=== PATIENT | male | born 1940 | race Asian ===

== ENCOUNTER 2018-05-07 10:18 | Inpatient (IN) | payer OTHER ==
[2018-05-07 13:36] VITALS: BMI 20.2
[2018-05-07] MEDS ORDERED: DIPHENHYDRAMINE 25 MG TAB/CAP PO PRN (14:00)
[2018-05-07] MEDS ORDERED: POLYETHYL GLY 3350 17 GM/DOSE PO PRN (14:00)
[2018-05-07] MEDS ORDERED: ONDANSETRON 4 MG/2 ML VIAL IV PRN (14:00)
[2018-05-07] MEDS ORDERED: LOPERAMIDE HCL 2 MG CAPSULE PO PRN (14:00)
[2018-05-07] MEDS ORDERED: ACETAMINOPHEN 325 MG TABLET PO PRN (14:00)
[2018-05-07] MEDS ORDERED: ONDANSETRON 4 MG (ODT) TAB PO PRN (14:00)
--- NOTE | 2018-05-07 14:24 | RAD REPORT ---
EXAM DESCRIPTION: RAD - Chest Pa And Lat (2 Views) - 05/07/2018 2:18 pm CLINICAL HISTORY: ARF Chest pain. COMPARISON: No comparisons FINDINGS: The lungs are clear. The heart is normal in size. No displaced fractures. IMPRESSION: No acute or concerning finding suspected.
[2018-05-07 15:02] LABS: Absolute Lymphocytes (CBC) 0.9 K/uL (0.7-4.9); Absolute Monocytes 0.3 K/uL (0.1-1.3); Absolute Neutrophil 2.2 K/uL (1.8-8.0); Basophils % 1.5 % (0-1.3); Eosinophils % 2.1 % (0-4.4); Hematocrit 26.4 % (39.6-49.0); Lymphocytes % 25.5 % (15.3-44.8); MCH 34.7 pg (27.0-35.0); MCV 102.9 fL (80-100); MPV 8.4 fL (7.6-11.3); Monocytes % 8.4 % (3.3-12.3); RBC Red Blood Cell Count 2.57 M/uL (4.33-5.43)
[2018-05-07 15:12] LABS: Protime INR 0.91
--- NOTE | 2018-05-07 15:20 | RAD REPORT ---
EXAM DESCRIPTION: US - Abdomen Pelvis Scan US - 05/07/2018 2:57 pm CLINICAL HISTORY: ARF COMPARISON: No comparisons FINDINGS: The left kidney measures 9.6 x 5.2 x 4.0 cm. The kidney is echogenic. Mild left-sided hydr onephrosis is seen. A stone is present in the midpole left renal calyx. Several left renal cortical c ysts are noted. The right kidney measures 9.1 x 4.7 x 4.0 cm. The kidney is echogenic. Multiple cysts are present. Urinary bladder appears quite distended. The prostate gland is enlarged. Aortic velocity: 84 cm/second Right proximal renal artery: 44 cm/second Right mid renal artery: 53 cm/second Right distal renal artery: 34 cm/second Right renal arcuate artery resistive index: 1.0 Right renal artery / aorta ratio: 0.6 Left proximal renal artery: 80 cm/second Left mid renal artery: 91 cm/second Left distal renal artery: 42 cm/second Left renal arcuate artery resistive index: 0.6 Left renal artery/aorta ratio: 1.1 Normal waveforms demonstrated within the bilateral renal arteries. IMPRESSION: No evidence of hemodynamically significant stenosis within the bilateral renal arteries. Echogenic kidneys bilaterally. Left-sided mild hydronephrosis with left nephrolithiasis seen. Multiple renal cysts are present bilaterally. Distended urinary bladder with prostatomegaly.
[2018-05-07 15:55] LABS: Albumin 3.4 g/dL (3.4-5.0); Bilirubin Direct 0.1 mg/dL (0-0.2); Bilirubin Total 0.5 mg/dL (0.2-1.0); Magnesium 2.9 mg/dL (1.8-2.4); Potassium 4.9 mmol/L (3.5-5.1); Protein, Total 6.9 g/dL (6.4-8.2); Thyroid Stimulating Hormone 0.58 uIU/mL (0.36-3.74)
[2018-05-07] MEDS: NA CHLORIDE 0.9% 1,000 ML IV SCH (16:58)
[2018-05-08] MEDS: NA CHLORIDE 0.9% 1,000 ML IV SCH ×3 (00:23→20:44)
--- NOTE | 2018-05-08 01:56 | CON ---
Date of Consultation: 05/07/2018 NEPHROLOGY CONSULTATION Reason For Consultation: Elevated BUN and creatinine, fluid management. History Of Present Illness: This is a pleasant 77-year-old gentleman with significant past medical h istory of only hypertension, no diabetes, no osteoarthritis, no coronary artery disease. The patient was in his regular state of health visit with his primary care, Dr. Stone. The primary workup showe d elevation in BUN and creatinine, creatinine above 4. For that reason, the patient was referred to Dr. Doyle. Dr. Doyle saw the patient yesterday in the office and directed him for inpatient evaluation because of acute kidney injury, GFR around 13. The patient denied taking nonsteroidal, no IV contra st, no recent change in his medication. According to him, he visited with his primary and done the l abs, and for that reason he was referred. The patient denied any exposure to any antibiotics, no rec ent hospitalization. The patient has polyuria without any significant nocturia, no foamy urine. Past Medical History: Include hypertension. Allergies: TO CEPHALOSPORIN. Family History: Positive for hypertension. Medications: Home medication includes amlodipine. Current medications include loperamide, amlodipine, Tylenol, and Zofran. Review of Systems: Head and Neck: No red eye. No ear pain. GI: No nausea, no vomiting. : No polyuria. No dysuria. No hematuria. No nocturia. 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 Respiratory: No shortness of breath. Cardiovascular: No chest pain. Endocrine: No polydipsia. Skin: No rash. Neuro: No weakness. No tremor. Musculoskeletal: No joint pain. Physical Examination: General: When I saw the patient, the patient is sitting in chair. Vital Signs: Blood pressure 141/61, pulse of 63, afebrile. Chest: Clear to auscultation. Heart: S1, S2. Regular. Abdomen: Soft, nontender. Extremities: No edema. Neurologic: Alert. Oriented x3. Nonfocal. Vascular: Could not appreciate any carotid bruit, could not appreciate any renal bruit even though t hat the patient not severely obese. Laboratory Data: Sodium 137, potassium 4.9, bicarb 21, BUN 64, creatinine 3.5, GFR of 17, calcium 11 .5, phosphorus 4, magnesium 2.9. PSA 7. B12 of 616. Vitamin D still pending. TSH 0.5. Urinalysis is still pending. INR within normal limit at 0.9. WBC 3.5, H and H 8.9/26.4, platelets 177. Abdominal Ultrasound: A 9.6 left mild hydronephrosis. Stone present in the midpole of the renal az culi, right kidney, 9.1. Assessment And Plan: Acute kidney injury, possible secondary to obstructive uropathy, superimposed w ith prerenal secondary to calcium diuresis. 1.I am going to start the patient on aggressive hydration and after the aggressive hydration, we pravin l diurese the patient. 2.We will send for full workup given the presence of hypercalcemia and the anemia, malignancy need t o be ruled out. I am going to send for uric acid and LDH. We will scan the abdomen and the chest, a nd we will follow up. Given the presence of the elevation in the PSA, prostate cancer is one of the possibility, we will see with the CT. 3.Kidney stone with obstructive uropathy and acute kidney injury. We will send for CT with a stone protocol to rule out further complication. The patient will need Urology eval. 4.Hypercalcemia, possible secondary to paraneoplastic. We will send for PTH. I agree with the obed min D eval. We will start hydration. We will consider Lasix after the hydration. 5.Anemia with acute kidney injury, possible secondary to chronic kidney disease/light chain disease need to be ruled out, we will send for full workup. 6.Hypertension. I agree with current medication. We will increase Norvasc. We will hold on adding any MICHAEL inhibitor or ARB. 7.Acidosis, non-anion gap. Stable. I do not see any need for bicarb supplement. Thank you Dr. Stone for allowing us to participate in the care of your patient. BEE/ANDREINA Voice ID: [id number] Report ID: [id number]
[2018-05-08 04:48] LABS: Absolute Lymphocytes (CBC) 0.9 K/uL (0.7-4.9); Absolute Monocytes 0.6 K/uL (0.1-1.3); Absolute Neutrophil 5.3 K/uL (1.8-8.0); Eosinophils % 1.9 % (0-4.4); Hematocrit 25.1 % (39.6-49.0); Lymphocytes % 13.1 % (15.3-44.8); MCH 35.3 pg (27.0-35.0); MCV 101.6 fL (80-100); MPV 8.4 fL (7.6-11.3); Monocytes % 7.9 % (3.3-12.3); RBC Red Blood Cell Count 2.47 M/uL (4.33-5.43)
[2018-05-08 05:42] LABS: Albumin 3.1 g/dL (3.4-5.0); Ferritin 86.3 ng/mL (26-388); Folic Acid, (Folate) 19.8 ng/mL (3.1-17.5); Magnesium 2.4 mg/dL (1.8-2.4); Phosphorus 3.4 mg/dL (2.5-4.9); Potassium 5.3 mmol/L (3.5-5.1)
[2018-05-08 07:27] LABS: Urine Appearance CLEAR; Urine Bilirubin NEGATIVE (NEG); Urine Blood 3+ (NEG); Urine Color YELLOW; Urine Glucose NEGATIVE (NEG); Urine Protein TRACE (NEG); Urine Urobilinogen 0.2 mg/dL (0.2-1.0)
[2018-05-08 07:31] LABS: Urine Microscopic Reflex ORDER UMIC
[2018-05-08 07:48] LABS: Rheumatoid Factor NEG (NEG)
[2018-05-08 07:55] LABS: Urine Bacteria 20-50 /HPF (NONE SEEN); Urine RBC LOADED /HPF (NONE SEEN)
[2018-05-08 07:56] LABS: Urine Culture Reflex Order REFLEXED
[2018-05-08] MEDS ORDERED: AMLODIPINE 5 MG TAB PO SCH (09:00)
--- NOTE | 2018-05-08 10:02 | RAD REPORT ---
EXAM DESCRIPTION: CT - Abdomen Pelvis Wo Contrast - 05/08/2018 9:44 am CLINICAL HISTORY: Obstructive nephropathy<Reason For Exam>Obstructive nephropathy COMPARISON: Abdomen Pelvis Scan US dated 05/07/2018<Comparisons> TECHNIQUE: Axial [address] imaging of the abdomen and pelvis was performed without IV contrast. No IV contrast was given because of allergy, abnormal renal function, patient refusal or physician re quest. Oral contrast was given. All CT scans are performed using dose optimization technique as appropriate and may include automated exposure control or mA/KV adjustment according to patient size. FINDINGS: No suspicious findings in the lung bases. Superior right lobe liver shows a few small rounded low-density areas largest at 19 mm. A few granulo ma calcifications are present in the liver. Liver lesions are not fully characterized on noncontrast imaging. Incidental cyst most likely etiology. No spleen or pancreatic parenchymal abnormality. Gallb ladder and biliary tree are also without suspicious finding. Gallstones can be occult on CT imaging. No hydronephrosis of either kidney. Very slight fullness of the left renal pelvis is not outside of n ormal range and is not continue as ureter dilatation. Numerous bilateral caliceal calculi are present up to 5 mm in size. In the anterior upper pole right kidney there is a 2.1 centimeter round low-dens ity mass. In the lateral mid right kidney there is a 2.5 centimeter round low-density mass. Lower alayna e left kidney shows 3.1 centimeter round low-density mass. Posterior mid left kidney shows a 2.5 cent imeter low-density mass. These are most likely cysts but are not fully characterized in the absence o f contrast. No significant adrenal finding. Isodense renal masses and pyelonephritis cannot be exclu ded in the absence of IV contrast. Prostate gland is quite large projecting into the bladder base. The bladder is contracted around a Fo yuval catheter. No bladder calculus seen. There are prostate calcifications present. León the bladder cannot be accurately assessed in the contracted state. No dilatation of the stomach. A focal mass is not seen. Gastric wall thickness is difficult to assess as there is no gastric content present. Small bowel loops are not dilated. Oral contrast is distribu antwon throughout the distal small bowel and colon. No colon dilatation. A focal mass is not seen. There are numerous areas of prominent mucosal thickening or nodularity in the colon most likely due to inc omplete distension. CT assessment is limited. No free air, free fluid or pneumatosis. There is a mild congested or edematous appearance to the per itoneal and subcutaneous fat. No hernia or bulky lymphadenopathy. In the subcutaneous fatty tissues left-side gluteal crease there is a 3.5 centimeter soft tissue mass . This is not further characterized. Attenuation is greater than typically seen with abscess. Correla tion is needed with physical exam finding. Disc and bony degenerative changes are present. No pathologic bone process seen. IMPRESSION: No hydronephrosis or obstructing calculus. Slight fullness of the left renal pelvis is n ot outside of normal range. Bilateral 5 mm or less caliceal calcifications are present. Bilateral low-density masses of the kidneys not fully characterized. Benign cysts would be the most l ikely etiology. Prominent enlargement of the prostate gland projecting into the bladder base. Bladder is contracted a round a Bahena catheter and is limited in assessment. Approximately 3.5 cm soft tissue mass in the subcutaneous tissues left-side of the gluteal crease. Et iology is uncertain. No inflammatory stranding in the adjacent fat. Additional nonacute findings detailed in the body of the report. Assessment is limited in the absence of IV contrast. Full assessment is limited is the absence of IV contrast.
--- NOTE | 2018-05-08 16:20 | EKG ---
Test Date: 2018-05-07 Test Time: 15:11:25 Tmr Teacher: MIGUELINA MEASUREMENT RESULTS: Intervals: Rate: 73 NE: 288 QRSD: 144 QT: 412 QTc: 453 [place]den: P: 61 NE: 288 QRS: 59 T: 61 INTERPRETIVE STATEMENTS: Sinus rhythm with 1st degree AV block Right bundle branch block Anteroseptal infarct, age undetermined Abnormal ECG No previous ECG available for comparison Electronically Signed On 05-08-18 16:14:56 CDT by Kamran Díaz
--- NOTE | 2018-05-08 18:04 | P.PN ---
Subjective Date of Service: 05/08/18 Chief Complaint: CRUZ, SINCE LAST NIGHT. RENAL FAILURE. Subjective: Improving (HE HAD LARGE AMT OF RETAINED URINE. I HAD THEM PLACE CRUZ AND HE IS ALREADY BETTER.) Review of Systems 10-point ROS is otherwise unremarkable Physical Examination - Vital Signs Temperature: 98.2 F Blood Pressure: 114/56 Pulse: 61 Respirations: 18 Pulse Ox (%): 100 - Physical Exam General: Alert, Cachectic, Mild distress HEENT: Atraumatic, PERRLA, EOMI Neck: Supple, JVD not distended Respiratory: Clear to auscultation bilaterally, Normal air movement Cardiovascular: Regular rate/rhythm, Normal S1 S2 Gastrointestinal: Normal bowel sounds, No tenderness Musculoskeletal: No tenderness Integumentary: No rashes Neurological: Normal speech, Normal tone, Normal affect Lymphatics: No axilla or inguinal lymphadenopathy - Studies Laboratory Data (last 24 hrs) 05/08/18 04:26: Sodium 141, Potassium 5.3 H, BUN 56 H, Creatinine 3.30 H, Glucose 85, Phosphorus 3.4, Magnesium 2.4 D 05/08/18 04:26: WBC 7.0 D, Hgb 8.7 L, Hct 25.1 L, Plt Count 201 Microbiology Data (last 24 hrs): 05/07/18 14:06 Blood - Blood Anaerobic Blood Culture - Final Medications List Reviewed: Yes Assessment And Plan - Current Problems (Diagnosis) (1) Obstructed, uropathy Current Visit: Yes Status: Chronic Plan: BPH MOST LIKELY DR HOOVER CONSULTED SHOULD HAVE CREAT IMPROVED WITH OBST RELIEVED. (2) Anemia Current Visit: Yes Status: Chronic Qualifiers: Anemia type: due to chronic kidney disease (3) Acute renal failure Current Visit: Yes Status: Acute Plan: ABOVE.
[2018-05-08] MEDS: TAMSULOSIN 0.4 MG SR CAP PO SCH (20:43)
[2018-05-08] MEDS ORDERED: CALCITROL 0.25 MCG CAP PO SCH (22:00)
--- NOTE | 2018-05-08 23:46 | CON ---
History Of Present Illness: A 77-year-old gentleman with a past medical history only of hypertension , no diabetes, no osteoarthritis, no coronary artery disease, who was in regular state of health, ashley t to his primary care and was found to have elevated BUN and creatinine, that was almost stage IV yani al failure. He was sent to be admitted with a GFR around 13. Denies any medications such as nonster oidal or IV contrast recently. He does mention that he has been having some difficulty with lower ur inary tract symptomatologies such as frequency, 2 hours; nocturia, 2 hours; decrease in force of stre am; some bubbles in the urine; and some hesitancy. Denies any hematuria. He had kidney stones 25 ye ars ago. Ultrasound was done, that showed questionable hydro but CT scan did not show any hydronephr osis. He said when they put a Bahena catheter in, about 200 to 300 came out but he is not sure. He h as made lots of urine overnight, part of it may be due to hydration but he was negative 1 L, but ment ioned that he has made 2 L over 12 hours. It is possible that the he may have obstructive uropathy a nd need to be on tamsulosin. His PSA was also elevated at 7.1. Calcium and PTH are elevated also. His CT scan did show tiny calyceal stones on the left; 2 cysts on the left, one in the middle of left kidney of 2.5, left lower kidney 3.1; there is a 2.1 cm right upper pole, 2.5 cm right mid pole; leroy t will need further evaluation with contrast but now is not a good time due to his renal failure. He needs to be worked up for obstructive uropathy, most likely at the level of the prostate right now. His prostate was very enlarged on examination, possibly 40 to 50 g, which is very enlarged for a man his size. Past Medical History: Hypertension. Allergies: TO CEPHALOSPORINS. Family History: Positive for hypertension. Medications: Home medication plus amlodipine. Current medications include loperamide, amlodipine, T ylenol, and Zofran. Review of Systems: A 10-point review of systems essentially negative. HEENT: Negative. GI: No nausea, no vomiting. : As mentioned above. Respiratory: No shortness of breath. Cardiovascular: No chest pain. Endocrine: No polydipsia. Skin: No rash. Neuro: Negative. Musculoskeletal: No joint pain. Physical Examination: General: Gentleman lying in bed in no acute distress. Slightly underweight. Vital Signs: 98.2 temperature, 61 pulse, 18 respiratory rate, BP 114/56, sats 100%. HEENT: Atraumatic, normocephalic. Chest: Clear. Heart: S1, S2. Abdomen: Soft, nontender. : Slightly dried blood on the penis from the traumatic Bahena catheter insertion. Testicles normal . Rectal: Enlarged 40 to 50 g prostate, benign feeling, no nodules, no signs of any induration. Extremities: Normal range of motion. Laboratory Data: Show creatinine 3.5, down to 3.3 today. His sodium now is 141, potassium 5.3, chlo ride 111, carbon dioxide 21, BUN 56. GFR 18, same as yesterday which is 17. Glucose 85, calcium 10. 8, phosphorus 3.4, magnesium 2.4. Vitamin B12 is 646. PSA, as I mentioned, was 7.1 on 05/07/2018. Assessment And Plan: Possible obstructive uropathy, suspicious at the level of the bladder. He has some kidney cysts, needs further workup with contrast study at a later date when he is well and kidne y function is back to normal. Elevated potassium, calcium, and PTH along with PSA. Recommend for th e patient tamsulosin, Bahena catheter drainage, recheck PSA at a later date with possible 4K PSA. May need cystoscopy and uroflow to further evaluate his lower tract and also his upper tract will need to be e valuated further with imaging. RENA/ANDREINA Voice ID: [id number] Report ID: [id number]
--- NOTE | 2018-05-09 02:35 | PN ---
Date of Progress Note: 05/08/2018 Subjective: The patient was admitted with acute kidney injury. Workup showed obstructive uropathy. Kidney function is slightly improved. The patient feeling better. Physical Examination: Vital Signs: When I saw the patient, blood pressure 114/56, pulse of 61, afebrile. The patient had good urine output of 2800. Chest: Clear to auscultation. Heart: S1, S2. Regular. Abdomen: Soft, nontender. Extremities: No edema. Laboratory Data: WBC 7, H and H 8.7/25.1, platelets of 201. Sodium 141, potassium 5.3, bicarb 21, c hloride 111, BUN 56, creatinine down to 3.3, GFR of 18. TSAT of 38. SPEP is still pending. Folate 19, PTH of 337. TSH 0.5. B12 646. Vitamin D still pending. Rbc's loaded on the UA, wbc's of 10. Serology is still pending. UPEP is still pending. CT abdomen and pelvis showing no hydronephrosis o r obstructing calculi, slightly fullness of the left renal pelvis, bilateral low-density masses of le ft kidney not fully characterize benign cyst. Prominent enlargement of prostate. Medications: Current medications the patient on its include: 1.Tylenol. 2.Loperamide. 3.Zofran. 4.IV fluid. Assessment And Plan: 1.Acute kidney injury, possible obstructive uropathy. We will follow up. We will consult Urology t o evaluate, obstructive kidney stone has been ruled out by the CT. We will follow up with Urology. We will consider Flomax as per their recommendation. 2.Hypertension, controlled, optimal keep holding any MICHAEL inhibitor. 3.Chronic kidney disease. We will request the record from Dr. Stone. 4.Anemia in the presence of the proteinuria and hematuria with the presence of the anemia and acute kidney injury. Light chain disease needs to be ruled out, so we will follow up SPEP. 5.Secondary hyperparathyroidism. I am going to start the patient on calcitriol. 6.Obstructive uropathy as above. We will follow up with Urology. 7.Hematuria, possibly secondary to traumatic. We will request the record from the office to see bef ore Bahena insertion if there is any hematuria. We will follow up with the serology to rule out any n ephritis. BEE/ANDREINA Voice ID: [id number] Report ID: [id number]
[2018-05-09 05:15] LABS: Absolute Lymphocytes (CBC) 0.9 K/uL (0.7-4.9); Absolute Monocytes 0.5 K/uL (0.1-1.3); Absolute Neutrophil 3.3 K/uL (1.8-8.0); Eosinophils % 2.3 % (0-4.4); Hematocrit 23.8 % (39.6-49.0); Lymphocytes % 18.4 % (15.3-44.8); MCH 35.7 pg (27.0-35.0); MCV 101.1 fL (80-100); MPV 8.2 fL (7.6-11.3); Monocytes % 9.7 % (3.3-12.3); RBC Red Blood Cell Count 2.35 M/uL (4.33-5.43)
[2018-05-09 05:42] LABS: Albumin 2.7 g/dL (3.4-5.0); Magnesium 2.2 mg/dL (1.8-2.4); Potassium 5.3 mmol/L (3.5-5.1)
[2018-05-09 06:10] LABS: Urine Appearance CLEAR; Urine Bilirubin NEGATIVE (NEG); Urine Blood 3+ (NEG); Urine Color YELLOW; Urine Glucose NEGATIVE (NEG); Urine Protein NEGATIVE (NEG); Urine Urobilinogen 0.2 mg/dL (0.2-1.0)
[2018-05-09 06:11] LABS: Urine Microscopic Reflex ORDER UMIC
[2018-05-09 06:13] LABS: Urine Total Volume 24 Hours 2275 ml
[2018-05-09] MEDS: NA CHLORIDE 0.9% 1,000 ML IV SCH ×3 (06:15→23:47)
[2018-05-09 06:16] LABS: Urine Protein/Creatinine Ratio 0.54 ratio (<0.15)
[2018-05-09 06:21] LABS: UR PROTEIN 30 mg/dL (<11.9)
[2018-05-09 06:49] LABS: Urine Bacteria <20 /HPF (NONE SEEN); Urine Culture Reflex Order NOT NEEDED; Urine RBC 20-50 /HPF (NONE SEEN)
[2018-05-09] MEDS: AMLODIPINE 5 MG TABLET PO SCH (08:47)
--- NOTE | 2018-05-09 19:09 | PN ---
Subjective: The patient is feeling well today. Objective: Vital Signs: 98.0, 69, 18, 138/54, 98% saturations. Laboratory Data: White count stable at 4.8, H and H is 8.4 and 24, platelet count 173. Coags normal . Chemistry, creatinine down from 3.3 to 3.1. GFR 18-20 slowly increasing, a small change. Bahena c atheter continues to drain, took in 1416, put out 1200 cc in a shift. Assessment And Plan: Obstructive uropathy, renal failure. Continue Bahena catheter. History of elev ated prostate-specific antigen. We will make prostate-specific antigen repeated. Also need some ant ibiotic to go home when he is discharged tomorrow. Follow up with me in a week or 2 to repeat PSA, p ossibly we will do 4K blood tests, cystoscopy, uroflow, possible TURP candidate. RENA/ANDREINA Voice ID: [id number] Report ID: [id number]
[2018-05-09 19:54] LABS: Vitamin D 1,25-Dihydroxy Total 21 pg/mL (18-72); Vitamin D,1,25-OH2, D2 <8 pg/mL
[2018-05-09] MEDS: TAMSULOSIN 0.4 MG SR CAP PO SCH (21:35)
--- NOTE | 2018-05-09 22:04 | P.PN ---
Subjective Date of Service: 05/09/18 Chief Complaint: CRUZ, SINCE LAST NIGHT. RENAL FAILURE. Subjective: Improving (STRONGER) Review of Systems 10-point ROS is otherwise unremarkable General: Weakness, Malaise Physical Examination - Vital Signs Temperature: 98.5 F Blood Pressure: 152/67 Pulse: 79 Respirations: 18 Pulse Ox (%): 100 - Physical Exam General: Mild distress HEENT: Atraumatic, PERRLA, EOMI Neck: Supple, JVD not distended Respiratory: Clear to auscultation bilaterally, Normal air movement Cardiovascular: Regular rate/rhythm, Normal S1 S2 Gastrointestinal: Normal bowel sounds, No tenderness Musculoskeletal: No tenderness Integumentary: No rashes Neurological: Normal speech, Normal tone, Normal affect Lymphatics: No axilla or inguinal lymphadenopathy - Studies Laboratory Data (last 24 hrs) 05/09/18 04:20: Sodium 143, Potassium 5.3 H, BUN 49 H, Creatinine 3.10 H, Glucose 91, Phosphorus 3.0, Magnesium 2.2 05/09/18 04:20: WBC 4.8 D, Hgb 8.4 L, Hct 23.8 L, Plt Count 173 Medications List Reviewed: Yes Assessment And Plan - Current Problems (Diagnosis) (1) Obstructed, uropathy Onset Date: 05/08/18 Current Visit: Yes Status: Chronic Plan: BPH MOST LIKELY DR HOOVER CONSULTED SHOULD HAVE CREAT IMPROVED WITH OBST RELIEVED. CREAT IS IMPROVING JUST WITH CRUZ CATHETER. (2) Anemia Onset Date: 05/08/18 Current Visit: Yes Status: Chronic Qualifiers: Anemia type: due to chronic kidney disease (3) Acute renal failure Onset Date: 05/08/18 Current Visit: Yes Status: Acute Plan: ABOVE. STABLE AT 8.6 GM ANEMIA OF CHRONIC DISEASE.
--- NOTE | 2018-05-10 02:30 | PN ---
Date of Progress Note: 05/09/2018 Chief Complaint: Acute kidney injury, severe nonoliguric associated with obstructive uropathy. The patient was found to have hydronephrosis. Bahena catheter was obtained. CT scan was done to rule out obstructive stone, and Urology recommended Bahena catheter. The patient was to start Flomax. Hypertension, controlled. The patient is off MICHAEL inhibitor due to acute kidney injury. The patient was started on IV fluids for hydration. Renal function slightly improved. The patient was found to have nonoliguric acute kidney injury secondary to prerenal azotemia and obstructive uropathy associated with hyperkalemia. Potassium level has been stable over the last 48 hours. Review of Systems: The patient denies fever or chills. Physical Examination: Eyes: Anicteric sclerae. Lungs: Clear to auscultation bilaterally. Heart: S1, S2. Abdomen: Soft, benign. Extremities: No edema. Laboratory Data: Sodium 143, potassium 5.3, chloride 114, CO2 23, BUN 49, creatinine 3.1, calcium 10.5. Impression And Plan: 1. Rhrcj-yq-szeihcj kidney injury. Renal function slightly improved since yesterday. The patient will continue IV fluids for hydration. Continue Bahena catheter. The patient may need TURP procedure, which will be done by a Urology when kidney function stabilizes. CT scan was done to rule out kidney stones. 2. Hypertension, controlled. Continue to hold MICHAEL inhibitor. 3. Chronic kidney disease. Recommend to avoid nonsteroidal anti-inflammatory medication. 4. Hypercalcemia, pending work-up for hyperparathyroidism and hypercalcemia. 5. Hematuria. Urology consultation was obtained. The patient had a Bahena catheter. He will have cystoscopy . Monitor urine output. Continue IV fluids. I spent total 36 min including 26 min to coordinate care plan. REVA/ANDREINA Voice ID: [id number] Report ID: [id number] TAMMY
[2018-05-10 03:02] VITALS: O2SAT 98
[2018-05-10 05:41] LABS: Albumin 2.5 g/dL (3.4-5.0); Magnesium 1.9 mg/dL (1.8-2.4); Phosphorus 3.2 mg/dL (2.5-4.9); Potassium 4.7 mmol/L (3.5-5.1)
[2018-05-10 05:53] LABS: Absolute Lymphocytes (CBC) 0.8 K/uL (0.7-4.9); Absolute Monocytes 0.5 K/uL (0.1-1.3); Basophils % 0.9 % (0-1.3); Eosinophils % 2.3 % (0-4.4); Hematocrit 23.7 % (39.6-49.0); Lymphocytes % 15.3 % (15.3-44.8); MCH 35.7 pg (27.0-35.0); MCV 100.7 fL (80-100); MPV 8.4 fL (7.6-11.3); Monocytes % 8.6 % (3.3-12.3); RBC Red Blood Cell Count 2.36 M/uL (4.33-5.43)
[2018-05-10] MEDS: AMLODIPINE 5 MG TABLET PO SCH (08:42)
[2018-05-10] MEDS ORDERED: FLUDROCORTISONE 0.1 MG TAB PO SCH (09:00)
[2018-05-10 11:53] LABS: HIV 1/2 Antibody Diff Not indicated.; HIV AG/AB 4TH GEN Non-reactive (Non-reactive)
[2018-05-10] MEDS: NA CHLORIDE 0.9% 1,000 ML IV SCH (12:00)
[2018-05-10 12:55] VITALS: BP 145/65; TEMP 97.4
[2018-05-10 14:48] LABS: Hepatitis C Virus RNA (PCR)log <1.18 log IU/mL
--- NOTE | 2018-05-10 16:18 | PN ---
Subjective: The patient is feeling well, ready to go home, being discharged today. Objective: Vital Signs: 97.9, pulse 61, respirations 18, BP 126/60, 97% on room air. Is and Os, too k in 1400, put out of 1800, negative for 400. Laboratory Data: His GFR has not changed much, still 20%. Creatinine is only down to 3.0, still hig h. We will continue Bahena catheter drainage. Send him on Macrodantin and Flomax. Follow up with me in 2 weeks. Follow up with Nephrology in a week. He will need a PSA evaluated, cysto, uroflow and poss ible preop TURP. PB/MODL Voice ID: [id number] Report ID: [id number]
--- NOTE | 2018-05-10 16:47 | P.DS ---
Admission Date: 05/09/18 Discharge Date: 05/10/18 Disposition: ROUTINE DISCHARGE Reason for Admission: CRUZ, SINCE LAST NIGHT. RENAL FAILURE. - Problems (1) Obstructed, uropathy Onset Date: 05/08/18 Status: Chronic (2) Anemia Onset Date: 05/08/18 Status: Chronic Qualifiers: Anemia type: due to chronic kidney disease (3) Acute renal failure Onset Date: 05/08/18 Status: Acute Hospital Course: MR ALCOCER HAS IMPROVED WITH CRUZ CATHETER. HE HAS POST OBSTRUCTIVE UROPATHY. HIS CREATINE CAME DOWN FROM 4.5 TO 3.0. HE CAN CONTINUE OUTPATIENT WORK WITH DR. GORDON AND DR LANE. HE WILL NEED TURP WHENHE IS STABLE. HE IS CACHECTIC GM WHO HAS NOT FOLLOWED RECOMMENDATIONS WELL UNTIL RECENTLY. HE WILL CONTINUE FLOMAX AND ABX FOR NOW. DR GORDON DCED HIM THIS AM. Vital Signs/Physical Exam: Temp Pulse Resp BP Pulse Ox 97.4 F 66 16 145/65 H 99 05/10/18 12:00 05/10/18 12:00 05/10/18 12:00 05/10/18 12:00 05/10/18 12:00 Laboratory Data at Discharge: WBC 5.5 K/uL (4.3-10.9) D 05/10/18 04:42 Hgb 8.4 g/dL (13.6-17.9) L 05/10/18 04:42 Hct 23.7 % (39.6-49.0) L 05/10/18 04:42 Plt Count 183 K/uL (152-406) 05/10/18 04:42 PT 10.7 SECONDS (9.5-12.5) 05/07/18 14:06 INR 0.91 05/07/18 14:06 APTT 36.7 SECONDS (24.3-36.9) 05/07/18 14:06 Sodium 141 mmol/L (136-145) 05/10/18 04:42 Potassium 4.7 mmol/L (3.5-5.1) 05/10/18 04:42 BUN 45 mg/dL (7-18) H 05/10/18 04:42 Creatinine 3.00 mg/dL (0.55-1.3) H 05/10/18 04:42 Glucose 96 mg/dL (74-106) 05/10/18 04:42 Phosphorus 3.2 mg/dL (2.5-4.9) 05/10/18 04:42 Magnesium 1.9 mg/dL (1.8-2.4) 05/10/18 04:42 Total Bilirubin 0.5 mg/dL (0.2-1.0) 05/07/18 14:06 AST 12 U/L (15-37) L 05/07/18 14:06 ALT 21 U/L (12-78) 05/07/18 14:06 Alkaline Phosphatase 57 U/L (45-117) 05/07/18 14:06 Home Medications: Amlodipine Besylate 5 mg PO DAILY 05/07/18 Ciprofloxacin HCl [Cipro 250 MG Tablet*] 250 mg PO BID #42 tab 05/10/18 Tamsulosin HCl [Flomax] 0.4 mg PO DAILY #30 cap.er.24h 05/10/18 New Medications: Ciprofloxacin HCl [Cipro 250 MG Tablet*] 250 mg PO BID #42 tab Tamsulosin HCl [Flomax] 0.4 mg PO DAILY #30 cap.er.24h Followup: Nathan Gordon MD [ACTIVE - CAN ADMIT] - 1 Week Angelia Ko MD [COURTESY - CAN ADMIT] - 1 Week
[2018-05-10 18:56] LABS: HBsAG Nonreactive (Nonreactive)
[2018-05-11 04:48] LABS: Anti-Cardiolipin IgA Antibody <11 APL (<=11)
[2018-05-11 12:13] LABS: Urine Bence (Immunoelectr)24hr REPORT
[2018-05-11 15:13] LABS: Albumin, (SPE) 3.6 g/dL (3.8-4.8); Alpha-1-Globulins 0.2 g/dL (0.2-0.3); Alpha-2-Globulins 0.5 g/dL (0.5-0.9); Gamma Globulins 0.8 g/dL (0.8-1.7); INTERPRETATION REPORT
[2018-05-13 09:57] LABS: Beta Globulin 24 HR Urine 0 %; Creatinine 24 Hour Urine 1.01 g/24 h (0.63-2.50); Gamma Globulin, 24hr Urine 0 %; Interpretation: REPORT; Urine Alpha-2-Globulins, 24 Hr 0 %; Urine PEP Abn Protein Band1 REPORT; Urine Protein/Creat Ratio 24Hr 677 mg/g creat (<=84); Urine Total Volume 24 Hours 2275 mL
[2018-05-14 14:16] LABS: P-ANCA Anti-Myeloperoxidase Ab <1.0 AI (<1.0)
[2018-05-15 05:20] LABS: Scleroderma Antibody (Scl-70) <1.0 AI (<1.0)
== END 2018-05-10 12:45 | disposition home or self-care (01) | DRG 683 ==
LOC: 2ND 11:02 → OBSVTOIN 05-09 10:12
PROVIDERS: ADMIT Internal Medicine; ATTEND Internal Medicine
DX: N17.9 Acute kidney failure, unspecified (principal); E87.2 Acidosis; D63.1 Anemia in chronic kidney disease; I12.9 Hypertensive chronic kidney disease with stage 1 through stage 4 chronic kidney disease, or unspecified chronic kidney disease; N25.81 Secondary hyperparathyroidism of renal origin; R31.0 Gross hematuria; N18.3 Chronic kidney disease, stage 3 (moderate); R97.20 Elevated prostate specific antigen [PSA]; N40.1 Benign prostatic hyperplasia with lower urinary tract symptoms; R35.0 Frequency of micturition; R39.11 Hesitancy of micturition; R35.1 Nocturia; R39.12 Poor urinary stream; Z88.1 Allergy status to other antibiotic agents; E83.52 Hypercalcemia; N13.2 Hydronephrosis with renal and ureteral calculous obstruction
CPT/HCPCS: 36415; 71046; 74176; 80048; 80069; 80076; 81003; 81015; 82553; 82570; 82607; 82652; 82728; 82746; 82962; 83520; 83540; 83735; 83970; 84100; 84156; 84165; 84166; 84443; 84466; 85025; 85044; 85610; 85730; 86021; 86038; 86147; 86160; 86225; 86235; 86317; 86335; 86430; 86704; 86706; 87040; 87086; 87088; 87340; 87389; 87522; 93005; 93975; G0103; G0378; J7030

== ENCOUNTER 2018-05-20 15:37 | Inpatient (IN) | payer OTHER ==
[2018-05-20 16:14] VITALS: BMI 19.2
[2018-05-20] MEDS: CINACALCET HCL 30 MG TAB PO SCH ×2 (17:00→18:12)
[2018-05-20] MEDS: AMLODIPINE 5 MG TAB PO SCH (17:00)
[2018-05-20] MEDS ORDERED: CIPROFLOXACIN HCL 500 MG TAB PO SCH (17:00)
[2018-05-20] MEDS: TAMSULOSIN 0.4 MG SR CAP PO SCH (17:00)
[2018-05-20] MEDS ORDERED: PNEUMOCOCCAL VACCINE 0.5 ML IMVAC ONE (17:00)
[2018-05-20] MEDS: NA CHLORIDE 0.9% 1,000 ML IV SCH (17:32)
[2018-05-20] MEDS: VITAMIN D 1000 UNIT TAB PO SCH (17:34)
[2018-05-20 17:37] LABS: Urine Appearance CLEAR; Urine Bilirubin NEGATIVE (NEG); Urine Blood TRACE (NEG); Urine Color YELLOW; Urine Glucose NEGATIVE (NEG); Urine Protein TRACE (NEG); Urine Urobilinogen 0.2 mg/dL (0.2-1.0); Urine pH 5.5 (5.0-7.0)
[2018-05-20 17:44] LABS: Urine Microscopic Reflex ORDER UMIC
[2018-05-20 17:55] LABS: Urine Bacteria <20 /HPF (NONE SEEN); Urine Culture Reflex Order NOT NEEDED; Urine RBC <5 /HPF (NONE SEEN)
[2018-05-20 18:02] LABS: Absolute Monocytes 0.4 K/uL (0.1-1.3); Absolute Neutrophil 2.8 K/uL (1.8-8.0); Basophils % 1.5 % (0-1.3); Eosinophils % 1.4 % (0-4.4); Hematocrit 26.5 % (39.6-49.0); Lymphocytes % 23.5 % (15.3-44.8); MPV 8.2 fL (7.6-11.3); Monocytes % 8.6 % (3.3-12.3); RBC Red Blood Cell Count 2.65 M/uL (4.33-5.43)
[2018-05-20 18:19] LABS: Albumin 3.5 g/dL (3.4-5.0); Bilirubin Total 0.4 mg/dL (0.2-1.0); Potassium 4.6 mmol/L (3.5-5.1); Protein, Total 7.2 g/dL (6.4-8.2)
--- NOTE | 2018-05-20 20:39 | RAD REPORT ---
EXAM DESCRIPTION: US - Thyroid Para Parotid Gland - 05/20/2018 8:29 pm CLINICAL HISTORY: YARON, CKD Abnormal thyroid hormone levels. COMPARISON: No comparisons FINDINGS: The isthmus of the thyroid measures 4 mm. The right lobe of the thyroid measures 5.1 x 2.3 x 2.0 cm. The left lobe of the thyroid measures 5.8 x 2.5 x 2.1 cm. 2.3 x 1.5 x 1.0 cm oblong mildly hypoechoic circumscribed nodule noted posterior mid left thyroid. No suspicious lesion is identified. IMPRESSION: Circumscribed hypoechoic left thyroid nodule as detailed.
[2018-05-21] MEDS: NA CHLORIDE 0.9% 1,000 ML IV SCH ×3 (04:37→20:42)
--- NOTE | 2018-05-21 04:54 | PN ---
Date of Progress Note: 05/20/2018 History Of Present Illness: Acute on chronic kidney injury. History Of Present Illness: The patient has history of acute kidney injury. Recently, he was discharged from the hospital and received IV fluids for hydration and creatinine level improved from 4.5 to 3.0. An outpatient lab work showed severe hypercalcemia, calcium was 11.6, and creatinine level was up to 3.6. The patient was admitted to the hospital for acute on chronic kidney injury. The patient has underlying obstructive uropathy, BPH, and was found to have hydronephrosis. The patient is admitted to the hospital for management of severe hypercalcemia. He was found to have hyperparathyroidism and hypercalcemia. Previously, he was started on vitamin D replacement for vitamin deficiency. Review of Systems: Neuro: The patient denies syncope. Eyes: Denies vision changes. Ears, Nose, Mouth and Throat: Denies sore throat, earache. Respiratory: Denies PND, orthopnea. Cardiovascular: Denies chest pain, palpitation. GI: Denies nausea, vomiting. : Denies dysuria, hematuria. Denies renal colic. All other systems reviewed and all are negative. Past Medical History: Hypertension, BPH, hypercalcemia, urinary tract infection. Social History: Denies tobacco, alcohol, or illicit drugs. Family History: No kidney disease in the family. Physical Examination: General: The patient is awake, alert, not in acute distress. Eyes: Anicteric sclerae. EOMI. Ears, Nose, Mouth, and Throat: Oral mucosa moist. No pallor. Neck: Supple. No JVD. No bruits. Lungs: Clear to auscultation bilaterally. Heart: S1, S2. Abdomen: Soft, benign. Nontender. Extremities: No edema. Laboratory Data: Blood pressure is 123/60, heart rate 64, respiratory rate 16, temperature 98.2, SpO2 100% on room air. Sodium 138, potassium 4.6, chloride 107, CO2 22, BUN 68, creatinine 3.8, glucose is 94, calcium 11.6. AST 13, ALT 20, 25-hydroxy vitamin D level is 64.4. Impression And Plan: 1. Acute on chronic kidney injury secondary to hypovolemia insetting of hypercalcemia complicated by nonoliguric acute tubular necrosis. Urinalysis did not show active urinary sediment. There is a trace of protein present, rbc' s less than 5, and wbc's less than 5. The patient has hypovolemic acute kidney injury with acute tubular necrosis. Continue IV fluids to prevent renal hypoperfusion. 2. Hypercalcemia. The patient will start Sensipar for hypercalcemia and hyperparathyroidism. Plan is to order nuclear medicine scan to evaluate parathyroid status. 3. Hypertension. Avoid MICHAEL inhibitor. Continue blood pressure medication. Blood pressure at this point is controlled. 4. History of urinary tract infection. The patient previously was started on Cipro. Continue Cipro. 5. Benign prostatic hyperplasia. History of elevated PSA. The patient will follow up with Dr. Gordon of Urology outpatient. He is scheduled for possible TURP. REVA/ANDREINA Voice ID: [id number] Report ID: [id number] MTDD
[2018-05-21 08:51] LABS: Potassium 4.5 mmol/L (3.5-5.1)
[2018-05-21] MEDS: VITAMIN D 1000 UNIT TAB PO SCH (09:00)
--- NOTE | 2018-05-21 10:17 | RAD REPORT ---
EXAM DESCRIPTION: NM - Parathyroid Imaging - 05/21/2018 9:52 am CLINICAL HISTORY: hyperparthyroidism COMPARISON: Thyroid Para Parotid Gland dated 05/20/2018 FINDINGS: 20.9 millicuries technetium sestamibi was administered to the patient. Immediate and 3 hour delayed scintigraphs of the neck were performed. There is a persistent focal 2 cm area of uptake in the superior aspect of the left thyroid bed which is suspicious for parathyroid adenoma. IMPRESSION: 2 cm parathyroid adenoma suspected superior left aspect of the thyroid bed.
[2018-05-21] MEDS: TAMSULOSIN 0.4 MG SR CAP PO SCH (10:29)
[2018-05-21] MEDS: AMLODIPINE 5 MG TAB PO SCH (10:29)
[2018-05-21] MEDS ORDERED: FUROSEMIDE 40 MG/4 ML VIAL IV ONE (10:58)
[2018-05-21] MEDS ORDERED: NA CHLORIDE 0.9% 500 ML IV SCH (11:00)
[2018-05-21] MEDS ORDERED: NA CHLORIDE 0.9% 500 ML IV ONE (11:11)
[2018-05-21] MEDS: CINACALCET HCL 30 MG TAB PO SCH (11:35)
--- NOTE | 2018-05-21 16:56 | P.HP ---
Certification for Inpatient Patient admitted to: Inpatient With expected LOS: >2 Midnights Practitioner: I am a practitioner with admitting privileges, knowledge of patient current condition, hospital course, and medical plan of care. Services: Services provided to patient in accordance with Admission requirements found in Title 42 Section 412.3 of the Code of Federal Regulations Patient History Date of Service: 05/21/18 Reason for admission: DEHYDRATION,HIGH CALCIUM History of Present Illness: DR. LOVELL CALLED ME TO GET HIM ADMITTED FOR HYDRATION , WORSENED RENAL FUNCTION AND HIGH CALCIUM. HE HAS NO NEW COMPLAINTS. HE IS FEELING OKAY. HE IS NOT HAPPY ABOUT PLUGGED CRUZ HE CARRIES. Allergies Cephalosporins Adverse Reaction (Verified 05/07/18 20:59) Itching/Hives/Rash Home Medications: Amlodipine Besylate 5 mg PO DAILY 05/07/18 Ciprofloxacin HCl [Cipro 250 MG Tablet*] 250 mg PO BID #42 tab 05/10/18 Tamsulosin HCl [Flomax] 0.4 mg PO DAILY #30 cap.er.24h 05/10/18 Sodium Bicarbonate 650 mg PO BID 05/20/18 - Past Medical/Surgical History Has patient received pneumonia vaccine in the past: No Diabetic: No -: HTN -: kidney stones -: Tonsilectomy - Social History Smoking Status: Never smoker Alcohol use: No CD- Drugs: No Caffeine use: No Place of Residence: Home Review of Systems 10-point ROS is otherwise unremarkable Physical Examination - Vital Signs Temperature: 97.4 F Blood Pressure: 141/65 Pulse: 75 Respirations: 17 Pulse Ox (%): 98 - Physical Exam General: Alert, Cachectic HEENT: Atraumatic, PERRLA, Mucous membr. moist/pink, EOMI, Sclerae nonicteric Neck: Supple, 2+ carotid pulse no bruit, No LAD, Without JVD or thyroid abnormality Respiratory: Clear to auscultation bilaterally, Normal air movement Cardiovascular: Regular rate/rhythm, Normal S1 S2 Gastrointestinal: Normal bowel sounds, No tenderness Musculoskeletal: No tenderness Integumentary: No rashes Neurological: Normal gait, Normal speech, Normal strength at 5/5 x4 extr, Normal tone, Normal affect Lymphatics: No axilla or inguinal lymphadenopathy - Studies Laboratory Data (last 24 hrs) 05/21/18 08:18: Sodium 139, Potassium 4.5, BUN 65 H, Creatinine 3.70 H, Glucose 102 05/20/18 17:40: Sodium 138, Potassium 4.6, BUN 68 H D, Creatinine 3.80 H, Glucose 94, Total Bilirubin 0.4, AST 13 L, ALT 20, Alkaline Phosphatase 59 05/20/18 17:40: WBC 4.3 D, Hgb 9.3 L, Hct 26.5 L, Plt Count 254 D Assessment and Plan - Problems (Diagnosis) (1) Chronic renal failure Current Visit: Yes Status: Chronic Plan: NOT READY FOR HD YET. IV FLUIDS Qualifiers: Chronic kidney disease stage: stage 4 (severe) Qualified Code(s): N18.4 - Chronic kidney disease, stage 4 (severe) (2) Hypercalcemia Current Visit: Yes Status: Chronic Plan: REMOVING PTH ADENOMA WILL HELP CONSULT DR. SHEIKH. (3) Parathyroid adenoma Current Visit: Yes Status: Chronic Plan: JUST FOUND TODAY BY TEST ORDERED BY DR LOVELL. HE HAS COMBINATION OF PRIMARY AND SECONDARY HYPERPARATHYRODISM. SAME FOR TWO REAOSONS FOR CRF. BPH AND HIGH PTH SPEP HAS BEEN DONE. - Advance Directives Does patient have a Living Will: No Does patient have a Durable POA for Healthcare: No
--- NOTE | 2018-05-22 01:17 | PN ---
Date of Progress Note: 05/21/2018 Subjective: The patient was admitted with acute kidney injury secondary to calcium diuresis and hype rcalcemia. Physical Examination: Vital Signs: Blood pressure 119/58, pulse of 66. The patient had good urine output of 2300. Chest: Clear to auscultation. Heart: S1, S2. Regular. Abdomen: Soft, nontender. Extremities: No edema. Laboratory Data: H and H 9.3/26.5, sodium 139, potassium 4.5, bicarb 23, BUN 65, creatinine 3.7, GFR of 16, calcium 10.8. PTH is still pending. Current Medications: Vitamin D3, Norvasc, Flomax, Sensipar. Assessment And Plan: 1.Acute kidney injury on advanced chronic kidney disease secondary to calcium diuresis. I am going to discontinue any vitamin D supplement, and we will give the patient bolus of normal saline, then we will diurese. We will monitor. Continue IV hydration. 2.Hypertension, controlled, optimal. Continue current medication. 3.Anemia of chronic kidney disease, stable. We will follow up with the primary. 4.Hypercalcemia, as above. Waiting for vitamin D and PTH level. BEE/ANDREINA Voice ID: [id number] Report ID: [id number]
[2018-05-22 05:22] LABS: Absolute Monocytes 0.4 K/uL (0.1-1.3); Absolute Neutrophil 3.5 K/uL (1.8-8.0); Basophils % 0.8 % (0-1.3); Eosinophils % 1.7 % (0-4.4); Hematocrit 23.8 % (39.6-49.0); MCH 35.6 pg (27.0-35.0); MCV 99.8 fL (80-100); MPV 8.2 fL (7.6-11.3); Monocytes % 8.7 % (3.3-12.3); RBC Red Blood Cell Count 2.39 M/uL (4.33-5.43)
[2018-05-22 05:35] LABS: Potassium 4.2 mmol/L (3.5-5.1)
[2018-05-22] MEDS: NA CHLORIDE 0.9% 1,000 ML IV SCH ×2 (09:34→13:22)
[2018-05-22] MEDS: AMLODIPINE 5 MG TAB PO SCH (09:34)
[2018-05-22] MEDS: TAMSULOSIN 0.4 MG SR CAP PO SCH (09:34)
[2018-05-22] MEDS: CINACALCET HCL 30 MG TAB PO SCH (09:35)
--- NOTE | 2018-05-22 11:56 | CON ---
Date of Consultation: 05/22/2018 Reason For Consultation: Hypercalcemia, hyperparathyroidism. History Of Present Illness: Mr. Kamara is a 77-year-old male who states that he had a routine blood tests some time ago demonstrating an elevated creatinine level and was instructed to follow up with his primary care physician. He did see Dr. Stone who referred him to a circular head saw operator. He was treated potentially with IV hydration for possible dehydration and had initial improvement in his creatinine level from above 4 to less than 3. On subsequent evaluations, his creatinine was again elevated into the 3 range, and he was noted to have an elevated calcium level as well. There is a history of hypertension, but no known diabetes and no other specific renal cause identified at this time. The patient was also noted to have potential postrenal causes for kidney failure including prostate hypertrophy and CT findings concerning for urolithiasis. There were also some abnormalities of the kidneys on imaging, but these are not specifically discussed with the patient during his admission approximately 2 weeks ago. The thought process with regard to renal failure was a postobstructive uropathy with plans for prostate surgery when stable and following with medications. In reviewing the medical record, the patient's outpatient calcium level was 11.6 with a creatinine of 3.6, and he was readmitted this week for [id number] kidney imaging with concerns for hyperparathyroidism. During this hospitalization, he underwent a neck ultrasound and sestamibi scan, which showed congruent finding suggestive of a left inferior parathyroid adenoma and his parathyroid hormone level is greater than 300. Past Medical History: Hypertension, benign prostatic hypertrophy, history of urinary tract infection. Social History: Negative for tobacco, alcohol, or drugs. Family History: Negative for kidney disease. Physical Examination: The patient is awake and alert. He remains afebrile. His blood pressure this morning is 121/64, oxygen saturations 98% to 99% on room air, heart rate of 56. Current Medications: Norvasc, Sensipar, Flomax. Data: Urine culture performed on 05/07 was negative for infection. He has stable anemia with a hemoglobin between 8.4 and 9.3, Coags studies are normal. Over the last 3 weeks available lab results in the hospital system show a calcium from 11.6 with a current calcium this morning of 9.8 likely due to aggressive hydration. His creatinine this morning is 3.6. PTH yesterday was 245. The parathyroid scan performed yesterday, the radiology report and images are personally reviewed by me and are consistent with increased uptake in the left neck on delayed imaging. The ultrasound, images, and radiology report are reviewed. Overall, he has a homogeneous appearing thyroid gland with a small 2 to 3 mm hypoechoic versus cystic lesion. On the left side, there is a significant size hypoechoic lesion on the left posterior lateral aspect of the thyroid adjacent to the carotid artery. In this clinical scenario, this is very suspicious for an adenoma given its size. Imaging report of the CT of the abdomen is reviewed. Immunology evaluation was ordered with his prior hospitalization. Hepatitis and HIV panels are all negative. PRASHANT, rheumatoid factor, myeloperoxidase antibody, C-ANCA are all negative. Assessment: Hypercalcemia, hyperparathyroidism, imaging suspicious for parathyroid adenoma in the setting of his [id number] renal failure. It is somewhat difficult to differentiate from a primary versus secondary versus tertiary hyperparathyroidism. I discussed with the patient's various causes of kidney issues including renal, prerenal, and postrenal concepts. I discussed that the damage and poor function of the kidneys could be related to one or likely multiple causes. I discussed the risks and benefits of parathyroidectomy with the patient brings after surgery for stabilization of his calcium levels. We discussed that surgery and parathyroid may or may not result in improvement in his kidney function, but our goal would be to eliminate this as a cause of further damage. The patient appeared to understand the risks, benefits of surgery, and desires to proceed. I will tentatively plan for left parathyroidectomy on Sunday, May 24, pending discussion with Drs. Doyle and Chase. MARCIN/ANDREINA Voice ID: [id number] Report ID: [id number] TAMMY
--- NOTE | 2018-05-22 12:09 | EKG ---
Test Date: 2018-05-22 Test Time: 07:20:18 Scientific Photographer: PATRIZIA MEASUREMENT RESULTS: Intervals: Rate: 67 CO: 256 QRSD: 142 QT: 408 QTc: 431 [place]: P: 96 CO: 256 QRS: 39 T: 28 INTERPRETIVE STATEMENTS: Sinus rhythm with 1st degree AV block Right bundle branch block Inferior infarct, age undetermined Anteroseptal infarct, age undetermined Abnormal ECG Compared to ECG 05/07/2018 15:11:25 No significant changes Electronically Signed On 05-22-18 12:08:26 CDT by Kamran Díaz
--- NOTE | 2018-05-22 12:23 | ECHO ---
HEIGHT: 5 ft 9 in WEIGHT: 130 lb 0 oz DATE OF STUDY: REFER DR: Alphonso Stone MD 2-DIMENSIONAL: YES M.MODE: YES DOPPLER: YES COLOR FLOW: YES TDS: NO PORTABLE: NO DEFINITY: NO BUBBLE STUDY: NO DIAGNOSIS: PARATHYROID ADENOMA CARDIAC HISTORY: CATHERIZATION: NO SURGERY: NO PROSTHETIC VALVE: NO PACEMAKER: NO MEASUREMENTS (cm) DIASTOLIC (NORMALS) SYSTOLIC (NORMALS) IVSd 1.1 (0.6-1.2) LA Diam 3.0 (1.9-4.0) LVEF 62% LVIDd 4.2 (3.5-5.7) LVIDs 2.9 (2.0-3.5) %FS 33% LVPWd 1.1 (0.6-1.2) Ao Diam 3.1 (2.0-3.7) 2 DIMENSIONAL ASSESSMENT: RIGHT ATRIUM: NORMAL LEFT ATRIUM: NORMAL RIGHT VENTRICLE: NORMAL LEFT VENTRICLE: NORMAL TRICUSPID VALVE: NORMAL MITRAL VALVE: NORMAL PULMONIC VALVE: NORMAL AORTIC VALVE: SCLEROSIS PERICARDIAL EFFUSION: NONE AORTIC ROOT: NORMAL LEFT VENTRICULAR WALL MOTION: NORMAL. DOPPLER/COLOR FLOW: NORMAL. COMMENTS: NORMAL LEFT VENTRICULAR SIZE AND FUNCTION. MILD AORTIC SCLEROSIS. NO WALL MOTION ABNORMALITY. NO EFFUSION. TECHNOLOGIST: HIRAL GAO
--- NOTE | 2018-05-22 15:57 | CON ---
Date of Consultation: 05/21/2018 Consulting Physician: Dr. Stone. Reason For Consultation: Elevated BUN and creatinine, fluid management, electrolyte imbalance, hypercalcemia. History Of Present Illness: This is a pleasant 77-year-old gentleman, well known to me from previous admission with significant past medical history of advanced chronic kidney disease secondary to obstructive uropathy, hypertension , hyperlipidemia. The patient was found to have obstructive uropathy last visit , supposed to be followed with Dr. Gordon. The patient apparently went home. The patient found to have elevation in his calcium. For that reason, patient was directed back, admitted to the hospital. Over the night, the patient was started on IV hydration. I bolused him with another 500 yesterday with Lasix. His calcium trended down to 9.8. The patient admitted that he has been taking calcium supplement as out patient workup show PTH of 245. Nuclear medicine show a large 2 cm adenoma on the left of the thyroid, superior. The patient today is asymptomatic. Past Medical History: As above. 1. Chronic kidney disease, obstructive uropathy stage 4. 2. Hypertension. 3. Secondary hyperparathyroidism. Allergies: ALLERGY TO CEPHALOSPORIN. Family History: Positive for hypertension. Social History: Denies smoking, denies drinking, denies drug abuse. Review of Systems: Head and Neck: No red eye. No ear pain. GI: No nausea, no vomiting. : No polyuria. No dysuria. No hematuria. FOXING PAINTER: Not applicable. Respiratory: No shortness of breath. Cardiovascular: No chest pain. Endocrine: No polydipsia. Skin: No rash. Medications: Home medication included Flomax, sodium bicarb, Cipro, amlodipine. Current medications include amlodipine Sensipar, and Flomax. Physical Examination: Vital Signs: When I saw the patient, blood pressure 110/57, pulse of 62, afebrile. Chest: Clear to auscultation. Heart: S1, S2. Regular. Abdomen: Soft. Nontender. Extremity: No edema. Laboratory Data: Sodium 142, potassium 4.2, bicarb 22, BUN 63, creatinine 3.6, calcium down to 9.2, H and H 8.5/23.8. Serology was negative before except C3 was low down to 69. Hepatitis panel was negative. Assessment And Plan: 1. Acute kidney injury on advanced chronic kidney disease secondary to calcium diuresis, recovered, back close to baseline. I am going to decrease IV hydration to 50 mL per hour. 2. Hypertension, controlled, optimal. Continue current medication. 3. Secondary hyperparathyroidism. Agree with Sensipar. Currently stable. We will discuss the case with Dr. Doyle. We will follow up. 4. Obstructive uropathy. Follow up with Urology. Subjective: The patient was admitted with acute kidney injury secondary to calcium diuresis and hypercalcemia. Physical Examination: Vital Signs: Blood pressure 119/58, pulse of 66. The patient had good urine output of 2300. Chest: Clear to auscultation. Heart: S1, S2. Regular. Abdomen: Soft, nontender. Extremities: No edema. Laboratory Data: H and H 9.3/26.5, sodium 139, potassium 4.5, bicarb 23, BUN 65 , creatinine 3.7, GFR of 16, calcium 10.8. PTH is still pending. Current Medications: Vitamin D3, Norvasc, Flomax, Sensipar. Assessment And Plan: 1. Acute kidney injury on advanced chronic kidney disease secondary to calcium diuresis. I am going to discontinue any vitamin D supplement, and we will give the patient bolus of normal saline, then we will diurese. We will monitor. Continue IV hydration. 2. Hypertension, controlled, optimal. Continue current medication. 3. Anemia of chronic kidney disease, stable. We will follow up with the primary. 4. Hypercalcemia, as above. Waiting for vitamin D and PTH level. LEONILA Voice ID: [id number] Report ID: [id number] TAMMY
--- NOTE | 2018-05-22 17:56 | P.PN ---
Subjective Date of Service: 05/22/18 Chief Complaint: DEHYDRATION,HIGH CALCIUM Subjective: Improving (STABLE. HE IS NOT IN PAIN.) Review of Systems 10-point ROS is otherwise unremarkable Physical Examination - Vital Signs Temperature: 98.1 F Blood Pressure: 151/61 Pulse: 69 Respirations: 18 Pulse Ox (%): 100 - Physical Exam General: Alert, Cachectic, Mild distress HEENT: Atraumatic, PERRLA, EOMI Neck: Supple, JVD not distended Respiratory: Clear to auscultation bilaterally, Normal air movement Cardiovascular: Regular rate/rhythm, Normal S1 S2 Gastrointestinal: Normal bowel sounds, No tenderness Musculoskeletal: No tenderness Integumentary: No rashes Neurological: Normal speech, Normal tone, Normal affect Lymphatics: No axilla or inguinal lymphadenopathy Urinary: Cruz catheter - Studies Laboratory Data (last 24 hrs) 05/22/18 04:34: WBC 5.1 D, Hgb 8.5 L, Hct 23.8 L, Plt Count 245 05/22/18 04:34: Sodium 142, Potassium 4.2, BUN 63 H, Creatinine 3.60 H, Glucose 94 Medications List Reviewed: Yes Assessment And Plan - Current Problems (Diagnosis) (1) Chronic renal failure Onset Date: 05/21/18 Current Visit: Yes Status: Chronic Plan: NOT READY FOR HD YET. IV FLUIDS CR IS IMPROVING BUT HE GETS WORSE WHEN IV IS REMOVED. MULTIFACTORIAL POST OBSTURCTIVE WITH PRERENAL FACTOR AND ALSO HYPERPARATHYROIDISM INDUCED. DR LOVELL ON THE CASE. Qualifiers: Chronic kidney disease stage: stage 4 (severe) Qualified Code(s): N18.4 - Chronic kidney disease, stage 4 (severe) (2) Hypercalcemia Onset Date: 05/21/18 Current Visit: Yes Status: Chronic Plan: REMOVING PTH ADENOMA WILL HELP CONSULT DR. SHEIKH. (3) Parathyroid adenoma Onset Date: 05/21/18 Current Visit: Yes Status: Chronic Plan: JUST FOUND TODAY BY TEST ORDERED BY DR LOVELL. HE HAS COMBINATION OF PRIMARY AND SECONDARY HYPERPARATHYRODISM. SAME FOR TWO REAOSONS FOR CRF. BPH AND HIGH PTH SPEP HAS BEEN DONE. MEDICALLY CLEARED WITH MILD RISK FOR SURGERY. CARDIOLOGY CONSULTED. (4) BPH (benign prostatic hyperplasia) Current Visit: Yes Status: Chronic Plan: DR. HOOVER WILL TRY TO REMOVE CRUZ OVERNIGHT IF CAN. I CALLED HIM HE IS NOT READY FOR PROSTATECTOMY HE IS NOT SURE IF HE HAS PROSTATE CANCER.
--- NOTE | 2018-05-23 02:24 | CON ---
Date of Consultation: 05/22/[address] Stone's service on 05/20/2018. I saw the patient on 05/22/2018. Reason For Consultation: Cardiac clearance. History Of Present Illness: Mr. Kamara is a 77-year-old man. He has no previous cardiac histo ry. He has a history of hypertension and renal failure that may be secondary to obstructive uropathy and hyperparathyroidism. He was found to have elevated PTH, elevated calcium at 11.6, and parathyro id abnormal. Dr. Lacey plans to do a surgery of the parathyroid gland on Sunday. He has no cardia c symptoms. His EKG is unremarkable except for right bundle-branch block. Echocardiogram that was d one was normal without any wall motion abnormalities or aortic stenosis. The patient denied chest pa in, shortness of breath, PND, orthopnea, pedal edema, palpitations, or syncope. Past Medical History: As stated above. Allergies: HE IS ALLERGIC TO CEPHALOSPORINS. Medications At Home: Include Norvasc and Flomax. Review of Systems: Negative. Social History: Negative. Family History: Negative. Physical Examination: Vital Signs: Stable. He was afebrile. HEENT: Negative. Neck: Supple without any bruit, lymphadenopathy, JVD, or thyromegaly. Chest: Clear to auscultation and percussion. Cardiac: Normal rhythm and rate without murmurs, gallops, or rubs. Abdomen: Benign. Extremities: Revealed no clubbing, cyanosis, or edema. Diagnostic Data: His creatinine was 3.8, hemoglobin 9.3. Calcium 11.6, PTH 245. Chest x-ray is neg ative. Elevated PSA. EKG shows right bundle-branch block with sinus rhythm. Echocardiogram was nor mal. Impression And Plan: 1.The patient with history of hypertension, right bundle-branch block. No cardiac symptoms. Normal echo. He is at acceptable risk for perioperative mortality from the surgery. 2.Hypertension, well controlled. 3.Anemia. 4.Hypercalcemia. 5.Elevated PTH secondary to hyperparathyroidism and parathyroid gland adenoma. Surgery saw him. I will follow the patient along if the need be. LISE/ANDREINA Voice ID: [id number] Report ID: [id number]
[2018-05-23 05:31] LABS: Absolute Lymphocytes (CBC) 1.2 K/uL (0.7-4.9); Absolute Monocytes 0.3 K/uL (0.1-1.3); Basophils % 1.4 % (0-1.3); Eosinophils % 2.4 % (0-4.4); Hematocrit 25.8 % (39.6-49.0); Lymphocytes % 25.5 % (15.3-44.8); MCH 35.5 pg (27.0-35.0); MCV 100.1 fL (80-100); MPV 7.8 fL (7.6-11.3); Monocytes % 6.4 % (3.3-12.3); RBC Red Blood Cell Count 2.57 M/uL (4.33-5.43)
[2018-05-23] MEDS: NA CHLORIDE 0.9% 1,000 ML IV SCH (06:30)
[2018-05-23] MEDS: CINACALCET HCL 30 MG TAB PO SCH (10:16)
[2018-05-23] MEDS: AMLODIPINE 5 MG TAB PO SCH (10:16)
[2018-05-23] MEDS: TAMSULOSIN 0.4 MG SR CAP PO SCH (10:17)
[2018-05-23 10:43] LABS: Albumin 2.8 g/dL (3.4-5.0); Phosphorus 3.2 mg/dL (2.5-4.9); Potassium 3.8 mmol/L (3.5-5.1)
[2018-05-23 11:39] VITALS: O2SAT 99
[2018-05-23 18:26] VITALS: BP 124/66; TEMP 98.7
--- NOTE | 2018-05-23 22:12 | CON ---
This is a patient of Dr. Stone. History Of Present Illness: A 77-year-old gentleman, known to me from previous admission for obstructive uropathy and advanced kidney disease, was found to have elevated calcium as an outpatient and was brought in for treatments. He has a Bahena catheter. He also had an elevated PSA at the last admission, and he is due for cystoscopy and uroflow. He needs his PSA repeated which was done today, also he had his catheter removed at midnight, and his first postvoid residual was 200 cc and then during the day was 100 cc. He has continued to take his Flomax and will go home. He is due to see me next Sunday for cysto- uroflow and evaluate his PSA. The patient's calcium now is down to 9.8 with hydration. He had an elevated PTH of 245, and nuclear medicine showed a 2-cm adenoma on the left of the thyroid superior. The patient is doing well, getting ready for discharge. Past Medical History: Chronic kidney disease, stage 4; urinary retention status post Bahena removal, now with low postvoid residuals; history of hypertension; secondary hyperthyroidism. Allergies: TO CEPHALOSPORIN. Family History: Positive for hypertension. Social History: Denies smoking or drug use. Review of Systems: Ten-point review of systems otherwise negative. Medications At Home: Flomax, sodium bicarb, Cipro, amlodipine, Sensipar. Physical Examination: General: The patient was stable, in no acute distress. Vital Signs: Revealed 97.9, 76, 18, 120/56, sats 99%. No pain. HEENT: Atraumatic, normocephalic. Lungs: Clear. Abdomen: Soft, nontender. : Phallus, no lesions. Testicles descended. AZUCENA as per previous exam. Extremities: Normal range of motion. Laboratory Data: His PSA on repeat today was 9.8, which seems still high. He will need a 4K done. Laboratories reveal sodium 145, potassium 3.8, chloride 113, carbon dioxide 22, BUN 56, creatinine 3.3, GFR 18, glucose 131, calcium down from 11.6 to 10.3. Also, earlier on previous admission 05/07, it was 11.5. Assessment: Obstructive uropathy. The patient now voiding without Bahena catheter. Continue Flomax. Elevated PSA. Will need a 4K PSA workup to rule out prostate cancer. He may need possibly the prostate biopsy if the 4K is abnormal. We will continue therapy, and we will see the patient in the office. RENA/ANDREINA Voice ID: [id number] Report ID: [id number] MTDD
--- NOTE | 2018-05-24 00:59 | DS ---
Date of Discharge: 05/23/2018 Acute renal failure; secondary hyperparathyroidism, primary hyperparathyroidism, possible combination ; parathyroid adenoma; acute on chronic renal failure; chronic postobstructive uropathy with pain, co mponent from chronicity; high blood pressure. Hospital Course: The patient is a 77-year-old gentleman, who has a renal failure, postobstructive, b ut creatinine will not improve less than 3.0 at this point even with Bahena catheter. He comes to the hospital as Dr. Doyle wants to hydrate him for hypercalcemia, which is from hyperparathyroidism. His parathyroidism is improving with Sensipar. PTH number improved down to 245. His PSA is high at 9.5 . He will be seen by Dr. Gordon for prostate evaluation, biopsy, and possible surgery. His renal inés lure is going to continue, currently is stage IV, not needing any dialysis. He was supposed to go fo r surgery tomorrow, but Dr. Davila changed the plan of care at this point, wanting to see how the S ensipar works in reducing parathyroid hormone, so we can ovoid parathyroid surgery. He does need a s urgery for prostatectomy, which will be dictated and covered by Dr. Gordon. He is comfortable and dis charged in stable condition. Follow up with Dr. Gordon, Dr. Davila, Dr. Doyle, Dr. Lacey, myself i n about 10-15 days. RVD/MODL Voice ID: [id number] Report ID: [id number]
--- NOTE | 2018-05-24 04:30 | PN ---
Date of Progress Note: 05/23/2018 Subjective: The patient doing better. No nausea, no vomiting. The patient off any supplement. Physical Examination: Vital Signs: Blood pressure of 124/66, pulse of 78. Chest: Clear to auscultation. Heart: S1, S2. Regular. Abdomen: Soft, nontender. Extremities: No edema. Laboratory Data: WBC 4.7, H and H 9.1/25.8, platelets 256. Sodium 145, potassium 3.6, bicarb 22, BUN 56, creatinine 3.8, calcium 9.8, albumin 2.8. PSA 9.8. PTH 245. Medications: Sensipar, amlodipine, Flomax. Assessment And Plan: 1. Chronic kidney disease stage 4. Continue to monitor. No need to initiate renal replacement therapy. 2. Hypertension, controlled, optimal. Continue Norvasc. 3. Secondary hyperparathyroidism. The patient was started on Sensipar. I had long discussion with the patient and primary license registration examiner, Dr. Preston regarding the option of treatment. We will continue the patient on Sensipar. We will follow up the patient as outpatient for the next couple of week. If calcium continues to be controlled, the patient will not need any surgery , but if calcium came elevated again, at that time the patient will need parathyroidectomy. 4. Obstructive uropathy. We will follow up with Urology. LEONILA Voice ID: [id number] Report ID: [id number] MTDD
== END 2018-05-23 17:59 | disposition home or self-care (01) | DRG 640 ==
LOC: 2ND 15:59
PROVIDERS: ADMIT Internal Medicine; ATTEND Internal Medicine
DX: E83.52 Hypercalcemia (principal); N17.0 Acute kidney failure with tubular necrosis; N25.81 Secondary hyperparathyroidism of renal origin; N18.4 Chronic kidney disease, stage 4 (severe); Z88.1 Allergy status to other antibiotic agents; D35.1 Benign neoplasm of parathyroid gland; N40.0 Benign prostatic hyperplasia without lower urinary tract symptoms; D63.1 Anemia in chronic kidney disease; I12.9 Hypertensive chronic kidney disease with stage 1 through stage 4 chronic kidney disease, or unspecified chronic kidney disease; N13.9 Obstructive and reflux uropathy, unspecified; I45.10 Unspecified right bundle-branch block
CPT/HCPCS: 36415; 76536; 78070; 80048; 80053; 80069; 81003; 81015; 82306; 83970; 84153; 85025; 90670; 93005; 93306; A9500; G0009; J7030

== ENCOUNTER 2018-07-08 12:33 | Inpatient (IN) | payer OTHER ==
[2018-07-08 13:44] VITALS: BMI 18.6
[2018-07-08] MEDS ORDERED: ACETAMINOPHEN 325 MG TABLET PO PRN (13:54)
[2018-07-08] MEDS ORDERED: ONDANSETRON 4 MG/2 ML VIAL IV PRN (13:54)
[2018-07-08] MEDS ORDERED: SODIUM CHL 0.9% 1000 ML BAG IV SCH (14:00)
[2018-07-08] MEDS: NA CHLORIDE 0.9% 1,000 ML IV SCH ×2 (14:10→23:24)
[2018-07-08 16:12] LABS: Absolute Lymphocytes (CBC) 0.8 K/uL (0.7-4.9); Absolute Monocytes 0.3 K/uL (0.1-1.3); Absolute Neutrophil 2.5 K/uL (1.8-8.0); Basophils % 1.6 % (0-1.3); Eosinophils % 3.4 % (0-4.4); Hematocrit 28.3 % (39.6-49.0); Lymphocytes % 20.2 % (15.3-44.8); MCH 33.5 pg (27.0-35.0); MCV 99.1 fL (80-100); MPV 7.6 fL (7.6-11.3); Monocytes % 9.2 % (3.3-12.3); RBC Red Blood Cell Count 2.85 M/uL (4.33-5.43)
[2018-07-08 16:25] LABS: Albumin 3.4 g/dL (3.4-5.0); Bilirubin Total 0.4 mg/dL (0.2-1.0); Potassium 4.8 mmol/L (3.5-5.1); Protein, Total 6.7 g/dL (6.4-8.2)
[2018-07-08 16:56] LABS: Urine Appearance CLEAR; Urine Bilirubin NEGATIVE (NEG); Urine Blood 3+ (NEG); Urine Color YELLOW; Urine Glucose NEGATIVE (NEG); Urine Protein 1+ (NEG); Urine Urobilinogen 0.2 mg/dL (0.2-1.0)
[2018-07-08 16:57] LABS: Urine Microscopic Reflex ORDER UMIC
[2018-07-08 17:13] LABS: Urine Bacteria <20 /HPF (NONE SEEN); Urine Culture Reflex Order REFLEXED
--- NOTE | 2018-07-08 20:56 | P.HP ---
Certification for Inpatient Patient admitted to: Observation With expected LOS: <2 Midnights Practitioner: I am a practitioner with admitting privileges, knowledge of patient current condition, hospital course, and medical plan of care. Services: Services provided to patient in accordance with Admission requirements found in Title 42 Section 412.3 of the Code of Federal Regulations Patient History Date of Service: 07/08/18 Reason for admission: ADMITTED FOR IV FLUIDS BY DR LOVELL History of Present Illness: THIS PATIENT MR. ALCOCER HAS HAD COMPLICATED LAST FEW MONTHS WITH BPH INDUCED OBST UROPATHY WITH DUAL ACUTE AND CHRONIC FAILURE. HE HAD POSTATECTOMY , HE ALSO HAS PARATHYROID ADENOMA THAT NEEDS TO BE REMOVED. HIS CALCIUM HAS IMPROVED WITH SENSIPAR BUT I SUSPECT HIS HYPERPARATHYROID STATUS IS ALSO ADDING TO PRRENAL PORTION OF ACUTE ON CHRONIC FAILURE. DR LOVELL DID NOT CALL BE BUT SOMEHOW MY PATIENT GOT ROUTED TO HOSPITAL DOCTORS. Allergies Cephalosporins Adverse Reaction (Verified 06/03/18 11:46) Itching/Hives/Rash Home Medications: Amlodipine Besylate 5 mg PO DAILY 05/07/18 Sodium Bicarbonate 10 gr PO BID 05/20/18 Cinacalcet HCl [Sensipar*] 60 mg PO DAILY 07/08/18 - Past Medical/Surgical History Has patient received pneumonia vaccine in the past: Yes Diabetic: No -: HTN -: kidney stones -: kidney insufficiency -: parathyroid enlargement -: Tonsilectomy -: TURP - Family History Mother Notes: Rheumatoid Arthritis Father -: Heart disease - Social History Smoking Status: Never smoker Alcohol use: Yes CD- Drugs: No Caffeine use: Yes Place of Residence: Home Review of Systems 10-point ROS is otherwise unremarkable General: Weakness, Malaise Physical Examination - Vital Signs Temperature: 98.0 F Blood Pressure: 106/56 Pulse: 57 Respirations: 18 Pulse Ox (%): 97 - Physical Exam General: Alert, In no apparent distress, Cachectic HEENT: Atraumatic, PERRLA, Mucous membr. moist/pink, EOMI, Sclerae nonicteric Neck: Supple, 2+ carotid pulse no bruit, No LAD, Without JVD or thyroid abnormality Respiratory: Clear to auscultation bilaterally, Normal air movement Cardiovascular: Regular rate/rhythm, Normal S1 S2 Gastrointestinal: Normal bowel sounds, No tenderness Musculoskeletal: No tenderness Integumentary: No rashes Neurological: Normal gait, Normal speech, Normal strength at 5/5 x4 extr, Normal tone, Normal affect Lymphatics: No axilla or inguinal lymphadenopathy - Studies Laboratory Data (last 24 hrs) 07/08/18 : WBC Cancelled, Hgb Cancelled, Hct Cancelled, Plt Count Cancelled 07/08/18 : Sodium Cancelled, Potassium Cancelled, BUN Cancelled, Creatinine Cancelled, Glucose Cancelled, Total Bilirubin Cancelled, AST Cancelled, ALT Cancelled, Alkaline Phosphatase Cancelled 07/08/18 15:51: Sodium 139, Potassium 4.8, BUN 82 H, Creatinine 4.00 H, Glucose 115 H, Total Bilirubin 0.4, AST 17, ALT 24, Alkaline Phosphatase 67 07/08/18 15:51: WBC 3.8 L, Hgb 9.6 L, Hct 28.3 L, Plt Count 192 Assessment and Plan - Problems (Diagnosis) (1) Dehydration Current Visit: Yes Status: Acute Plan: IV FLUIDS LAB C7 DAILY. DR LOVELL ON CASE. IT IS NOT CLEAR WHY HE GETS PRERENAL EVEN THOUGH HE DRINKS ENOUGH WATER. THIS MAY BE FROM COMBINATION OF PRIMARY AND SECONDARY HYPERPARATHYROIDISM. (2) Parathyroid adenoma Onset Date: 05/21/18 Current Visit: No Status: Chronic Plan: DR SHEIKH IS WORKING ON PREOP STATUS . HE HAD TO GO FOR BPH SURGERY FIRST. I SUSPECT AFTER PARATHYORIDECTOMY HIS BUN AND CREAT WILL BE STABLE. - Advance Directives Does patient have a Living Will: No Does patient have a Durable POA for Healthcare: No
[2018-07-09] MEDS ORDERED: AMLODIPINE 5 MG TAB PO SCH (09:00)
[2018-07-09] MEDS ORDERED: CINACALCET HCL 30 MG TAB PO SCH (09:00)
[2018-07-09] MEDS: SODIUM BICARB 325 MG TAB PO SCH ×2 (09:01→20:50)
[2018-07-09] MEDS: NA CHLORIDE 0.9% 1,000 ML IV SCH ×2 (09:02→19:10)
[2018-07-09] MEDS ORDERED: NA CHLORIDE 0.9% 500 ML IV ONE (10:48)
--- NOTE | 2018-07-09 13:02 | P.PN ---
Subjective Date of Service: 07/09/18 Chief Complaint: ADMITTED FOR IV FLUIDS BY DR LOVELL Subjective: Improving IS STABLE. HE HAS NO CHEST PAIN. I ASKED HIM THIS AM IF I CAN HAVE DR SHEIKH HAVE SURGERY DONE HIS PARATHRYOID IS STILL GIVING HIM HIGH CALCIUM AND DEHYDRATION. DR LOVELL AND DR. SHEIKH AGREE. HE ALSO AGREES. DR. SHEIKH WILL TAKE CARE OF HIS PARATHYROIDECTOMY WHILE HERE. IF SENT HOME HE WILL GET DECONDITIONED AGAIN. Review of Systems 10-point ROS is otherwise unremarkable General: Weakness, Malaise Physical Examination - Vital Signs Temperature: 97.9 F Blood Pressure: 138/63 Pulse: 53 Respirations: 18 Pulse Ox (%): 98 - Physical Exam General: Cachectic, Mild distress HEENT: Atraumatic, PERRLA, EOMI Neck: Supple, JVD not distended Respiratory: Clear to auscultation bilaterally, Normal air movement Cardiovascular: Regular rate/rhythm, Normal S1 S2 Gastrointestinal: Normal bowel sounds, No tenderness Musculoskeletal: No tenderness Integumentary: No rashes Neurological: Normal speech, Normal tone, Normal affect Lymphatics: No axilla or inguinal lymphadenopathy - Studies Laboratory Data (last 24 hrs) 07/08/18 : WBC Cancelled, Hgb Cancelled, Hct Cancelled, Plt Count Cancelled 07/08/18 : Sodium Cancelled, Potassium Cancelled, BUN Cancelled, Creatinine Cancelled, Glucose Cancelled, Total Bilirubin Cancelled, AST Cancelled, ALT Cancelled, Alkaline Phosphatase Cancelled 07/08/18 15:51: Sodium 139, Potassium 4.8, BUN 82 H, Creatinine 4.00 H, Glucose 115 H, Total Bilirubin 0.4, AST 17, ALT 24, Alkaline Phosphatase 67 07/08/18 15:51: WBC 3.8 L, Hgb 9.6 L, Hct 28.3 L, Plt Count 192 Medications List Reviewed: Yes Assessment And Plan - Current Problems (Diagnosis) (1) Dehydration Onset Date: 07/09/18 Current Visit: Yes Status: Acute Plan: IV FLUIDS LAB C7 DAILY. DR LOVELL ON CASE. IT IS NOT CLEAR WHY HE GETS PRERENAL EVEN THOUGH HE DRINKS ENOUGH WATER. THIS MAY BE FROM COMBINATION OF PRIMARY AND SECONDARY HYPERPARATHYROIDISM. (2) Parathyroid adenoma Onset Date: 05/21/18 Current Visit: No Status: Chronic Plan: DR SHEIKH IS WORKING ON PREOP STATUS . HE HAD TO GO FOR BPH SURGERY FIRST. I SUSPECT AFTER PARATHYORIDECTOMY HIS BUN AND CREAT WILL BE STABLE. PREOP- MILD RISK FROM AGE AND DEBILITATION. HE JUST HAD BPH SURGERY WITHOUT ANY CARDIAC OR PULMONARY ISSUES.
[2018-07-09 14:16] LABS: Albumin 3.1 g/dL (3.4-5.0); Phosphorus 2.9 mg/dL (2.5-4.9); Potassium 4.8 mmol/L (3.5-5.1)
--- NOTE | 2018-07-09 17:00 | CON ---
Date of Consultation: 07/09/2018 NEPHROLOGY CONSULTATION Additional Consulting Physician: Alphonso Stone M.D. Reason For Consultation: Elevated BUN and creatinine, hypercalcemia, fluid management. History Of Present Illness: This is a pleasant 78-year-old gentleman with significant past medical h istory of chronic kidney disease stage 4, secondary to chronic obstructive uropathy with recurrent ad mission, with acute kidney injury, secondary to prerenal, secondary to calcium diuresis, secondary to hyperparathyroidism, hypertension, hyperlipidemia, the patient recently had a prior TURP by Dr. Cristobal hernández. The patient went yesterday to Dr. Doyle's office, his hogshead inspector, and found to have elevated az cium 11.7, and his GFR was down to 12, for that reason directed for direct admission. The patient re peated lab in the hospital, GFR was 15, and calcium was down to 10.2. The patient denied any nausea, any vomiting. The patient was started on IV fluid, feeling slightly better. Reviewing the record f or the patient, apparently his PTH before he started on Sensipar was 245. According to him, his PTH is still above 200. The patient denied any nausea, any vomiting. No diarrhea. No shortness of lisa th. Past Medical History: Include 1.Chronic kidney disease secondary to obstructive uropathy, status post TURP. 2.Hypertension. 3.Secondary hyperparathyroidism/primary hyperparathyroidism, poor response to Sensipar. Allergies: ALLERGIC TO CEPHALOSPORIN. Family History: Positive for hypertension. Social History: Denies smoking. Denies drinking. Denies drug abuse. Review of Systems: Head and Neck: No red eye. No ear pain. GI: No nausea. No vomiting. : No polyuria. No dysuria. No hematuria. COMMUNITY REINVESTMENT ACT OFFICER: Not applicable. Respiratory: No shortness of breath. Cardiovascular: No leg swelling. No chest pain. Endocrine: No polydipsia. Skin: No rash. Neuro: No weakness. Musculoskeletal: No joint pain. Medications: Home medications include: 1.Sensipar has been increased recently to 60 mg. 2.Amlodipine. 3.Sodium bicarb. Current medications in the hospital include: 1.Sensipar 60. 2.Zofran IV fluid. 3.Oral sodium bicarb. Physical Examination: General: When I saw the patient, the patient lying in bed comfortable. Vital Signs: Blood pressure 138/63, pulse of 53, afebrile. Chest: Clear to auscultation. Heart: S1, S2. Regular. Abdomen: Soft, nontender. Extremity: No edema. Neurological: Alert and oriented x3. No focal. No tremor. Laboratory Data: Labs yesterday; sodium 139, potassium 4.8, bicarb 24, BUN 82, creatinine of 0.4, GF R of 15, calcium 10.2. WBC 3.8, H and H are 9.6/28.3, platelets of 192. Assessment And Plan: 1.Chronic kidney disease advanced with acute kidney injury secondary to calcium diuresis, recovering back close to his baseline. I am going to continue to bolus the patient with another litre. Contin ue IV hydration. We will follow up the lab today. 2.Primary hyperparathyroidism/secondary hyperparathyroidism, poorly response to Sensipar. Sensipar has been increased currently. We will consult ENT, Dr. Lacey to evaluate for parathyroidectomy. a.I bolused the patient, increased Sensipar to 60. 3.Hypertension, controlled optimal. Continue current medication. 4.Acidosis secondary to renal failure. Continue current oral bicarb. 5.Anemia secondary to chronic kidney disease. We will monitor the patient. Thank you Dr. Stone for allowing us to participate in the care of your patient. LEONILA Voice ID: [id number] Report ID: [id number]
[2018-07-10] MEDS: NA CHLORIDE 0.9% 1,000 ML IV SCH (04:37)
[2018-07-10 05:58] VITALS: O2SAT 99
[2018-07-10 09:34] VITALS: BP 125/61; TEMP 97.2
--- NOTE | 2018-07-10 21:34 | P.DS ---
Admission Date: 07/08/18 Discharge Date: 07/10/18 Disposition: ROUTINE DISCHARGE Reason for Admission: ADMITTED FOR IV FLUIDS BY DR LOVELL - Problems (1) Dehydration Onset Date: 07/09/18 Status: Acute (2) Parathyroid adenoma Onset Date: 05/21/18 Status: Chronic Brief History of Present Illness: THIS PATIENT MR. ALCOCER HAS HAD COMPLICATED LAST FEW MONTHS WITH BPH INDUCED OBST UROPATHY WITH DUAL ACUTE AND CHRONIC FAILURE. HE HAD POSTATECTOMY , HE ALSO HAS PARATHYROID ADENOMA THAT NEEDS TO BE REMOVED. HIS CALCIUM HAS IMPROVED WITH SENSIPAR BUT I SUSPECT HIS HYPERPARATHYROID STATUS IS ALSO ADDING TO PRRENAL PORTION OF ACUTE ON CHRONIC FAILURE. DR LOVELL DID NOT CALL BE BUT SOMEHOW MY PATIENT GOT ROUTED TO HOSPITAL DOCTORS. MR ALCOCER HAS IMPROVED FROM HIS DEHYDRATION BACK TO HIS BASELINE. I WAS TRYING TO GET THE SURGERY FOR HYERPARATHYROIDISM DONE BUT HE AND FAMILY HAS DECIDED TO HAVE IT DONE IN [place]. I HAD TO TALK TO HIS BROTHER IN LAW DOCTOR THAT OUT OF THREE PROBLEMS , TWO WE HAVE WORKED ON AND LAST ONE IS PARATHYROIDECTOMY. Vital Signs/Physical Exam: Temp Pulse Resp BP Pulse Ox 97.2 F 59 18 125/61 100 07/10/18 08:00 07/10/18 08:00 07/10/18 08:00 07/10/18 08:00 07/10/18 08:00 Laboratory Data at Discharge: WBC Cancelled 07/08/18 Unknown Hgb Cancelled 07/08/18 Unknown Hct Cancelled 07/08/18 Unknown Plt Count Cancelled 07/08/18 Unknown Sodium 143 mmol/L (136-145) 07/09/18 13:19 Potassium 4.8 mmol/L (3.5-5.1) 07/09/18 13:19 BUN 67 mg/dL (7-18) H 07/09/18 13:19 Creatinine 3.40 mg/dL (0.55-1.3) H 07/09/18 13:19 Glucose 79 mg/dL (74-106) 07/09/18 13:19 Phosphorus 2.9 mg/dL (2.5-4.9) 07/09/18 13:19 Total Bilirubin Cancelled 07/08/18 Unknown AST Cancelled 07/08/18 Unknown ALT Cancelled 07/08/18 Unknown Alkaline Phosphatase Cancelled 07/08/18 Unknown Home Medications: Amlodipine Besylate 5 mg PO DAILY 05/07/18 Sodium Bicarbonate 10 gr PO BID 05/20/18 Cinacalcet HCl [Sensipar*] 60 mg PO DAILY 07/08/18 Followup: Angelia Ko MD [COURTESY - CAN ADMIT] - 1-2 Weeks Alphonso Stone MD [Primary Care Provider] - 1-2 Days (Follow up with Dr Stone for referral to Head and Neck Surgeon in [place].)
== END 2018-07-10 09:15 | disposition home or self-care (01) | DRG 641 ==
LOC: 2ND 12:46
PROVIDERS: ADMIT Family Medicine; ATTEND Internal Medicine
DX: E86.0 Dehydration (principal); N13.8 Other obstructive and reflux uropathy; N18.4 Chronic kidney disease, stage 4 (severe); N17.8 Other acute kidney failure; N25.81 Secondary hyperparathyroidism of renal origin; D35.1 Benign neoplasm of parathyroid gland; N40.1 Benign prostatic hyperplasia with lower urinary tract symptoms; I12.9 Hypertensive chronic kidney disease with stage 1 through stage 4 chronic kidney disease, or unspecified chronic kidney disease; E78.5 Hyperlipidemia, unspecified; E21.0 Primary hyperparathyroidism; N25.89 Other disorders resulting from impaired renal tubular function; D63.1 Anemia in chronic kidney disease
CPT/HCPCS: 36415; 80053; 80069; 81003; 81015; 85025; 87086; 87088; J7030

== ENCOUNTER 2019-06-30 14:15 | Observation (INO) | payer OTHER ==
[2019-06-30 15:51] LABS: Absolute Lymphocytes (CBC) 0.7 K/uL (0.7-4.9); Basophils % 2.1 % (0-1.3); Hematocrit 24.3 % (39.6-49.0); Lymphocytes % 16.2 % (15.3-44.8); MPV 8.5 fL (7.6-11.3)
[2019-06-30] MEDS: NA CHLORIDE 0.9% 1,000 ML IV SCH (15:58)
[2019-06-30 16:11] VITALS: BMI 20.5
[2019-06-30 16:12] LABS: Albumin 3.5 g/dL (3.4-5.0); Bilirubin Total 0.5 mg/dL (0.2-1.0); Phosphorus 3.6 mg/dL (2.5-4.9); Protein, Total 6.9 g/dL (6.4-8.2)
[2019-06-30 17:45] LABS: Urine Appearance CLEAR; Urine Bilirubin NEGATIVE (NEG); Urine Blood TRACE (NEG); Urine Color YELLOW; Urine Glucose NEGATIVE (NEG); Urine Protein NEGATIVE (NEG); Urine Specific Gravity <=1.005 (1.005-1.030); Urine Urobilinogen 0.2 mg/dL (0.2-1.0); Urine pH 5.5 (5.0-7.0)
--- NOTE | 2019-06-30 18:11 | P.HP ---
Certification for Inpatient Patient admitted to: Observation With expected LOS: <2 Midnights Practitioner: I am a practitioner with admitting privileges, knowledge of patient current condition, hospital course, and medical plan of care. Services: Services provided to patient in accordance with Admission requirements found in Title 42 Section 412.3 of the Code of Federal Regulations Patient History Date of Service: 06/30/19 Reason for admission: DR. LOVELL CALLED ASKING FOR ADMISSION FOR DEHYDRATION. History of Present Illness: IS A RENAL PATIENT WHO DEVELOPED CHRONIC RENAL FAILURE FROM POST OBSTRUCTIVE NEPHROPATHY AND RECOVERED SOMEWHAT AFTER REMOVAL OF PROSTATE. HIS GFR WAS 13 LAST YEAR DURING THAT PERIOD AND IMPROVED TO 20 AFTER OBST WAS RELIVED. DR. LOVELL SAW IT GOING DOWN TO 12 SO SHE ADMITTED HIM. LAB IN HOSPITAL SHOWS IT IS 16 AND NOT 12. HE IS TOTALLY ASYMPTOMATIC. Allergies Cephalosporins Adverse Reaction (Verified 06/30/19 16:12) Itching/Hives/Rash Home Medications: Amlodipine Besylate 10 mg PO DAILY 05/07/18 Sodium Bicarbonate 650 mg PO BID 05/20/18 Calcitrol [Rocaltrol*] 1 tab PO DAILY 06/30/19 Cholecalciferol (Vitamin D3) [Vitamin D3] 5,000 unit PO DAILY 06/30/19 Cyanocobalamin (Vitamin B-12) [Vitamin B-12] 500 mcg PO DAILY 06/30/19 Ferrous Sulfate [Feosol] 325 mg PO DAILY 06/30/19 - Past Medical/Surgical History Has patient received pneumonia vaccine in the past: Yes Diabetic: No -: HTN -: kidney stones -: CKD- Stage 4 -: parathyroid enlargement -: Tonsilectomy -: TURP - Family History Mother Notes: Rheumatoid Arthritis Father -: Heart disease - Social History Smoking Status: Never smoker Alcohol use: Yes CD- Drugs: No Caffeine use: Yes Place of Residence: Home Review of Systems 10-point ROS is otherwise unremarkable Physical Examination - Vital Signs Temperature: 98.2 F Blood Pressure: 142/68 Pulse: 63 Respirations: 16 Pulse Ox (%): 100 - Physical Exam General: Alert, In no apparent distress HEENT: Atraumatic, PERRLA, Mucous membr. moist/pink, EOMI, Sclerae nonicteric Neck: Supple, 2+ carotid pulse no bruit, No LAD, Without JVD or thyroid abnormality Respiratory: Clear to auscultation bilaterally, Normal air movement Cardiovascular: Regular rate/rhythm, Normal S1 S2 Gastrointestinal: Normal bowel sounds, No tenderness Musculoskeletal: No tenderness Integumentary: No rashes Neurological: Normal gait, Normal speech, Normal strength at 5/5 x4 extr, Normal tone, Normal affect Lymphatics: No axilla or inguinal lymphadenopathy - Studies Laboratory Data (last 24 hrs) 06/30/19 13:41: Sodium 137, Potassium 4.0, BUN 60 H, Creatinine 3.73 H, Glucose 98, Phosphorus 3.6, Total Bilirubin 0.5, AST 11 L, ALT 15, Alkaline Phosphatase 42 L 06/30/19 13:41: WBC 4.2 L, Hgb 8.6 L, Hct 24.3 L, Plt Count 233 Assessment and Plan - Problems (Diagnosis) (1) Acute on chronic renal failure Current Visit: Yes Status: Acute Plan: DR. LOVELL DECIDED TO ADMIT AND GIVE HIM FLUIDS Qualifiers: Acute renal failure type: unspecified Chronic kidney disease stage: stage 4 (severe) Qualified Code(s): N17.9 - Acute kidney failure, unspecified; N18.4 - Chronic kidney disease, stage 4 (severe) (2) Chronic renal failure Onset Date: 05/21/18 Current Visit: No Status: Chronic Qualifiers: (3) Parathyroid adenoma Onset Date: 05/21/18 Current Visit: No Status: Chronic Plan: REDO PARATHYROID SONOGRAM FOR FU. - Advance Directives Does patient have a Living Will: No Does patient have a Durable POA for Healthcare: No
[2019-06-30 18:20] LABS: Urine Microscopic Reflex ORDER UMIC
[2019-06-30 18:21] LABS: Urine Amorphous Sediment 1+ /HPF (NONE SEEN); Urine Bacteria NONE SEEN /HPF (NONE SEEN); Urine Culture Reflex Order NOT NEEDED; Urine RBC <5 /HPF (NONE SEEN)
[2019-06-30 18:28] LABS: MPV 7.7 fL (7.6-11.3)
[2019-06-30 18:29] LABS: Platelet Estimate ADEQ
[2019-06-30] MEDS ORDERED: ACETAMINOPHEN 500 MG TAB PO PRN (21:20)
[2019-06-30 21:51] VITALS: O2SAT 100
[2019-07-01] MEDS: NA CHLORIDE 0.9% 1,000 ML IV SCH (04:45)
--- NOTE | 2019-07-01 06:57 | RAD REPORT ---
EXAM DESCRIPTION: US - Renal Ultrasound-Complete - 06/30/2019 9:05 pm CLINICAL HISTORY: Acute kidney injury COMPARISON: CT study April 2018 FINDINGS: The right kidney measures grossly 8.4 x 4.5 x 4.0 cm. The left kidney measures grossly 8. 8 x 5.2 x 3.4 cm. Renal assessment is somewhat limited by body habitus affects. Cortical thickness is normal for both kidneys. Both kidneys demonstrate increased cortical echogenicity consistent with un derlying medical renal disease. No hydronephrosis or suspicious renal mass. Bilateral renal cysts are present. Largest is 2.3 cm on the right in the largest 2.6 cm on the left. Renal cyst pattern not substantially different from the comparison CT. Bladder is evaluated on separate report. IMPRESSION: No hydronephrosis or suspicious renal mass. Underlying medical renal disease is evident in each kidney.
--- NOTE | 2019-07-01 06:59 | RAD REPORT ---
EXAM DESCRIPTION: US - Urinary Bladder - 06/30/2019 9:06 pm CLINICAL HISTORY: Acute kidney injury COMPARISON: None. FINDINGS: No urinary bladder wall thickening or mass. No stone or intraluminal filling defect confir med. Prevoid volume was 152 milliliters. Postvoid volume was 64 milliliters. IMPRESSION: No focal bladder abnormality. Prevoid volume 152 mL. Postvoid volume 64 mL.
[2019-07-01 07:01] LABS: Absolute Lymphocytes (CBC) 0.7 K/uL (0.7-4.9); Basophils % 2.2 % (0-1.3); Hematocrit 25.5 % (39.6-49.0); Lymphocytes % 18.5 % (15.3-44.8); MPV 7.9 fL (7.6-11.3)
[2019-07-01 07:18] LABS: Potassium 4.8 mmol/L (3.5-5.1)
--- NOTE | 2019-07-01 08:23 | RAD REPORT ---
EXAM DESCRIPTION: US - Thyroid Para Parotid Gland - 06/30/2019 9:06 pm CLINICAL HISTORY: Thyroid nodule COMPARISON: Thyroid ultrasound May 2018 FINDINGS: A 6 millimeter heterogeneous nodule is seen in the inferior right lobe. A few very small l ess than 5 mm cysts are present. A 4 mm solid nodule is present in the lateral mid right lobe. A 6 mi llimeter mostly cystic nodule is seen in the lateral mid left lobe. The May 2018 study showed hypoechoic 2.3 centimeter circumscribed nodule deep mid left lobe. Th at nodule is not clearly reproducible on the initial evaluation. No adjacent mass or lymphadenopathy. Gland is normal in size. IMPRESSION: The 2.3 centimeter circumscribed nodule deep posterior left lobe seen on 2018 imaging is not clearly identifiable. The patient will be reimaged specifically to address this finding. An adde ndum will be issued to this report. Elsewhere in each lobe benign-appearing anechoic and hypoechoic nodules are seen.
[2019-07-01] MEDS: AMLODIPINE 5 MG TAB PO SCH ×2 (08:34→08:36)
[2019-07-01] MEDS ORDERED: CALCITROL 0.25 MCG CAP PO SCH (09:00)
[2019-07-01] MEDS ORDERED: SODIUM BICARB 325 MG TAB PO SCH (09:00)
[2019-07-01] MEDS ORDERED: ENOXAPARIN 30 MG/0.3 ML SQ SCH (09:00)
[2019-07-01 12:44] VITALS: BP 136/60; TEMP 97.5
--- NOTE | 2019-07-01 19:00 | P.DS ---
Admission Date: 06/30/19 Discharge Date: 07/01/19 Disposition: ROUTINE DISCHARGE Discharge Condition: FAIR Reason for Admission: DR. LOVELL CALLED ASKING FOR ADMISSION FOR DEHYDRATION. 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 HIS GFR WAS 13 LAST YEAR DURING THAT PERIOD AND IMPROVED TO 20 AFTER OBST WAS RELIVED. DR. LOVELL SAW IT GOING DOWN TO 12 SO SHE ADMITTED HIM. LAB IN HOSPITAL SHOWS IT IS 16 AND NOT 12. HE IS TOTALLY ASYMPTOMATIC. Hospital Course: MR. ALCOCER HAD ACUTE ON CHRONIC RENAL FAILURE. HIS GFR IS UP TO 18 NOW FROM 12. HE IS CLINICALLY VERY STABLE. HE HAS NO COMPLAINTS AND IS SENT HOME WITH FU WITH DR. LOVELL. I REPEATED HIS SONOGRAM OF NECK AND RENAL. STABLE FOR NOW. Vital Signs/Physical Exam: Temp Pulse Resp BP Pulse Ox 97.5 F 58 16 136/60 100 07/01/19 12:00 07/01/19 12:00 07/01/19 12:00 07/01/19 12:00 07/01/19 12:00 Laboratory Data at Discharge: WBC 3.9 K/uL (4.3-10.9) L 07/01/19 06:52 Hgb 8.7 g/dL (13.6-17.9) L 07/01/19 06:52 Hct 25.5 % (39.6-49.0) L 07/01/19 06:52 Plt Count 221 K/uL (152-406) 07/01/19 06:52 Sodium 144 mmol/L (136-145) 07/01/19 06:52 Potassium 4.8 mmol/L (3.5-5.1) 07/01/19 06:52 BUN 57 mg/dL (7-18) H 07/01/19 06:52 Creatinine 3.28 mg/dL (0.55-1.3) H 07/01/19 06:52 Glucose 98 mg/dL (74-106) 07/01/19 06:52 Phosphorus 3.6 mg/dL (2.5-4.9) 06/30/19 13:41 Total Bilirubin 0.5 mg/dL (0.2-1.0) 06/30/19 13:41 AST 11 U/L (15-37) L 06/30/19 13:41 ALT 15 U/L (12-78) 06/30/19 13:41 Alkaline Phosphatase 42 U/L (45-117) L 06/30/19 13:41 Home Medications: Amlodipine Besylate 10 mg PO DAILY 05/07/18 Sodium Bicarbonate 650 mg PO BID 05/20/18 Calcitrol [Rocaltrol*] 1 tab PO DAILY 06/30/19 Cholecalciferol (Vitamin D3) [Vitamin D3] 5,000 unit PO DAILY 06/30/19 Cyanocobalamin (Vitamin B-12) [Vitamin B-12] 500 mcg PO DAILY 06/30/19 Ferrous Sulfate [Feosol] 325 mg PO DAILY 06/30/19 Patient Discharge Instructions: NO CHANGES IN MEDICATIONS. Diet: Renal Followup: Alphonso Stone MD [Primary Care Provider] - 1-2 Weeks
== END 2019-07-01 15:50 | disposition home or self-care (01) ==
LOC: 4TH 14:15 → INTOOBSV 14:15
PROVIDERS: ADMIT Internal Medicine; ATTEND Internal Medicine
DX: N17.9 Acute kidney failure, unspecified (principal); I12.9 Hypertensive chronic kidney disease with stage 1 through stage 4 chronic kidney disease, or unspecified chronic kidney disease; N18.4 Chronic kidney disease, stage 4 (severe); D35.1 Benign neoplasm of parathyroid gland; E86.0 Dehydration
CPT/HCPCS: 85025 ×2; 80048; 36415 ×2; 84100; 85049; 82553; 80053; 76536; 76857; 76770; G0379; J1650; J7030 ×2; G0378 ×3; 81003; 81015

== ENCOUNTER 2023-03-27 17:34 | Emergency (ER) | payer OTHER ==
--- OUTSIDE RECORDS SUMMARY | 2023-03-27 17:37 | XMS REPORT | Continuity of Care Document ---
:1940 Author Organization [facility] t Address [address] [facility] [address] [place] [address] Care Team Providers Name Role Phone MILTON AGUILAR Attending Clinician Unavailable Lab, Adc Fam Pob I Attending Clinician Unavailable Milton Infante Attending Clinician Payers Payer Name Policy Type Policy Number Effective Date Expiration Date S david [employer] MEDICARE ADV [id number] 2019 00:00:00 Problems This patient has no known problems. Allergies, Adverse Reactions, Alerts Allergy Allergy Status Severity Reaction(s) Onset Inactive Treating Comm ents Source Name Type Date Date Clinician NO KNOWN Drug Active Univers ALLERGIE Class [facility] Social History Social Habit Start Date Stop Date Quantity Comments Source [facility] to SARS-[facility]-2 Not sure [facility] i[facility]Former[facility] ([facility] Smoking Status Start Date Stop Date Source Never smoker [facility] Medications This patient has no known medications. Procedures This patient has no known procedures. Encounters Start End Encounter Admission Attending Care Care Encounter Source Date/Time Date/Time Type Type Clinicians Facility Department ID 2020-03-31 2020-03-31 Outpatient R [facility] [id number] Univers 14:00:00 14:00:00 [id number] [facility] 2020-03-31 2020-03-31 Outpatient R LAUREN [facility] [id number] Univers 14:00:00 14:00:00 MILTON [facility] 2020-03-31 2020-03-31 Laboratory Lab, Adc Fam Pob I [place] 1.2. [id number] [facility] 13:25:46 13:45:46 Only Milton Aguilar [facility] [id number] itpriscila guaman [place] [id number] Zeb as Professio [phone] Mn dical [address] 2020-03-31 2020-03-31 Laboratory Lab, [facility] [id number] 13:25:46 13:45:46 Only Fam Pob I Health [id number] [place] [id number] Professio [phone] [place] [address] [address] 2020-03-31 2020-03-31 Outpatient R LAUREN [facility] [id number] Univers 13:00:00 13:00:00 MILTON lucas [facility] Results This patient has no known results.
[2023-03-27 18:24] LABS: Absolute Lymphocytes (CBC) 0.2 K/uL (0.7-4.9); Hematocrit 24.9 % (39.6-49.0); Lymphocytes % 2.4 % (15.3-44.8); MCV 101.1 fL (80-100); RBC Red Blood Cell Count 2.46 M/uL (4.33-5.43)
[2023-03-27 18:32] LABS: Protime INR 1.11
--- NOTE | 2023-03-27 18:54 | RAD REPORT ---
EXAM DESCRIPTION: CT - CTHCSPWOC - 03/27/2023 6:21 pm CLINICAL HISTORY: Trauma, head and neck injury. fall COMPARISON: No comparisons TECHNIQUE: Axial 5 mm thick images of the head were obtained. Axial 2 mm thick images of the cervical spine were obtained with sagittal and coronal reconstruction images generated and reviewed. All CT scans are performed using dose optimization technique as appropriate and may include automated exposure control or mA/KV adjustment according to patient size. FINDINGS: CT HEAD WITHOUT CONTRAST: No acute hemorrhage, hydrocephalus or extra-axial collection is identified.Moderate generalized brain atrophy.No areas of brain edema or midline shift. The paranasal sinuses and mastoids are clear.The calvarium is intact. CT CERVICAL SPINE WITHOUT CONTRAST: No fracture or subluxation.Moderate lower cervical degenerative changes.No prevertebral soft tissues swelling is identified. IMPRESSION: No acute intracranial or cervical spine findings. Moderate lower cervical degenerative changes.
[2023-03-27 19:20] LABS: Specific Gravity 1.011 (1.005-1.030); Urine Bacteria None Seen /HPF (<20); Urine Bilirubin NEGATIVE (Negative); Urine Blood 3+ (OVER) (Negative); Urine Color Light-Yellow (Yellow); Urine Glucose NEGATIVE (Negative); Urine Mucus Slight /HPF (None Seen); Urine Protein 1+ (Negative); Urine RBC <5 /HPF (None Seen); Urine Urobilinogen Normal (Normal); Urine pH 5.5 (5.0-7.0)
[2023-03-27 19:21] LABS: Urine Clarity Clear (Clear)
--- NOTE | 2023-03-27 19:35 | RAD REPORT ---
EXAM DESCRIPTION: RAD - Chest Single View - 03/27/2023 7:06 pm CLINICAL HISTORY: fall Chest pain. COMPARISON: <Comparisons> FINDINGS: Portable technique limits examination quality. The lungs are emphysematous but grossly clear. The heart is normal in size. No displaced fractures. IMPRESSION: Mild COPD.
--- NOTE | 2023-03-27 19:36 | RAD REPORT ---
EXAM DESCRIPTION: RAD - Pelvis - 03/27/2023 7:06 pm CLINICAL HISTORY: fall COMPARISON: Chest Single View dated 03/27/2023 FINDINGS: No evidence of acute fracture or dislocation. Mild arthritic changes are present. No evide nce of avascular necrosis. If pain progresses or persists, MRI followup would be recommended.
--- NOTE | 2023-03-27 20:17 | ER ---
Nurse's Notes [facility] Name: Nathanael Kamara Age: 82 yrs Sex: Male : 1940 Arrival Date: 03/27/2023 Time: 17:34 Bed 17 Private MD: Diagnosis: Fall on same level, unspecified;Unspecified injury of head, initial encounter;Dehydration;Chronic kidney disease, unspecified Presentation: 03/27 17:46 Chief complaint: EMS states: FALL IN GARAGE. Coronavirus screen: At this time, the bp client does not indicate any symptoms associated with coronavirus-19. Ebola Screen: No symptoms or risks identified at this time. Initial Sepsis Screen: Does the patient meet any 2 criteria? HR > 90 bpm. No. Patient's initial sepsis screen is negative. Does the patient have a suspected source of infection? No. Patient's initial sepsis screen is negative. Risk Assessment: Do you want to hurt yourself or someone else? Patient reports no desire to harm self or others. Onset of symptoms was March 27, 2023 at 16:30. Care prior to arrival: Medication(s) given: Normal saline infusion, 350 CC IV initiated. 20 GA, in the left antecubital area. 17:46 Method Of Arrival: EMS: [facility] bp 17:46 Acuity: MAMTA 3 bp Triage Assessment: 17:47 General: Appears in no apparent distress. Behavior is calm, cooperative. Pain: Denies bp pain. EENT: No deficits noted. Neuro: Level of Consciousness is awake, alert, obeys commands. Cardiovascular: No deficits noted. Respiratory: No deficits noted. GI: No signs and/or symptoms were reported involving the gastrointestinal system. : No signs and/or symptoms were reported regarding the genitourinary system. Derm: No deficits noted. Musculoskeletal: No deficits noted. Historical: - Allergies: 17:47 No Known Allergies; bp - Home Meds: 17:47 Sodium Bicarbonate Oral [Active]; amlodipine oral [Active]; bp - PMHx: 17:47 Hypertensive disorder; Kidney disease; bp - Immunization history:: Adult Immunizations up to date. - Social history:: Smoking status: Patient denies any tobacco usage or history of. - Family history:: not pertinent. - Hospitalizations: : No recent hospitalization is reported. Screenin:50 [facility] ED Fall Risk Assessment (Adult) History of falling in the last 3 months, bp including since admission No falls in past 3 months (0 pts). Abuse screen: Denies threats or abuse. Denies injuries from another. Nutritional screening: No deficits noted. Tuberculosis screening: No symptoms or risk factors identified. Assessment: 17:50 General: SEE TRIAGE NOTE. bp 18:58 Reassessment: Patient appears in no apparent distress at this time. Patient is alert, bp oriented x 3, equal unlabored respirations, skin warm/dry/pink. 19:07 Reassessment: ASSUMED CARE OF PT. PT SLIDING DOWN IN BED. PT READJUSTED IN BED FOR jj7 COMFORT. VS STABLE. AT BEDSIDE. PT STATES HE IS HAVING CRAMPS IN HIS LEGS. WARM BLANKET PROVIDED. CALL NGUYỄN IN REACH. 20:02 Reassessment: TECH HAS PT UP AND AMBULATING HIM AROUND UNIT. PT TOLERATING WELL. NO jj7 DIZZINESS AND GAIT STEADY. MD BERTRAND INFORMED. Vital Signs: 17:46 BP 93 / 53; Pulse 115; Resp 18; Temp 98; Pulse Ox 99% ; bp 18:58 BP 124 / 69; Pulse 72; Resp 16; Pulse Ox 100% ; bp 20:05 BP 120 / 66; Pulse 76; Resp 18; Temp 98.4(O); Pulse Ox 100% ; jl10 ED Course: 17:46 Patient arrived in ED. bp 17:46 Yosef Bertrand MD is Attending Physician. rn 17:47 Triage completed. bp 17:49 Arm band placed on. bp 17:50 Patient has correct armband on for positive identification. Bed in low position. Call bp light in reach. Side rails up X2. Adult w/ patient. 17:50 Maintain EMS IV. Dressing intact. Good blood return noted. Site clean \T\ dry. Gauge \T\ bp site: 20 GA LEFT AC. 17:51 Sean Gutierres, RN is Primary Nurse. bp 18:22 CT Head C Spine In Process Unspecified. EDMS 19:08 XRAY Chest (1 view) In Process Unspecified. EDMS 19:08 XRAY Pelvis In Process Unspecified. EDMS 20:26 Provided Education on: FALL PROVENTION. jj7 20:26 No provider procedures requiring assistance completed. IV discontinued, intact, jj7 bleeding controlled, No redness/swelling at site. Pressure dressing applied. Administered Medications: 18:03 Drug: NS 0.9% IV 1000 ml Route: IV; Rate: 1000 ml; Site: left antecubital; bp 19:10 Follow up: IV Status: Completed infusion jj7 Medication: 20:26 VIS not applicable for this client. jj7 Outcome: 20:17 Discharge ordered by . rn 20:26 Discharged to home via wheelchair, with significant other. jj7 20:26 Condition: improved 20:26 Discharge instructions given to patient, significant other, Instructed on discharge instructions, safety practices, Demonstrated understanding of instructions. 20:46 Patient left the ED. as6 Signatures: Dispatcher [employer] EDMS Yosef Bertrand MD MD rn Peltier, Brian RN RN Venkata Blue RN RN as6 Linda Benton RN RN jjPhill Murphy jl10
--- NOTE | 2023-03-27 20:17 | EDPHYS ---
Physician Documentation [facility] Name: Nathanael Kamara Age: 82 yrs Sex: Male : 1940 Arrival Date: 03/27/2023 Time: 17:34 Bed 17 Private MD: ED Physician Yosef Bertrand HPI: 03/27 18:00 This 82 yrs old Male presents to ER via EMS with complaints of Fall Injury. rn 18:00 Details of fall: The patient fell from an upright position. Onset: The symptoms/episode rn began/occurred today. Associated injuries: The patient sustained injury to the head. Severity of symptoms: At their worst the symptoms were mild, in the emergency department the symptoms are unchanged. The patient has experienced similar episodes in the past. The patient has not recently seen a physician. Pt reports fall in garage, was working outside in heat, slipped on an object, hit head, no LOC, remembers all events. states falls often. Denies recent infection/fever/chest pain/sob/abd pain/vomiting/diarrhea. EMS reported BP in 90s, improved with fluids. Patient states believes was mechanical fall and may have gotten overheated.. Historical: - Allergies: 17:47 No Known Allergies; bp - Home Meds: 17:47 Sodium Bicarbonate Oral [Active]; amlodipine oral [Active]; bp - PMHx: 17:47 Hypertensive disorder; Kidney disease; bp - Immunization history:: Adult Immunizations up to date. - Social history:: Smoking status: Patient denies any tobacco usage or history of. - Family history:: not pertinent. - Hospitalizations: : No recent hospitalization is reported. ROS: 18:00 Constitutional: Negative for fever, chills, and weight loss, Eyes: Negative for injury, rn pain, redness, and discharge, Neck: Negative for injury, pain, and swelling, Cardiovascular: Negative for chest pain, palpitations, and edema, Respiratory: Negative for shortness of breath, cough, wheezing, and pleuritic chest pain, Abdomen/GI: Negative for abdominal pain, nausea, vomiting, diarrhea, and constipation, Back: Negative for injury and pain, MS/Extremity: Negative for injury and deformity, Skin: Negative for injury, rash, and discoloration, Neuro: Negative for headache, numbness, tingling, and seizure. Exam: 18:00 Constitutional: This is a well developed, well nourished patient who is awake, alert, rn and in no acute distress. Head/Face: Normocephalic, abrasion to nasal bridge Cardiovascular: Tachycardic, regular. No pulse deficits. Respiratory: No increased work of breathing, no retractions or nasal flaring. Abdomen/GI: Soft, non-tender Back: No spinal tenderness. No costovertebral tenderness. Full range of motion. Skin: Warm, dry, several skin tears right arm and feet. MS/ Extremity: Pulses equal, no cyanosis. Neurovascular intact. Full, normal range of motion. Equal circumference. Neuro: Awake and alert, GCS 15, equal strength in all 4 extremities. Vital Signs: 17:46 BP 93 / 53; Pulse 115; Resp 18; Temp 98; Pulse Ox 99% ; bp 18:58 BP 124 / 69; Pulse 72; Resp 16; Pulse Ox 100% ; bp 20:05 BP 120 / 66; Pulse 76; Resp 18; Temp 98.4(O); Pulse Ox 100% ; jl10 MDM: 17:46 Patient medically screened. rn 20:15 Differential diagnosis: closed head injury, contusion, fracture. Data reviewed: vital rn signs, nurses notes, lab test result(s), radiologic studies, CT scan, plain films, and as a result, I will discharge patient. Counseling: I had a detailed discussion with the patient and/or guardian regarding: the historical points, exam findings, and any diagnostic results supporting the discharge/admit diagnosis, lab results, radiology results, the need for outpatient follow up, to return to the emergency department if symptoms worsen or persist or if there are any questions or concerns that arise at home. Response to treatment: the patient's symptoms have markedly improved after treatment, the patient's condition has returned to base line, the patient is now symptom free, and as a result, I will discharge patient. Special discussion: I discussed with the patient/guardian in detail that at this point there is no indication for admission to the hospital. It is understood, however, that if the symptoms persist or worsen the patient needs to return immediately for re-evaluation. Based on the history and exam findings, there is no indication for further emergent testing or inpatient evaluation. I discussed with the patient/guardian the need to see the primary care provider for further evaluation of the symptoms. ED course: Labs remarkable only for dehydration and chronic kidney disease with anemia of chronic disease, denies any acting bleeding. Imaging neg for acute traumatic findings. Ambulatory here and normotensive. Will dc home with return precautions. . 20:33 ED course: Patient reports has been told of anemia in past. . rn 03/27 17:56 Order name: CBC with Diff; Complete Time: 19:02 rn 03/27 17:56 Order name: Basic Metabolic Panel; Complete Time: 19:02 rn 03/27 17:56 Order name: Urinalysis w/ reflexes; Complete Time: 19:39 rn 03/27 17:56 Order name: Protime (+inr); Complete Time: 19:02 rn 03/27 17:56 Order name: Ptt, Activated; Complete Time: 19:02 rn 03/27 19:24 Order name: Urine Culture EDUT 03/27 17:56 Order name: CT Head C Spine; Complete Time: 19:02 rn 03/27 17:56 Order name: XRAY Chest (1 view); Complete Time: 19:39 rn 03/27 17:56 Order name: XRAY Pelvis; Complete Time: 19:39 rn 03/27 17:57 Order name: EKG; Complete Time: 17:57 rn 03/27 17:56 Order name: IV Start; Complete Time: 18:03 rn 03/27 17:57 Order name: EKG - Nurse/Tech; Complete Time: 18:52 rn Administered Medications: 18:03 Drug: NS 0.9% IV 1000 ml Route: IV; Rate: 1000 ml; Site: left antecubital; bp 19:10 Follow up: IV Status: Completed infusion jj7 Disposition Summary: 03/27/23 20:17 Discharge Ordered Location: Home rn Problem: new rn Symptoms: have improved rn Condition: Stable rn Diagnosis - Fall on same level, unspecified rn - Unspecified injury of head, initial encounter rn - Dehydration rn - Chronic kidney disease, unspecified rn Followup: rn - With: Private Physician - When: As needed - Reason: Recheck today's complaints, Re-evaluation by your physician Discharge Instructions: - Discharge Summary Sheet rn - Dehydration, Adult rn - Head Injury, Adult rn - Fall Prevention in the Home, Adult rn Forms: - Medication Reconciliation Form rn - Thank You Letter rn - Antibiotic sports attorney - Prescription Opioid Use rn - Patient Portal Instructions rn Signatures: Dispatcher [employer] Yosef Head MD MD rn Peltier, Brian, RN RN bp Johnson, Juwairiyah RN jj7
[2023-03-27 21:34] VITALS: O2SAT 100
[2023-03-27 21:35] VITALS: BP 120/66; TEMP 98.4
--- NOTE | 2023-03-28 13:16 | EKG ---
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
== END 2023-03-27 20:46 | disposition home or self-care (01) ==
LOC: ER 17:34
DX: S09.90XA Unspecified injury of head, initial encounter (principal); E86.0 Dehydration; I12.9 Hypertensive chronic kidney disease with stage 1 through stage 4 chronic kidney disease, or unspecified chronic kidney disease; N18.9 Chronic kidney disease, unspecified; W18.30XA Fall on same level, unspecified, initial encounter
CPT/HCPCS: 36415; 70450; 71045; 72125; 72170; 80048; 81001; 85025; 85610; 85730; 87086; 87088; 93005; 96360; 99284

== ENCOUNTER 2023-04-16 11:38 | Observation (INO) | payer OTHER ==
[2023-04-16 12:12] LABS: Absolute Lymphocytes (CBC) 0.3 K/uL (0.7-4.9); Hematocrit 25.3 % (39.6-49.0); Lymphocytes % 5.2 % (15.3-44.8); MCV 102.3 fL (80-100); MPV 7.4 fL (7.6-11.3); Platelets 186 thou/uL (152-406); RBC Red Blood Cell Count 2.48 M/uL (4.33-5.43)
--- OUTSIDE RECORDS SUMMARY | 2023-04-16 12:15 | XMS REPORT | Continuity of Care Document ---
:1940 Author Organization [facility] t Address [address] [facility] [address] [place] [address] Care Team Providers Name Role Phone MILTON AGUILAR Attending Clinician Unavailable Lab, Adc Fam Pob I Attending Clinician Unavailable Milton Infante Attending Clinician Payers Payer Name Policy Type Policy Number Effective Date Expiration Date S ouranurag AETNA MEDICARE ADV [id number] 2019 00:00:00 Problems This patient has no known problems. Allergies, Adverse Reactions, Alerts Allergy Allergy Status Severity Reaction(s) Onset Inactive Treating Comm ents Source Name Type Date Date Clinician NO KNOWN Drug [facility] Social History Social Habit Start Date Stop Date Quantity Comments Source [facility] to SARS-CoV[facility]2 Not sure [facility] Smoking Status Start Date Stop Date Source Never smoker [facility] Medications This patient has no known medications. Procedures This patient has no known procedures. Encounters Start End Encounter Admission Attending Care Care Encounter Source Date/Time Date/Time Type Type Clinicians Facility Department ID 2020-03-31 2020-03-31 Outpatient R [facility] [id number] Univers 14:00:00 14:00:[id number] [facility] 2020-03-31 2020-03-31 Outpatient R LAUREN [facility] [id number] Univers 14:00:00 14:00:[address] [facility] 2020-03-31 2020-03-31 Laboratory Lab, Adc Fam Pob I [facility] 1.2. [id number] Univers 13:25:46 13:45:46 Only Milton Aguilar [facility] [id number] [place] [id number] Zeb as Professio [phone] [place] [address] [address] 2020-03-31 2020-03-31 Laboratory Lab, [facility] [id number] 13:25:46 13:45:46 Only Fam Pob I Health [id number] [place] [id number] Professio [phone] [place] [address] [address] 2020-03-31 2020-03-31 Outpatient R LAUREN [facility] [id number] [facility] 13:00:00 13:00:00 MILTON lucas of [facility] Results This patient has no known results.
--- NOTE | 2023-04-16 12:42 | RAD REPORT ---
EXAM DESCRIPTION: CT - CTHCSPWOC - 04/16/2023 12:26 pm CLINICAL HISTORY: TRAUMA COMPARISON: Head C Spine Mpr Wo Con dated 03/27/2023; Chest Single View dated 03/27/2023 TECHNIQUE: Axial thin cut noncontrast CT images of the head were obtained. Axial thin cut noncontrast CT images of the cervical spine were obtained. Multiplanar reformatted images were generated and reviewed. All CT scans are performed using dose optimization technique as appropriate and may include automated exposure control or mA/KV adjustment according to patient size. FINDINGS: CT HEAD WITHOUT CONTRAST: No acute hemorrhage, hydrocephalus or extra-axial collection is identified. Mild diffuse parenchymal volume loss. No areas of brain edema or midline shift. The paranasal sinuses and mastoids are clear.The calvarium is intact. CT CERVICAL SPINE WITHOUT CONTRAST: No fracture or subluxation.Gentle reversal of the normal cervical lordosis, could be positional or se condary to muscle spasm. This is stable. Multilevel disc height loss and variable degrees of facet an d uncovertebral joint arthropathy, contributing to at least moderate neural foraminal narrowing on th e right at C3-4.No prevertebral soft tissues swelling is identified. IMPRESSION: No acute traumatic intracranial or cervical spine findings. Chronic findings as above.
--- NOTE | 2023-04-16 12:45 | RAD REPORT ---
EXAM DESCRIPTION: Kaylee Single View04/16/2023 12:36 pm CLINICAL HISTORY: Chest pain COMPARISON: March 2023 FINDINGS: The lungs are mildly hyperaerated. The lungs appear clear of acute infiltrate. The heart is normal size IMPRESSION: No acute abnormalities displayed
[2023-04-16 12:54] LABS: Albumin 3.3 g/dL (3.4-5.0); Bilirubin Total 0.3 mg/dL (0.2-1.0); Potassium 4.6 mEq/L (3.5-5.1); Protein, Total 6.2 g/dL (6.4-8.2)
--- NOTE | 2023-04-16 14:19 | ER ---
Nurse's Notes [facility] Name: Nathanael Kamara Age: 82 yrs Sex: Male : 1940 Arrival Date: 04/16/2023 Time: 11:38 Bed 7 Private MD: Diagnosis: Unspecified kidney failure;Fall on same level, unspecified;Heat exhaustion, unspecified Presentation: 04/16 11:40 Chief complaint: EMS states: pt was found on ground behind [employer], he states he lost his iw balance and fell, did not hit his head, denies injury , his temp was 103.1, down to 102.4, tylenol given, ice packs in place. Coronavirus screen: At this time, the client does not indicate any symptoms associated with coronavirus-19. Ebola Screen: Patient negative for fever greater than or equal to 101.5 degrees Fahrenheit, and additional compatible Ebola Virus Disease symptoms Patient denies exposure to infectious person. Patient denies travel to an Ebola-affected area in the 21 days before illness onset. No symptoms or risks identified at this time. 11:40 Method Of Arrival: EMS: [facility] iw 11:40 Acuity: MAMTA 3 iw 11:52 Risk Assessment: Do you want to hurt yourself or someone else? Patient reports no iw desire to harm self or others. Onset of symptoms was April 16, 2023. Care prior to arrival: Medication(s) given: Normal saline infusion, 1000 mL, Tylenol, 950 mg IV initiated. 18 GA, in the left antecubital area, Glucose check: 275. Historical: - Allergies: 11:43 No Known Allergies; iw - PMHx: 11:42 Hypertensive disorder; kidney disease; ss Screenin:50 [facility] ED Fall Risk Assessment (Adult) History of falling in the last 3 months, iw including since admission Yes- single mechanical fall (1 pt). Abuse screen: Denies threats or abuse. Denies injuries from another. Nutritional screening: No deficits noted. Tuberculosis screening: No symptoms or risk factors identified. Assessment: 11:41 Reassessment: Point of Contact: iSri () [phone]. ss 13:05 Reassessment: Patient appears in no apparent distress at this time. Patient and/or iw family updated on plan of care and expected duration. Pain level reassessed. Patient is alert, oriented x 3, equal unlabored respirations, skin warm/dry/pink. pt sitting up eating a sandwich and drinking water. 17:53 Reassessment: Patient appears in no apparent distress at this time. Patient and/or iw family updated on plan of care and expected duration. Pain level reassessed. at bedside. 18:05 Reassessment: attempt to call report. iw 18:12 Reassessment: report given to Luz. iw Vital Signs: 11:43 BP 98 / 61; Pulse 118; Resp 19 S; Temp 99.8(O); Pulse Ox 98% on R/A; Weight 47.63 kg; iw Height 5 ft. 8 in. ; 13:14 BP 113 / 73; Pulse 98; Resp 19; Temp 97.9; Pulse Ox 100% on R/A; iw 17:53 BP 106 / 76; Pulse 89; Resp 16; Pulse Ox 100% on R/A; iw 11:43 Body Mass Index 15.97 (47.63 kg, 172.72 cm) iw ED Course: 11:39 Patient arrived in ED. rn 11:39 Trisha Montiel, YANDEL is Primary Nurse. iw 11:40 Alhaji Daniels DO is Attending Physician. ms3 11:42 Triage completed. iw 11:44 Arm band placed on Patient placed. iw 11:50 Maintain EMS IV. Dressing intact. Good blood return noted. Site clean \T\ dry. Gauge \T\ iw site: 18 LAC. 12:27 CT Head C Spine In Process Unspecified. EDMS 12:37 Chest Single View XRAY In Process Unspecified. EDMS 14:18 Josep Negron MD is Hospitalizing Provider. ms3 Administered Medications: No medications were administered Medication: 11:50 VIS not applicable for this client. iw Outcome: 14:18 Decision to Hospitalize by Provider. ms3 18:34 Patient left the ED. ss Signatures: Dispatcher [employer] EDTrisha Esparza, YANDEL HUMPHRIES Yosef Bertrand MD MD rn Blanchard, Shelby, RN RN Alhaji Daniels DO DO ms3 Corrections: (The following items were deleted from the chart) 11:50 11:43 BP 98 / 61; Pulse 118bpm; Resp 19bpm; Spontaneous; Pulse Ox 98% RA; iw iw
--- NOTE | 2023-04-16 14:19 | EDPHYS ---
Physician Documentation [facility] Name: Nathanael Kamara Age: 82 yrs Sex: Male : 1940 Arrival Date: 04/16/2023 Time: 11:38 Bed 7 Private MD: ED Physician Alhaji Daniels HPI: 04/16 11:56 This 82 yrs old Male presents to ER via EMS with complaints of Fall Injury, Heat ms3 Exposure. 11:56 82-year-old male with past medical history of hypertension, chronic kidney disease ms3 presents via [facility] status post trip and fall in the [employer] parking lot. Patient states he fell onto the asphalt and bystanders called 911 as a saw him laying on the asphalt. Patient denies pain at this time. Patient denies alleviating or inciting factors. Patient states he sees Dr. Doyle for his kidney issues.. Historical: - Allergies: 11:43 No Known Allergies; iw - PMHx: 11:42 Hypertensive disorder; kidney disease; ss ROS: 11:56 Constitutional: Negative for fever, and chills. ENT: Negative for injury, pain, and ms3 discharge, Neck: Negative for injury, pain, and swelling, Cardiovascular: Negative for chest pain, and palpitations. Respiratory: Negative for shortness of breath, cough, wheezing, and pleuritic chest pain, Abdomen/GI: Negative for abdominal pain, nausea, vomiting, diarrhea, and constipation, MS/Extremity: Negative for injury and deformity, Skin: Negative for injury, rash, and discoloration. 11:56 All other systems are negative. Exam: 11:56 Constitutional: This is a well developed, well nourished patient who is awake, alert, ms3 and in no acute distress. Head/Face: Normocephalic, atraumatic. Neck: Trachea midline, no cervical lymphadenopathy. Supple, full range of motion without nuchal rigidity, or vertebral point tenderness. No Meningismus. Chest/axilla: Normal chest wall appearance and motion. Nontender with no deformity. Cardiovascular: Regular rate and rhythm with a normal S1 and S2. No gallops, murmurs, or rubs. Normal PMI, no JVD. No pulse deficits. Respiratory: Lungs have equal breath sounds bilaterally, clear to auscultation and percussion. No rales, rhonchi or wheezes noted. No increased work of breathing, no retractions or nasal flaring. Abdomen/GI: Soft, non-tender, with normal bowel sounds. No distension or tympany. No guarding or rebound. No evidence of tenderness throughout. Skin: Warm, dry with normal turgor. Normal color with no rashes, no lesions, and no evidence of cellulitis. MS/ Extremity: Pulses equal, no cyanosis. Neurovascular intact. Full, normal range of motion. Neuro: Awake and alert, GCS 15, oriented to person, place, time, and situation. Cranial nerves II-XII grossly intact. Motor strength 5/5 in all extremities. Sensory grossly intact. Cerebellar exam normal. Normal gait. 12:31 ECG was reviewed by the Attending Physician. ms3 Vital Signs: 11:43 BP 98 / 61; Pulse 118; Resp 19 S; Temp 99.8(O); Pulse Ox 98% on R/A; Weight 47.63 kg; iw Height 5 ft. 8 in. ; 13:14 BP 113 / 73; Pulse 98; Resp 19; Temp 97.9; Pulse Ox 100% on R/A; iw 17:53 BP 106 / 76; Pulse 89; Resp 16; Pulse Ox 100% on R/A; iw 11:43 Body Mass Index 15.97 (47.63 kg, 172.72 cm) iw MDM: 11:56 Patient medically screened. ms3 11:56 Differential diagnosis: closed head injury, contusion, fracture, sprain, strain. ms3 14:19 Data reviewed: vital signs, nurses notes, lab test result(s), EKG, radiologic studies, ms3 and as a result, I will admit patient. Consideration of Admission/Observation Patient was admitted/placed on observation. Management of patient was discussed with the following: Hospitalist: Dr Stone. Gift Shop Clerk: Dr Doyle- Nephrology. Independent interpretation of the following test(s) in the Emergency Department EKG: See my EKG interpretation above X-Ray: My interpretation is CXR image reviewed negative acute. Historians other than the Patient: EMS: [facility]. Counseling: I had a detailed discussion with the patient and/or guardian regarding: the historical points, exam findings, and any diagnostic results supporting the discharge/admit diagnosis, lab results, radiology results, the need for further work-up and treatment in the hospital. ED course: Dr Doyle would like patient to be admitted for IVF. 04/16 11:55 Order name: CBC with Diff; Complete Time: 12:51 ms3 04/16 11:55 Order name: CMP; Complete Time: 14:08 ms3 04/16 11:55 Order name: Urinalysis w/ reflexes; Complete Time: 14:48 ms3 04/16 11:55 Order name: CK; Complete Time: 14:08 ms3 04/16 14:33 Order name: Urine Culture EDMS 04/16 15:06 Order name: Basic Metabolic Panel EDMS 04/16 15:06 Order name: Basic Metabolic Panel EDMS 04/16 15:06 Order name: CBC with Automated Diff EDMS 04/16 15:06 Order name: CBC with Automated Diff EDMS 04/16 11:55 Order name: Chest Single View XRAY; Complete Time: 12:51 ms3 04/16 11:56 Order name: CT Head C Spine; Complete Time: 12:51 ms3 04/16 11:55 Order name: EKG; Complete Time: 11:56 ms3 04/16 15:05 Order name: CONS Physician Consult EDMT 04/16 15:06 Order name: Heart Healthy EDMT 04/16 11:55 Order name: Accucheck; Complete Time: 12:10 ms3 04/16 11:55 Order name: Cardiac monitoring; Complete Time: 12:10 ms3 04/16 11:55 Order name: EKG - Nurse/Tech; Complete Time: 12:23 ms3 04/16 11:55 Order name: IV Saline Lock - Large Bore; Complete Time: 12:10 ms3 04/16 11:55 Order name: Labs collected and sent; Complete Time: 12:10 ms3 04/16 11:55 Order name: O2 Per Protocol; Complete Time: 12:10 ms3 04/16 11:55 Order name: O2 Sat Monitoring; Complete Time: 12:10 ms3 04/16 11:55 Order name: Vital Signs; Complete Time: 12:10 ms3 EC:31 Rate is 106 beats/min. Rhythm is regular. QRS [place] is Normal. [place] interval is normal. ms3 QRS interval is prolonged. QT interval is normal. Clinical impression: RBBB. Interpreted by me. Reviewed by me. Administered Medications: No medications were administered Disposition Summary: 04/16/23 14:18 Hospitalization Ordered Hospitalization Status: Observation ms3 Location: Telemetry/MedSurg (observation) ms3 Condition: Stable ms3 Problem: new ms3 Symptoms: are unchanged ms3 Bed/Room Type: Standard ms3 Provider: Alphonso Sotne(04/16/23 14:52) ms3 Room Assignment: [id number](04/16/23 17:57) bd Diagnosis - Unspecified kidney failure ms3 - Fall on same level, unspecified ms3 - Heat exhaustion, unspecified ms3 Forms: - Medication Reconciliation Form ms3 - SBAR form ms3 Signatures: Dispatcher [employer] EDJanett Kearney Irene RN RN iw Shahla Thornton RN RN ss Alhaji Daniels DO DO ms3 Corrections: (The following items were deleted from the chart) 14:52 14:19 Management of patient was discussed with the following: Hospitalist: Dr Kellogg. ms3 Gift Shop Clerk: Dr Doyle- Nephrology. ms3 14:52 14:18 Josep Negron ms3 ms3 17:57 14:18 ms3 bd
[2023-04-16 14:29] LABS: Specific Gravity 1.014 (1.005-1.030); Urine Bacteria <20 /HPF (<20); Urine Bilirubin NEGATIVE (Negative); Urine Blood 2+ (Negative); Urine Clarity Extremely Turbid (Clear); Urine Color Light-Yellow (Yellow); Urine Glucose TRACE (Negative); Urine Mucus Slight /HPF (None Seen); Urine Protein 2+ (Negative); Urine Urobilinogen Normal (Normal); Urine pH 5.5 (5.0-7.0)
[2023-04-16] MEDS ORDERED: ACETAMINOPHEN 500 MG TAB PO PRN (15:03)
--- NOTE | 2023-04-16 18:02 | P.SSS ---
Patient History Date of Service: 04/16/23 Reason for admission: [place],FELL IN [place] History of Present Illness: FAWN IS A STAGE 5 CKD PATIENT ON HD. HIS IS AWAY TAKING CARE OF SON WHO FELL AND BROKE CLAVICLE. FAWN FELL OUTSIDE [facility] WAS CALLED IN. HE IS IF HERE OVERNIGHT FOR IV. Allergies Cephalosporins Adverse Reaction (Verified 06/30/19 16:12) Itching/Hives/Rash Home medications list reviewed: Yes Home Medications: Amlodipine Besylate 10 mg PO DAILY 05/07/18 Sodium Bicarbonate 650 mg PO BID 05/20/18 Calcitrol [Rocaltrol*] 1 tab PO DAILY 06/30/19 Cholecalciferol (Vitamin D3) [Vitamin D3] 5,000 unit PO DAILY 06/30/19 Cyanocobalamin (Vitamin B-12) [Vitamin B-12] 500 mcg PO DAILY 06/30/19 Ferrous Sulfate [Feosol] 325 mg PO DAILY 06/30/19 - Past Medical/Surgical History Diabetic: No -: HTN -: kidney stones -: CKD- Stage 4 -: parathyroid enlargement -: Tonsilectomy -: TURP - Family History Mother Notes: Rheumatoid Arthritis Father -: Heart disease - Social History Alcohol use: Yes CD- Drugs: No Caffeine use: Yes Review of Systems 10-point ROS is otherwise unremarkable General: Weakness Physical Examination - Physical Exam General: Alert, In no apparent distress, Cachectic (AT HIS BASELINE) HEENT: Atraumatic, PERRLA, Mucous membr. moist/pink, EOMI, Sclerae nonicteric Neck: Supple, 2+ carotid pulse no bruit, No LAD, Without JVD or thyroid abnormality Respiratory: Clear to auscultation bilaterally, Normal air movement Cardiovascular: Regular rate/rhythm, Normal S1 S2 Gastrointestinal: Normal bowel sounds, No tenderness Musculoskeletal: No tenderness Integumentary: No rashes Neurological: Normal gait, Normal speech, Normal strength at 5/5 x4 extr, Normal tone, Normal affect Lymphatics: No axilla or inguinal lymphadenopathy - Studies Laboratory Data (last 24 hrs) 04/16/23 04/16/23 12:04 12:04 WBC 5.20 Hgb 8.3 L Hct 25.3 L Plt Count 186 Sodium 140 Potassium 4.6 BUN 59 H Creatinine 4.15 H Glucose 144 H Total Bilirubin 0.3 AST 23 ALT 39 Alkaline Phosphatase 48 - Diagnosis (Problem(s)) (1) Dehydration Onset Date: 07/09/18 Current Visit: No Status: Acute Plan: GENTLE HYDRATION. HE IS NOT FAR FROM HIS BASELINE. IV OVERNIGHT HE SHOULD NOT BE OUTSIDE IN THE CURRENT HEAT HE IS STUBBORN PER AND DOES WHAT HE WANTS TO DO. (2) Anemia Onset Date: 05/08/18 Current Visit: No Status: Chronic Plan: ANE CHR DISEASE EPOGEN BY RENAL MD. Qualifiers: Anemia type: due to chronic kidney disease - Disposition Disposition: ROUTINE DISCHARGE
[2023-04-16] MEDS: NA CHLORIDE 0.9% 1,000 ML IV SCH (18:51)
[2023-04-16] MEDS ORDERED: TIZANIDINE 4 MG TABLET PO PRN (19:39)
[2023-04-16 20:31] VITALS: BMI 16.0
[2023-04-16] MEDS ORDERED: EPOETIN ALFA 10,000 UNIT/ML VIAL SQ SCH (21:00)
[2023-04-16 21:51] LABS: Ferritin 127.7 ng/mL (26-388)
[2023-04-16] MEDS ORDERED: EPOETIN ALFA-EPBX 10,000 UNIT/ML VIAL ONE (22:00)
--- NOTE | 2023-04-17 02:51 | CON ---
Date of Consultation: 04/16/2023 Chief Complaint: Chronic kidney disease stage 4, prerenal azotemia, acute on chronic kidney injury, metabolic acidosis, status post fall. History Of Present Illness: The patient has history of chronic kidney disease stage 4 and baseline G FR ranging from 15 to 17. The patient has history of hyperkalemia and metabolic acidosis. He was ta megan sodium bicarbonate and Lokelma. Previous history of obstructive uropathy, bladder outlet obstru ction, underwent , history of hyperparathyroidism and underwent surgery, parathyroidectomy. The patient was found to have elevated PTH and was started on calcitriol. PTH has been improving. The patient is admitted to the hospital after he sustained fall at home. His is away, taking ca re of his son, who fell and broke clavicle. Review of Systems: General: The patient denies fever or chills. Eyes: Denies vision changes. Ears, Nose, Mouth, and Throat: Denies sore throat or earache. Respiratory: Denies shortness of breath or wheezing. Cardiovascular: Denies chest pain or palpitation. GI: Denies nausea or vomiting. : Denies dysuria or hematuria. All other systems reviewed and all are negative. Past Medical History: Hypertension. He denies diabetes. He has history of kidney stone, chronic ki dney disease stage 4, hyperparathyroidism, parathyroid enlargement, tonsillectomy, and TURP. Family History: Mother, rheumatoid arthritis. Father, heart disease. Social History: Denies tobacco or alcohol. He uses caffeine, drinks coffee. Physical Examination: General: The patient is awake, alert, follows commands. He appears cachectic and this is his baseli ne. HEENT: Atraumatic. EOMI. Oral mucosa pink and sclerae are nonicteric. Neck: Supple. No JVD. No bruits. Lungs: Clear to auscultation bilaterally. No wheezing. No rhonchi. Cardiovascular: S1, S2. Regular rate and rhythm. Abdomen: Soft, benign, nontender. Extremities: No edema. No clubbing. No cyanosis. Neurological: Moving extremities. Cranial nerves intact. Laboratory Data: Sodium 140, potassium 4.6, BUN 59, creatinine 4.15, glucose 144. AST 23, ALT 39. CK level is pending. WBC 5.2, hemoglobin 8.3, platelet count 186,000. Impression And Plan: 1.Volume depletion. Plan is to continue IV fluids. The patient developed prerenal azotemia. GFR d ropped to below 15 and previously, the patient had GFR up to 17. The patient is advancing to stage 5 , although recent decline of the renal function is due to volume depletion and plan is to start IV fl uids. 2.Metabolic acidosis. Continue sodium bicarbonate tablets. 3.History of hyperkalemia. Monitor potassium level closely. 4.Acute kidney injury. Avoid MICHAEL inhibitor. 5.Hypertension. Monitor blood pressure. The patient is on a calcium channel ramon. 6.Anemia due to chronic kidney disease. Hemoglobin 8.3. The patient may benefit from Epo. Monitor iron level. EB/MODL Voice ID: [id number] Report ID: [id number]
[2023-04-17 03:40] LABS: Absolute Lymphocytes (CBC) 0.6 K/uL (0.7-4.9); Hematocrit 24.7 % (39.6-49.0); Lymphocytes % 13.2 % (15.3-44.8); MCV 101.6 fL (80-100); Platelets 179 thou/uL (152-406); RBC Red Blood Cell Count 2.43 M/uL (4.33-5.43)
[2023-04-17 03:52] LABS: Potassium 4.9 mEq/L (3.5-5.1)
[2023-04-17] MEDS: NA CHLORIDE 0.9% 1,000 ML IV SCH (07:07)
--- NOTE | 2023-04-17 07:50 | RAD REPORT ---
EXAM DESCRIPTION: CT - Stone Protocol - 04/16/2023 11:10 pm CLINICAL HISTORY: Flank pain. hematuria COMPARISON: Abdomen Pelvis Wo Contrast dated 05/08/2018 TECHNIQUE: Axial images were obtained without oral or IV contrast. Lack of contrast limits solid org an and vascular assessment. The [id number] spans the entirety of the system partially obscuring uppermost abdomen and lung bases. Coronal reformatted images were obtained and reviewed. All CT scans are performed using dose optimization technique as appropriate and may include automated exposure control or mA/KV adjustment according to patient size. FINDINGS: Trace bilateral pleural effusion. There is marked distention of the stomach with food stuf f. Imaged portions of the liver and spleen show no suspicious findings on non-contrast imaging.13 mm cys t is present superior liver. The pancreas and adrenal glands are normal. No pathologic lymphadenopath y in the abdomen or pelvis. Bilateral nephrolithiasis is seen. Benign cyst is present inferior left kidney. No hydronephrosis. No bowel obstruction, free air, free fluid or abscess. There is a large amount of stool seen througho ut the colon. Normal appendix. Aortoiliac atherosclerosis.Prostate gland is enlarged. Trace pelvic fr ee fluid. Advanced multilevel lumbar degenerative changes. Cystic subcutaneous lesion medial left buttock measu ring 4.4 cm may be a dermatologic cyst or similar lesion. IMPRESSION: Bilateral nephrolithiasis is noted without hydronephrosis. There is significant foodstuff is seen filling the stomach which appears distended. Significant prostate enlargement.
[2023-04-17] MEDS ORDERED: PNEUMOCOCCAL VACCINE 0.5 ML IMVAC ONE (08:00)
--- NOTE | 2023-04-17 08:08 | RAD REPORT ---
EXAM DESCRIPTION: US - Renal Ultrasound-Complete - 04/16/2023 11:56 pm CLINICAL HISTORY: leticia on ckd 4 COMPARISON: Renal Ultrasound-Complete dated 06/30/2019; Stone Protocol dated 04/16/2023 FINDINGS: Both kidneys are significantly echogenic. The right kidney measures 8.0 x 4.0 cm. Small calculi are present with small benign cyst. No hydronep hrosis. The left kidney measures 9.9 x 4.7 cm. Small calculi are present with small benign cysts. No hydronep hrosis. The urinary bladder is incompletely distended without gross abnormality seen. Prostate gland is enlar ged. IMPRESSION: Echogenic kidneys bilaterally without hydronephrosis, suggests underlying medical renal disease. Small nonobstructing calculi bilaterally. Significant prostate enlargement.
[2023-04-17 08:55] VITALS: O2SAT 100
[2023-04-17 09:08] VITALS: BP 118/59; TEMP 97.4
[2023-04-17] MEDS ORDERED: EPOETIN ALFA-EPBX 10,000 UNIT/ML VIAL SQ SCH (12:00)
--- NOTE | 2023-04-17 12:09 | PN ---
Date of Progress Note: 04/17/2023 Subjective: The patient was admitted with acute kidney injury on chronic kidney disease, advanced, s tage IV. The patient's after hydration kidney function back to baseline. The patient feeling well. Physical Examination: Vital Signs: Blood pressure 118/59, pulse of 59, afebrile. The patient urinating very well. Chest: Clear to auscultation. Heart: S1, S2. Regular. Abdomen: Soft, nontender. Extremity: No edema. Neurologic: Alert. No focality. Laboratory Data: Hemoglobin 8.3. Sodium 139, potassium 4.9, bicarb 24, BUN 61, creatinine 3.7, GFR of 15, calcium 8. Iron saturation 35. Hemoglobin 8.3. Current Medications: The patient on include Tylenol, IV fluid, calcitriol, amlodipine, sodium bicarb . Assessment And Plan: 1.Acute kidney injury on advanced chronic kidney disease, back to baseline. No need for renal repla cement therapy. We will continue to monitor. 2.Hypertension, controlled, optimal. Continue current treatment. 3.Secondary hyperparathyroidism. Resume calcitriol as outpatient. 4.Acidosis, non-anion gap metabolic acidosis secondary to renal failure. Continue sodium bicarb b.i .d. 5.Anemia of chronic kidney disease. We will dose the patient with single dose of Retacrit and we will follow up the patient. The patient cleared from the Renal standp oint for discharge planning. LEONILA Voice ID: [id number] Report ID: [id number]
[2023-04-17] MEDS ORDERED: ENSURE ENLIVE 237 ML CAN PO SCH (21:00)
--- NOTE | 2023-04-17 21:38 | P.CNS ---
Date of Consult: 04/17/23 Reason for Consult: microscopic hematuria Requesting Physician: Angelia Ko Chief Complaint: WEAKNES,FELL IN [place] History of Present Illness: 82-year-old gentleman with hypertension, CKD stage IV-V, and a history of kidney stones as well as TURP is referred, following admission for a fall outside of [facility] where the ambulance was called, for microscopic hematuria. Patient was discharged prior to my rendering of the consultation today. 04/16/2023 WBC 5.2, hemoglobin 8.3, platelets 186, creatinine 4.15, UA micro 11-20 RBCs per hpf, 10-20 WBCs per hpf, culture pending 04/17/2023 creatinine 3.78 04/16/2023 CT abdomen and pelvis stone protocol: Radiologist's findings: Bilateral nephrolithiasis. Simple left renal cyst. No hydronephrosis. My review of CT abdomen and pelvis without contrast: 5 mm right nephrolithiasis. 3.5 mm left nephrolithiasis/papillary calcification. Calcified right renal vein. Significant prostatomegaly with TUR defect. Bladder herniating toward right femoral canal and somewhat distended. Assessment and recommendation (entered based on review of the chart and the data entered above): 82-year-old gentleman with hypertension, CKD stage IV-V, and a history of kidney stones as well as TURP admitted following fall with microscopic hematuria in the setting of bilateral small volume nephrolithiasis, absence of hydronephrosis, and prostatomegaly with TUR defect but distended bladder herniating toward right femoral canal in the setting of pyuria. -Await results of culture, and if infection seen, this should be treated before further evaluation of the microscopic hematuria can proceed. -If infection indeed found, this is consistent with his distended bladder and prostatomegaly, and it is a complication of his BPH potentially requiring subsequent treatment. -Follow-up as an outpatient for urologic evaluation and consideration of cystoscopy if either microscopic hematuria confirmed or infection found in his urine. Allergies Cephalosporins Adverse Reaction (Verified 06/30/19 16:12) Itching/Hives/Rash Home medications list reviewed: Yes Home Medications: Sodium Bicarbonate 650 mg PO BID 05/20/18 Calcitrol [Rocaltrol*] 1 tab PO DAILY 06/30/19 Ferrous Sulfate [Ferrous Sulfate*] 325 mg PO DAILY 06/30/19 Sodium Zirconium Cyclosilicate [Lokelma] 5 gm PO DAILY 04/16/23 - Past Medical/Surgical History Diabetic: No -: HTN -: kidney stones -: CKD- Stage 4 -: parathyroid enlargement -: Tonsilectomy -: TURP - Family History Mother Notes: Rheumatoid Arthritis Father Medical History: Heart disease - Social History Alcohol use: No CD- Drugs: No Caffeine use: Yes Place of Residence: Home Physical Examination Temp Pulse Resp BP Pulse Ox 97.4 F 59 17 118/59 L 99 04/17/23 08:00 04/17/23 08:00 04/17/23 08:00 04/17/23 08:00 04/17/23 08:00 - Problems (1) Microhematuria Status: Acute (2) Pyuria Status: Acute (3) BPH loc w urin obs/LUTS Status: Acute (4) Bilateral nephrolithiasis Status: Acute (5) Simple renal cyst Status: Acute (6) Acute on chronic renal failure Status: Acute Qualifiers: Acute renal failure type: unspecified Chronic kidney disease stage: stage 4 (severe) Qualified Code(s): N17.9 - Acute kidney failure, unspecified; N18.4 - Chronic kidney disease, stage 4 (severe) Conclusions/Impression: see HPI Critical Care: No
--- NOTE | 2023-04-18 18:16 | EKG ---
Test Date: 2023-04-16 Test Time: 12:17:48 Sat Act Instructor: OSVALDO MEASUREMENT RESULTS: Intervals: Rate: 106 IA: 228 QRSD: 128 QT: 360 QTc: 478 [place]: P: 78 IA: 228 QRS: 56 T: 62 INTERPRETIVE STATEMENTS: Sinus tachycardia with 1st degree AV block Right bundle branch block Possible Inferior infarct, age undetermined Possible Anteroseptal infarct, age undetermined Abnormal ECG Compared to ECG 03/27/2023 18:44:31 Sinus rhythm no longer present Myocardial infarct finding still present Electronically Signed On 04-18-23 18:12:30 CDT by Lester Delgado
== END 2023-04-17 14:45 | disposition home or self-care (01) ==
LOC: ER 11:38 → ERHOLD 15:06 → 2ND 18:13
PROVIDERS: ADMIT Internal Medicine; ATTEND Internal Medicine
DX: N17.9 Acute kidney failure, unspecified (principal); E86.0 Dehydration; E86.9 Volume depletion, unspecified; D63.1 Anemia in chronic kidney disease; N18.5 Chronic kidney disease, stage 5; Z99.2 Dependence on renal dialysis; E87.20 Acidosis, unspecified; I10 Essential (primary) hypertension; R31.29 Other microscopic hematuria; R82.81 Pyuria; N40.1 Benign prostatic hyperplasia with lower urinary tract symptoms; N13.8 Other obstructive and reflux uropathy; N20.0 Calculus of kidney; N28.1 Cyst of kidney, acquired; E21.3 Hyperparathyroidism, unspecified; Z88.8 Allergy status to other drugs, medicaments and biological substances; X30.XXXA Exposure to excessive natural heat, initial encounter; Y93.9 Activity, unspecified; Y92.9 Unspecified place or not applicable; W18.39XA Other fall on same level, initial encounter; Y93.89 Activity, other specified; Y92.481 Parking lot as the place of occurrence of the external cause
CPT/HCPCS: 93005; 87088; 85025 ×2; 81001; 87086; 80048; 36415 ×2; 82550; 82728; 83540; 84153; 80053; 84154; 84466; 70450; 72125; 76377; 74176; 71045; 76770; 99283; G0103; Q5106 ×2; J7030 ×2

== ENCOUNTER 2023-07-02 12:49 | Inpatient (IN) | payer OTHER ==
--- OUTSIDE RECORDS SUMMARY | 2023-07-02 12:51 | XMS REPORT | Continuity of Care Document ---
:1940 Author Organization [facility] t Address [address] [facility] [address] [place] [address] Care Team Providers Name Role Phone Alphonso Stone Attending Clinician Unavailable MILTON AGUILAR Attending Clinician Unavailable Lab, Adc Fam Pob I Attending Clinician Unavailable Milton Infante Attending Clinician Payers Payer Name Policy Type Policy Number Effective Date Expiration Date S ource [employer] MEDICARE ADV [id number] 00:00:00 Problems This patient has no known problems. Allergies, Adverse Reactions, Alerts Allergy Allergy Status Severity Reaction(s) Onset Inactive Treating Comm ents Source Name Type Date Date Clinician NO KNOWN Drug Active [facility] Social History Social Habit Start Date Stop Date Quantity Comments Source [facility] Exposure to SARS-CoV-2 Not sure [facility] [place] [facility] Smoking Status Start Date Stop Date Source Never smoker [facility] Medications This patient has no known medications. Procedures This patient has no known procedures. Encounters Start End Encounter Admission Attending Care Care Encounter Source Date/Time Date/Time Type Type Clinicians Facility Department ID 2023-06-21 Outpatient ROOSEVELT Stone [facility] [id number] Common 12:52:00 Alphonso 19772 [facility] 2020-03-31 2020-03-31 Outpatient R [facility] [id number] Univers 14:00:00 14:00:[id number] [facility] 2020-03-31 2020-03-31 Outpatient R LAUREN [facility] [id number] Univers 14:00:00 14:00:00 MILTON lucas [facility] 2020-03-31 2020-03-31 Laboratory Lab, [facility] Fam Pob I [facility] [id number] Univers 13:25:46 13:45:46 Only Milton [facility] [id number] [facility] [place] [id number] Zeb as Professio [phone] In dical [address] Office Building [facility] 2020-03-31 2020-03-31 Laboratory Lab, [facility] [id number] 13:25:46 13:45:46 Only Fam Pob I Health [id number] [place] [id number] Professio [phone] [place] [address] Office [address] [facility] 2020-03-31 2020-03-31 Outpatient R LAUREN [facility] [id number] Univers 13:00:00 13:00:00 MILTON lucas [facility] Results This patient has no known results.
[2023-07-02 14:27] LABS: Absolute Lymphocytes (CBC) 0.4 K/uL (0.7-4.9); Hematocrit 25.2 % (39.6-49.0); Lymphocytes % 7.5 % (15.3-44.8); MPV 7.9 fL (7.6-11.3); Platelets 184 thou/uL (152-406); RBC Red Blood Cell Count 2.47 M/uL (4.33-5.43)
[2023-07-02 14:37] LABS: Protime INR 0.93
[2023-07-02 14:40] LABS: Magnesium 2.3 mg/dL (1.6-2.4); Potassium 5.4 mEq/L (3.5-5.1)
[2023-07-02] MEDS ORDERED: SODIUM ZIRCONIUM CYCLOSILICATE 10 GM/PKT PO ONE (16:00)
[2023-07-02] MEDS: SODIUM BICARB 325 MG TAB PO SCH ×2 (16:57→20:54)
--- NOTE | 2023-07-02 17:16 | RAD REPORT ---
EXAM DESCRIPTION: US - Renal Ultrasound-Complete - 07/02/2023 4:53 pm CLINICAL HISTORY: Abdominal pain. COMPARISON: April 2023 FINDINGS: The right kidney measures 8 centimeters with an increased echotexture The left kidney measures 9 centimeters with an increased echotexture Bilateral renal cysts. Largest left kidney 3.2 centimeters Hydronephrosis is not seen. Marked prostatic enlargement. No gross abnormality of bladder IMPRESSION: Increased renal echotexture consistent with parenchymal disease. No hydronephrosis
[2023-07-02] MEDS ORDERED: CYCLOBENZAPRINE 10 MG TAB PO ONE (18:29)
--- NOTE | 2023-07-02 21:00 | CON ---
Date of Consultation: 07/02/2023 Reason For Consultation: Preop cardiac risk assessment for a tunneled dialysis catheter. History Of Present Illness: This is an 83-year-old male, history of hypertension, chronic kidney dis ease. No history of cardiac disease. He is in the hospital in need for tunneled dialysis catheter p lacement. I was asked to evaluate the patient cardiac risk prior to the surgery. Patient is very ac tive and does not have any chest pain or shortness of breath. He can do more than 4 METS without sym ptoms and he apparently never had any history of cardiac disease and no active symptoms. Past Medical History: As outlined above in the HPI. Medication: Refer reconciliation sheet for detailed list. Allergies: CEPHALOSPORIN. Family History: No premature coronary artery disease or cancer. Social History: Does not smoke or drink. Does not use any drugs. Review of Systems: All systems reviewed and they were negative except as mentioned in the HPI. Physical Examination: Vital Signs: Reviewed. Head and Neck: Pupils are equal, reactive to light. Intact eye movements. No JVD. No cervical lym phadenopathy. Neck is supple. Thyroid is not enlarged. Lungs: Clear to auscultation bilaterally. No rhonchi, wheezing, or crackles. No accessory muscle u se. Heart: Regular rate and rhythm. No extra sounds. Abdomen: Soft, nontender. Bowel sounds positive. No organomegaly. No masses or hernia. No rigidi ty or rebound. Extremities: No edema, clubbing, or cyanosis. Intact pulses. Skin: No rash or nodule. Neuro: Alert, awake, oriented x3. No acute focal deficits appreciated. Investigations: Labs were reviewed. Assessment And Recommendations: 1.Cardiac preoperative risk assessment for a dialysis tunneled catheter placement. No active cardia c disease. Can do more than 4 METS without symptoms. He is at low cardiac risk for this low cardiac risk procedure to proceed without further cardiac workup. 2.Hypertension. Blood pressure is controlled. 3.End-stage renal disease, in need of hemodialysis. SR/MODL Voice ID: [id number] Report ID: [id number]
--- NOTE | 2023-07-02 21:12 | P.HP ---
Certification for Inpatient Patient admitted to: Inpatient With expected LOS: >2 Midnights Practitioner: I am a practitioner with admitting privileges, knowledge of patient current condition, hospital course, and medical plan of care. Services: Services provided to patient in accordance with Admission requirements found in Title 42 Section 412.3 of the Code of Federal Regulations Patient History Date of Service: 07/02/23 Reason for admission: HIGH K DESPITE MEDS History of Present Illness: FAWN IS PATIENT WITH CKD WITH GFR OF 15 WHOSE K IS NOT COMING DOWN DESPITE ORAL MEDS BY DR LOVELL. SHE CALLED ME TO ADMIT HIM FOR STARTING HD. Allergies Cephalosporins Adverse Reaction (Verified 06/30/19 16:12) Itching/Hives/Rash Home medications list reviewed: Yes Home Medications: Sodium Bicarbonate 650 mg PO BID 05/20/18 Calcitrol [Rocaltrol*] 1 tab PO DAILY 06/30/19 Ferrous Sulfate [Ferrous Sulfate*] 325 mg PO DAILY 06/30/19 Sodium Zirconium Cyclosilicate [Lokelma] 5 gm PO DAILY 04/16/23 Amlodipine Besylate [Norvasc] 10 mg PO DAILY 07/02/23 - Past Medical/Surgical History Has patient received pneumonia vaccine in the past: Yes Diabetic: No -: HTN -: kidney stones -: CKD- Stage 4 -: parathyroid enlargement -: Tonsilectomy -: TURP - Family History Mother Notes: Rheumatoid Arthritis Father -: Heart disease - Social History Smoking Status: Never smoker Alcohol use: No CD- Drugs: No Caffeine use: Yes Place of Residence: Home Review of Systems 10-point ROS is otherwise unremarkable General: Weakness Physical Examination - Vital Signs Temperature: 97.6 F Blood Pressure: 102/67 Pulse: 121 Respirations: 13 Pulse Ox (%): 97 - Physical Exam General: Cachectic, Acute distress, Mild distress HEENT: Atraumatic, PERRLA, Mucous membr. moist/pink, EOMI, Sclerae nonicteric Neck: Supple, 2+ carotid pulse no bruit, No LAD, Without JVD or thyroid abnormality Respiratory: Clear to auscultation bilaterally, Normal air movement Cardiovascular: Regular rate/rhythm, Normal S1 S2 Gastrointestinal: Normal bowel sounds, No tenderness Musculoskeletal: No tenderness Integumentary: No rashes Neurological: Normal gait, Normal speech, Normal strength at 5/5 x4 extr, Normal tone, Normal affect Lymphatics: No axilla or inguinal lymphadenopathy - Studies Laboratory Data (last 24 hrs) 07/02/23 07/02/23 07/02/23 14:00 14:00 14:00 WBC 4.70 Hgb 8.6 L Hct 25.2 L Plt Count 184 PT 10.2 INR 0.93 Sodium 136 Potassium 5.4 H BUN 95 H Creatinine 3.84 H Glucose 119 H Magnesium 2.3 Assessment and Plan - Problems (Diagnosis) (1) CKD stage 5 secondary to hypertension Current Visit: Yes Status: Chronic Plan: HD QOD STABLE TACHYCARDIA BP IS LOW NORMAL STOP AMLODPINE START METOPROLOL. (2) Hyperkalemia Current Visit: Yes Status: Chronic Plan: HE WILL BE ON HD NOW ON HIS K IS NOT COMING DOWN DESPITE LOKELMA. - Advance Directives Does patient have a Living Will: No Does patient have a Durable POA for Healthcare: No
--- NOTE | 2023-07-03 03:34 | CON ---
Date of Consultation: 07/02/2023 Chief Complaint: New onset of ESRD, severe hyperkalemia, hyperazotemia. History Of Present Illness: The patient was referred from the outpatient nephrology clinic by me for treatment of hyperkalemia, outpatient labs show elevated potassium. The patient has history of metabolic acidosis and he was taking sodium bicarbonate tablets. Lab work revealed today bicarbonate was borderline diminished of 20, sodium of 136, potassium 5.4, and chloride 109, glucose 119, magnesium 2.3, calcium 8.9. The patient has history of obstructive uropathy. He underwent procedure previously for prostate enlargement. The patient had procedure done for hyperparathyroid. He is currently on calcitriol for hyperparathyroidism control. The patient is referred from the clinic to the hospital for GFR of 14. Potassium is slightly coming down during this admission and the patient was treated with Lokelma. Review of Systems: Constitutional: Denies fever, denies chills. Eyes: Denies vision changes. Ears, Nose, Mouth, and Throat: Denies sore throat, earache. Respiratory: Denies cough, hemoptysis. Cardiovascular: Denies chest pain, palpitation, syncope. GI: Denies nausea, vomiting. : Denies dysuria, hematuria. Past Medical History: Hypertension, kidney stone, chronic kidney disease stage 5, parathyroid enlargement, tonsillectomy, and TURP. Family History: The patient stated his mother had rheumatoid arthritis. Past Surgical History: Parathyroidectomy, tonsillectomy, TURP. Family History: Father, heart disease. Social History: Denies tobacco, alcohol, illicit drugs. Physical Examination: Vital Signs: Blood pressure 102/67, heart rate is 120, temperature 97.6, SpO2 97%. General: The patient is not in acute distress. Eyes: Anicteric sclerae. EOMI. Neck: Supple. No JVD. No bruits. Respiratory: Clear to auscultation bilaterally. Heart: S1, S2. No pericardial friction rub. Abdomen: Soft. Benign. Nontender. Extremities: No edema. Lab Work: WBC 4.7, hemoglobin 8.6, INR 0.93, PT 10.2. Sodium 136, potassium 5.4, BUN 95, creatinine 3.84, magnesium 2.3, glucose 113. Impression And Plan: End-stage renal disease. Patient has history of hyperkalemia. He was treated with Lokelma, currently patient neds to start dialysis for ESRD. The patient will continue low-potassium diet and plan is to start dialysis for metabolic clearance. The patient will have daily treatments for hyperazotemia control. On arrival to the hospital, BUN was 95. The patient has multiple medical problems. He has history of advanced chronic kidney disease. He presented to the hospital after he was referred for hyperkalemia treatment and to start dialysis to control severe hyperazotemia and hyperkalemia. BUN remains high and is illustrating the advancement of chronic kidney disease. The patient has elevated creatinine but it may overestimate renal function in this particular case because his low muscle mass. His creatinine level may not be accurate to establish renal function. Patient appears to be lethargic. He has history of metabolic acidosis treated with Sodium bicarbonate tablets, and history of hyperkalemia treated with Lokelma. Potassium level is uncontrolled with medication and diet. The patient has hyperazotemia. He has chronic kidney disease stage 5 and he needs to start dialysis. Patient understands recommendation. During his stay in ICU, I received a call from the nurse that patient had bloody urine. Bladder scan did not show increased post void urinary retention, patient will be consulted by urologist. Previously, he was referred to urologist outpatient. Anemia in chronic kidney disease. Monitor hemoglobin level. Renal osteodystrophy. Continue to monitor phosphorus level. Tachycardia. Patient will be seen by metal hardener for followup. The patient was taken off amlodipine because of tachycardia and to prevent hypotensive episodes. The patient is currently on metoprolol and cardiology workup is pending. Hyperkalemia. Potassium level has improved somewhat. Patient will continue low-potassium diet. Plan is to start dialysis tomorrow. The patient understands risk of postponing dialysis, which may include and is not limited to uremia, hyperkalemia which may be causing irregular heartbeat and heart arrest, GI bleeding, nausea and vomiting, symptoms of chronic gastritis. EB/MODL Voice ID: [id number] Report ID: [id number] TAMMY
[2023-07-03] MEDS: METOPROLOL XL 50 MG TAB PO SCH (04:38)
[2023-07-03 06:58] LABS: Absolute Lymphocytes (CBC) 0.3 K/uL (0.7-4.9); Hematocrit 29.1 % (39.6-49.0); Lymphocytes % 6.6 % (15.3-44.8); MCV 101.7 fL (80-100); MPV 7.5 fL (7.6-11.3); Platelets 223 thou/uL (152-406); RBC Red Blood Cell Count 2.86 M/uL (4.33-5.43)
[2023-07-03 07:16] LABS: Magnesium 2.3 mg/dL (1.6-2.4)
[2023-07-03] MEDS: SODIUM BICARB 325 MG TAB PO SCH ×2 (07:42→20:29)
[2023-07-03] MEDS: CALCITROL 0.25 MCG CAP PO SCH (07:42)
[2023-07-03] MEDS: FERROUS SULFATE 325 MG TAB PO SCH (07:42)
[2023-07-03] MEDS ORDERED: HOME MED 1 EA UNK (Sodium Zirconium Cyclosilicate [Lokelma] 5 GM Powd.Pack) PO SCH (09:00)
[2023-07-03] MEDS ORDERED: NA CHLORIDE 0.9% 50 ML ONE (09:42)
[2023-07-03] MEDS ORDERED: HEPARIN 5000 UNIT/ML 1 ML VIAL ONE (09:42)
[2023-07-03] MEDS ORDERED: BUPIVACAINE 0.25% PF 30 ML VIAL ONE (09:42)
[2023-07-03] MEDS ORDERED: LIDOCAINE 1% 20 ML MDV ONE (09:48)
[2023-07-03] MEDS ORDERED: NA CHLORIDE 0.9% 500 ML ONE (10:40)
[2023-07-03] MEDS ORDERED: LIDOCAINE 2% MPF 5 ML VIAL ONE (11:14)
[2023-07-03] MEDS ORDERED: FENTANYL CITR 100 MCG/2 ML ONE (11:14)
[2023-07-03] MEDS ORDERED: propofoL 200 MG/20 ML VIAL IV ONE ×2 (11:14→12:00)
[2023-07-03] MEDS ORDERED: ONDANSETRON 4 MG/2 ML VIAL ONE (11:14)
[2023-07-03] MEDS ORDERED: MANNITOL 25% 12.5 GM/50 ML VIAL IV PRN (11:45)
[2023-07-03] MEDS ORDERED: LIDOCAINE HCL/EPINEPHRINE 20 ML MDV ONE (12:07)
[2023-07-03] MEDS ORDERED: NS 0.9% VIAL 10 ML ONE (12:08)
[2023-07-03] MEDS ORDERED: CEFAZOLIN SODIUM 1 GM/VIAL ONE (12:08)
--- NOTE | 2023-07-03 12:23 | P.OP ---
Preoperative diagnosis: End Stage Renal Disease Postoperative diagnosis: End Stage Renal Disease Primary procedure: Placement of RIGHT Internal Jugular Tunneled Hemodialysis Catheter Secondary procedure: Ultrasound and Flouroscopy utilized, micro-introducer set utilized Anesthesia: MAC + Local Estimated blood loss: <10cc Specimen: none Findings: dark, non-pulsatile blood returned Complications: None Implants: 19cm Tunneled HD catheter Transferred to: Recovery Room Condition: Good
--- NOTE | 2023-07-03 12:58 | P.PN ---
Subjective Date of Service: 07/03/23 Chief Complaint: HIGH K DESPITE MEDS Subjective: Improving DOING CATH FOR HD TODAY MAY GO HOME IN AM. Review of Systems 10-point ROS is otherwise unremarkable General: Weakness Physical Examination - Vital Signs Temperature: 98.5 F Blood Pressure: 102/49 Pulse: 69 Respirations: 16 Pulse Ox (%): 100 - Physical Exam General: Alert, In no apparent distress HEENT: Atraumatic, PERRLA, EOMI Neck: Supple, JVD not distended Respiratory: Clear to auscultation bilaterally, Normal air movement Cardiovascular: Regular rate/rhythm, Normal S1 S2 Gastrointestinal: Normal bowel sounds, No tenderness Musculoskeletal: No tenderness Integumentary: No rashes Neurological: Normal speech, Normal tone, Normal affect Lymphatics: No axilla or inguinal lymphadenopathy - Studies Laboratory Data (last 24 hrs) 07/03/23 07/03/23 07/02/23 06:17 06:17 14:00 WBC 5.30 Hgb 9.9 L D Hct 29.1 L Plt Count 223 PT 10.2 INR 0.93 Sodium 138 Potassium 5.0 BUN 98 H Creatinine 3.69 H Glucose 111 H Magnesium 2.3 07/02/23 07/02/23 14:00 14:00 WBC 4.70 Hgb 8.6 L Hct 25.2 L Plt Count 184 PT INR Sodium 136 Potassium 5.4 H BUN 95 H Creatinine 3.84 H Glucose 119 H Magnesium 2.3 Medications List Reviewed: Yes Assessment And Plan - Current Problems (Diagnosis) (1) CKD stage 5 secondary to hypertension Current Visit: Yes Status: Chronic Plan: HD QOD STABLE TACHYCARDIA BP IS LOW NORMAL STOP AMLODPINE START METOPROLOL. (2) Hyperkalemia Current Visit: Yes Status: Chronic Plan: HE WILL BE ON HD NOW ON HIS K IS NOT COMING DOWN DESPITE LOKELMA. HD TO START TOAY
--- NOTE | 2023-07-03 13:02 | RAD REPORT ---
EXAM DESCRIPTION: JASEChest Single View07/03/2023 12:56 pm CLINICAL HISTORY: Device placement/central venous catheter placement IMPRESSION: Central venous catheter with its tip in the superior vena cava No pneumothorax
--- NOTE | 2023-07-03 14:28 | PN ---
Date of Progress Note: 07/03/2023 Subjective: Patient was admitted to the hospital from the office with hyperkalemia, elevated BUN and creatinine. Physical Examination: Vital Signs: When I saw the patient, blood pressure 119/69, pulse of 68, afebrile. Chest: Clear to auscultation. Heart: S1, S2. Regular. Abdomen: Soft, nontender. Extremities: Trace edema. Neurologic: Alert. No focality. No tremor. Laboratory Data: Hemoglobin 9.9. Sodium 138, potassium 5, bicarb 21, BUN 98, creatinine 3.6, GFR of 15, calcium 8.6. Magnesium 2.3. Current Medications: The patient on include ferrous sulfate, heparin, sodium bicarbonate, Lokelma. Assessment And Plan: 1.Chronic kidney disease, progression to end-stage renal disease. Waiting for PermCath placement an d patient is going to be initiated on dialysis today. We will do another session tomorrow, and we wi ll follow up. Patient is waiting for placement as outpatient setup. Discussed with the patient othe r form of modality. We will follow up. 2.Hypertension, controlled, optimal. Continue current treatment. 3.Hyperkalemia will be corrected with dialysis. 4.Marginal uremic symptoms will be corrected with dialysis. 5.Acidosis secondary to renal failure, going to be corrected with dialysis. 6.Anemia of chronic kidney disease. I am going to go ahead and send for anemia workup and we will f ollow up. LEONILA Voice ID: [id number] Report ID: [id number]
--- NOTE | 2023-07-03 18:19 | RAD REPORT ---
EXAM DESCRIPTION: RAD - Fluoroscopy <1 Hour - 07/03/2023 2:23 pm CLINICAL HISTORY: INSERT HEMODIALYSIS CATHETER COMPARISON: None available. FINDINGS: Thirteen Images were sent to PACS, documenting hardware positions during hemodialysis cath eter insertion procedure. No radiologist was available for the procedure, nor will any image interpre tation he provided. Please refer to the procedural report for additional details. Fluoroscopy time: 0.2 minutes. IMPRESSION: Documentation of fluoroscopy utilization as above.
[2023-07-03 18:30] LABS: Hepatitis B Core IgM Nonreactive (Nonreactive); Hepatitis B surface AG Interp. Nonreactive (Nonreactive)
[2023-07-03 18:37] LABS: Hepatitis B Surface Ab - Quant < 3.10 mIU/mL (<8.0)
[2023-07-03] MEDS: NEPRO SHAKE 237 ML CAN PO SCH (20:29)
--- NOTE | 2023-07-03 23:12 | OP ---
Date of Procedure: 07/03/2023 Surgeon: Kendell Finley MD, Preoperative Diagnosis: End-stage renal disease. Postoperative Diagnosis: End-stage renal disease. Procedure Performed: Placement of right internal jugular tunnel hemodialysis catheter using ultrasou nd fluoroscopic guidance with interpretation, microintroducer set also utilized. Anesthesia: MAC plus local with 1% lidocaine with epinephrine. Estimated Blood Loss: Less than 10 cc. Specimen: None. Findings: Dark nonpulsatile blood returned. Complications: None. Implants: 19 cm tunneled hemodialysis catheter. Patient was transferred to recovery room in good co ndition. Procedure In Detail: After informed consent was obtained, patient was brought to the operating room, prepped and draped in usual sterile fashion. After adequate anesthesia was achieved, patient was pl aced in steep Trendelenburg position. Using ultrasound guidance, I cannulated the right internal jug ular vein under direct visualization without evidence of complication using a microintroducer needle. At this point, micro wire was advanced, fluoroscopic guidance confirmed the position and the conflu ence of the superior vena cava. At this point, a small lupillo incision was made overlying the insertio n site. I placed a microintroducer sheath, pulled the micro wire out and advanced a 19 cm standard w nikhil. At this point, and once again, fluoroscopic guidance confirmed the position of the confluence o f the SVC and all the way down the right ventricle. At this point, I made a separate incision on the chest wall after appropriately anesthetizing the skin of the entire tract. I passed the tunneling d evice with the 90 cm catheter into the insertion site at this point and performed sequential dilatati on using Seldinger technique. Introducer sheath was placed at this point. The wire was out at this point and called for the second time. At this point, the catheter was placed through the introducer sheath and the sheath removed. At this point, patient remained steep Trendelenburg position. Fluoro scopic guidance confirmed the position of the catheter at the confluence of the SVC. At this point, I flushed both ports and pulled back dark red non-pulsatile blood quite easily. I then irrigated bot h of these until completely clear with sterile injectable saline. At this point, I packed with hepar in super flush 2 cc per port and sterile dressing placed over top. After securing it to the skin wit h a 2-0 nylon suture. At this point, the patient was placed in neutral position. I then irrigated t he skin incision at the neck and closed using interrupted 2-0 nylon suture and sterile dressing was p laced over top. Patient tolerated the procedure well without evidence of complication, transferred t o PACU in good condition. All counts were correct at the end of the case. AUGUST/ANDREINA Voice ID: [id number] Report ID: [id number]
[2023-07-04] MEDS: METOPROLOL XL 50 MG TAB PO SCH (05:13)
[2023-07-04 06:42] LABS: RBC Red Blood Cell Count 2.58 M/uL (4.33-5.43)
[2023-07-04 07:01] LABS: Albumin 2.7 g/dL (3.4-5.0); Ferritin 133.2 ng/mL (26-388); Phosphorus 3.8 mg/dL (2.5-4.9); Potassium 4.8 mEq/L (3.5-5.1)
[2023-07-04] MEDS: FERROUS SULFATE 325 MG TAB PO SCH (07:47)
[2023-07-04] MEDS: CALCITROL 0.25 MCG CAP PO SCH (07:47)
[2023-07-04] MEDS: SODIUM BICARB 325 MG TAB PO SCH (07:47)
[2023-07-04] MEDS: NEPRO SHAKE 237 ML CAN PO SCH ×2 (07:47→21:00)
--- NOTE | 2023-07-04 15:15 | PN ---
Date of Progress Note: 07/04/2023 Subjective: Patient was admitted with hyperkalemia, acidosis, initiated on dialysis, received dialys is yesterday after PermCath placement, tolerated very well, feeling well. Still feeling weak, but be tter than yesterday. Physical Examination: Vital Signs: Blood pressure 119/64, pulse of 55, afebrile. Chest: Clear to auscultation. Heart: S1, S2. Regular. Abdomen: Soft, nontender. Extremities: No edema. Neurologic: Alert. No tremor. Laboratory Data: Hemoglobin 9.9. Sodium 138, potassium 4.8, bicarb 27, BUN 58, creatinine 2.8, calc ium 8. Phosphorus 3.8. Iron saturation 17, ferritin 133. Albumin 2.7. Corrected calcium is 8.8. Current Medications: The patient on include heparin, ferrous sulfate, oral sodium bicarbonate, Nepro , calcitriol. Assessment And Plan: 1.End-stage renal disease. I am going to continue the patient on dialysis. We will do dialysis tod ay then I am going to switch the patient to 3 times a week and we will follow up. 2.Hypertension, controlled, optimal. 3.Hyperkalemia, status post dialysis, resolved. 4.Acidosis, status post dialysis, resolved. Discontinue bicarb drip. 5.Iron deficiency anemia. Continue iron supplement. 6.Secondary hyperparathyroidism. Calcium and phosphorus on the goal. Continue calcitriol. LEONILA Voice ID: [id number] Report ID: [id number]
--- NOTE | 2023-07-04 21:09 | P.PN ---
Subjective Date of Service: 07/04/23 Chief Complaint: HIGH K DESPITE MEDS Subjective: Improving DOING CATH FOR HD TODAY MAY GO HOME IN AM. HE IS STABLE WE ARE WAITING FOR APPROVAL FOR BED FOR HD HE CAN GO HOME IN AM. Physical Examination - Vital Signs Temperature: 98.9 F Blood Pressure: 113/61 Pulse: 69 Respirations: 15 Pulse Ox (%): 98 - Studies Laboratory Data (last 24 hrs) 07/04/23 06:03 Sodium 138 Potassium 4.8 BUN 58 H Creatinine 2.89 H Glucose 103 Phosphorus 3.8 Medications List Reviewed: Yes Assessment And Plan - Current Problems (Diagnosis) (1) CKD stage 5 secondary to hypertension Current Visit: Yes Status: Chronic Plan: HD QOD STABLE TACHYCARDIA BP IS LOW NORMAL STOP AMLODPINE START METOPROLOL. (2) Hyperkalemia Current Visit: Yes Status: Chronic Plan: HE WILL BE ON HD NOW ON HIS K IS NOT COMING DOWN DESPITE LOKELMA. HD TO START TOAY
[2023-07-05] MEDS: METOPROLOL XL 50 MG TAB PO SCH (06:21)
[2023-07-05 07:10] LABS: Phosphorus 3.6 mg/dL (2.5-4.9); Potassium 4.6 mEq/L (3.5-5.1)
[2023-07-05] MEDS: CALCITROL 0.25 MCG CAP PO SCH (08:17)
[2023-07-05] MEDS: FERROUS SULFATE 325 MG TAB PO SCH (08:17)
[2023-07-05 08:46] LABS: SARS-CoV-2 Antigen Rapid Res Negative (Negative)
[2023-07-05] MEDS: NEPRO SHAKE 237 ML CAN PO SCH ×2 (09:00→19:27)
--- NOTE | 2023-07-05 12:55 | P.DS ---
Admission Date: 07/02/23 Discharge Date: 07/05/23 Disposition: ROUTINE DISCHARGE Discharge Condition: FAIR Reason for Admission: HIGH K DESPITE MEDS - Problems (1) CKD stage 5 secondary to hypertension Current Visit: Yes Status: Chronic (2) Hyperkalemia Current Visit: Yes Status: Chronic Brief History of Present Illness: FAWN IS PATIENT WITH CKD WITH GFR OF 15 WHOSE K IS NOT COMING DOWN DESPITE ORAL MEDS BY DR LOVELL. SHE CALLED ME TO ADMIT HIM FOR STARTING HD. Hospital Course: FAWN HAS HAD HIGH K AND NEEDED HD. HE HAS CATHETER AND HAD HD DONE ONCE. HE IS READY AND STABLE FOR DC TODAY. Vital Signs/Physical Exam: Temp Pulse Resp BP Pulse Ox 97.2 F 58 16 142/70 H 97 07/05/23 08:00 07/05/23 08:00 07/05/23 08:00 07/05/23 08:00 07/05/23 08:00 Laboratory Data at Discharge: WBC 5.30 thou/uL (4.3-10.9) 07/03/23 06:17 Hgb 9.9 g/dL (13.6-17.9) L D 07/03/23 06:17 Hct 29.1 % (39.6-49.0) L 07/03/23 06:17 Plt Count 223 thou/uL (152-406) 07/03/23 06:17 PT 10.2 SECONDS (9.5-12.5) 07/02/23 14:00 INR 0.93 07/02/23 14:00 Sodium 137 mEq/L (136-145) 07/05/23 06:08 Potassium 4.6 mEq/L (3.5-5.1) 07/05/23 06:08 BUN 47 mg/dL (7-18) H 07/05/23 06:08 Creatinine 2.77 mg/dL (0.70-1.30) H 07/05/23 06:08 Glucose 113 mg/dL (74-106) H 07/05/23 06:08 Phosphorus 3.6 mg/dL (2.5-4.9) 07/05/23 06:08 Magnesium 2.3 mg/dL (1.6-2.4) 07/03/23 06:17 Home Medications: Sodium Bicarbonate 650 mg PO BID 09/10/18 Calcitrol [Rocaltrol*] 1 tab PO DAILY 06/30/19 Ferrous Sulfate [Ferrous Sulfate*] 325 mg PO DAILY 06/30/19 Sodium Zirconium Cyclosilicate [Lokelma] 5 gm PO DAILY 04/16/23 Amlodipine Besylate [Norvasc] 10 mg PO DAILY 07/02/23
[2023-07-05 14:05] VITALS: BMI 17.1
--- NOTE | 2023-07-06 00:13 | PN ---
Date of Progress Note: 07/05/2023 Chief Complaint: Hyperkalemia, metabolic acidosis, end-stage renal disease. Subjective: The patient is admitted to the hospital because of hyperkalemia. He was started on hemo dialysis for end-stage renal disease. During this admission, dialysis catheter was placed and the alisson cristobal was started on dialysis for end-stage renal disease. On admission, BUN was severely elevated. The patient is feeling better. Appetite is improving. Review of Systems: Denies chest pain, palpitation. Physical Examination: Lungs: Clear to auscultation bilaterally. Heart: S1 and S2. Abdomen: Soft. Extremities: No tremor. Neurologic: The patient is alert, oriented. Impression And Plan: 1.End-stage renal disease. Continue dialysis. The patient had dialysis today. He tolerated dialys is and catheter is functioning well. 2.Hypertension, controlled. Continue calcium channel ramon. 3.Hyperkalemia, controlled with dialysis. Continue low-potassium diet. 4.Metabolic acidosis, improved. The patient was taken off sodium bicarbonate tablet. 5.Secondary hyperparathyroidism. The patient will continue calcitriol and vitamin D analog with dialysis. Monitor phosphorus level. EB/MODL Voice ID: [id number] Report ID: [id number]
[2023-07-06] MEDS: METOPROLOL XL 50 MG TAB PO SCH (05:21)
[2023-07-06 07:25] LABS: Albumin 2.9 g/dL (3.4-5.0); Phosphorus 3.6 mg/dL (2.5-4.9)
[2023-07-06] MEDS: CALCITROL 0.25 MCG CAP PO SCH (07:46)
[2023-07-06] MEDS: FERROUS SULFATE 325 MG TAB PO SCH (07:46)
[2023-07-06] MEDS: NEPRO SHAKE 237 ML CAN PO SCH (07:49)
[2023-07-06 09:51] VITALS: BP 119/64; TEMP 97.1; O2SAT 99
--- NOTE | 2023-07-06 22:39 | P.DS ---
Admission Date: 07/02/23 Discharge Date: 07/06/23 Disposition: ROUTINE DISCHARGE Discharge Condition: FAIR Reason for Admission: HIGH K DESPITE MEDS - Problems (1) CKD stage 5 secondary to hypertension Status: Chronic (2) Hyperkalemia Status: Chronic Brief History of Present Illness: FAWN IS PATIENT WITH CKD WITH GFR OF 15 WHOSE K IS NOT COMING DOWN DESPITE ORAL MEDS BY DR LOVELL. SHE CALLED ME TO ADMIT HIM FOR STARTING HD. Hospital Course: FAWN HAS HAD HIGH K AND NEEDED HD. HE HAS CATHETER AND HAD HD DONE ONCE. HE IS READY AND STABLE FOR DC TODAY. PATIENT SI STABLE CONFUSED AT NIGHT AND THAT IS NOT NEW. THE DISCHARGE WAS DELAYED BY A DAY IT WAS TOO LATE AND PATIENT WAS SLEEPING ALREADY. I STOPPED NORVASC BP IS LOW ALREADY WITH HD. Vital Signs/Physical Exam: Temp Pulse Resp BP Pulse Ox 97.1 F 60 16 119/64 99 07/06/23 08:00 07/06/23 08:00 07/06/23 08:00 07/06/23 08:00 07/06/23 08:00 Laboratory Data at Discharge: WBC 5.30 thou/uL (4.3-10.9) 07/03/23 06:17 Hgb 9.9 g/dL (13.6-17.9) L D 07/03/23 06:17 Hct 29.1 % (39.6-49.0) L 07/03/23 06:17 Plt Count 223 thou/uL (152-406) 07/03/23 06:17 PT 10.2 SECONDS (9.5-12.5) 07/02/23 14:00 INR 0.93 07/02/23 14:00 Sodium 136 mEq/L (136-145) 07/06/23 06:33 Potassium 4.0 mEq/L (3.5-5.1) D 07/06/23 06:33 BUN 48 mg/dL (7-18) H 07/06/23 06:33 Creatinine 2.64 mg/dL (0.70-1.30) H 07/06/23 06:33 Glucose 103 mg/dL (74-106) 07/06/23 06:33 Phosphorus 3.6 mg/dL (2.5-4.9) 07/06/23 06:33 Magnesium 2.3 mg/dL (1.6-2.4) 07/03/23 06:17 Home Medications: Sodium Bicarbonate 650 mg PO BID 05/20/18 Calcitrol [Rocaltrol*] 1 tab PO DAILY 06/30/19 Ferrous Sulfate [Ferrous Sulfate*] 325 mg PO DAILY 06/30/19 Physician Discharge Instructions: PROBLEM: ESRD GOAL: Clear understanding of disease process INSTRUCTIONS: Follow up with PCP in 1-2 weeks, call to schedule an appointment. Follow up with Kidney Doctor, Denny Martinez, in 1-2 weeks, call to sxhedule an appointment. Call 911 or go to the nearest ED for any worsening symptoms. Call 4th floor at [phone] for questions regarding hospital stay Prescriptions were called to [facility] in [facility]. Diet: Renal Activity: As tolerated [facility] [employer] Services Needed: Dialysis Name of Company: [email or web address] Dialysis Date or Referral: 07/05/23 IMMUNIZATION Influenza Vaccine Indicated: No Influenza Vaccine Given: Date Given: Pneumonia Vaccine Indicated: No Pneumonia Vaccine Given: Date Given: Followup: Angelia Ko MD [Family Provider] - 1-2 Weeks (call to schedule in 1-2 weeks)
== END 2023-07-06 10:14 | disposition home or self-care (01) | DRG 640 ==
LOC: 3RD-ICU 12:49 → 4TH 21:20
PROVIDERS: ADMIT Internal Medicine; ATTEND Internal Medicine Nephrology
PROC: 5A1D70Z Performance of Urinary Filtration, Intermittent, Less than 6 Hours Per Day (ICD-10-PCS; principal; 2023-07-02)
PROC: 0JH63XZ Insertion of Tunneled Vascular Access Device into Chest Subcutaneous Tissue and Fascia, Percutaneous Approach (ICD-10-PCS; 2023-07-03)
PROC: 02HV33Z Insertion of Infusion Device into Superior Vena Cava, Percutaneous Approach (ICD-10-PCS; 2023-07-03)
DX: E87.5 Hyperkalemia (principal); N18.6 End stage renal disease; R64 Cachexia; Z68.1 Body mass index [BMI] 19.9 or less, adult; I12.0 Hypertensive chronic kidney disease with stage 5 chronic kidney disease or end stage renal disease; N25.81 Secondary hyperparathyroidism of renal origin; D63.1 Anemia in chronic kidney disease; D50.9 Iron deficiency anemia, unspecified; E87.20 Acidosis, unspecified; E21.3 Hyperparathyroidism, unspecified; N25.0 Renal osteodystrophy; R00.0 Tachycardia, unspecified; Z88.1 Allergy status to other antibiotic agents; Z79.899 Other long term (current) drug therapy; Z20.822 Contact with and (suspected) exposure to COVID-19
CPT/HCPCS: 36415; 71045; 76000; 76770; 80048; 80069; 82728; 83540; 83735; 84466; 85025; 85044; 85610; 86704; 86705; 86706; 87340; 87811; 90935; A4216; C1752; J0690; J1644; J2001; J2150; J2405; J2704; J3010; J7040

== ENCOUNTER 2023-08-02 06:29 | Observation (INO) | payer OTHER ==
--- OUTSIDE RECORDS SUMMARY | 2023-08-02 06:32 | XMS REPORT | Continuity of Care Document ---
:1940 Author Organization [facility] t Address [address] [place] [address] Care Team Providers Name Role Phone Alphonso Stone Attending Clinician Unavailable MILTON AGUILAR Attending Clinician Unavailable Lab, Adc Fam Pob I Attending Clinician Unavailable Milton Infante Attending Clinician Payers Payer Name Policy Type Policy Number Effective Date Expiration Date S ource [employer] MEDICARE ADV [id number] 2019 00:00:00 Problems This patient has no known problems. Allergies, Adverse Reactions, Alerts Allergy Allergy Status Severity Reaction(s) Onset Inactive Treating Comm ents Source Name Type Date Date Clinician NO KNOWN Drug Active Univers ALLERGIE Class [facility] Social History Social Habit Start Date Stop Date Quantity Comments Source [facility] Exposure to SARS-CoV-2 Not sure [facility] [place] [facility] Smoking Status Start Date Stop Date Source Never smoker [facility] Medications This patient has no known medications. Procedures This patient has no known procedures. Encounters Start End Encounter Admission Attending Care Care Encounter Source Date/Time Date/Time Type Type Clinicians Facility Department ID 2023-06-21 Outpatient ROOSEVELT Stone [facility] [id number] Common 12:52:00 Alphonso [id number] [facility] 2020-03-31 2020-03-31 Outpatient R [facility] [id number] Univers 14:00:00 14:00:00 [id number] [facility] 2020-03-31 2020-03-31 Outpatient R LAUREN [facility] [id number] Univers 14:00:00 14:00:00 MILTON lucas [facility] 2020-03-31 2020-03-31 Laboratory Lab, [facility] Fam Pob I [facility] [id number] Univers 13:25:46 13:45:46 Only Milton Aguilar [facility] [id number] [facility] [place] [id number] Zeb as Professio [phone] Ok dical [address] Office Building [facility] 2020-03-31 2020-03-31 Laboratory Lab, [facility] [id number] 13:25:46 13:45:46 Only Fam Pob I Health [id number] [place] [id number] Professio [phone] [place] [address] [address] [facility] 2020-03-31 2020-03-31 Outpatient R LAUREN [facility] [id number] Univers 13:00:00 13:00:00 MILTON lucas [facility] Results This patient has no known results.
[2023-08-02 07:36] LABS: Absolute Lymphocytes (CBC) 0.4 K/uL (0.7-4.9); Hematocrit 29.6 % (39.6-49.0); Lymphocytes % 12.3 % (15.3-44.8); MPV 7.5 fL (7.6-11.3); Platelets 184 thou/uL (152-406); RBC Red Blood Cell Count 2.85 M/uL (4.33-5.43)
--- NOTE | 2023-08-02 07:45 | RAD REPORT ---
EXAM DESCRIPTION: Kaylee Single View08/02/2023 7:33 am CLINICAL HISTORY: Tachycardia COMPARISON: July 02, 2023 FINDINGS: The lungs appear clear of acute infiltrate. The heart is mildly enlarged Pulmonary vascular congestion probably present Central venous line in place
[2023-08-02 07:57] LABS: Albumin 3.3 g/dL (3.4-5.0); Bilirubin Direct 0.1 mg/dL (0-0.2); Bilirubin Indirect, Calculated 0.2 mg/dL (0.2-0.8); Bilirubin Total 0.3 mg/dL (0.2-1.0); Magnesium 2.1 mg/dL (1.6-2.4); Potassium 3.5 mEq/L (3.5-5.1); Protein, Total 6.6 g/dL (6.4-8.2)
[2023-08-02 08:14] LABS: Troponin High Sensitivity 210.4 pg/mL (<58.9)
--- NOTE | 2023-08-02 08:55 | EDPHYS ---
Physician Documentation [facility] Name: Nathanael Kamara Age: 83 yrs Sex: Male : 1940 Arrival Date: 08/02/2023 Time: 06:29 Bed 13 Private MD: Alphonso Stone V ED Physician Alhaji Daniels HPI: 08/02 07:27 This 83 yrs old Male presents to ER via Ambulatory with complaints of Afib. ms3 07:52 83-year-old male with past medical history of hypertension, end-stage renal disease ms3 with dialysis on Sunday presents to the emergency department for elevated heart rate and shortness of breath that occurred yesterday while on dialysis. At dialysis nursing told patient his heart rate was elevated and he could have atrial fibrillation and needed to follow-up with cardiology. After dialysis Dr. Doyle called the patient and told patient to come to the emergency department to be checked out. Patient is currently without symptoms at this time. Patient denies any alleviating or inciting factors. Historical: - PMHx: 06:48 Hypertensive disorder; kidney disease; rv - Immunization history:: Adult Immunizations up to date. - Social history:: Smoking status: Patient denies any tobacco usage or history of. ROS: 07:52 Constitutional: Negative for fever, and chills. Neck: Negative for injury, pain, and ms3 swelling, Cardiovascular: Negative for chest pain, and palpitations. Respiratory: Negative for shortness of breath, cough, wheezing, and pleuritic chest pain, Abdomen/GI: Negative for abdominal pain, nausea, vomiting, diarrhea, and constipation, MS/Extremity: Negative for injury and deformity, Skin: Negative for injury, rash, and discoloration, 07:52 All other systems are negative, Exam: 07:52 Constitutional: This is a well developed, well nourished patient who is awake, alert, ms3 and in no acute distress. Head/Face: Normocephalic, atraumatic. Neck: Trachea midline, no cervical lymphadenopathy. Supple, full range of motion without nuchal rigidity, or vertebral point tenderness. No Meningismus. Chest/axilla: Normal chest wall appearance and motion. Nontender with no deformity. Cardiovascular: Regular rate and rhythm with a normal S1 and S2. No gallops, murmurs, or rubs. Normal PMI, no JVD. No pulse deficits. Respiratory: Lungs have equal breath sounds bilaterally, clear to auscultation and percussion. No rales, rhonchi or wheezes noted. No increased work of breathing, no retractions or nasal flaring. Abdomen/GI: Soft, non-tender, with normal bowel sounds. No distension or tympany. No guarding or rebound. No evidence of tenderness throughout. Skin: Warm, dry with normal turgor. Normal color with no rashes, no lesions, and no evidence of cellulitis. MS/ Extremity: Pulses equal, no cyanosis. Neurovascular intact. Full, normal range of motion. 10:37 ECG was reviewed by the Attending Physician. ms3 Vital Signs: 06:46 BP 136 / 77; Pulse 76; Resp 16; Temp 98; Pulse Ox 99% ; rv 07:15 BP 138 / 79; Pulse 73; Resp 16; Pulse Ox 99% on R/A; db 08:00 BP 149 / 80; Pulse 74; Resp 18; Pulse Ox 100% on R/A; db 09:00 BP 153 / 79; Pulse 77; Resp 16; Pulse Ox 100% on R/A; db 10:00 BP 170 / 89; Pulse 80; Resp 16; Pulse Ox 100% on R/A; db 11:00 BP 160 / 81; Pulse 80; Resp 18; Pulse Ox 100% on R/A; db 12:00 BP 149 / 84; Pulse 90; Resp 18; Pulse Ox 99% on R/A; db 13:00 BP 132 / 66; Pulse 84; Resp 18; Pulse Ox 100% on R/A; db 14:00 BP 131 / 88; Pulse 75; Resp 14; Pulse Ox 99% on R/A; db 15:00 BP 121 / 64; Pulse 72; Resp 16; Pulse Ox 100% on R/A; db MDM: 07:14 Patient medically screened. ms3 07:52 Differential Diagnosis Atrial Fibrillation vs ID vs Electrolyte abnormality. ms3 08:54 Data reviewed: vital signs, nurses notes, lab test result(s), EKG, radiologic studies, ms3 and as a result, I will admit patient. Consideration of Admission/Observation Patient was admitted/placed on observation. Management of patient was discussed with the following: Hospitalist: Dr Mitchell. Pigment Making Supervisor: Dr Delgado. Independent interpretation of the following test(s) in the Emergency Department EKG: See my EKG interpretation above X-Ray: My interpretation is CXR without pulmonary edema. Historians other than the Patient: Spouse/Significant Other: . Care significantly affected by the following chronic conditions: Chronic Kidney Disease. Counseling: I had a detailed discussion with the patient and/or guardian regarding the historical points, exam findings, and any diagnostic results supporting the discharge/admit diagnosis, lab results, radiology results, the need for further work-up and treatment in the hospital. ED course: Discussed case with Dr. Delgado and he recommends 24-hour telemetry observation. Discussed case with hospitalist group patient is excepted by Dr. Mitchell. Discussed necessity for admission with patient and his and they understand/ agree with plan.. 08/02 07:14 Order name: Basic Metabolic Panel; Complete Time: 08:30 ms3 08/02 07:14 Order name: CBC with Diff; Complete Time: 08:01 ms3 08/02 07:14 Order name: LFT's; Complete Time: 08:30 ms3 08/02 07:14 Order name: Magnesium; Complete Time: 08:30 ms3 08/02 07:14 Order name: Troponin HS; Complete Time: 08:30 ms3 08/02 10:13 Order name: Magnesium EDCT 08/02 10:14 Order name: Phosphorus; Complete Time: 15:05 EDMS 08/02 10:14 Order name: T4 Free; Complete Time: 15:05 EDMS 08/02 10:14 Order name: Thyroid Stimulating Hormone; Complete Time: 15:05 EDMS 08/02 10:14 Order name: Urinalysis w/ reflexes EDCT 08/02 10:14 Order name: Basic Metabolic Panel EDCT 08/02 10:14 Order name: Basic Metabolic Panel EDCT 08/02 10:14 Order name: CBC with Automated Diff EDCT 08/02 10:14 Order name: CBC with Automated Diff EDCT 08/02 10:14 Order name: Lipid Profile EDCT 08/02 10:14 Order name: Lipid Profile EDCT 08/02 10:14 Order name: Hemoglobin A1c EDCT 08/02 10:14 Order name: Troponin High Sensitivity EDCT 08/02 10:14 Order name: Troponin High Sensitivity EDCT 08/02 10:14 Order name: Troponin High Sensitivity; Complete Time: 15:05 EDMS 08/02 15:35 Order name: Urinalysis w/ reflexes EDMS 08/02 07:14 Order name: XRAY Chest (1 view); Complete Time: 08:01 ms3 08/02 10:15 Order name: Echo with Doppler EDMS 08/02 07:14 Order name: EKG; Complete Time: 07:15 ms3 08/02 10:01 Order name: CONS Physician Consult EDMS 08/02 07:14 Order name: Cardiac monitoring; Complete Time: 07:30 ms3 08/02 07:14 Order name: EKG - Nurse/Tech; Complete Time: 07:30 ms3 08/02 07:14 Order name: IV Saline Lock; Complete Time: 07:30 ms3 08/02 07:14 Order name: Labs collected and sent; Complete Time: 07:30 ms3 08/02 07:14 Order name: O2 Per Protocol; Complete Time: 07:30 ms3 08/02 07:14 Order name: O2 Sat Monitoring; Complete Time: 07:30 ms3 Administered Medications: No medications were administered Disposition Summary: 08/02/23 08:54 Hospitalization Ordered Notes: Hospitalization Status: Observation ms3 Provider: John Mitchell ms3 Condition: Stable ms3 Problem: new ms3 Symptoms: are unchanged ms3 Bed/Room Type: Standard ms3 Location: Telemetry/MedSurg (observation)(08/02/23 16:18) ap3 Room Assignment: [facility](08/02/23 16:40) ap3 Diagnosis - Elevated Troponin ms3 - Elevated heart rate ms3 - End stage renal disease ms3 Forms: - Medication Reconciliation Form ms3 - SBAR form ms3 - Leadership Thank You Letter ms3 Signatures: Dispatcher [employer] EDGenia Peguero RN RN ap3 Maxim Laguerre RN RN rv Sims, Marcus, DO DO ms3 Corrections: (The following items were deleted from the chart) 14:54 08:54 Telemetry/MedSurg (observation) ms3 ap3 14:54 08:54 ms3 ap3 16:18 14:54 [facility] ER HOLD ap3 ap3 16:18 14:54 ERHOLD- ap3 ap3 16:40 16:18 408 ap3 ap3
--- NOTE | 2023-08-02 08:55 | ER ---
Nurse's Notes [facility] Name: Nathanael Kamara Age: 83 yrs Sex: Male : 1940 Arrival Date: 08/02/2023 Time: 06:29 Bed 13 Private MD: Alphonso Stone V Diagnosis: Elevated Troponin;Elevated heart rate;End stage renal disease Presentation: 08/02 06:46 Chief complaint: Patient states: HAD AN EPISODE OF ATRIAL FIBRILLATION DURING DIALYSIS rv THE OTHER DAY. TODAY USED THE APPLICATION ON THE PHONE AND IT SAYS THAT THE HEART RATE IS SO HIGH. RELAYED TO THE PCP AND WAS ADVISED TO BE SEEN IN THE ER. DENIES SYMPTOMS AT THE MOMENT. Coronavirus screen: At this time, the client does not indicate any symptoms associated with coronavirus-19. Ebola Screen: No symptoms or risks identified at this time. Initial Sepsis Screen: Does the patient meet any 2 criteria? No. Patient's initial sepsis screen is negative. Does the patient have a suspected source of infection? No. Patient's initial sepsis screen is negative. Risk Assessment: Do you want to hurt yourself or someone else? Patient reports no desire to harm self or others. Onset of symptoms was August 02, 2023. 06:46 Method Of Arrival: Ambulatory rv 06:46 Acuity: MAMTA 4 rv Triage Assessment: 06:49 General: Appears comfortable, Behavior is calm, cooperative. Pain: Denies pain. EENT: rv No signs and/or symptoms were reported regarding the EENT system. Neuro: Level of Consciousness is awake, alert, obeys commands, Oriented to person, place, time, situation. Cardiovascular: Capillary refill < 3 seconds Patient's skin is warm and dry. Respiratory: Airway is patent Respiratory effort is even, unlabored. GI: No signs and/or symptoms were reported involving the gastrointestinal system. : No signs and/or symptoms were reported regarding the genitourinary system. Derm: Skin is intact. Historical: - PMHx: 06:48 Hypertensive disorder; kidney disease; rv - Immunization history:: Adult Immunizations up to date. - Social history:: Smoking status: Patient denies any tobacco usage or history of. Screenin:32 [facility] ED Fall Risk Assessment (Adult) History of falling in the last 3 months, db including since admission No falls in past 3 months (0 pts) Confusion or Disorientation No (0 pts) Intoxicated or Sedated No (0 pts) Impaired Gait No (0 pts) Mobility Assist Device Used No (0 pt) Altered Elimination No (0 pt) Score/Fall Risk Level 0 - 2 = Low Risk Oriented to surroundings, Maintained a safe environment. Abuse screen: Denies threats or abuse. Denies injuries from another. Nutritional screening: No deficits noted. Tuberculosis screening: No symptoms or risk factors identified. Assessment: 07:25 Reassessment: Patient appears in no apparent distress at this time. Patient and/or db family updated on plan of care and expected duration. Pain level reassessed. Patient is alert, oriented x 3, equal unlabored respirations, skin warm/dry/pink. General: Appears in no apparent distress. comfortable, Behavior is calm, cooperative. Pain: Denies pain. Neuro: Level of Consciousness is awake, alert, obeys commands, Oriented to person, place, time, situation. Cardiovascular: Dialysis shunt: in the chest. Respiratory: Airway is patent Respiratory effort is even, unlabored, Respiratory pattern is regular, symmetrical. 08:30 Reassessment: Patient appears in no apparent distress at this time. Patient and/or db family updated on plan of care and expected duration. Pain level reassessed. Patient is alert, oriented x 3, equal unlabored respirations, skin warm/dry/pink. 09:31 Reassessment: Patient appears in no apparent distress at this time. Patient and/or db family updated on plan of care and expected duration. Pain level reassessed. Patient is alert, oriented x 3, equal unlabored respirations, skin warm/dry/pink. HOSPITALIST COMPLIANCE AND CONTROL ANALYST SPEAKING WITH PT AT BEDSIDE. 10:35 Reassessment: Patient appears in no apparent distress at this time. Patient and/or db family updated on plan of care and expected duration. Pain level reassessed. Patient is alert, oriented x 3, equal unlabored respirations, skin warm/dry/pink. 13:30 Reassessment: Patient appears in no apparent distress at this time. Patient and/or db family updated on plan of care and expected duration. Pain level reassessed. Patient is alert, oriented x 3, equal unlabored respirations, skin warm/dry/pink. SEE [facility] CHARTING FOR CONTINUED CHARTING AND CARE. 16:29 Reassessment:. db Vital Signs: 06:46 BP 136 / 77; Pulse 76; Resp 16; Temp 98; Pulse Ox 99% ; rv 07:15 BP 138 / 79; Pulse 73; Resp 16; Pulse Ox 99% on R/A; db 08:00 BP 149 / 80; Pulse 74; Resp 18; Pulse Ox 100% on R/A; db 09:00 BP 153 / 79; Pulse 77; Resp 16; Pulse Ox 100% on R/A; db 10:00 BP 170 / 89; Pulse 80; Resp 16; Pulse Ox 100% on R/A; db 11:00 BP 160 / 81; Pulse 80; Resp 18; Pulse Ox 100% on R/A; db 12:00 BP 149 / 84; Pulse 90; Resp 18; Pulse Ox 99% on R/A; db 13:00 BP 132 / 66; Pulse 84; Resp 18; Pulse Ox 100% on R/A; db 14:00 BP 131 / 88; Pulse 75; Resp 14; Pulse Ox 99% on R/A; db 15:00 BP 121 / 64; Pulse 72; Resp 16; Pulse Ox 100% on R/A; db ED Course: 06:32 Patient arrived in ED. mr 06:32 Alphonso Stone MD is Private Physician. mr 06:47 Triage completed. rv 06:50 Arm band placed on right wrist. rv 06:59 Alhaji Daniels DO is Attending Physician. ms3 07:30 Naty Valdes, YANDEL is Primary Nurse. db 07:33 Inserted saline lock: 22 gauge in right antecubital area, using aseptic technique. db Blood collected. 07:35 XRAY Chest (1 view) In Process Unspecified. EDMS 07:35 Patient has correct armband on for positive identification. Bed in low position. Call db light in reach. Side rails up X 1. Client placed on continuous cardiac and pulse oximetry monitoring. NIBP monitoring applied. Warm blanket given. Pillow given. 08:54 John Mitchell MD is Hospitalizing Provider. ms3 15:49 Provided Education on: ADMISSION . db 15:49 No provider procedures requiring assistance completed. Patient admitted, IV remains in db place. Administered Medications: No medications were administered Medication: 09:31 VIS not applicable for this client. db Outcome: 08:54 Decision to Hospitalize by Provider. ms3 15:49 Admitted to ER Hold. Please see [facility] for further documentation. db 15:49 Condition: stable 15:49 Instructed on the need for admit, 16:43 Admitted to Med/surg accompanied by tech, via wheelchair, with chart, Report called to kervin SCHOFIELD 16:43 Patient left the ED. db Signatures: Dispatcher [employer] EDMS Page Mon, Reg Reg mr ShadeMaxim, RN RN rv Alhaji Daniels DO DO ms3 Naty Valdes RN RN db Corrections: (The following items were deleted from the chart) 06:50 06:46 Acuity: MAMTA 3 rv rv
[2023-08-02] MEDS ORDERED: ACETAMINOPHEN 325 MG TABLET PO PRN (09:58)
[2023-08-02] MEDS ORDERED: HYDROCODONE/APAP 5/325 MG TAB PO PRN (09:58)
[2023-08-02] MEDS ORDERED: HYDRALAZINE HCL 20 MG/ML VIAL IV PRN (10:03)
[2023-08-02] MEDS ORDERED: ONDANSETRON 4 MG/2 ML VIAL IV PRN (10:03)
--- NOTE | 2023-08-02 10:13 | P.HP ---
Certification for Inpatient Patient admitted to: Observation With expected LOS: <2 Midnights Patient will require the following post-hospital care: None Practitioner: I am a practitioner with admitting privileges, knowledge of patient current condition, hospital course, and medical plan of care. Services: Services provided to patient in accordance with Admission requirements found in Title 42 Section 412.3 of the Code of Federal Regulations Patient History Date of Service: 08/02/23 Reason for admission: Elevated heart rate. History of Present Illness: Patient is an 83-year-old male with a past medical history significant for ESRD, hypertension, hearing impairment, OFE who presents with complaint of elevated heart rate which occurred yesterday when patient was having dialysis. Patient reported that his dialysis schedule is normally Sunday, and Sunday but he had to have dialysis yesterday due to the idays. Patient cannot recall how elevated his heart rate was. Patient denies any associated signs and symptoms. Symptoms are aggravated or relieved by nothing. Patient was notified after his dialysis by his network controller to come to the ER for further evaluation. Patient decided to present to the hospital as directed. Allergies Cephalosporins Adverse Reaction (Verified 06/30/19 16:12) Itching/Hives/Rash Home Medications: Sodium Bicarbonate 650 mg PO BID 05/20/18 Calcitrol [Rocaltrol*] 1 tab PO DAILY 06/30/19 Ferrous Sulfate [Ferrous Sulfate*] 325 mg PO DAILY 06/30/19 - Past Medical/Surgical History Diabetic: No -: HTN -: kidney stones -: CKD- Stage 4 -: parathyroid enlargement -: Tonsilectomy -: TURP - Family History Mother Notes: Rheumatoid Arthritis Father -: Heart disease - Social History Smoking Status: Never smoker Alcohol use: No CD- Drugs: No Caffeine use: Yes Place of Residence: Home Review of Systems General: Unremarkable Eyes: Unremarkable ENT: Unremarkable Respiratory: Unremarkable Cardiovascular: Unremarkable Gastrointestinal: Unremarkable Genitourinary: Unremarkable Musculoskeletal: Unremarkable Integumentary: Unremarkable Neurological: Unremarkable Lymphatics: Unremarkable Physical Examination - Physical Exam General: Alert, In no apparent distress, Oriented x3, Cooperative HEENT: Atraumatic, PERRLA, Mucous membr. moist/pink, Other ([place]), EOMI, Sclerae nonicteric Neck: Supple, 2+ carotid pulse no bruit, No LAD, Without JVD or thyroid abnormality Respiratory: Clear to auscultation bilaterally, Normal air movement Cardiovascular: No edema, Normal S1 S2, Irregular heart rate/rhythm Capillary refill: <2 Seconds Gastrointestinal: Normal bowel sounds, Soft and benign, No tenderness Musculoskeletal: No clubbing, No swelling, No tenderness Integumentary: No rashes Neurological: Normal gait, Normal speech, Normal strength at 5/5 x4 extr, Normal tone, Normal affect Lymphatics: No axilla or inguinal lymphadenopathy - Studies Laboratory Data (last 24 hrs) 08/02/23 08/02/23 07:27 07:27 WBC 3.60 L Hgb 10.0 L Hct 29.6 L Plt Count 184 Sodium 141 Potassium 3.5 BUN 27 H Creatinine 2.33 H Glucose 109 H Magnesium 2.1 Total Bilirubin 0.3 AST 9 L ALT 18 Alkaline Phosphatase 70 Assessment and Plan - Plan --Elevated troponin. Serial troponins elevated. Glove Presser consulted. Echocardiogram pending to assess cardiac structures and function. Telemetry to monitor for any significant arrhythmia. We will await further recommendation from cement finisher. --Hypertension. Stable. We will manage BP with hydralazine as needed. --ESRD. Nephrology consulted. We will await further recommendations. --Hearing impairment. Continue supportive care. --OFE. Continue ferrous sulfate. --Hypophosphatemia. Further management per network controller. --DVT prophylaxis with heparin subQ Discharge Plan: Home Plan to discharge in: 48 Hours - Advance Directives Does patient have a Living Will: No Does patient have a Durable POA for Healthcare: No - Code Status/Comfort Care Code Status Assessed: Yes Physician Review: Patient Assessed, Agree with Above Assessment and Plan Critical Care: No
[2023-08-02] MEDS: ASPIRIN 81 MG CHEWABLE TABLET PO SCH (11:00)
[2023-08-02 11:15] LABS: Phosphorus 2.1 mg/dL (2.5-4.9); Thyroid Stimulating Hormone 0.842 uIU/mL (0.358-3.740)
[2023-08-02 14:03] VITALS: BMI 17.5
[2023-08-02] MEDS ORDERED: ASPIRIN 81 MG CHEWABLE TABLET ONE (14:23)
[2023-08-02 15:21] LABS: Specific Gravity 1.012 (1.005-1.030); Urine Bacteria None Seen /HPF (<20); Urine Bilirubin NEGATIVE (Negative); Urine Blood Negative (Negative); Urine Clarity Extremely Turbid (Clear); Urine Color Yellow (Yellow); Urine Glucose TRACE (Negative); Urine Mucus Slight /HPF (None Seen); Urine Protein 2+ (Negative); Urine RBC <5 /HPF (None Seen); Urine Urobilinogen Normal (Normal); Urine pH 7.5 (5.0-7.0)
--- NOTE | 2023-08-02 16:49 | P.CNS ---
Date of Consult: 08/02/23 Reason for Consult: esrd Requesting Physician: John Mitchell Chief Complaint: Elevated heart rate. History of Present Illness: 83M w/ PMHx of ESRD presumed to be secondary to hypertensive nephrosclerosis, on outpt HD qTTS, Htn, hearing impairment, anemia, & renal osteodystrophy, who p/w tachycardia. he reports having tachycardia while he was having dialysis. He was able to complete his dialysis treatment yesterday. He does not recall how fast his heart rate was. He is admitted for further evaluation. Heart rate is currently within normal limits. BP stable. with a past medical history significant for ESRD, hypertension, hearing impairment, OFE who presents with complaint of elevated heart rate which occurred yesterday when patient was having dialysis. Patient reported that his dialysis schedule is normally Sunday, and Sunday but he had to have dialysis yesterday due to the holidays. Patient cannot recall how elevated his heart rate was. Patient denies any associated signs and symptoms. Symptoms are aggravated or relieved by nothing. Patient was notified after his dialysis by his collator operator to come to the ER for further evaluation. Patient decided to present to the hospital as directed. --Elevated troponin. Serial troponins elevated. Network Security Consultant consulted. Echocardiogram pending to assess cardiac structures and function. Telemetry to monitor for any significant arrhythmia. We will await further recommendation from landing gear mechanic. --Hypertension. Stable. We will manage BP with hydralazine as needed. --ESRD. Nephrology consulted. We will await further recommendations. --Hearing impairment. Continue supportive care. --OFE. Continue ferrous sulfate. --Hypophosphatemia. Further management per collator operator. --DVT prophylaxis with heparin subQ Allergies Cephalosporins Adverse Reaction (Verified 06/30/19 16:12) Itching/Hives/Rash Home Medications: Sodium Bicarbonate 650 mg PO BID 05/20/18 Calcitrol [Rocaltrol*] 1 tab PO DAILY 06/30/19 Ferrous Sulfate [Ferrous Sulfate*] 325 mg PO DAILY 06/30/19 Folic Acid/Vit B Complex and C [Dialyvite 800 Chewable Wafer] 800 tab PO DAILY 08/02/23 PARoxetine HCL [Paxil*] 10 mg PO DAILY 08/02/23 Tamsulosin HCl 0.4 mg PO BEDTIME 08/02/23 - Past Medical/Surgical History Diabetic: No -: HTN -: kidney stones -: CKD- Stage 4 -: parathyroid enlargement -: Tonsilectomy -: TURP - Family History Mother Notes: Rheumatoid Arthritis Father Medical History: Heart disease - Social History Alcohol use: No CD- Drugs: No Caffeine use: Yes Place of Residence: Home Review of Systems General: Unremarkable Eyes: Unremarkable ENT: Unremarkable Respiratory: Unremarkable Cardiovascular: Other (tachycardia) Gastrointestinal: Unremarkable Genitourinary: Unremarkable Musculoskeletal: Unremarkable Integumentary: Unremarkable Neurological: Unremarkable Lymphatics: Unremarkable Physical Examination Temp Pulse Resp BP Pulse Ox 98.1 F 74 16 121/62 100 08/02/23 16:00 08/02/23 16:00 08/02/23 16:00 08/02/23 16:00 08/02/23 16:00 General: Other (chronically ill-appearing) HEENT: Atraumatic, Normocephalic Neck: Supple, JVD not distended Respiratory: Clear to auscultation bilaterally, Other (symmetric chest expansion) Cardiovascular: No rubs, No murmurs Capillary refill: <2 Seconds Gastrointestinal: Soft and benign, No guarding Musculoskeletal: No clubbing Integumentary: No warmth Neurological: Normal speech, Normal tone Lymphatics: No axilla or inguinal lymphadenopathy Urinary: Other (no bladder distention) External genitalia: Deferred Rectal: Deferred Laboratory Data (last 24 hrs) 08/02/23 08/02/23 08/02/23 07:27 07:27 07:27 WBC 3.60 L Hgb 10.0 L Hct 29.6 L Plt Count 184 Sodium 141 Potassium 3.5 BUN 27 H Creatinine 2.33 H Glucose 109 H Phosphorus 2.1 L Magnesium Cancelled 2.1 Total Bilirubin 0.3 AST 9 L ALT 18 Alkaline Phosphatase 70 Conclusions/Impression: # ESRD on outpt HD TTS Received HD yesterday Next HD Sat Renal diet # Tachycardia Cardiology consult # Htn Cont current med regimen # Anemia Retacrit qTTS # Renal osteodystrophy Monitor serum calcium and phosphorus Serum phosphorus low. Avoid phosphorus binder medication.
[2023-08-02] MEDS: HEPARIN 5000 UNIT/ML 1 ML VIAL SQ SCH (21:00)
[2023-08-03 08:38] LABS: Absolute Lymphocytes (CBC) 0.6 K/uL (0.7-4.9); Hematocrit 29.1 % (39.6-49.0); Lymphocytes % 15.3 % (15.3-44.8); MPV 7.8 fL (7.6-11.3); Platelets 173 thou/uL (152-406); RBC Red Blood Cell Count 2.77 M/uL (4.33-5.43)
[2023-08-03 08:50] LABS: Phosphorus 2.5 mg/dL (2.5-4.9); Potassium 3.5 mEq/L (3.5-5.1)
[2023-08-03] MEDS: HEPARIN 5000 UNIT/ML 1 ML VIAL SQ SCH (08:57)
[2023-08-03] MEDS: ASPIRIN 81 MG CHEWABLE TABLET PO SCH (08:57)
[2023-08-03 09:30] VITALS: O2SAT 98
--- NOTE | 2023-08-03 14:43 | P.PN ---
Subjective Date of Service: 08/03/23 Chief Complaint: Elevated heart rate. Subjective: No new changes Physical Examination - Vital Signs Temperature: 98.6 F Blood Pressure: 143/77 Pulse: 779 Respirations: 17 Pulse Ox (%): 99 - Physical Exam General: Other (chronically ill-appearing) HEENT: Atraumatic, Normocephalic Neck: Supple Respiratory: Other (symmetric chest expansion) Cardiovascular: No rubs, No murmurs Gastrointestinal: Soft and benign, No guarding Musculoskeletal: No clubbing Integumentary: No warmth Neurological: Normal tone Urinary: Other (no bladder distention) External genitalia: Deferred Rectal: Deferred Assessment And Plan - Plan # ESRD on outpt HD TTS Next HD Sat Renal diet # Tachycardia Cardiology consult # Htn Cont current med regimen # Anemia Retacrit qTTS # Renal osteodystrophy Monitor serum calcium and phosphorus Serum phosphorus low. Avoid phosphorus binder medication. Physician Review: Patient Assessed, Agree with Above Assessment and Plan
--- NOTE | 2023-08-03 15:23 | P.PN ---
Subjective Date of Service: 08/03/23 Chief Complaint: Elevated heart rate. Physical Examination - Vital Signs Temperature: 98.6 F Blood Pressure: 143/77 Pulse: 779 Respirations: 17 Pulse Ox (%): 99 Assessment And Plan - Plan --Elevated troponin. Serial troponins elevated. Floor Manager consulted. Echocardiogram pending to assess cardiac structures and function. Telemetry to monitor for any significant arrhythmia. We will await further recommendation from micro computer data processor. --Hypertension. Stable. We will manage BP with hydralazine as needed. --ESRD. Nephrology consulted. We will await further recommendations. --Hearing impairment. Continue supportive care. --OFE. Continue ferrous sulfate. --Hypophosphatemia. Further management per per diem physical therapist. --DVT prophylaxis with heparin subQ Physician Review: Patient Assessed, Agree with Above Assessment and Plan
--- NOTE | 2023-08-03 17:59 | P.DS ---
Admission Date: 08/02/23 Discharge Date: 08/03/23 Disposition: ROUTINE DISCHARGE Discharge Condition: GOOD Reason for Admission: Elevated heart rate. Brief History of Present Illness: Patient is an 83-year-old male with a past medical history significant for ESRD, hypertension, hearing impairment, OFE who presents with complaint of elevated heart rate which occurred yesterday when patient was having dialysis. Patient reported that his dialysis schedule is normally Sunday, and Sunday but he had to have dialysis yesterday due to the s. Patient cannot recall how elevated his heart rate was. Patient denies any associated signs and symptoms. Symptoms are aggravated or relieved by nothing. Patient was notified after his dialysis by his continuous improvement lead to come to the ER for further evaluation. Patient decided to present to the hospital as directed. Vital Signs/Physical Exam: Temp Pulse Resp BP Pulse Ox 98.8 F 80 17 136/69 98 08/03/23 16:00 08/03/23 16:00 08/03/23 16:00 08/03/23 16:00 08/03/23 16:00 Laboratory Data at Discharge: WBC 3.70 thou/uL (4.3-10.9) L 08/03/23 08:14 Hgb 9.7 g/dL (13.6-17.9) L 08/03/23 08:14 Hct 29.1 % (39.6-49.0) L 08/03/23 08:14 Plt Count 173 thou/uL (152-406) 08/03/23 08:14 Sodium 140 mEq/L (136-145) 08/03/23 08:14 Potassium 3.5 mEq/L (3.5-5.1) 08/03/23 08:14 BUN 41 mg/dL (7-18) H 08/03/23 08:14 Creatinine 3.36 mg/dL (0.70-1.30) H 08/03/23 08:14 Glucose 103 mg/dL (74-106) 08/03/23 08:14 Phosphorus 2.5 mg/dL (2.5-4.9) 08/03/23 08:14 Magnesium 2.0 mg/dL (1.6-2.4) 08/03/23 08:14 Total Bilirubin 0.3 mg/dL (0.2-1.0) 08/02/23 07:27 AST 9 U/L (15-37) L 08/02/23 07:27 ALT 18 U/L (16-61) 08/02/23 07:27 Alkaline Phosphatase 70 U/L (45-117) 08/02/23 07:27 Triglycerides 58 mg/dL (<150) 08/03/23 08:14 Cholesterol 161 mg/dL (<200) 08/03/23 08:14 HDL Cholesterol 80 mg/dL (40-60) H 08/03/23 08:14 Cholesterol/HDL Ratio 2.01 08/03/23 08:14 Home Medications: Sodium Bicarbonate 650 mg PO BID 05/20/18 Calcitrol [Rocaltrol*] 1 tab PO DAILY 06/30/19 Ferrous Sulfate [Ferrous Sulfate*] 325 mg PO DAILY 06/30/19 Folic Acid/Vit B Complex and C [Dialyvite 800 Chewable Wafer] 800 tab PO DAILY 08/02/23 PARoxetine HCL [Paxil*] 10 mg PO DAILY 08/02/23 Tamsulosin HCl 0.4 mg PO BEDTIME 08/02/23 Followup: Alphonso Stone MD [Primary Care Provider] - 1-2 Weeks Lester Delgado MD [ACTIVE - CAN ADMIT] - 1 Week
[2023-08-04 07:24] VITALS: BP 143/77; TEMP 98.6
--- NOTE | 2023-08-06 16:59 | EKG ---
Test Date: 2023-08-02 Test Time: 06:42:57 [place] Support Worker: RV MEASUREMENT RESULTS: Intervals: Rate: 80 NH: 240 QRSD: 128 QT: 394 QTc: 454 [place]: P: 68 NH: 240 QRS: 81 T: 50 INTERPRETIVE STATEMENTS: Sinus rhythm with 1st degree AV block Right bundle branch block Abnormal ECG Compared to ECG 04/16/2023 12:17:48 Sinus tachycardia no longer present Myocardial infarct finding no longer present Electronically Signed On 08-06-23 16:53:35 COKE DRAWER HAND by Lester Delgado
== END 2023-08-03 18:38 | disposition home or self-care (01) ==
LOC: ER 06:29 → ERHOLD 10:17 → 4TH 16:23
PROVIDERS: ADMIT Internal Medicine Nephrology; ATTEND Internal Medicine Nephrology
DX: R00.0 Tachycardia, unspecified (principal); N18.6 End stage renal disease; N25.0 Renal osteodystrophy; R79.89 Other specified abnormal findings of blood chemistry; I12.0 Hypertensive chronic kidney disease with stage 5 chronic kidney disease or end stage renal disease; H91.90 Unspecified hearing loss, unspecified ear; D50.0 Iron deficiency anemia secondary to blood loss (chronic); E83.39 Other disorders of phosphorus metabolism; Z91.158 Patient's noncompliance with renal dialysis for other reason; Z99.2 Dependence on renal dialysis; Z88.8 Allergy status to other drugs, medicaments and biological substances
CPT/HCPCS: 93005; 87088; 85025 ×2; 81001; 87086; 80048 ×2; 36415 ×2; 83735 ×2; 84100 ×2; 80061; 80076; 84443; 83036; 84484 ×2; 84439; 71045; 90935; 99285; J1644 ×2; G0378 ×4

== ENCOUNTER 2023-11-28 12:51 | Observation (INO) | payer OTHER ==
--- OUTSIDE RECORDS SUMMARY | 2023-11-28 12:57 | XMS REPORT | Continuity of Care Document ---
Author Name Unknown Address [address] [facility] [address]. [address] [place] [address] [facility]cessentia healthect Address [address] [facility] [place] [address] [place] [address] Care Team Providers Care [employer] Name Role Phone Pcp, Patient Does Not Have A Primary Care Physic harjeet SHANI OLSON Attending Clinician Unavailable SHANI OLSON Attending Clinician Unavailable Alphonso Stone Attending Clinician Unavailable CHARLENE JULIEN Attending Clinician Unavailable Charlene Julien MD Attending Clinician [phone] Steve LEES [facility] Attending Clinician + [phone] Amy LEES, [place] Attending Clinician [phone] Doctor Unassigned, [place] Attending Clinician U navailable 2, [facility] Attending Clinician Unavailable Unassigned, Cath/Ep Attending Clinician UnavailTAYLOR Carrasco Attending Clinician Unavailable Lab, Adc Fam Pob I Attending Clinician Unavailab Taylor Rey Attending Clinician [phone] SHANI OLSON Admitting Clinician Unavailable [facility] Admitting Clinician Cachorro Dixon MD [facility] Admitting Clinician [phone] Payers Payer Name Policy Type Policy Number Effective Date Expirati on Date Source [employer] MANAGED MEDICARE PPO-NEHA [id number] 2022 00:00:00 [employer] MED[employer] PPO [id number] [facility] Problems Condition Name Condition Details Condition Category Status Onset Date Resolution Date Last Treatment Date Treating Clinician Comments Source Coronary artery disease involving northway coronary artery of northway heart without angina pectoris Coronary artery disease involving northway coronary artery of northway heart without angina pectoris Disease Active - 00:00: 00 [facility] HFrEF (heart failure with reduced ejection fraction) HFrEF (heart failure with reduced ejection fraction) Disease Active 10-22 00:00: 00 [facility] Nonrheumat ic aortic valve stenosis Nonrheumat ic aortic valve stenosis Disease Active 10-22 00:00: 00 [facility] PAF (paroxysma l atrial fibrillati on) PAF (paroxysma l atrial fibrillati on) Disease Active 10-22 00:00: 00 [facility] Hyperlipid emia, unspecifie d hyperlipid emia type Hyperlipid emia, unspecifie d hyperlipid emia type Disease Active 10-22 00:00: 00 [facility] Atrial fibrillati on Atrial fibrillati on Disease Active 10-10 00:00: 00 [facility] First degree atrioventr icular block First degree atrioventr icular block Disease Active 10-10 00:00: 00 [facility] Tachycardi a Tachycardi a Disease Active 2022-09 00:00: 00 [facility] ESRD (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 ESRD (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 Disease Active 2022-09 00:00: 00 [facility] [id number] Bilateral nephrolith iasis Problem [facility] [id number] Acute lower UTI Problem [facility] [id number] BPH loc 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 Problem [facility] [id number] Incomplete emptying of bladder Problem [facility] [id number] Renal cysts, acquired, bilateral Problem [facility] [id number] Cystitis Problem [facility] Allergies, Adverse Reactions, Alerts Allergy Name Allergy Type Status Severity Reaction(s) Onset Date Inactive Date Treating Clinician Comments Source NO KNOWN ALLERGIE S Drug Class Active [facility] Medicina l cephalos porin and acting as antibact erial agent (FN) Medicina l cephalos porin and acting as antibact erial agent (FN) Active Unknown [facility] Social History Social Habit Start Date Stop Date Quantity Comments Source History of Tobacco Use [facility] Sex Assigned At [facility] Sexual orientation U [facility] Exposure to SARS-CoV-2 (event) Not sure [facility] History of Social function 2023-10-22 00:00:00 2023-10-22 00:00:00 [facility] Tobacco use and exposure 2023-09-19 00:00:00 2023-09-19 00:00:00 Smokeless tobacco non-user [facility] Smoking Status Start Date Stop Date Source Never smoked tobacco [facility] Medications Ordered Medication Name Filled Medication Name Start Date Stop Date Current Medication? Ordering Clinician Indication Dosage Frequency Signature (SIG) Comments Components Source isosorbide mononitrate 30 mg 24 hr tablet 11-18 00:00: 00 Yes [id number] 30mg Take 1 tablet by mouth in the morning. [facility] isosorbide mononitrate 30 mg 24 hr tablet 11-18 00:00: 00 Yes [id number] 30mg Take 1 tablet by mouth in the morning. [facility] isosorbide mononitrate 30 mg 24 hr tablet 11-18 00:00: 00 Yes [id number] 30mg Take 1 tablet by mouth in the morning. [facility] isosorbide mononitrate 30 mg 24 hr tablet 11-18 00:00: 00 Yes [id number] 30mg Take 1 tablet by mouth in the morning. [facility] isosorbide mononitrate 30 mg 24 hr tablet 11-18 00:00: 00 Yes [id number] 30mg Take 1 tablet by mouth in the morning. [facility] isosorbide mononitrate 30 mg 24 hr tablet 11-18 00:00: 00 Yes [id number] 30mg Take 1 tablet by mouth in the morning. [facility] nitroglycer in (TRIDIL) 2 mg in 10 mL D5W for Cardiac Cath 11-13 16:16: 28 11-13 16:50 :34 No ONCE INTRA PROCEDURE, Starting on Sun11/14/23 at 1016, Until Sun11/14/23 at 1050, Routine, CV Intraproce dure [facility] aspirin tablet 11-13 16:09: 27 11-13 16:50 :34 No ONCE INTRA PROCEDURE, Starting on Sun11/14/23 at 1009, Until Sun11/14/23 at 1050, Routine, CV Intraproce dure [facility] lidocaine 1% (PF) (XYLOCAINE) injection 11-13 16:09: 08 11-13 16:50 :34 No ONCE INTRA PROCEDURE, Starting on Sun11/14/23 at 1009, Until Sun11/14/23 at 1050, Routine, CV Intraproce dure [facility] midazolam (VERSED) injection 11-13 16:01: 15 11-13 16:50 :34 No ONCE INTRA PROCEDURE, Starting on Sun11/14/23 at 1001, Until Sun11/14/23 at 1050, Routine, CV Intraproce dure [facility] FENTanyl PF (SUBLIMAZE (PF)) injection 11-13 16:00: 55 11-13 16:50 :35 No ONCE INTRA PROCEDURE, Starting on Sun11/14/23 at 1000, Until Sun11/14/23 at 1050, Routine, CV Intraproce dure [facility] folic acid/vit B complex and C (DIALYVITE 800 ORAL) 11-13 13:32: 21 Yes Take by mouth. [facility] iron sucrose (VENOFER) 100 mg iron/5 mL injection 11-13 13:32: 21 Yes 100mg 5 mL once now. [facility] epoetin beta, methoxy peg (MIRCERA) 50 mcg/0.3 mL Syrg 11-13 13:32: 21 Yes Inject as directed. [facility] folic acid/vit B complex and C (DIALYVITE 800 ORAL) 11-13 13:32: 21 Yes Take by mouth. [facility] iron sucrose (VENOFER) 100 mg iron/5 mL injection 11-13 13:32: 21 Yes 100mg 5 mL once now. [facility] epoetin beta, methoxy peg (MIRCERA) 50 mcg/0.3 mL Syrg 11-13 13:32: 21 Yes Inject as directed. [facility] folic acid/vit B complex and C (DIALYVITE 800 ORAL) 11-13 13:32: 21 Yes Take by mouth. [facility] iron sucrose (VENOFER) 100 mg iron/5 mL injection 11-13 13:32: 21 Yes 100mg 5 mL once now. [facility] epoetin beta, methoxy peg (MIRCERA) 50 mcg/0.3 mL Syrg 11-13 13:32: 21 Yes Inject as directed. [facility] folic acid/vit B complex and C (DIALYVITE 800 ORAL) 11-13 13:32: 21 Yes Take by mouth. [facility] iron sucrose (VENOFER) 100 mg iron/5 mL injection 11-13 13:32: 21 Yes 100mg 5 mL once now. [facility] epoetin beta, methoxy peg (MIRCERA) 50 mcg/0.3 mL Syrg 11-13 13:32: 21 Yes Inject as directed. [facility] folic acid/vit B complex and C (DIALYVITE 800 ORAL) 11-13 13:32: 21 Yes Take by mouth. [facility] ([facility] 100 mg iron/5 mL injection 11-13 13:32: 21 Yes 100mg 5 mL once now. [facility] epoetin beta, methoxy peg (MIRCERA) 50 mcg/0.3 mL Syrg 11-13 13:32: 21 Yes [facility] directed. [facility] folic acid/vit B complex and C (DIALYVITE 800 ORAL) 11-13 13:32: 21 Yes Take by mouth. [facility] iron sucrose (VENOFER) 100 mg iron/5 mL injection 11-13 13:32: 21 Yes 100mg 5 mL once now. [facility] epoetin beta, methoxy peg (MIRCERA) 50 mcg/0.3 mL Syrg 11-13 13:32: 21 Yes Inject as directed. [facility] folic acid/vit B complex and C (DIALYVITE 800 ORAL) 11-13 13:32: 21 Yes Take by mouth. [facility] iron sucrose (VENOFER) 100 mg iron/5 mL injection 11-13 13:32: 21 Yes 100mg 5 mL once now. [facility] epoetin beta, methoxy peg (MIRCERA) 50 mcg/0.3 mL Syrg 11-13 13:32: 21 Yes Inject as directed. [facility] folic acid/vit B complex and C (DIALYVITE 800 ORAL) 11-13 13:32: 21 Yes Take by mouth. [facility] iron sucrose (VENOFER) 100 mg iron/5 mL injection 11-13 13:32: 21 Yes 100mg 5 mL once now. [facility] epoetin beta, methoxy peg (MIRCERA) 50 mcg/0.3 mL Syrg 11-13 13:32: 21 Yes Inject as directed. [facility] folic acid/vit B complex and C (DIALYVITE 800 ORAL) 11-13 13:32: 21 Yes Take by mouth. [facility] iron sucrose (VENOFER) 100 mg iron/5 mL injection 11-13 13:32: 21 Yes 100mg 5 mL once now. [facility] epoetin beta, methoxy peg (MIRCERA) 50 mcg/0.3 mL Syrg 11-13 13:32: 21 Yes Inject as directed. [facility] atorvastati n 40 mg tablet 2023-0 -16 00:00: 00 Yes [id number] 40mg Take 1 tablet by mouth in the morning. [facility] atorvastati n 40 mg tablet 2023-0 -16 00:00: 00 Yes [id number] 40mg Take 1 tablet by mouth in the morning. [facility] atorvastati n 40 mg tablet 2023-0 -16 00:00: 00 Yes [id number] 40mg Take 1 tablet by mouth in the morning. [facility] atorvastati n 40 mg tablet 2023-0 -16 00:00: 00 Yes [id number] 40mg Take 1 tablet by mouth in the morning. [facility] atorvastati n 40 mg tablet 2023-0 16 00:00: 00 Yes [id number] 40mg Take 1 tablet by mouth in the morning. [facility] atorvastati n 40 mg tablet 2023-0 -16 00:00: 00 Yes [id number] 40mg Take 1 tablet by mouth in the morning. [facility] atorvastati n 40 mg tablet 2023-0 2-16 00:00: 00 Yes [id number] 40mg Take 1 tablet by mouth in the morning. [facility] atorvastati n 40 mg tablet 4-0 2-16 00:00: 00 Yes [id number] 40mg Take 1 tablet by mouth in the morning. [facility] atorvastati n 40 mg tablet 4-0 2-16 00:00: 00 Yes [id number] 40mg Take 1 tablet by mouth in the morning. [facility] atorvastati n 40 mg tablet 4-0 2-16 00:00: 00 Yes [id number] 40mg Take 1 tablet by mouth in the morning. [facility] atorvastati n 40 mg tablet 4-0 2-16 00:00: 00 Yes [id number] 40mg Take 1 tablet by mouth in the morning. [facility] atorvastati n 40 mg tablet 4-0 2-12 00:00: 00 Yes [id number] 40mg Take 1 tablet by mouth in the morning. [facility] metoprolol tartrate 25 mg tablet 4-0 2-12 00:00: 00 Yes [id number] 12.5mg Take 0.5 tablets by mouth in the morning and 0.5 tablets in the evening. [facility] atorvastati n 40 mg tablet 4-0 2-12 00:00: 00 Yes [id number] 40mg Take 1 tablet by mouth in the morning. [facility] metoprolol tartrate 25 mg tablet 4-0 2-12 00:00: 00 Yes [id number] 12.5mg Take 0.5 tablets by mouth in the morning and 0.5 tablets in the evening. [facility] atorvastati n 40 mg tablet 4-0 2-12 00:00: 00 Yes [id number] 40mg Take 1 tablet by mouth in the morning. [facility] metoprolol tartrate 25 mg tablet 4-0 2-12 00:00: 00 Yes [id number] 12.5mg Take 0.5 tablets by mouth in the morning and 0.5 tablets in the evening. [facility] atorvastati n 40 mg tablet 4-0 2-12 00:00: 00 Yes [id number] 40mg Take 1 tablet by mouth in the morning. [facility] metoprolol tartrate 25 mg tablet 4-0 2-12 00:00: 00 Yes [id number] 12.5mg Take 0.5 tablets by mouth in the morning and 0.5 tablets in the evening. [facility] atorvastati n 40 mg tablet 4-0 2-12 00:00: 00 Yes [id number] 40mg Take 1 tablet by mouth in the morning. [facility] metoprolol tartrate 25 mg tablet 4-0 2-12 00:00: 00 Yes [id number] 12.5mg Take 0.5 tablets by mouth in the morning and 0.5 tablets in the evening. [facility] metoprolol tartrate 25 mg tablet 4-0 2-12 00:00: 00 Yes [id number] 12.5mg Take 0.5 tablets by mouth in the morning and 0.5 tablets in the evening. [facility] metoprolol tartrate 25 mg tablet 4-0 2-12 00:00: 00 Yes [id number] 12.5mg Take 0.5 tablets by mouth in the morning and 0.5 tablets in the evening. [facility] metoprolol tartrate 25 mg tablet 4-0 2-12 00:00: 00 Yes [id number] 12.5mg Take 0.5 tablets by mouth in the morning and 0.5 tablets in the evening. [facility] metoprolol tartrate 25 mg tablet 4-0 2-12 00:00: 00 Yes [id number] 12.5mg Take 0.5 tablets by mouth in the morning and 0.5 tablets in the evening. [facility] metoprolol tartrate 25 mg tablet 4-0 2-12 00:00: 00 Yes [id number] 12.5mg Take 0.5 tablets by mouth in the morning and 0.5 tablets in the evening. [facility] metoprolol tartrate 25 mg tablet 4-0 2-12 00:00: 00 Yes [id number] 12.5mg Take 0.5 tablets by mouth in the morning and 0.5 tablets in the evening. [facility] metoprolol tartrate 25 mg tablet 4-0 2-12 00:00: 00 Yes [id number] 12.5mg Take 0.5 tablets by mouth in the morning and 0.5 tablets in the evening. [facility] metoprolol tartrate 25 mg tablet 4-0 2-12 00:00: 00 Yes [id number] 12.5mg Take 0.5 tablets by mouth in the morning and 0.5 tablets in the evening. [facility] metoprolol tartrate 25 mg tablet 10-22 00:00: 00 Yes [id number] 12.5mg Take 0.5 tablets by mouth in the morning and 0.5 tablets in the evening. [facility] metoprolol tartrate 25 mg tablet 10-22 00:00: 00 Yes [id number] 12.5mg Take 0.5 tablets by mouth in the morning and 0.5 tablets in the evening. [facility] metoprolol tartrate 25 mg tablet 10-22 00:00: 00 Yes [id number] 12.5mg Take 0.5 tablets by mouth in the morning and 0.5 tablets in the evening. [facility] atorvastati n 40 mg tablet 10-22 00:00: 00 10-23 00:00 :00 No [id number] 40mg Take 1 tablet by mouth in the morning. [facility] sulfur hexafluorid e microsphr (LUMASON) injection 5 mL 10-10 21:15: 00 10-10 21:07 :00 No [id number] 5mL 5 mL, Intravenou s, ONCE, 1 dose, On Sun10/10/23 at 1515, Routine
human resources team member approving Restricted medication : CHARLENE JULIEN [facility] apixaban 2.5 mg tablet 10-04 00:00: 00 Yes 1358 2.5mg Take 1 tablet by mouth in the morning and 1 tablet in the evening. Indication s: atrial fibrillati on [facility] metoprolol tartrate 25 mg tablet 10-04 00:00: 00 Yes 25mg Take 1 tablet by mouth in the morning and 1 tablet in the evening. [facility] apixaban 2.5 mg tablet 10-04 00:00: 00 Yes 1358 2.5mg Take 1 tablet by mouth in the morning and 1 tablet in the evening. Indication s: atrial fibrillati on [facility] metoprolol tartrate 25 mg tablet 10-04 00:00: 00 Yes 25mg Take 1 tablet by mouth in the morning and 1 tablet in the evening. [facility] apixaban 2.5 mg tablet 4-0 1-25 00:00: 00 Yes 1358 2.5mg Take 1 tablet by mouth in the morning and 1 tablet in the evening. Indication s: atrial fibrillati on [facility] metoprolol tartrate 25 mg tablet 4-0 1-25 00:00: 00 Yes 25mg Take 1 tablet by mouth in the morning and 1 tablet in the evening. [facility] apixaban 2.5 mg tablet 4-0 1-25 00:00: 00 Yes 1358 2.5mg Take 1 tablet by mouth in the morning and 1 tablet in the evening. Indication s: atrial fibrillati on [facility] metoprolol tartrate 25 mg tablet 4-0 1-25 00:00: 00 Yes 25mg Take 1 tablet by mouth in the morning and 1 tablet in the evening. [facility] apixaban 2.5 mg tablet 4-0 1-25 00:00: 00 Yes 1358 2.5mg Take 1 tablet by mouth in the morning and 1 tablet in the evening. Indication s: atrial fibrillati on [facility] metoprolol tartrate 25 mg tablet 4-0 1-25 00:00: 00 Yes 25mg Take 1 tablet by mouth in the morning and 1 tablet in the evening. [facility] apixaban 2.5 mg tablet 4-0 1-25 00:00: 00 Yes 1358 2.5mg Take 1 tablet by mouth in the morning and 1 tablet in the evening. Indication s: atrial fibrillati on [facility] metoprolol tartrate 25 mg tablet 4-0 1-25 00:00: 00 Yes 25mg Take 1 tablet by mouth in the morning and 1 tablet in the evening. [facility] apixaban 2.5 mg tablet 4-0 1-25 00:00: 00 Yes 1358 2.5mg Take 1 tablet by mouth in the morning and 1 tablet in the evening. Indication s: atrial fibrillati on [facility] metoprolol tartrate 25 mg tablet 4-0 1-25 00:00: 00 Yes 25mg Take 1 tablet by mouth in the morning and 1 tablet in the evening. [facility] apixaban 2.5 mg tablet 4-0 1-25 00:00: 00 Yes 1358 2.5mg Take 1 tablet by mouth in the morning and 1 tablet in the evening. Indication s: atrial fibrillati on [facility] metoprolol tartrate 25 mg tablet 4-0 1-25 00:00: 00 Yes 25mg Take 1 tablet by mouth in the morning and 1 tablet in the evening. [facility] apixaban 2.5 mg tablet 4-0 1-25 00:00: 00 Yes 1358 2.5mg Take 1 tablet by mouth in the morning and 1 tablet in the evening. Indication s: atrial fibrillati on [facility] apixaban 2.5 mg tablet 4-0 1-25 00:00: 00 Yes 1358 2.5mg Take 1 tablet by mouth in the morning and 1 tablet in the evening. Indication s: atrial fibrillati on [facility] apixaban 2.5 mg tablet 4-0 1-25 00:00: 00 Yes 1358 2.5mg Take 1 tablet by mouth in the morning and 1 tablet in the evening. Indication s: atrial fibrillati on [facility] apixaban 2.5 mg tablet 4-0 1-25 00:00: 00 Yes 1358 2.5mg Take 1 tablet by mouth in the morning and 1 tablet in the evening. Indication s: atrial fibrillati on [facility] apixaban 2.5 mg tablet 4-0 1-25 00:00: 00 Yes 1358 2.5mg Take 1 tablet by mouth in the morning and 1 tablet in the evening. Indication s: atrial fibrillati on [facility] apixaban 2.5 mg tablet 4-0 1-25 00:00: 00 Yes 1358 2.5mg Take 1 tablet by mouth in the morning and 1 tablet in the evening. Indication s: atrial fibrillati on [facility] apixaban 2.5 mg tablet 2024-0 1-25 00:00: 00 Yes 1358 2.5mg Take 1 tablet by mouth in the morning and 1 tablet in the evening. Indication s: atrial fibrillati on [facility] apixaban 2.5 mg tablet 2024-0 1-25 00:00: 00 Yes 1358 2.5mg Take 1 tablet by mouth in the morning and 1 tablet in the evening. Indication s: atrial fibrillati on [facility] apixaban 2.5 mg tablet 2024-0 1-25 00:00: 00 Yes 1358 2.5mg Take 1 tablet by mouth in the morning and 1 tablet in the evening. Indication s: atrial fibrillati on [facility] apixaban 2.5 mg tablet 2024-0 1-25 00:00: 00 Yes 1358 2.5mg Take 1 tablet by mouth in the morning and 1 tablet in the evening. Indication s: atrial fibrillati on [facility] apixaban 2.5 mg tablet 2024-0 1-25 00:00: 00 Yes 1358 2.5mg Take 1 tablet by mouth in the morning and 1 tablet in the evening. Indication s: atrial fibrillati on [facility] apixaban 2.5 mg tablet 2024-0 1-25 00:00: 00 Yes 1358 2.5mg Take 1 tablet by mouth in the morning and 1 tablet in the evening. Indication s: atrial fibrillati on [facility] apixaban 2.5 mg tablet 4-0 1-25 00:00: 00 Yes 1358 2.5mg Take 1 tablet by mouth in the morning and 1 tablet in the evening. Indication s: atrial fibrillati on [facility] apixaban 2.5 mg tablet 2024-0 1-25 00:00: 00 Yes 1358 2.5mg Take 1 tablet by mouth in the morning and 1 tablet in the evening. Indication s: atrial fibrillati on [facility] apixaban 2.5 mg tablet 2024-0 1-25 00:00: 00 Yes 1358 2.5mg Take 1 tablet by mouth in the morning and 1 tablet in the evening. Indication s: atrial fibrillati on [facility] apixaban 2.5 mg tablet 2024-0 1-25 00:00: 00 Yes 1358 2.5mg Take 1 tablet by mouth in the morning and 1 tablet in the evening. Indication s: atrial fibrillati on [facility] metoprolol tartrate 25 mg tablet 2023-0 1-25 00:00: 00 10-22 00:00 :00 No 25mg Take 1 tablet by mouth in the morning and 1 tablet in the evening. [facility] metoprolol tartrate 25 mg tablet 2023-0 1-25 00:00: 00 10-22 00:00 :00 No 25mg Take 1 tablet by mouth in the morning and 1 tablet in the evening. [facility] epoetin beta, methoxy peg (MIRCERA) 50 mcg/0.3 mL Syrg 4-0 1-10 15:33: 38 Yes Inject as directed. [facility] epoetin beta, methoxy peg (MIRCERA) 50 mcg/0.3 mL Syrg 4-0 1-10 15:33: 38 Yes Inject as directed. [facility] epoetin beta, methoxy peg (MIRCERA) 50 mcg/0.3 mL Syrg 4-0 1-10 15:33: 38 Yes Inject as directed. [facility] epoetin beta, methoxy peg (MIRCERA) 50 mcg/0.3 mL Syrg 4-0 1-10 15:33: 38 Yes Inject as directed. [facility] epoetin beta, methoxy peg (MIRCERA) 50 mcg/0.3 mL Syrg 2024-0 1-10 15:33: 38 Yes Inject as directed. [facility] epoetin beta, methoxy peg (MIRCERA) 50 mcg/0.3 mL Syrg 2024-0 1-10 15:33: 38 Yes Inject as directed. [facility] epoetin beta, methoxy peg (MIRCERA) 50 mcg/0.3 mL Syrg 2024-0 1-10 15:33: 38 Yes Inject as directed. [facility] epoetin beta, methoxy peg (MIRCERA) 50 mcg/0.3 mL Syrg 2024-0 1-10 15:33: 38 Yes Inject as directed. [facility] epoetin beta, methoxy peg (MIRCERA) 50 mcg/0.3 mL Syrg 2024-0 1-10 15:33: 38 Yes Inject as directed. [facility] epoetin beta, methoxy peg (MIRCERA) 50 mcg/0.3 mL Syrg 2024-0 1-10 15:33: 38 Yes Inject as directed. [facility] epoetin beta, methoxy peg (MIRCERA) 50 mcg/0.3 mL Syrg 2024-0 1-10 15:33: 38 Yes Inject as directed. [facility] epoetin beta, methoxy peg (MIRCERA) 50 mcg/0.3 mL Syrg 2024-0 1-10 15:33: 38 Yes Inject as directed. [facility] epoetin beta, methoxy peg (MIRCERA) 50 mcg/0.3 mL Syrg 2024-0 1-10 15:33: 38 Yes Inject as directed. [facility] epoetin beta, methoxy peg (MIRCERA) 50 mcg/0.3 mL Syrg 2024-0 1-10 15:33: 38 Yes Inject as directed. [facility], methoxy [facility] (MIRCERA) 50 mcg/0.3 mL Syrg 2024-0 1-10 15:33: 38 Yes Inject as directed. [facility] epoetin beta, methoxy peg (MIRCERA) 50 mcg/0.3 mL Syrg 2024-0 1-10 15:33: 38 Yes Inject as directed. [facility] epoetin beta, methoxy peg (MIRCERA) 50 mcg/0.3 mL Syrg 2024-0 1-10 15:33: 38 Yes Inject as directed. [facility] epoetin beta, methoxy peg (MIRCERA) 50 mcg/0.3 mL Syrg 2024-0 1-10 15:33: 38 Yes Inject as directed. [facility] epoetin beta, methoxy peg (MIRCERA) 50 mcg/0.3 mL Syrg 2024-0 1-10 15:33: 38 Yes Inject as directed. [facility] epoetin beta, methoxy peg (MIRCERA) 50 mcg/0.3 mL Syrg 09-19 15:33: 38 Yes Inject as directed. [facility] folic acid/vit B complex and C (DIALYVITE 800 ORAL) 09-19 15:32: 49 Yes Take by mouth. [facility] iron sucrose (VENOFER) 100 mg iron/5 mL injection 09-19 15:32: 49 Yes 100mg 5 mL once now. [facility] folic acid/vit B complex and C (DIALYVITE 800 ORAL) 09-19 15:32: 49 Yes Take by mouth. [facility] iron sucrose (VENOFER) 100 mg iron/5 mL injection 09-19 15:32: 49 Yes 100mg 5 mL once now. [facility] folic acid/vit B complex and C (DIALYVITE 800 ORAL) 09-19 15:32: 49 Yes Take by mouth. [facility] iron sucrose (VENOFER) 100 mg iron/5 mL injection 09-19 15:32: 49 Yes 100mg 5 mL once now. [facility] folic acid/vit B complex and C (DIALYVITE 800 ORAL) 09-19 15:32: 49 Yes Take by mouth. [facility] iron sucrose (VENOFER) 100 mg iron/5 mL injection 09-19 15:32: 49 Yes 100mg 5 mL once now. [facility] folic acid/vit B complex and C (DIALYVITE 800 ORAL) 09-19 15:32: 49 Yes Take by mouth. [facility] iron sucrose (VENOFER) 100 mg iron/5 mL injection 09-19 15:32: 49 Yes 100mg 5 mL once now. [facility] folic acid/vit B complex and C (DIALYVITE 800 ORAL) 09-19 15:32: 49 Yes Take by mouth. [facility] iron sucrose (VENOFER) 100 mg iron/5 mL injection 09-19 15:32: 49 Yes 100mg 5 mL once now. [facility] folic acid/vit B complex and C (DIALYVITE 800 ORAL) 09-19 15:32: 49 Yes Take by mouth. [facility] iron sucrose (VENOFER) 100 mg iron/5 mL injection 09-19 15:32: 49 Yes 100mg 5 mL once now. [facility] (DIALYVITE 800 ORAL) 09-19 15:32: 49 Yes Take by mouth. [facility] ([facility] 100 mg iron/5 mL injection 09-19 15:32: 49 Yes 100mg 5 mL once now. [facility] folic acid/vit B complex and C (DIALYVITE 800 ORAL) 09-19 15:32: 49 Yes Take by mouth. [facility] iron sucrose (VENOFER) 100 mg iron/5 mL injection 09-19 15:32: 49 Yes 100mg 5 mL once now. [facility] folic acid/vit B complex and C (DIALYVITE 800 ORAL) 09-19 15:32: 49 Yes Take by mouth. [facility] iron sucrose (VENOFER) 100 mg iron/5 mL injection 09-19 15:32: 49 Yes 100mg 5 mL once now. [facility] folic acid/vit B complex and C (DIALYVITE 800 ORAL) 09-19 15:32: 49 Yes Take by mouth. [facility] iron sucrose (VENOFER) 100 mg iron/5 mL injection 09-19 15:32: 49 Yes 100mg 5 mL once now. [facility] folic acid/vit B complex and C (DIALYVITE 800 ORAL) 09-19 15:32: 49 Yes Take by mouth. [facility] iron sucrose (VENOFER) 100 mg iron/5 mL injection 09-19 15:32: 49 Yes 100mg 5 mL once now. [facility] folic acid/vit B complex and C (DIALYVITE 800 ORAL) 09-19 15:32: 49 Yes Take by mouth. [facility] ity [facility] iron sucrose (VENOFER) 100 mg iron/5 mL injection 09-19 15:32: 49 Yes 100mg 5 mL once now. [facility] folic acid/vit B complex and C (DIALYVITE 800 ORAL) 09-19 15:32: 49 Yes Take by mouth. [facility] it[facility] iron sucrose (VENOFER) 100 mg iron/5 mL injection 09-19 15:32: 49 Yes 100mg 5 mL once now. [facility] folic acid/vit B complex and C (DIALYVITE 800 ORAL) 09-19 15:32: 49 Yes Take by mouth. [facility] it[facility] iron sucrose (VENOFER) 100 mg iron/5 mL injection 09-19 15:32: 49 Yes 100mg 5 mL once now. [facility] folic acid/vit B complex and C (DIALYVITE 800 ORAL) 09-19 15:32: 49 Yes Take by mouth. [facility] ([facility] 100 mg iron/5 mL injection 09-19 15:32: 49 Yes 100mg 5 mL once now. [facility] folic acid/vit B complex and C (DIALYVITE 800 ORAL) 09-19 15:32: 49 Yes Take by mouth. [facility] iron sucrose (VENOFER) 100 mg iron/5 mL injection 09-19 15:32: 49 Yes 100mg 5 mL once now. [facility] it[facility] folic acid/vit B complex and C (DIALYVITE 800 ORAL) 09-19 15:32: 49 Yes Take by mouth. [facility] it[facility] iron sucrose (VENOFER) 100 mg iron/5 mL injection 09-19 15:32: 49 Yes 100mg 5 mL once now. [facility]/vit B complex and C (DIALYVITE 800 ORAL) 09-19 15:32: 49 Yes Take by mouth. [facility] iron sucrose (VENOFER) 100 mg iron/5 mL injection 0 09-19 15:32: 49 Yes 100mg 5 mL once now. [facility] folic acid/vit B complex and C (DIALYVITE 800 ORAL) 09-19 15:32: 49 Yes Take by mouth. [facility] iron sucrose (VENOFER) 100 mg iron/5 mL injection 09-19 15:32: 49 Yes 100mg 5 mL once now. [facility] tamsulosin 0.4 mg 24 hr capsule 2023-0 09-11 00:00: 00 Yes .4mg Take 1 capsule by mouth in the morning and 1 capsule in the evening. [facility] tamsulosin 0.4 mg 24 hr capsule 2023-0 09-11 00:00: 00 Yes .4mg Take 1 capsule by mouth in the morning and 1 capsule in the evening. [facility] tamsulosin 0.4 mg 24 hr capsule 4-0 09-11 00:00: 00 Yes .4mg Take 1 capsule by mouth in the morning and 1 capsule in the evening. [facility] tamsulosin 0.4 mg 24 hr capsule 4-0 09-11 00:00: 00 Yes .4mg Take 1 capsule by mouth in the morning and 1 capsule in the evening. [facility] tamsulosin 0.4 mg 24 hr capsule 4-0 09-11 00:00: 00 Yes .4mg Take 1 capsule by mouth in the morning and 1 capsule in the evening. [facility] tamsulosin 0.4 mg 24 hr capsule 4-0 02 00:00: 00 Yes .4mg Take 1 capsule by mouth in the morning and 1 capsule in the evening. [facility] tamsulosin 0.4 mg 24 hr capsule 4-0 - 00:00: 00 Yes .4mg Take 1 capsule by mouth in the morning and 1 capsule in the evening. [facility] tamsulosin 0.4 mg 24 hr capsule 4-0 -02 00:00: 00 Yes .4mg Take 1 capsule by mouth in the morning and 1 capsule in the evening. [facility] tamsulosin 0.4 mg 24 hr capsule 2024-0 1-02 00:00: 00 Yes .4mg Take 1 capsule by mouth in the morning and 1 capsule in the evening. [facility] 24 hr capsule 2024-0 1-02 00:00: 00 Yes .4mg Take 1 capsule by mouth in the morning and 1 capsule in the evening. [facility] tamsulosin 0.4 mg 24 hr capsule 2024-0 1-02 00:00: 00 Yes .4mg Take 1 capsule by mouth in the morning and 1 capsule in the evening. [facility] tamsulosin 0.4 mg 24 hr capsule 2024-0 1-02 00:00: 00 Yes .4mg Take 1 capsule by mouth in the morning and 1 capsule in the evening. [facility] tamsulosin 0.4 mg 24 hr capsule 2024-0 1-02 00:00: 00 Yes .4mg Take 1 capsule by mouth in the morning and 1 capsule in the evening. [facility] tamsulosin 0.4 mg 24 hr capsule 2024-0 1-02 00:00: 00 Yes .4mg Take 1 capsule by mouth in the morning and 1 capsule in the evening. [facility] tamsulosin 0.4 mg 24 hr capsule 2024-0 1-02 00:00: 00 Yes .4mg Take 1 capsule by mouth in the morning and 1 capsule in the evening. [facility] tamsulosin 0.4 mg 24 hr capsule 2024-0 1-02 00:00: 00 Yes .4mg Take 1 capsule by mouth in the morning and 1 capsule in the evening. [facility] tamsulosin 0.4 mg 24 hr capsule 2024-0 1-02 00:00: 00 Yes .4mg Take 1 capsule by mouth in the morning and 1 capsule in the evening. [facility] tamsulosin 0.4 mg 24 hr capsule 2024-0 1-02 00:00: 00 Yes .4mg Take 1 capsule by mouth in the morning and 1 capsule in the evening. [facility] tamsulosin 0.4 mg 24 hr capsule 2024-0 1-02 00:00: 00 Yes .4mg Take 1 capsule by mouth in the morning and 1 capsule in the evening. [facility] tamsulosin 0.4 mg 24 hr capsule 2024-0 1-02 00:00: 00 Yes .4mg Take 1 capsule by mouth in the morning and 1 capsule in the evening. [facility] tamsulosin 0.4 mg 24 hr capsule 2024-0 1-02 00:00: 00 Yes .4mg Take 1 capsule by mouth in the morning and 1 capsule in the evening. [facility].4 mg 24 hr capsule 2024-0 1-02 00:00: 00 Yes .4mg Take 1 capsule by mouth in the morning and 1 capsule in the evening. [facility] tamsulosin 0.4 mg 24 hr capsule 2024-0 1-02 00:00: 00 Yes .4mg Take 1 capsule by mouth in the morning and 1 capsule in the evening. [facility] tamsulosin 0.4 mg 24 hr capsule 2024-0 1-02 00:00: 00 Yes .4mg Take 1 capsule by mouth in the morning and 1 capsule in the evening. [facility] tamsulosin 0.4 mg 24 hr capsule 2024-0 1-02 00:00: 00 Yes .4mg Take 1 capsule by mouth in the morning and 1 capsule in the evening. [facility] tamsulosin 0.4 mg 24 hr capsule 2024-0 1-02 00:00: 00 Yes .4mg Take 1 capsule by mouth in the morning and 1 capsule in the evening. [facility] tamsulosin 0.4 mg 24 hr capsule 2024-0 1-02 00:00: 00 Yes .4mg Take 1 capsule by mouth in the morning and 1 capsule in the evening. [facility] tamsulosin 0.4 mg 24 hr capsule 2024-0 1-02 00:00: 00 Yes .4mg Take 1 capsule by mouth in the morning and 1 capsule in the evening. [facility] tamsulosin 0.4 mg 24 hr capsule 2024-0 1-02 00:00: 00 Yes .4mg Take 1 capsule by mouth in the morning and 1 capsule in the evening. [facility] PARoxetine 10 mg tablet 2022-1 2-10 00:00: 00 Yes 10mg Take 1 tablet by mouth in the morning. [facility] PARoxetine 10 mg tablet 2022-1 2-10 00:00: 00 Yes 10mg Take 1 tablet by mouth in the morning. [facility] PARoxetine 10 mg tablet 2022-1 2-10 00:00: 00 Yes 10mg Take 1 tablet by mouth in the morning. [facility] PARoxetine 10 mg tablet 2022-1 2-10 00:00: 00 Yes 10mg Take 1 tablet by mouth in the morning. [facility] mg tablet 3-1 2-10 00:00: 00 Yes 10mg Take 1 tablet by mouth in the morning. [facility] PARoxetine 10 mg tablet 2022-1 2-10 00:00: 00 Yes 10mg Take 1 tablet by mouth in the morning. [facility] PARoxetine 10 mg tablet 2022-1 2-10 00:00: 00 Yes 10mg Take 1 tablet by mouth in the morning. [facility] PARoxetine 10 mg tablet 3-1 2-10 00:00: 00 Yes 10mg Take 1 tablet by mouth in the morning. [facility] PARoxetine 10 mg tablet 2022-1 2-10 00:00: 00 Yes 10mg Take 1 tablet by mouth in the morning. [facility] PARoxetine 10 mg tablet 3-1 2-10 00:00: 00 Yes 10mg Take 1 tablet by mouth in the morning. [facility] PARoxetine 10 mg tablet 3-1 2-10 00:00: 00 Yes 10mg Take 1 tablet by mouth in the morning. [facility] PARoxetine 10 mg tablet 3-1 2-10 00:00: 00 Yes 10mg Take 1 tablet by mouth in the morning. [facility] PARoxetine 10 mg tablet 3-1 2-10 00:00: 00 Yes 10mg Take 1 tablet by mouth in the morning. [facility] PARoxetine 10 mg tablet 3-1 2-10 00:00: 00 Yes 10mg Take 1 tablet by mouth in the morning. [facility] PARoxetine 10 mg tablet 2022-1 2-10 00:00: 00 Yes 10mg Take 1 tablet by mouth in the morning. [facility] PARoxetine 10 mg tablet 2022-1 2-10 00:00: 00 Yes 10mg Take 1 tablet by mouth in the morning. [facility] mg tablet 2022-1 2-10 00:00: 00 Yes 10mg Take 1 tablet by mouth in the morning. [facility] PAR[facility] mg tablet 2022-1 2-10 00:00: 00 Yes 10mg Take 1 tablet by mouth in the morning. [facility] PARoxetine 10 mg tablet 2022-1 2-10 00:00: 00 Yes 10mg Take 1 tablet by mouth in the morning. [facility] PARoxetine 10 mg tablet 2022-1 2-10 00:00: 00 Yes 10mg Take 1 tablet by mouth in the morning. [facility] PARoxetine 10 mg tablet 2022-1 2-10 00:00: 00 Yes 10mg Take 1 tablet by mouth in the morning. [facility] PARoxetine 10 mg tablet 3-1 2-10 00:00: 00 Yes 10mg Take 1 tablet by mouth in the morning. [facility] PARoxetine 10 mg tablet 2022-1 2-10 00:00: 00 Yes 10mg Take 1 tablet by mouth in the morning. [facility] PARoxetine 10 mg tablet 3-1 2-10 00:00: 00 Yes 10mg Take 1 tablet by mouth in the morning. [facility] PARoxetine 10 mg tablet 3-1 2-10 00:00: 00 Yes 10mg Take 1 tablet by mouth in the morning. [facility] PARoxetine 10 mg tablet 3-1 2-10 00:00: 00 Yes 10mg Take 1 tablet by mouth in the morning. [facility] PARoxetine 10 mg tablet 3-1 2-10 00:00: 00 Yes 10mg Take 1 tablet by mouth in the morning. [facility] PARoxetine 10 mg tablet 3-1 2-10 00:00: 00 Yes 10mg Take 1 tablet by mouth in the morning. [facility] PARoxetine 10 mg tablet 2022-1 2-10 00:00: 00 Yes 10mg Take 1 tablet by mouth in the morning. [facility] calcitrioL 0.5 mcg capsule 3-1 0-27 00:00: 00 Yes .5ug Take 1 capsule by mouth in the morning. [facility] calcitrioL 0.5 mcg capsule 3-1 0-27 00:00: 00 Yes .5ug Take 1 capsule by mouth in the morning. [facility] calcitrioL 0.5 mcg capsule 3-1 0-27 00:00: 00 Yes .5ug Take 1 capsule by mouth in the morning. [facility] calcitrioL 0.5 mcg capsule 3-1 0-27 00:00: 00 Yes .5ug Take 1 capsule by mouth in the morning. [facility] calcitrioL 0.5 mcg capsule 3-1 0-27 00:00: 00 Yes .5ug Take 1 capsule by mouth in the morning. [facility] calcitrioL 0.5 mcg capsule 3-1 0-27 00:00: 00 Yes .5ug Take 1 capsule by mouth in the morning. [facility] calcitrioL 0.5 mcg capsule 3-1 0-27 00:00: 00 Yes .5ug Take 1 capsule by mouth in the morning. [facility] calcitrioL 0.5 mcg capsule 3-1 0-27 00:00: 00 Yes .5ug Take 1 capsule by mouth in the morning. [facility] calcitrioL 0.5 mcg capsule 3-1 0-27 00:00: 00 Yes .5ug Take 1 capsule by mouth in the morning. [facility] calcitrioL 0.5 mcg capsule 3-1 0-27 00:00: 00 Yes .5ug Take 1 capsule by mouth in the morning. [facility] calcitrioL 0.5 mcg capsule 3-1 0-27 00:00: 00 Yes .5ug Take 1 capsule by mouth in the morning. [facility] calcitrioL 0.5 mcg capsule 3-1 0-27 00:00: 00 Yes .5ug Take 1 capsule by mouth in the morning. [facility] mcg capsule 2023-1 0-27 00:00: 00 Yes .5ug Take 1 capsule by mouth in the morning. [facility] calc[facility] 0.5 mcg capsule 2023-1 0-27 00:00: 00 Yes .5ug Take 1 capsule by mouth in the morning. [facility] calcitrioL 0.5 mcg capsule 2023-1 0-27 00:00: 00 Yes .5ug Take 1 capsule by mouth in the morning. [facility] 0.5 mcg capsule 2023-1 0-27 00:00: 00 Yes .5ug Take 1 capsule by mouth in the morning. [facility] calcitrioL 0.5 mcg capsule 2023-1 0-27 00:00: 00 Yes .5ug Take 1 capsule by mouth in the morning. [facility] calcitrioL 0.5 mcg capsule 2023-1 0-27 00:00: 00 Yes .5ug Take 1 capsule by mouth in the morning. [facility] calcitrioL 0.5 mcg capsule 2023-1 0-27 00:00: 00 Yes .5ug Take 1 capsule by mouth in the morning. [facility] calcitrioL 0.5 mcg capsule 2023-1 0-27 00:00: 00 Yes .5ug Take 1 capsule by mouth in the morning. [facility] calcitrioL 0.5 mcg capsule 2023-1 0-27 00:00: 00 Yes .5ug Take 1 capsule by mouth in the morning. [facility] calcitrioL 0.5 mcg capsule 2023-1 0-27 00:00: 00 Yes .5ug Take 1 capsule by mouth in the morning. [facility] calcitrioL 0.5 mcg capsule 2023-1 0-27 00:00: 00 Yes .5ug Take 1 capsule by mouth in the morning. [facility] calcitrioL 0.5 mcg capsule 2023-1 0-27 00:00: 00 Yes .5ug Take 1 capsule by mouth in the morning. [facility] calcitrioL 0.5 mcg capsule 2023-1 0-27 00:00: 00 Yes .5ug Take 1 capsule by mouth in the morning. [facility] calcitrioL 0.5 mcg capsule 2022-09 0 00:00: 00 Yes .5ug Take 1 capsule by mouth in the morning. [facility] calcitrioL 0.5 mcg capsule 2022-09 0 00:00: 00 Yes .5ug Take 1 capsule by mouth in the morning. [facility] calcitrioL 0.5 mcg capsule 2022-09 0 00:00: 00 Yes .5ug Take 1 capsule by mouth in the morning. [facility] calcitrioL 0.5 mcg capsule 2022-09 0 00:00: 00 Yes .5ug Take 1 capsule by mouth in the morning. [facility] ferrous sulfate 325 mg (65 mg iron) tablet 2022-09 00:00: 00 09-19 00:00 :00 No 325mg Take 1 tablet by mouth in the morning. [facility] ferrous sulfate 325 mg (65 mg iron) tablet 2022-09 00:00: 00 09-19 00:00 :00 No 325mg Take 1 tablet by mouth in the morning. [facility] ferrous sulfate 325 mg (65 mg iron) tablet 2022-09 00:00: 00 09-19 00:00 :00 No 325mg Take 1 tablet by mouth in the morning. [facility] Vitamin B12 1000 MCG Vitamin B12 1000 MCG No 1{table t} QD Vitamin B12 1000 MCG Krill Oil 1000 MG Krill Oil 1000 MG No Krill Oil 1000 MG CoQ-10 150 MG CoQ-10 150 MG No CoQ-10 150 MG amLODIPine Besylate 10 MG amLODIPine Besylate 10 MG No 1{table t} QD amLODIPine Besylate 10 MG Ferrous Sulfate 325 (65 Fe) MG Ferrous Sulfate 325 (65 Fe) MG No 1{table t} QD Ferrous Sulfate 325 (65 Fe) MG Sodium Bicarbonate 650 MG Sodium Bicarbonate 650 MG No Sodium Bicarbonat e 650 MG Curcumin 95 500 MG Curcumin 95 500 MG No Curcumin 95 500 MG Calcitriol 0.5 MCG Calcitriol 0.5 MCG No 1{capsu le} QD Calcitriol 0.5 MCG Vital Signs Vital Name Observation Time Observation Value Comments S ource Systolic blood pressure 2023-11-19 15:23:00 117 mm[Hg] [facility] Diastolic blood pressure 2023-11-19 15:23:00 65 mm[Hg] [facility] Heart rate 2023-11-19 15:23:00 70 /min [facility] Body temperature 2023-11-19 15:23:00 37.28 Mayela [facility] Respiratory rate 2023-11-19 15:23:00 18 /min [facility] Body height 2023-11-19 15:23:[address] [facility] Body weight 2023-11-19 15:23:[address] [facility] BMI 2023-11-19 15:23:00 21.06 kg/m2 [facility] Oxygen saturation in Arterial blood by Pulse oximetry 2023-11-19 15:23:00 95 /min [facility] Systolic blood pressure 2023-11-14 19:00:00 148 mm[Hg] [facility] Diastolic blood pressure 2023-11-14 19:00:00 85 mm[Hg] [facility] Heart rate 2023-11-14 19:00:00 65 /min [facility] Respiratory rate 2023-11-14 19:00:00 12 /min [facility] Oxygen saturation in Arterial blood by Pulse oximetry 2023-11-14 19:00:00 99 /min [facility] Body height 2023-11-14 13:28:[address] [facility] Body weight 2023-11-14 13:28:[address] [facility] BMI 2023-11-14 13:28:00 20.98 kg/m2 [facility] Systolic blood pressure 2023-11-14 13:28:00 122 mm[Hg] [facility] Diastolic blood pressure 2023-11-14 13:28:00 68 mm[Hg] [facility] Body height 2023-11-14 13:28:[address] [facility] Body weight 2023-11-14 13:28:00 58.968 kg [facility] BMI 2023-11-14 13:28:00 20.98 kg/m2 [facility] Oxygen saturation in Arterial blood by Pulse oximetry 2023-11-14 13:28:00 97 /min [facility] Systolic blood pressure 2023-10-22 16:29:00 128 mm[Hg] [facility] Diastolic blood pressure 2023-10-22 16:29:00 75 mm[Hg] [facility] Heart rate 2023-10-22 16:29:00 82 /min [facility] Respiratory rate 2023-10-22 16:29:00 18 /min [facility] Body height 2023-10-22 16:29:00 167.6 cm [facility] Body weight 2023-10-22 16:29:00 59.557 kg [facility] BMI 2023-10-22 16:29:00 21.19 kg/m2 [facility] Oxygen saturation in Arterial blood by Pulse oximetry 2023-10-22 16:29:00 96 /min [facility] Systolic blood pressure 2023-10-10 20:01:00 148 mm[Hg] [facility] Diastolic blood pressure 2023-10-10 20:01:00 73 mm[Hg] [facility] Heart rate 2023-10-10 20:01:00 52 /min [facility] Oxygen saturation in Arterial blood by Pulse oximetry 2023-10-10 20:01:00 97 /min [facility] Respiratory rate 2023-10-10 19:59:00 19 /min [facility] Body height 2023-10-10 19:59:00 170.2 cm [facility] Body weight 2023-10-10 19:59:00 57.879 kg [facility] BMI 2023-10-10 19:59:00 19.98 kg/m2 [facility] Systolic blood pressure 2023-09-19 21:27:00 139 mm[Hg] [facility] Diastolic blood pressure 2023-09-19 21:27:00 81 mm[Hg] [facility] Heart rate 2023-09-19 21:27:00 86 /min [facility] Respiratory rate 2023-09-19 21:27:00 18 /min [facility] Body height 2023-09-19 21:27:00 167.6 cm [facility] Body weight 2023-09-19 21:27:[address] [facility] BMI 2023-09-19 21:27:00 20.50 kg/m2 [facility] Oxygen saturation in Arterial blood by Pulse oximetry 2023-09-19 21:27:00 96 /min [facility] Systolic blood pressure 2023-08-22 16:42:00 128 mm[Hg] [facility] Diastolic blood pressure 2023-08-22 16:42:00 76 mm[Hg] [facility] Heart rate 2023-08-22 16:42:00 78 /min [facility] Body temperature 2023-08-22 16:42:00 37.11 Mayela [facility] Respiratory rate 2023-08-22 16:42:00 18 /min [facility] Body height 2023-08-22 16:42:00 167.6 cm per pt [facility] Body weight 2023-08-22 16:42:[address] [facility] BMI 2023-08-22 16:42:00 19.09 kg/m2 [facility] Oxygen saturation in Arterial blood by Pulse oximetry 2023-08-22 16:42:00 97 /min [facility] height 2023-06-21 13:15:00 69 [in_i] Commo n [facility] weight 2023-06-21 13:15:00 116 [lb_av] Comm on [facility] temperature 2023-06-21 13:15:00 97.3 [degF] Com mon [facility] bmi 2023-06-21 13:15:00 17.13 kg/m2 Comm on [facility] oximetry 2023-06-21 13:15:00 99 % Commo n [facility] respiratory rate 2023-06-21 13:15:00 18 /min [facility] blood pressure systolic 2023-06-21 13:15:00 110 mm[Hg] [facility] blood pressure diastolic 2023-06-21 13:15:00 55 mm[Hg] [facility] Procedures Procedure Date / Time Performed Performing Clinician Source CARDIAC CATHETERIZATION 2023-11-14 16:33:30 Jean-Paul Julien [facility] CARDIAC CATHETERIZATION 2023-11-14 16:33:30 Jean-Paul Julien [facility] [facility] OUTPATIENT CARDIAC CATHETERIZATION DOCUMENTS 2023-11-14 06:01:00 Doctor Unassigned, [place] [facility] TRANSTHORACIC ECHO (TTE) COMPLETE W/ CONTRAST 2023-10-10 21:31:23 Charlene Julien [facility] CONSENT/REFUSAL FOR DIAGNOSIS AND TREATMENT 2023-08-22 16:31:01 Doctor Unassigned, [place] [facility] PVR 2023-06-21 00:00:00 [facility] Encounters Start Date/Time End Date/Time Encounter Type Admission Type Attending Clinicians Care Facility Care Department Encounter ID Source 2023-10-29 13:30:07 Outpatient R SHANI OLSON [facility] [id number] [facility] 2023-06-21 12:52:00 Outpatient Alphonso Stnoe [facility] [id number] [facility] 2023-11-22 00:00:00 2023-11-22 00:00:00 [facility] 1.2.840.114 350.1.13.10 4.2.7.2.686 [id number] 059 [id number] [facility] 2023-11-22 00:00:00 2023-11-22 00:00:00 Telephone Al Taii, [facility] 1.2.840.114 350.1.13.10 4.2.7.2.686 [id number] 840 [id number] [facility] 2023-11-20 00:00:00 2023-11-20 00:00:00 [facility] 1.2.840.114 350.1.13.10 4.2.7.2.686 [id number] 059 [id number] [facility] 2023-11-19 10:40:00 2023-11-19 10:40:00 Office Visit Wily [facility] BUILDING 1.2.840.114 350.1.13.10 4.2.7.2.686 [id number] 059 [id number] [facility] 2023-11-19 10:40:00 2023-11-19 10:36:42 [facility] [id number] [facility] 2023-11-19 00:00:00 2023-11-19 00:00:00 Telephone Marlon Saxena [facility] 1.2840.114 350.1.13.10 4.2.7.2.686 [id number] 059 [id number] [facility] 2023-11-14 06:53:00 2023-11-14 13:32:00 Outpatient R SHANI OLSON [facility] [id number] [facility] 2023-11-14 06:53:00 2023-11-14 13:32:00 Hospital Encounter [facility] 1.2.840.114 350.1.13.10 4.2.7.2.686 [id number] 840 [id number] [facility] 2023-11-14 08:30:00 2023-11-14 09:30:00 Surgery Motiwalla, Afaq [facility] 1.2.840.114 350.1.13.10 4.2.7.2.686 [id number] [id number] [facility] 2023-11-14 00:00:00 2023-11-14 00:00:00 Orders Only Doctor Unassigned, [place] [facility] 1.2.840.114 350.1.13.10 4.2.7.2.686 [id number] [facility] 2023-11-09 10:30:00 2023-11-09 11:08:22 Outpatient R SHANI OLSON [facility] [id number] [facility] 2023-11-09 10:30:00 2023-11-09 10:45:00 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 1.2.840.114 350.1.13.10 4.2.7.2.686 [id number] [facility] 2023-10-26 00:00:00 2023-10-26 00:00:00 Telephone Wily [facility] 1.2.840.114 350.1.13.10 4.2.7.2.686 [id number] 059 [id number] [facility] 2023-10-25 00:00:00 2023-10-25 00:00:00 Telephone Unassigned, Cath/Ep [facility] 1.2.840.114 350.1.13.10 4.2.7.2.686 [id number] [id number] [facility] 2023-10-25 00:00:00 2023-10-25 00:00:00 Telephone Wily [facility] 1.2.840.114 350.1.13.10 4.2.7.2.686 [id number] 840 [id number] [facility] 2023-10-23 00:00:00 2023-10-23 00:00:00 Refill Charlene Julien [facility] BUILDING 1.2.840.114 350.1.13.10 4.2.7.2.686 [id number] 059 [id number] [facility] 2023-10-22 11:00:00 2023-10-22 11:00:00 [facility] 1.2.840.114 350.1.13.10 4.2.7.2.686 [id number] 059 [id number] [facility] 2023-10-22 11:00:00 2023-10-22 10:47:53 Outpatient [facility] [id number] [facility] 2023-10-18 00:00:00 2023-10-18 00:00:00 Telephone Marlon Saxena [facility] 1.2.840.114 350.1.13.10 4.2.7.2.686 [id number] 840 [id number] [facility] 2023-10-11 00:00:00 2023-10-11 00:00:00 [facility] 1.2.840.114 350.1.13.10 4.2.7.2.686 [id number] 059 [id number] [facility] 2023-10-10 14:23:40 2023-10-10 23:59:00 [facility] 1.2.840.114 350.1.13.10 4.2.7.2.686 [id number] 843 [id number] [facility] 2023-10-10 14:20:00 2023-10-10 14:22:37 Office Visit Marlon Saxena [facility] BUILDING 1.2.840.114 350.1.13.10 4.2.7.2.686 [id number] 059 [id number] [facility] 2023-10-10 14:20:00 2023-10-10 14:22:37 Outpatient R SHANI OLSON, SHANI [facility] [id number] [facility] 2023-10-09 15:30:00 2023-10-09 15:30:00 Outpatient [facility] [id number] [facility] 2023-10-09 00:00:00 2023-10-09 00:00:00 Refill Wily [facility] 1.2.840.114 350.1.13.10 4.2.7.2.686 [id number] 059 [id number] [facility] 2023-10-05 00:00:00 2023-10-05 00:00:00 Refill Wily [facility] 1.2.840.114 350.1.13.10 4.2.7.2.686 [id number] 059 [id number] [facility] 2023-10-03 00:00:00 2023-10-03 00:00:00 Telephone Wily [facility] BUILDING 1.2.840.114 350.1.13.10 4.2.7.2.686 [id number] 059 [id number] [facility] 2023-09-28 15:14:59 2023-09-28 23:59:00 [facility] 1.2.840.114 350.1.13.10 4.2.7.2.686 [id number] [id number] [facility] 2023-09-28 15:14:59 2023-09-28 23:59:00 [facility] R WILY[facility] [id number] [facility] 2023-09-28 00:00:00 2023-09-28 00:00:00 [facility] 1.2.840.114 350.1.13.10 4.2.7.2.686 [id number] 059 [id number] [facility] 2023-09-19 15:40:00 2023-09-19 15:52:32 Outpatient [facility] [id number] [facility] 2023-09-19 15:40:00 2023-09-19 15:52:32 [facility] 1.2.840.114 350.1.13.10 4.2.7.2.686 [id number] 059 [id number] [facility] 2023-09-18 00:00:00 2023-09-18 00:00:00 [facility] 1.2.840.114 350.1.13.10 4.2.7.2.686 [id number] 059 [id number] [facility] 2023-09-18 00:00:00 2023-09-18 00:00:00 [facility] 1.2.840.114 350.1.13.10 4.2.7.2.686 [id number] 059 [id number] [facility] 2023-09-18 00:00:00 2023-09-18 00:00:00 [facility] 1.2.840.114 350.1.13.10 4.2.7.2.686 [id number] 059 [id number] [facility] 2023-09-12 00:00:00 2023-09-12 00:00:00 Telephone [facility]ily[facility] 1.2.840.114 350.1.13.10 4.2.7.2.686 [id number] 059 [id number] [facility] 2023-08-28 00:00:00 2023-08-28 00:00:00 [facility] 1.2.840.114 350.1.13.10 4.2.7.2.686 [id number] 059 [id number] [facility] 2023-08-22 10:40:00 2023-08-22 11:23:43 Outpatient [facility] [id number] [facility] 2023-08-22 10:40:00 2023-08-22 11:23:43 Office Visit Wily [facility] 1.2.840.114 350.1.13.10 4.2.7.2.686 [id number] 059 [id number] [facility] 2023-08-22 00:00:00 2023-08-22 00:00:00 Orders Only Doctor Unassigned, [place] [facility] 1.2.840.114 350.1.13.10 4.2.7.2.686 [id number] [facility] 2023-08-15 14:20:00 2023-08-15 14:20:00 Outpatient [facility] [id number] [facility] 2023-06-21 00:00:00 2023-06-21 00:00:00 OFFICE VISIT ESTAB PT LEVEL 2 STLMLC STLMLC [id number] [facility] 2020-03-31 14:00:00 2020-03-31 14:00:00 Outpatient R [facility] [id number] [facility] 2020-03-31 14:00:00 2020-03-31 14:00:00 Outpatient R TAYLOR AGUILAR [facility] [id number] [facility] 2020-03-31 13:25:46 2020-03-31 13:45:46 Laboratory Only Lab, [facility] 1.84.114 350.1.13.10 4.2.7.2.686 [id number] 044 [id number] [facility] 2020-03-31 13:25:46 2020-03-31 13:45:46 Laboratory Only Lab, [facility] 1.84.114 350.1.13.10 4.2.7.2.686 [id number] 2020-03-31 13:00:00 2020-03-31 13:00:00 Outpatient Kandace AGUILAR [facility] [id number] [facility] Results Test Description Test Time Test Comments Results Result Co mments Source [facility] Procedure Notes Date/Time Note Provider Source 2023-11-14 10:04:23 W4voRMGNtn31/JRnq3rm L1scyuQaRBmJY ex+JCwU+WR2Lcv9oKoMjVmb3Vu7KBRu96 01-12-05T10:04:23 Left Heart Cath/Coronary AngiographyDate of Service: 11/14/2023 10:04 AMIndication/Diagnosis:83 y M with PMH of pAF, ESRD, HLD who was seen by Dr Julien and Dr Olson after he was found to have AF during HD. TTE was done which showed EF 30-35% with anteroseptal and apical AK as well as mod . He is slightly active and denies any CP, SOB.Fellow:Dr GermainTime out completed: yesAseptic technique: ChlorprepLocal Anesthesia: 1% lidocaine without epinephrineSedation: fentanyl 37.5 mcg, Versed 1.5 mgAccess site: right femoral arteryClosure Method: MynxComplications: noneProcedure Details:LHC5 Fr RFA5 Fr JL4 to LM5 Fr Jr4 to LV (LVEDP and pullback across aortic valve), RCAMynx.43 cc contrastPost-Procedure Sedation AddendumImmediately prior to start of sedation, the patient was evaluated and there was no change from the pre-procedure evaluation. I was present and directed medical care.The patient underwent moderate sedation for the procedure. The medications administered were recorded in the MAR; oxygenation, ventilation and circulation were monitored continuously and were recorded in the EMR. I evaluated the patient after the procedure.The patient was evaluated immediately as recovering from sedation.Complications: noneFindings:Coronary dominance: rightLeft main: MLILAD: Prox LAD 100% CTOMid/distal LAD and D2 are supplied by robust R-L collaterals (Rentrop class 3)D1: Large (functional ramus) with ostial 50-60% calcifiedD2: Severe athero, fills via R-L colateralsRI: See D1LCX: Prox Lcx 50-60%Distal Lcx has 80% stenosisOM1: Small sized, mild atheroOM2: Small sized, mild atheroOM3: Small sized, mild atheroRCA: Large sized, prox 40-50%PDA: Large, mild atheroPLB: Large, mid 50%LVEDP: 13Right External Iliac angiogram:Tortuous CIAMild athero EIA and CFAImpression:Prox LAD 100% INTERVENTION SPECIALIST; remainder of vessel fills via robust R-L collateralsLarge D1/ramus has ostial 60% lesionProx circumflex 50-60% lesion, distal circumflex 80% lesionNormal LVEDP (13)Plan:Bedrest 3 hoursAggressive medical RxGDMT for LV dysfunctionPCI of D1/ramus or circumflex can be done only if he has anginal symptomsFindings and plan discussed with pt and primary charge attendant (Dr Julien).I performed this procedure and supervised the fellow. I was present for the entire duration of the procedure.Dixie Reyes MD 11/14/2023 10:04 AM 67679-8Fksalbfjn lpsaCR2535-67-78M22:05:46Procedur e noteTXT1.2.840.025594.1.13.104.2. 7.2.837892|[id number] for patient enxp11203-8Brltdmktt noteLNNARRATIVEFormatted C-CDA narrative textIM-INTERVENTIONAL CARDIOLOGY STAFFIM-INTERVENTIONAL CARDIOLOGY STAFF[address] [id number] 029SAJWXCGGZIHJTNCBLGUGIB0577-45- 06T11:05:461.2.840.848272.1.72.3. 15|1.2.840.864209.1.13.104.2.7.2. 727879_[id number] IM-INTERVENTIONAL CARDIOLOGY STAFF [facility] Notes Date/Time Note Provider Source 2023-11-23 14:25:47 vniVV9cB6Rfaym2ZOrZdoTnFXtUkaudLcu2 TZOZgDbDVg5hgguadPifM1qXTTedm4467-3 4:25:47 Done 82969-9Naohjcgiw encounter ZpsqSX4237-58-07C97:25:59Telephone encounter NoteTXT1.2.840.672397.1.13.104.2.7. 2.271880|[id number] for patient crsb31904-5IctkOQRXZPSKOOPHdamdtpoy C-CDA narrative text[id number] 2SROOWUGQACCNAYAPHVYQXI5137-51-85R9 4:25:591.2.840.378047.1.72.3.15|1.2 .840.833073.1.13.104.2.7.2.727879_2 [id number] [facility] 2023-11-23 10:48:40 aew9gkEbHMQ3/BniND4XeYPEQd+vm3lYb1/ +QvqxuuQ7kbyKHZG1DMDK2ylzxhkh0238-0 0:48:40 Can you please schedule him on a day he does not have dialysis session.Sincerely,HA 70910-4Ddunllypy encounter MrpfWQ9559-39-02N74:49:28Telephone encounter NoteTXT1.2.840.226958.1.13.104.2.7. 2.588793|[id number] for patient zuqf64423-2ZvqvGBGLOBCGXSAChetlshbi C-CDA narrative text[id number] 0MAOSGRQFAGDGUJYZTQUJTR2669-82-21W6 0:49:281.2.840.749728.1.72.3.15|1.2 .840.078083.1.13.104.2.7.2.727879_2 [id number] [facility] 2023-11-22 16:20:51 vxDrOfYGvqQpoUCXoViGiGnHfP5xEe30t76 OX4OicZm5qchRLHevTr0Guyhaypdf5359-1 11-21T16:20:51 Pt's called to r/s loop recorder procedure from 11/29 to 12/19 due to dialysis. 37915-8Kxvdedqpb encounter FvhkHJ0048-62-57H45:21:34Telephone encounter NoteTXT1.2.840.419968.1.13.104.2.7. 2.824743|[id number] for patient vbsr28116-1KtihNTQOAPWFXZKJqwotqiyg C-CDA narrative [id number] Graham[id number] 3VITOWLQHAXMVXXCSBTYCHA5226-44-22E0 6:21:341.2.840.174839.1.72.3.15|1.2 .840.254778.1.13.104.2.7.2.727879_2 [id number] Melina Rey [facility] 2023-11-22 16:05:47 x2gKTV8k2wB9gUeCyaIiJRFjVG2hcz/SE6G IJlNkZIa8aPS9TsEpDypEi3uWymiP3471-8 11-21T16:05:47 Nathanael Alcocer is a 83 year old malePt's is calling to reschedule his scheduled procedure Loop recorder insertion on 11/30/23 due to his Dialysis Sun,Sun and Sunday.Please call her to reschedule this taiwo. 31815-6Bhennfdcc encounter EibgAZ5354-98-12E81:07:48Telephone encounter NoteTXT1.2.840.705013.1.13.104.2.7. 2.222019|[id number] for patient wtjt18162-9KpvaBUWCRYGASVMRhhwdpqce C-CDA narrative negg811370962Egpn Fatima[address] Wpbh[id number] 5VAQBGMXIFUXEOABWFCORHE0518-64-82V6 6:07:481.2.840.366392.1.72.3.15|1.2 .840.828646.1.13.104.2.7.2.727879_2 [id number] Lizeth Vegas [facility] 2023-11-20 08:50:24 mUO5ngl6Le3bSrNmFCoFxmP0zR2yoN/sDFU wjJV2BqhHrU//b1bvql3PJxmodpfJ8464-4 08:50:24 Images from the original note were not included.Sent to [facility] on 11/19/23. 31 tabs. 11 refills. (1 yr supply) 56061-0Vntwhivul encounter PxbmBC2913-43-44E07:51:48Telephone encounter NoteTXT1.2.840.938706.1.13.104.2.7. 2.097225|7858852773ICQvefnrkcf for patient qsrp98959-8QmgbDDGUUZLOXNRAmedtygrk C-CDA narrative [id number] E Plummer MA[address] Fu[id number] 5SEPWIGXITWILWVBBYEUHMM9885-68-35T4 8:51:481.2.840.923548.1.72.3.15|1.2 .840.470077.1.13.104.2.7.2.727879_2 [id number] Fabby Stewart MA [facility] 2023-11-19 08:12:07 d3761YusdMhkvnjc++nH/1ShpJjJYJ9pEGn 5lB2VBdgJapxsKDIm12mLxZ9s7POc1782-8 08:12:07 Pt calling stating they are needing the case on 11/30/23 rescheduled. Please assist. 35194-2Blxzggung encounter XrnhOK0045-30-12C02:12:57Telephone encounter NoteTXT1.2.840.403884.1.13.104.2.7. 2.458657|0489396559RMYfbuuozym for patient okmx32688-6XfofTWTYHVBNIWWPswejrird C-CDA narrative rwrt964101123Jnolkkz E BuckheitU[address] StreetMwsfYlspesfelDwvtihepcVRIF626987434 4TULTKRRLOFGCGRDJULWRTM9686-97-16P2 8:12:571.2.840.992907.1.72.3.15|1.2 .840.618317.1.13.104.2.7.2.727879_2 [id number] Skye Willett [facility] 2023-11-14 13:31:18 ZBzinOAc0e+FOzWFlR0IdtuHp1FSGDVvj/g +eJ8eGIQwehKidninMU6vRYaC7+Rr0698-2 3:31:18 Dc instructions given. Iv removed. Site check done. Patient to lobby in to meet family. No distress noted. 61023-3Evguf AkspHG2024-12-50X28:31:54Nurse NoteTXT1.2.840.718580.1.13.104.2.7. 2.736464|3625786975LKUxfozagqh for patient krnk51208-3Zjcht NoteLNNARRATIVEFormatted C-CDA narrative wmrj522033083Btouytqfh Villatoro RNUT[id number] 5JXZGZUPUFRDHUHYQSGFWPS8540-65-29P2 3:31:541.2.840.813634.1.72.3.15|1.2 .840.233297.1.13.104.2.7.2.727879_2 [id number] Caty Galvez RN [facility] 2023-11-13 08:04:11 AUHdwJmg4/cu9lO7GHmhOYSZwqpG4i9uJFm WT72mju/vPJg3SRjxHXkIRNxg/4Ki4097-1 3-05T08:04:11 [facility] CARDIAC CATH PRE-CALL INSTRUCTIONSCardiac Cath Instructions were sent to patient via: Other telephoneYour physician has determined that you need to undergo a(n) LHC procedure.Listed below are some instructions for you to follow prior to the procedure.Do not eat or drink anything after midnight the night before the procedure, except for enough water to take your medications if so directed.For Carotid stenting procedures, do not take blood pressure medications the morning prior to the procedure.For Carotid angiogram procedures, do not stop taking your blood pressure medications.Take all medications except do not take metformin (Glucophage) 2 days prior to the procedure and do not take insulin or furosemide (lasix) the day of the procedure. If you are on blood thinners stop taking them 5 days prior to the procedure, unless otherwise instructed.If you are allergic to iodine or shellfish, take pre-treatment medications as directed. Please call your referring physician for prescription.Bring a list of all current medications.Bring one adult family member or friend with you to drive you home, as you will be unable to drive for 48 hours after the procedure.Due to limited space and patient privacy, only one (1) visitor is permitted with the patient while they are recovering in the recovery area.No children under the age of 14 years will be allowed in recovery area.Please park in the Hospital Garage via [address] either [address] or [address] [facility] [address]. Bring your parking ticket with you to be validated, only one parking ticket may be validated per patient.There may be a possibility of hospital admission or late evening discharge; therefore, bring leisure reading and an overnight bag.On the day of your procedure, come directly to the Cardiac Insurance Defense Paralegal hr receptionist desk, located on the 6th floor of [facility] (2O- [phone].) You will be escorted to the Cardiac Cath recovery room.Please call the Cardiac Insurance Defense Paralegal at if you have any questions regarding your procedure.Date of Procedure: 11/14/2023 Time of Procedure: 0700For peripheral procedures, have you had an ALEX or arterial duplex? not applicableFor ASD/PFO procedures, have you had:Not ApplicableInstructions given to patient: yesPatient provided with preferred teaching of verbal information on 11/13/2023. Shows readiness to learn. Verbal instruction teaching provided. Individual is able to read and verbalizes understanding of teaching provided. 47900-8Meksb JytuYE6943-24-88E46:05:03Nurse NoteTXT1.2.840.398237.1.13.104.2.7. 2.786388|8384321683FRCzagkayie for patient icja68583-2Xfhbb NoteLNNARRATIVEFormatted C-CDA narrative textUT[address] WonrQqxtvyzrqVnancegbsPVKD460181299 2NHVSGRNMLJMRLMQOFZPFOI5676-80-41A9 8:05:031.2.840.976877.1.72.3.15|1.2 .840.083786.1.13.104.2.7.2.727879_2 [id number] [facility] 2023-11-09 10:30:00 VkPvOQupgX0dKzufzs50sISniYIeERxSCKb 1IWm3aS4zZjOUfslnSSM5OEAUzqB21978-7 0:30:00 Images from the original note were not included.Venipuncture collection performed by clean technique on the left anticubitus. Total of 1 attempts were made. Slight pressure and a bandage/dressing were applied to the site(s). The patient experienced no complications. The following specimens were processed according to instructions and sent to [facility] laboratories per lab order on 11/09/2023:LT BLUE 1SST 1REDLAV 1PPTDK GREEN (LiHep)DK GREEN (SodH)GRAYDK BLUE (K2)DK BLUE (S)ACDBlood CultureNIPT/NTD 00068-1Zzspd NhxnEM1534-24-60Q04:30:29Nurse NoteTXT1.2.840.723219.1.13.104.2.7. 2.176239|[id number] for patient blla90180-8Xzjkv NoteLNNARRATIVEFormatted C-CDA narrative text[id number] 2VJVEOFDIBDKTJVYEGVNGDX7768-01-57H6 0:30:291.2.840.877913.1.72.3.15|1.2 .840.192464.1.13.104.2.7.2.727879_2 [id number] [facility] 2023-10-26 11:57:38 sVnOeAn1BZKOLaEYPZFibF4l1K0YCZR3N/P JJKgdSf6JSZvJ910aJM1rPJpo5Mo31765-2 1:57:38 Future lab orders in.Refill done according to Cardiology Medication Refill Guidelines. 18251-3Jkwrxnhyu encounter MitdIN8625-77-51G56:02:02Telephone encounter NoteTXT1.2.840.174313.1.13.104.2.7. 2.855079|9560725153GAWxegrtidt for patient zpzj98462-9BgqlRLSMPZIOKBXNjqhabgig C-CDA narrative [id number] A Reyes MAXIMO[id number] 2AMSUTGVOBSWITFUCSABNND0964-40-03Q3 2:02:021.2.840.537308.1.72.3.15|1.2 .840.985380.1.13.104.2.7.2.727879_2 [id number] Deanna Huang LVN [facility] 2023-10-26 08:09:05 CAwHW+0HICvOFVohfam4E6IhKbMjeejbtkA fVlJ9aFmM7EgjC2DS8Jh7pDOmpKy21591-5 08:09:05 No Transmission Notification (Day 5) received via fax and reviewed by Dr Julien. Form scanned into chart. 36181-7Frowmrkox encounter AnzyXH6096-38-11Z29:09:56Telephone encounter NoteTXT1.2.840.264303.1.13.104.2.7. 2.984625|[id number] for patient rgnw82059-2LvlvPIKZWLXJYRERzknrfshk C-CDA narrative [id number] D Garcia MA[address] Ed[id number] 6NIEBOLYBRSMFGMJUVCZRJL3755-04-32L4 8:09:561.2.840.099455.1.72.3.15|1.2 .840.720230.1.13.104.2.7.2.727879_2 [id number] Caty Hernandez [facility] 2023-10-25 12:08:43 OxhYjEkuyfj2gRrwrXxfHtA6l2gw641yp7B 5ADH6cPuYkY3CwbPAJzwUK9IkX7gD9954-0 2:08:43 Called patient to schedule agreed to 11/13, labs appt moved up to 11/08. 20546-7Tkzeqrvmo encounter BhshDE7216-83-28L24:11:59Telephone encounter NoteTXT1.2.840.413284.1.13.104.2.7. 2.182031|[id number] for patient gdbg64878-7WogkUGLWHIZADKTYrbynjcrr C-CDA narrative [id number] [id number] 0UETIFRJYPXMRKDBOGDNMAL7870-85-68Z7 2:11:591.2.840.903717.1.72.3.15|1.2 .840.191529.1.13.104.2.7.2.727879_2 [id number] Melina Rey [facility] 2023-10-25 09:04:12 IXOPVFPic3qlgDaGDZJIMQCvvEqiAVd8yUe Xko9vQHgbsbdDEufDqAZN14m25+wx5468-3 09:04:12 Called patient to schedule, no answer left voicemail with call back information. 75148-9Vndnalmrw encounter VmkaEA6208-47-60L24:07:15Telephone encounter NoteTXT1.2.840.516223.1.13.104.2.7. 2.251407|6844901422KZIvoefrtbd for patient zxtx50607-3NappYGINUMFCVXEJmlehmbqp C-CDA narrative [id number] [id number] 0AERZTSTSZZBUYAGALXQABM1430-93-68H8 9:07:151.2.840.139292.1.72.3.15|1.2 .840.658229.1.13.104.2.7.2.727879_2 [id number] Melina Rey [facility] 2023-10-18 11:01:26 WH8nQsxDYl//2eA4NU3d/EfdodoGmvXW8gF SKXH9oAmXEPlzDZkCAvL6CXuHv6pW6011-4 10-18T11:01:26 Called Patient to schedule Loop Recorder Insertion. Patient agreed to have procedure on 11/30/[address] Olson. Labs are schedule for 11/23/2023. 69937-6Dxlactkrh encounter BiwdSU3580-21-00F23:06:36Telephone encounter NoteTXT1.2.840.915496.1.13.104.2.7. 2.428537|[id number] for patient vnge04547-2EgmlBVCOZHHFZXYKlfyyacsp C-CDA narrative [id number] S Rodriguez[id number] 3AUQTJALMDQNHQFLYXYVJSD2801-92-60J5 1:06:361.2.840.380098.1.72.3.15|1.2 .[address]5093[address]1.13.104.2.7.2.727879_[id number] Yusuf [facility] 2023-10-11 10:13:06 MzVg0MYfWgmXnD4yuOkrJ2u7E6eT5NvRxvY 1JvwC28wrz0gpQpuvCSJO/rKPtxZC4351-0 10-11T10:13:06 Appointment made 10/22/23 for follow up visit with Dr Julien. Reviewed [facility] procedure and rational with . Questions asked and answered 01583-8Hassjgpaf encounter DdlnLF9564-87-63V18:21:21Telephone encounter NoteTXT1.2.840.405387.1.13.104.2.7. 2.990105|[id number] for patient updr58426-8HhfoDWBMXCIXGEJGcyyrtxkl C-CDA narrative [id number] A Roller [id number] 1MUGQLNBFVIODBSKQPYCKFR6443-89-43U2 0:21:211.2.840.587702.1.72.3.15|1.2 .840.889759.1.13.104.2.7.2.727879_2 [id number] Opal Nubia Mayo [facility] 2023-10-04 15:41:51 A3LPN2h2pZ5J7cutopJT1kmgXoFUgChcd8Z IPHgiUZz/6via+miD7V8dR5U5P97W2862-5 10-04T15:41:51 Spoke with patient's spouse with verbal permission.She verbalized understanding new medications. Rx sent to [facility] in [place].Nathanael has been scheduled to see Dr. Olson on 10/10/23"Cardiac event monitor showed possible atrial fibrillation/flutter. Recommend to start metoprolol 25 mg twice daily. Start Eliquis 2.5 mg twice daily. Previously I have sent a message asking to make an EP appointment with the patient but I do not see that being made " 31490-2Mtfvydkak encounter BaanIS6681-36-63H12:47:40Telephone encounter NoteTXT1.2.840.757557.1.13.104.2.7. 2.064169|[id number] for patient nzmi60848-0IeikDMHWWMIQQBUQxssxtpxd C-CDA narrative [id number] Sheavly RN[address]JcolQqipgzzxpZxkrsbdzgOVSY863419861 4XAPOSSMPNNNXPOIVAQYLJR2728-88-93S3 5:47:401.2.840.699890.1.72.3.15|1.2 .840.677901.1.13.104.2.7.2.727879_2 [id number] Susu Mock RN [facility] 2023-10-04 15:32:21 mKe8dbo9pDSo1Oo0n47zHMMFtIu0yu6J4oY fA7oK607oYjuTaKo3OZZXsDgd5g0A3968-9 10-04T15:32:21 Nathanael Alcocer is a 83 year old malePatient spouse returning phone callWas able to warm transfer to clinic [phone] (home) 65411-2Jzbddyxcq encounter VmrnSC8782-17-74N67:33:59Telephone encounter NoteTXT1.2.840.195877.1.13.104.2.7. 2.625187|[id number] for patient mjmo55781-4OwrfNWUJGCECUNJSpblpwqfh C-CDA narrative [id number] C Garcia[address] Il[id number] 0YVQKMAMGUHCQFBNIELXALO1166-17-10H0 5:33:591.2.840.386259.1.72.3.15|1.2 .840.434778.1.13.104.2.7.2.727879_2 [id number] Rosita Hernandez [facility] 2023-10-04 15:26:30 0bUZjIB9nR+wxbQ13t/H20NaO/hOXlclGNU eLHg/jT3s/LGglLOxbKNT0MYBQ5+58348-7 10-04T15:26:30 Attempted to contact patient with results/recommendations. LVM for patient to return call to [phone]. 81733-4Tamoujnwx encounter DjnjZI4515-88-70M73:26:37Telephone encounter NoteTXT1.2.840.648885.1.13.104.2.7. 2.358048|5559874530TTVtotwwysu for patient unkk27979-1ZbpmVBWTRQIECSLCuaksqalv C-CDA narrative [id number] 7CCHWBUCUXWYSFBTKNRZFHD1367-49-39F1 5:26:371.2.840.343036.1.72.3.15|1.2 .840.850512.1.13.104.2.7.2.727879_2 [id number] [facility] 2023-10-03 14:37:45 r/BohFmCaxn+/53lraZZaStMLac2FZzqnDz m/pm2EtoqpkzKOwwO0tGdk1ghMeRc0481-9 10-03T14:37:45 Cardiac event monitor showed possible atrial fibrillation/flutter. Recommend to start metoprolol 25 mg twice daily. Start Eliquis 2.5 mg twice daily. Previously I have sent a message asking to make an EP appointment with the patient but I do not see that being made. 19004-7Szsvtwnxy encounter PsfaEF3503-98-75T93:38:43Telephone encounter NoteTXT1.2.840.155499.1.13.104.2.7. 2.910128|[id number] for patient uodl56951-7McxrBGBDJGRUVYVUgbbnzilk C-CDA narrative [id number] 8GCRUMSNVHIIRSJZYDWIMXI2960-71-92A9 4:38:431.2.840.088515.1.72.3.15|1.2 .840.947101.1.13.104.2.7.2.727879_2 [id number] [facility] 2023-10-01 08:45:31 iVy1iOvN1l9ppUcQP1R4yve5vsv2Y3eLuZD S3E0kWLUWMkDdwZiXErt5K+e/cogj1546-3 08:45:31 Call to patient's to review concerns regarding 30 day monitor.She stated that everything is now working and that they are ok , patient will continue to wear the monitor at this time 74462-3Cxbwjmrzc encounter GaufAO6724-75-96Y25:47:29Telephone encounter NoteTXT1.2.840.619225.1.13.104.2.7. 2.324772|[id number] for patient bmpf31019-7TpdnZTDABSOHVUOVoymojjuj C-CDA narrative qeys449822929Zitjq A Roller RN[address] QgxrVqfwmvqtcFbuhotukqDPFA491320597 4QJQSGBAGXHPZBYIPJJAYVI2470-78-00N3 8:47:291.2.840.069191.1.72.3.15|1.2 .840.769402.1.13.104.2.7.2.727879_2 [id number] Opal Huber RN [facility] 2023-09-28 17:04:24 18nPig1XsVm80jxTSISIPSgQgpMSxmijEkw 34qGzI0zb30NpMB8GHKhi8YZ/H/lz5338-2 7:04:24 Nathanael Alcocer is a 83 year old maleWife is calling stating they have took the heart monitor home and was having trouble hooking it up and wifi was not working. stating pt will just not use it and will return it. Please advise 67858-3Coddxhxwv encounter CtesVS4201-02-38J89:06:04Telephone encounter NoteTXT1.2.840.393189.1.13.104.2.7. 2.813981|[id number] for patient qqrc42082-3XeqjOWHRMDPRFUILakszkzpm C-CDA narrative [id number] [id number] 7VHHVVAHJXGYXNSQFTSUAGU0392-88-05S2 7:06:041.2.840.279606.1.72.3.15|1.2 .840.046124.1.13.104.2.7.2.727879_2 [id number] [facility]23-09-19 15:40:00 LIpDdT4u0cqWlIxSCBWJdq7N179oK4jCW5d CcnPuSZ5qM/1mNKg2DIu6ZvIQ2W3l4479-3 09-19T15:40:00Addended by: CHARLENE JULIEN MD on: 09/30/2023 08:44 AMModules accepted: Orders 45213-5Miigpuzo CjsuewfxBT4231-33-73O31:44:25Addend um DocumentTXT1.2.840.851237.1.13.104. 2.7.2.032900|[id number] for patient mryn01804-7VbqkGTFTAADQHZISslkogmls C-CDA narrative text[address] Ak[id number] 5CRRXRKPCNZGIQETMJKBRCR6058-66-04D8 8:44:251.2.840.498944.1.72.3.15|1.2 .840.409848.1.13.104.2.7.2.727879_2 [id number] [facility] 2023-09-18 15:28:40 HFEUBdwk1+TAjgf9ItLODAchc595RpgpK2E yCkgyO9En9uDV7EsdcS1IE+bMxYoS1440-8 :28:40 Contacted patient and rescheduled patients appointments. 90219-2Jskchhiqt encounter QegmZP3404-60-25X13:29:36Telephone encounter NoteTXT1.2.840.780933.1.13.104.2.7. 2.408438|[id number] for patient xmcc56139-1XdbcWFAIKGNKVQHFkswcxkke C-CDA narrative crny223406788Wkyjh [id number] 5EAGIKKECHHFHCQEJDNHXOH9976-70-23Z3 5:29:361.2.840.953196.1.72.3.15|1.2 .840.309569.1.13.104.2.7.2.727879_1 [id number] Roro Feliciano [facility] 2023-09-18 13:45:37 ud5fFo3xud1O3/qYYIhyLHPIZIGAPmX9wTq Tjii9saF7QbXqwHQPC9atd/xD6mob4300-3 :45:37 Will route to PSS for assistance 89624-9Elntoywon encounter AizaHP6314-81-20W63:46:14Telephone encounter NoteTXT1.2.840.607451.1.13.104.2.7. 2.337422|[id number] for patient gryz40266-5SpueGHJIQOYGLTJQhajxahnp C-CDA narrative [id number] Castillo [id number] 4JTZTJSJYXSBRKFJTKGGALL5610-08-89Z1 3:46:141.2.840.148697.1.72.3.15|1.2 .840.656551.1.13.104.2.7.2.727879_1 [id number] Bernadette Mayers MA [facility] 2023-09-18 13:35:30 VG/TdVPXVbRJllqrzOmyyA5r66+lUKO/EM/ Q5XjdKcw52IXdjOCbvkUhC1Tu269L3587-6 3:35:30 Nathanael Alcocer is a 83 year old malePts calling to get echo r/s please advise. 81660-8Sxfsiqdla encounter CmacWI2772-76-19U12:37:07Telephone encounter NoteTXT1.2.840.898900.1.13.104.2.7. 2.508201|3969321270ZUGkkqgeogz for patient vmcg08914-0YngqRUXNWVNUFLEOsqgpfqpn C-CDA narrative waih514761548Cietr [address] KsylUyatocclwIyyymzszcTEVJ476688401 0GRJHUJQDWKAOMDFSXYLTJL7722-89-05V9 3:37:071.2.840.614706.1.72.3.15|1.2 .840.485907.1.13.104.2.7.2.727879_1 [id number] Adarsh Suzi [facility] 2023-09-18 13:06:55 BSbW2p9ls2obv/AMOTahAWzgDLBqHFXtAAF dhynuIek4QcDHvNbL/ozdKpiWchfg1465-1 3:06:55 Spoke with Mrs Alcocer regarding husbands heart rate. Stated that he is in dialysis now but the staff were watching his heart rate increase and slow down on the monitor.Appointment made for 340Notified if symptomatic, continuing symptoms or worsening concerns to consider ER visit.Verbalized understanding 54877-9Dccdnrgvz encounter CyslLJ2935-91-00L59:11:23Telephone encounter NoteTXT1.2.840.967655.1.13.104.2.7. 2.382685|[id number] for patient ilby99987-5TyfbXJELMSXJKJYMbccqfwlp C-CDA narrative obpb893814192Kzusr A Roller RN[id number] 8WOKYOVAYLXKUJNWUNPMIDQ9552-85-58M1 3:11:231.2.840.449465.1.72.3.15|1.2 .840.486212.1.13.104.2.7.2.727879_1 [id number] Opal Huber RN [facility] 2023-09-18 12:56:35 cv3xodJk+5nuelqvHHoPRZVEce5+ga4SL4v xqbp+b1MGaBYhZI16mNxEmNyjrl900958-3 2:56:35 Nathanael Alcocer is a 83 year old male Estee with [facility] is calling about Pt . Might be having some Afib but wanted to let Dr. Julien know .Please advise 12418-7Qnllvyscb encounter JrmgMM0037-06-10L14:58:45Telephone encounter NoteTXT1.2.840.173741.1.13.104.2.7. 2.828588|8545609576POBvususqza for patient mxlz01764-7EwwcJGRQTHYVXGYVtrtqesaw C-CDA narrative vzgg925637248Jstrvrr D Collins[address]G[id number] 1XIRCKZMUGHGLXUFKEJABZE6052-91-68O0 2:58:451.2.840.055085.1.72.3.15|1.2 .840.492180.1.13.104.2.7.2.727879_1 [id number] Amanda Richard Waters [facility] 2023-09-18 12:24:54 oYgacpx/FfEx01Ymdcg6Yew9luWbnFPPwKw 6GHg5yJ5sbSxa0E9xy5sPz0gXZ8404086-6 2:24:54 Error 94303-7Tuvejuhbw encounter PmeyUC8837-03-86N31:25:47Telephone encounter NoteTXT1.2.840.236012.1.13.104.2.7. 2.943415|5043162486XJVmhtlvjmv for patient cyrg13641-0KumpBNRKZGCFCPWLjlgnzjdi C-CDA narrative tpze676467073Chjcg [id number] 2MGRLCXLIUVBWMWEKDBHYJK3821-66-87B0 2:25:471.2.840.437167.1.72.3.15|1.2 .840.906023.1.13.104.2.7.2.727879_1 [id number] Kortney Almanzar [facility] 2023-09-18 11:22:23 VpPfDGB3HeFcDQwFMp6G0wgcbu7RJCxFR5L KW7f/6INNoBJzxmZ54HKhPYVYjcyM2039-8 1:22:23 Nathanael Alcocer is a 83 year old maleGina with [facility] calling to speak with nurse said patient has been going in and out of Afib, need advise. Please call [phone] signed by Marichuy Powers at 09/18/2023 11:24 AM KBO60880-3Wdocszvvi encounter UxvePP0096-03-41X90:24:58Telephone encounter NoteTXT1.2.840.277157.1.13.104.2.7. 2.994354|[id number] for patient desm84875-7PpxqNDZJGJWERWQZxlrkdewr C-CDA narrative [id number] J Frank[id number] 7SGMLXQGQMLKGZZTJPPYHPK6950-68-03I7 1:24:581.2.840.351327.1.72.3.15|1.2 .840.884308.1.13.104.2.7.2.727879_1 [id number] Marichuy Powers [facility] 2023-09-12 14:56:42 HyOkCUKVc9sXrjNBt/4dnvHoFAa4ckMNcPJ QoCYRcclPhCAr6ql0+zN19X8k3sVj1106-0 09-12T14:56:42 Contacted pt on 09/12 to schedule appt. Pt did not answer, [facility]. I will contact pt again tomorrow morning to try to schedule. 36033-0Ggsevnkhw encounter LhkpFJ3778-34-96P06:59:50Telephone encounter NoteTXT1.2.840.584191.1.13.104.2.7. 2.406986|[id number] for patient tttf52719-6TqioYNIYQUMBQJAFycddnuey C-CDA narrative qaib232903144Sqvcnkwd McCree[id number] 7OJVSFQNSIESXSRWDVHTOCD9821-26-44F2 4:59:501.2.840.448319.1.72.3.15|1.2 .840.026697.1.13.104.2.7.2.727879_1 [id number] Laura Can [facility] 2023-09-12 12:38:07 3MMI0H5nF9aQmLns4+qaffGHKtDALPQHwWO 8eeeOgCgB4N6jG89JFYNZRAVzVF4T8277-6 2:38:07 Attempted to contact patient with recommendations. [facility] for patient to return call to [phone].Patient is already scheduled for the echocardiogram on 09/3023.If patient returns call please assist him to schedule the 30 day event monitor that was ordered by Dr. Julien to further evaluate his elevated heart rates. 38568-9Ayyfmewpb encounter KaykGR7570-68-76I56:40:01Telephone encounter NoteTXT1.2.840.183661.1.13.104.2.7. 2.891505|1206437815WXSdhzxjpqu for patient tjqi85203-9UhadDDMIGJIWQNQEqhxfwziv C-CDA narrative bdkx033285819Yigt Sheavly RN[address] GgitRj[id number] 9PTFTJIFBEEEDNUIIKPXEGA4449-55-86M1 2:40:011.2.840.336913.1.72.3.15|1.2 .840.920349.1.13.104.2.7.2.727879_1 [id number] Susu Mock RN [facility] 2023-09-12 12:38:02 9uw/abnzssb39IWUrk32GkH5q+2iHG98IKd 4wwLV8MvaIHzT3qiOLotjEbDq/npz3133-0 1-03T12:38:02 ----- Message from Charlene Julien MD sent at 09/01/2023 2:45 PM TORCH [facility]RA[facility]ER -----I reviewed his hospital records. No echocardiogram report attached. I ordered 30-day cardiac event monitor and echocardiogram. Please schedule if patient is agreeable. 24146-5Sexvgngnv encounter JjhfUN0463-34-66J01:38:02Telephone encounter NoteTXT1.2.840.101039.1.13.104.2.7. 2.984410|[id number] for patient newu79752-7RwldAYIQNJMIKDQHatgddfok C-CDA narrative [id number] 1ILVJWYFKZJEVYKKRXSNHGM9856-38-72S7 2:38:021.2.840.300472.1.72.3.15|1.2 .840.537994.1.13.104.2.7.2.727879_1 [id number] [facility] 2023-08-22 10:40:00 BdsbssYCGaUN/lrqLfFO/8uBL+hRTYhMI/K /x5DIaclSk63OdNY25C+n5mQO9Rei1435-9 0:40:00Addended by: CHARLENE JULIEN MD on: 09/01/2023 02:45 PMModules accepted: Orders 34671-2Ooovaeoz GpwipvfrWD4221-44-70Q01:45:54Addend um DocumentTXT1.2.840.483283.1.13.104. 2.7.2.779115|[id number] for patient qqjj26441-2JwmnEUIWMDQDUJZMwbwsdazn C-CDA narrative [id number] 6GBXZGVPGDCQYNZSUPUGDEB6761-98-07J4 4:45:541.2.840.767943.1.72.3.15|1.2 .840.977225.1.13.104.2.7.2.727879_1 [id number] [facility]
--- NOTE | 2023-11-28 13:40 | RAD REPORT ---
EXAM DESCRIPTION: Kaylee Single View11/28/2023 1:31 pm CLINICAL HISTORY: PALPITATIONS COMPARISON: 2022 FINDINGS: The lungs appear clear of acute infiltrate. The heart is mildly enlarged. Central venous catheter in place IMPRESSION: No acute abnormalities displayed
[2023-11-28 15:01] LABS: Absolute Eosinophils 0.2 K/uL (0-0.5); Absolute Monocytes 0.7 K/uL (0.1-1.3); Absolute Neutrophil 3.3 K/uL (1.8-8.0); Basophils % 0.9 % (0-1.3); Eosinophils % 3.5 % (0-4.4); Hematocrit 33.8 % (39.6-49.0); Hemoglobin 11.3 g/dL (13.6-17.9); Lymphocytes % 18.8 % (15.3-44.8); MCH 34.1 pg (27.0-35.0); MCHC 33.5 g/dL (32.0-36.0); MCV 101.7 fL (80-100); MPV 7.1 fL (7.6-11.3); Monocytes % 12.8 % (3.3-12.3); Nucleated Red Blood Cells % 0.2 % (0-0); Platelets 230 thou/uL (152-406); RBC Red Blood Cell Count 3.32 M/uL (4.33-5.43)
[2023-11-28 15:54] LABS: Anion Gap 8.5 mEq/L (5.0-15.0); Magnesium 2.2 mg/dL (1.6-2.4); Potassium 4.5 mEq/L (3.5-5.1)
[2023-11-28] MEDS ORDERED: ACETAMINOPHEN 325 MG TABLET PO PRN (16:20)
[2023-11-28] MEDS ORDERED: ALBUTEROL 2.5 MG/3 ML NEB SOL NEB PRN (16:20)
[2023-11-28] MEDS ORDERED: ONDANSETRON 4 MG/2 ML VIAL IV PRN (16:20)
--- NOTE | 2023-11-28 16:22 | EDPHYS ---
Physician Documentation [facility] Name: Nathanael Kamara Age: 83 yrs Sex: Male : 1940 Arrival Date: 11/28/2023 Time: 12:51 Bed 2 Private MD: ED Physician Anastasia Erickson HPI: 11/27 13:00 This 83 yrs old Male presents to ER via Unassigned with complaints of elevated kb heart rate. 13:00 Patient is a 83-year-old male who presents for elevated heart rate that occurred during kb dialysis just prior to arrival. EMS states patient's heart rate was in the 40s to 50s when dialysis was started which is normal for him but went up to 120s after dialysis was started. Dialysis staff sent patient to the ER for evaluation due to this elevation. Patient denies palpitations, chest pain, shortness of breath. Patient states he has no complaints and does not know why they made him come in.. Historical: - Allergies: 13:10 CEPHALOSPORINS; ll1 - PMHx: 13:10 Hypertensive disorder; kidney disease; ll1 13:19 A fib; ll1 - PSHx: 13:19 dialysis port R chest; ll1 - Immunization history:: Adult Immunizations up to date. - Social history:: Smoking status: Patient denies any tobacco usage or history of. ROS: 13:00 Constitutional: As per HPI kb Exam: 13:00 Constitutional: This is a well developed, well nourished patient who is awake, alert, kb and in no acute distress. Head/Face: Normocephalic, atraumatic. ENT: Moist Mucous membranes Respiratory: Respirations even and unlabored. No increased work of breathing. Talking in full sentences Skin: Warm, dry with normal turgor. Normal color. MS/ Extremity: Pulses equal, no cyanosis. Neurovascular intact. Full, normal range of motion. Neuro: Awake and alert, GCS 15, oriented to person, place, time, and situation. Moves all extremities. Normal gait. 13:00 Cardiovascular: Rate: tachycardic, Rhythm: irregularly irregular, Pulses: no pulse deficits are appreciated, 13:53 ECG was reviewed by the Attending Physician. kb Vital Signs: 13:16 BP 137 / 75; Pulse 78; Resp 18; Temp 97.6; Pulse Ox 97% on R/A; Weight 61.23 kg; Height ll1 5 ft. 9 in. ; Pain 0/10; 14:24 BP 129 / 71; Pulse 75; Resp 18; Pulse Ox 99% on R/A; rs5 16:00 BP 146 / 77; Pulse 70; Resp 18; Pulse Ox 100% ; bp 18:41 BP 130 / 74; Pulse 80; Resp 17; Pulse Ox 99% on R/A; rs5 13:16 Body Mass Index 19.94 (61.23 kg, 175.26 cm) ll1 13:16 Pain Scale: Adult ll1 MDM: 12:58 Patient medically screened. kb 13:00 Differential diagnosis: arrythmia, dehydration, stress disorder, abnormal electrolytes. kb Data reviewed: vital signs, nurses notes. Historians other than the Patient: EMS: [facility]. 16:19 Consideration of Admission/Observation Patient was admitted/placed on observation. kb Escalation of care including admission/observation considered. Management of patient was discussed with the following: Hospitalist: Hospitalist team, accepted under Dr Garg. Counseling: I had a detailed discussion with the patient and/or guardian regarding the historical points, exam findings, and any diagnostic results supporting the discharge/admit diagnosis, lab results, radiology results, the need for further work-up and treatment in the hospital. 18:39 ED course: Dr Stone came to ER to see pt and would like pt transferred to his service. kb 11/27 12:59 Order name: Basic Metabolic Panel; Complete Time: 16:00 kb 11/27 12:59 Order name: CBC with Diff; Complete Time: 15:14 kb 11/27 12:59 Order name: Magnesium; Complete Time: 16:00 kb 11/27 12:59 Order name: Troponin HS; Complete Time: 16:00 kb 11/27 16:26 Order name: Urinalysis w/ reflexes EDMS 11/27 16:26 Order name: Basic Metabolic Panel EDMS 11/27 16:26 Order name: Basic Metabolic Panel EDMS 11/27 16:26 Order name: CBC with Automated Diff EDMS 11/27 16:26 Order name: CBC with Automated Diff EDMS 11/27 16:26 Order name: Troponin High Sensitivity EDMS 11/27 12:59 Order name: XRAY Chest (1 view); Complete Time: 13:51 kb 11/27 12:59 Order name: EKG; Complete Time: 13:00 kb 11/27 12:59 Order name: Cardiac monitoring; Complete Time: 13:31 kb 11/27 12:59 Order name: EKG - Nurse/Tech; Complete Time: 13:54 kb 11/27 12:59 Order name: IV Saline Lock; Complete Time: 13:31 kb 11/27 12:59 Order name: Labs collected and sent; Complete Time: 13:54 kb 11/27 12:59 Order name: O2 Per Protocol; Complete Time: 13:31 kb 11/27 12:59 Order name: O2 Sat Monitoring; Complete Time: 13:31 kb 11/27 14:37 Order name: Labs - recollect needed: recollect green and lavender top; Complete Time: bd 14:44 EC:53 Rate is 75 beats/min. Rhythm is regular. QRS Myton is Normal. LA interval is prolonged kb at 254 msec. QRS interval is normal at 130 msec. QT interval is normal at 437 msec. Administered Medications: No medications were administered Disposition Summary: 11/28/23 16:21 Hospitalization Ordered Notes: Hospitalization Status: Observation kb Provider: Arminda Oneal Location: Telemetry/MedSurg (observation) kb Condition: Stable kb Problem: new kb Symptoms: are unchanged kb Bed/Room Type: Standard Room Assignment: 422(11/28/23 17:25) sp Diagnosis - Elevated troponin kb Forms: - Medication Reconciliation Form kb - SBAR form kb - Leadership Thank You Letter kb Signatures: Dispatcher [employer] Liset Barksdale, OLEG CHAMBERS-Janett Escobedo Shawna sp Lewis, Lynsay, RN RN ll1 Corrections: (The following items were deleted from the chart) 17:25 16:21 kb sp
--- NOTE | 2023-11-28 16:22 | ER ---
Nurse's Notes [facility] Name: Nathanael Kamara Age: 83 yrs Sex: Male : 1940 Arrival Date: 11/28/2023 Time: 12:51 Bed 2 Private MD: Diagnosis: Elevated troponin Presentation: 11/27 13:16 Chief complaint: Patient states: HR when he started dialysis was around 50. After ll1 starting dialysis, HR went up to 125. EMS states: HR 80-125, A fib with RBBB on EKG. Other VSS. Coronavirus screen: Client denies travel out of the [place] in the last 14 days. At this time, the client does not indicate any symptoms associated with coronavirus-19. Ebola Screen: Patient denies travel to an Ebola-affected area in the 21 days before illness onset. Initial Sepsis Screen: Does the patient meet any 2 criteria? No. Patient's initial sepsis screen is negative. Does the patient have a suspected source of infection? No. Patient's initial sepsis screen is negative. Risk Assessment: Do you want to hurt yourself or someone else? Patient reports no desire to harm self or others. Onset of symptoms was November 28, 2023. 13:16 Method Of Arrival: EMS ll1 13:16 Acuity: MAMTA 2 kb3 Triage Assessment: 13:19 General: Appears in no apparent distress. Behavior is calm, cooperative, appropriate ll1 for age, Reports fatigue for. Pain: Denies pain. Cardiovascular: Reports HR went up during dialysis Rhythm is atrial fibrillation Chest pain is denied. Historical: - Allergies: 13:10 CEPHALOSPORINS; ll1 - PMHx: 13:10 Hypertensive disorder; kidney disease; ll1 13:19 A fib; ll1 - PSHx: 13:19 dialysis port R chest; ll1 - Immunization history:: Adult Immunizations up to date. - Social history:: Smoking status: Patient denies any tobacco usage or history of. Screenin:05 [facility] ED Fall Risk Assessment (Adult) History of falling in the last 3 months, rs5 including since admission No falls in past 3 months (0 pts) Confusion or Disorientation No (0 pts) Intoxicated or Sedated No (0 pts) Impaired Gait Yes (1 pt) Mobility Assist Device Used Yes (1 pt) Altered Elimination No (0 pt) Score/Fall Risk Level 0 - 2 = Low Risk Oriented to surroundings, Maintained a safe environment. 13:05 Abuse screen: Denies threats or abuse. Nutritional screening: No deficits noted. rs5 Tuberculosis screening: No symptoms or risk factors identified. Assessment: 13:05 General: Appears in no apparent distress. comfortable, Behavior is calm, cooperative. rs5 Pain: Denies pain. Neuro: Level of Consciousness is awake, alert, obeys commands, Oriented to person, place, time, situation. Cardiovascular: Rhythm is regular. 13:05 Respiratory: Airway is patent Respiratory effort is even, unlabored, Respiratory rs5 pattern is regular, symmetrical. GI: Abdomen is flat, non-distended, Abd is soft and non tender X 4 quads. : No signs and/or symptoms were reported regarding the genitourinary system. EENT: No signs and/or symptoms were reported regarding the EENT system. Derm: Skin is intact, Skin is dry, Skin is normal, Skin temperature is warm. Musculoskeletal: Circulation, motion, and sensation intact. 13:05 Reassessment: Pt has a dialysis port to right upper chest. rs5 14:23 Reassessment: No changes from previously documented assessment. Cardiovascular: Rhythm rs5 is regular. Respiratory: Respiratory effort is even, unlabored, Respiratory pattern is regular, symmetrical. 16:00 Reassessment: CRITICAL LAB TROP 236 PER LAB, PROVIDER NOTIFIED. bp 16:33 Reassessment: Patient and/or family updated on plan of care and expected duration. Pain rs5 level reassessed. Patient is alert, oriented x 3, equal unlabored respirations, skin warm/dry/pink. Patient denies pain at this time. 17:25 Reassessment: No changes from previously documented assessment. rs5 17:50 Reassessment: personnel unavailable for transport. rs5 18:40 Reassessment: Patient and/or family updated on plan of care and expected duration. Pain rs5 level reassessed. Patient is alert, oriented x 3, equal unlabored respirations, skin warm/dry/pink. Pain: Denies pain. Cardiovascular: Rhythm is regular. Respiratory: Respiratory effort is even, unlabored, Respiratory pattern is regular, symmetrical. 18:45 Reassessment: personnel unavailable for transport. rs5 Vital Signs: 13:16 BP 137 / 75; Pulse 78; Resp 18; Temp 97.6; Pulse Ox 97% on R/A; Weight 61.23 kg; Height ll1 5 ft. 9 in. ; Pain 0/10; 14:24 BP 129 / 71; Pulse 75; Resp 18; Pulse Ox 99% on R/A; rs5 16:00 BP 146 / 77; Pulse 70; Resp 18; Pulse Ox 100% ; bp 18:41 BP 130 / 74; Pulse 80; Resp 17; Pulse Ox 99% on R/A; rs5 13:16 Body Mass Index 19.94 (61.23 kg, 175.26 cm) ll1 13:16 Pain Scale: Adult ll1 ED Course: 12:58 Patient arrived in ED. kb 12:58 Liset Mixon FNP-C is PHCP. kb 12:58 Anastasia Erickson MD is Attending Physician. kb 13:05 Patient has correct armband on for positive identification. Placed in gown. Bed in low rs5 position. Call light in reach. Side rails up X2. 13:05 No provider procedures requiring assistance completed. rs5 13:10 Arm band placed on Patient placed in an exam room, on a stretcher. ll1 13:19 Triage completed. ll1 13:31 Sean Gutierres, RN is Primary Nurse. bp 13:33 XRAY Chest (1 view) In Process Unspecified. EDMS 13:54 Initial lab(s) drawn, by me, sent to lab. EKG done, by ED staff. Inserted saline lock: [id number] 22 gauge in right antecubital area, using aseptic technique. Blood collected. 14:44 Troponin HS Sent. ll1 14:44 Magnesium Sent. ll1 14:44 CBC with Diff Sent. ll1 14:44 Basic Metabolic Panel Sent. ll1 16:21 Arminda Oneal MD is Hospitalizing Provider. kb Administered Medications: No medications were administered Medication: 13:05 VIS not applicable for this client. rs5 Outcome: 16:21 Decision to Hospitalize by Provider. kb 19:19 Patient left the ED. kd3 19:19 Admitted to Tele kb3 19:19 Condition: stable kb3 19:19 Instructed on the need for admit, Signatures: Dispatcher [employer] EDMS Liset Mixon FNP-C MILKING MACHINE TECHNICIAN-Ckb Sean Gutierres, RN RN Helena Smith RN RN ll1 Roslyn Summers, RN RN kd3 Naila Schultz, YANDEL RN kb3 Reid Fairchild RN RN rs5 Curly Ferro jg11 Corrections: (The following items were deleted from the chart) 14:18 13:05 Cardiovascular: Rhythm is regular rs5 rs5 11/28 10:23 03 13:16 Acuity: MAMTA 3 ll1 kb3
[2023-11-28] MEDS: INSULIN REGULAR (HUMAN) 100 UNIT/ML SQ SCH (16:30)
--- NOTE | 2023-11-28 16:34 | P.HP ---
Patient History Date of Service: 11/28/23 History of Present Illness: Pt is an 83yo female with past medical history of Htn, parathyroid enlargement and ESRD on HD who presents with tachycardia during dialysis. Pt reports that his heart rate is usually around 40 - 50 before dialysis. It increased from 50 to 120 during early part of the dialysis. The dialysis nurse sent him to the ER for evaluation. Pt denies any chest pain, dizziness or SOB. On admission, lab studies show wbc 5.2, Hgb 11.3, glucose 230, Na 130, K 4.3, Cr 5.37, troponin 236. CXR is unremarkable. EKG shows sinus rhythm with 1st degreee AV block. At bedside, pt is in NAD. Heart rate is now 78. He denies any chest pain, SOB, fever, chills, nausea, vomiting, diarrhea, abd pain, dysuria or leg edema but reports palpitation. Allergies Cephalosporins Adverse Reaction (Verified 06/30/19 16:12) Itching/Hives/Rash Home Medications: Sodium Bicarbonate 650 mg PO BID 05/20/18 Calcitrol [Rocaltrol*] 1 tab PO DAILY 06/30/19 Ferrous Sulfate [Ferrous Sulfate*] 325 mg PO DAILY 06/30/19 Folic Acid/Vit B Complex and C [Dialyvite 800 Chewable Wafer] 800 tab PO DAILY 08/02/23 PARoxetine HCL [Paxil*] 10 mg PO DAILY 08/02/23 Tamsulosin HCl 0.4 mg PO BEDTIME 08/02/23 - Past Medical/Surgical History Has patient received pneumonia vaccine in the past: No Diabetic: No -: HTN -: kidney stones -: CKD- Stage 4 -: parathyroid enlargement -: Tonsilectomy -: TURP - Family History Mother Notes: Rheumatoid Arthritis Father -: Heart disease - Social History Alcohol use: No CD- Drugs: No Caffeine use: Yes Review of Systems General: Unremarkable Eyes: Unremarkable ENT: Unremarkable Respiratory: Unremarkable Cardiovascular: Palpitations Gastrointestinal: Unremarkable Genitourinary: Unremarkable Musculoskeletal: Unremarkable Integumentary: Unremarkable Neurological: Unremarkable Lymphatics: Unremarkable Physical Examination - Physical Exam General: Alert, In no apparent distress, Oriented x3 HEENT: Atraumatic, Normocephalic, PERRLA Neck: Supple, 2+ carotid pulse no bruit Respiratory: Clear to auscultation bilaterally, Normal air movement Cardiovascular: No edema, Normal pulses, Regular rate/rhythm, Normal S1 S2 Capillary refill: <2 Seconds Gastrointestinal: Normal bowel sounds, Soft and benign, Non-distended Musculoskeletal: No clubbing, No swelling Integumentary: No rashes, No breakdown Neurological: Normal gait, Normal speech, Normal strength at 5/5 x4 extr Lymphatics: No axilla or inguinal lymphadenopathy - Studies Laboratory Data (last 24 hrs) 11/28/23 11/28/23 14:40 14:40 WBC 5.20 Hgb 11.3 L Hct 33.8 L Plt Count 230 Sodium 138 Potassium 4.5 BUN 39 H Creatinine 5.37 H Glucose 104 Magnesium 2.2 Assessment and Plan - Plan Tachycardia: resolved. Heart rate is 78. Likely due volume depletion from dialysis. EKG shows 1st degree AV block. Will continue monitor vital signs. ESRD: Cr is 5.37. Will consult Nephrology. Hyponatremia: Na is 130. Likely due to volume depletion. Will give gentle hydration. Trend sodium level. Elevated troponin: Likely due to ESRD and palpitation. Pt denies any chest pain. Will trend troponin Q6h. First troponin is 236. Anemia of chronic disease: Hgb is 11.3. Will monitor H/H. Will transfuse when Hgb< 7. Htn: Continue home meds DVT ppx: heparin Code: full - Advance Directives Does patient have a Living Will: No Does patient have a Durable POA for Healthcare: No
[2023-11-28] MEDS: HEPARIN 5000 UNIT/ML 1 ML VIAL SQ SCH (17:00)
[2023-11-28 19:58] VITALS: O2SAT 99
[2023-11-28 20:26] VITALS: BMI 19.9
--- NOTE | 2023-11-28 21:27 | P.SSS ---
Patient History Date of Service: 11/28/23 Reason for admission: TACHYCARDIA History of Present Illness: FAWN IS A PATIENT WITH CKD AND HD. BEFORE HD HE HAD TACHYCARDIA OF 120 AND HE WAS SENT TO ER FOR ADMISSION. HE HAS NO SYMPTOMS. HE IS STABLE TO GO HOME IN AM AFTER HD. HYPOTENSION CAN GIVE RISE TO TACHYCARDIA. Allergies Cephalosporins Adverse Reaction (Verified 06/30/19 16:12) Itching/Hives/Rash Home medications list reviewed: Yes Home Medications: Folic Acid/Vit B Complex and C [Dialyvite 800 Chewable Wafer] 800 tab PO DAILY 08/02/23 PARoxetine HCL [Paxil*] 10 mg PO DAILY 08/02/23 Tamsulosin HCl 0.4 mg PO BID 08/02/23 Apixaban [Eliquis *] 1 tab PO BID 11/28/23 Atorvastatin Calcium 40 mg PO DAILY 11/28/23 Cholecalciferol (Vitamin D3) [Vitamin D3] 50 mcg PO DAILY 11/28/23 Iron Sucrose [Venofer] 100 mg IV [facility] 11/28/23 Isosorbide Mononitrate [Isosorbide Mononitrate ER] 30 mg PO DAILY 11/28/23 Methoxy Peg-Epoetin Beta [Mircera] 50 mcg IJ [facility] 11/28/23 Metoprolol Tartrate 12.5 mg PO BID 11/28/23 Trans-Resveratrol 600mg 600 mg PO DAILY 11/28/23 calcitrioL [Calcitriol] 0.5 mcg PO SEECOM 11/28/23 - Past Medical/Surgical History Has patient received pneumonia vaccine in the past: Yes Diabetic: No -: HTN -: kidney stones -: CKD- Stage 4 -: parathyroid enlargement -: Tonsilectomy -: TURP - Family History Mother Notes: Rheumatoid Arthritis Father -: Heart disease - Social History Smoking Status: Never smoker Alcohol use: No CD- Drugs: No Caffeine use: Yes Place of Residence: Home Review of Systems 10-point ROS is otherwise unremarkable General: Weakness, As per HPI Physical Examination - Vital Signs Temperature: 97.2 F Blood Pressure: 129/67 Pulse: 67 Respirations: 17 Pulse Ox (%): 100 - Physical Exam General: Alert, In no apparent distress, Cachectic (NO CHANGES FROM PAST, SEVERE KYPHOSIS.) HEENT: Atraumatic, PERRLA, Mucous membr. moist/pink, EOMI, Sclerae nonicteric Neck: Supple, 2+ carotid pulse no bruit, No LAD, Without JVD or thyroid abnormality Respiratory: Clear to auscultation bilaterally, Normal air movement Cardiovascular: Regular rate/rhythm, Normal S1 S2 Gastrointestinal: Normal bowel sounds, No tenderness Musculoskeletal: No tenderness Integumentary: No rashes Neurological: Normal gait, Normal speech, Normal strength at 5/5 x4 extr, Normal tone, Normal affect Lymphatics: No axilla or inguinal lymphadenopathy - Studies Laboratory Data (last 24 hrs) 11/28/23 11/28/23 14:40 14:40 WBC 5.20 Hgb 11.3 L Hct 33.8 L Plt Count 230 Sodium 138 Potassium 4.5 BUN 39 H Creatinine 5.37 H Glucose 104 Magnesium 2.2 - Diagnosis (Problem(s)) (1) Tachycardia Current Visit: Yes Status: Acute Plan: CHECK TSH ER DID TROPONIN THAT IS HIGH. PATIENTS WITH CKD TEND TO HAVE HIGH TROPONIN ALSO. I WILL DISCUSS WITH PATIENT IN AM. 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 HE HAS NO SIGN OF ACUTE CORONORY SYNDROME. EKG SHOWED SINUS TACH NOW IT IS BACK TO NSR. - Disposition Disposition: ROUTINE DISCHARGE
[2023-11-28] MEDS ORDERED: CALCITROL 0.25 MCG CAP PO SCH (21:30)
[2023-11-28] MEDS ORDERED: IRON SUCROSE 100 MG/5 ML IV SCH (21:30)
[2023-11-29 00:47] LABS: Specific Gravity 1.009 (1.005-1.030); Sqamous Epithelial None Seen /HPF (None Seen); Urine Bacteria None Seen /HPF (<20); Urine Bilirubin NEGATIVE (Negative); Urine Blood Negative (Negative); Urine Clarity Clear (Clear); Urine Color Light-Yellow (Yellow); Urine Culture Reflex Order NOT NEEDED; Urine Glucose NEGATIVE (Negative); Urine Ketones NEGATIVE (Negative); Urine Microscopic Reflex YN ORDER UMIC; Urine Nitrite NEGATIVE (Negative); Urine Protein 1+ (Negative); Urine RBC <5 /HPF (None Seen); Urine Urobilinogen Normal (Normal); Urine WBC <5 /HPF (<5); Urine Yeast (Budding) Trace /HPF (None Seen)
[2023-11-29 08:07] LABS: Absolute Eosinophils 0.2 K/uL (0-0.5); Absolute Lymphocytes (CBC) 0.6 K/uL (0.7-4.9); Absolute Monocytes 0.5 K/uL (0.1-1.3); Absolute Neutrophil 2.8 K/uL (1.8-8.0); Basophils % 0.9 % (0-1.3); Eosinophils % 3.9 % (0-4.4); Hematocrit 35.9 % (39.6-49.0); Hemoglobin 12.2 g/dL (13.6-17.9); Lymphocytes % 14.4 % (15.3-44.8); MCH 34.4 pg (27.0-35.0); MCV 101.3 fL (80-100); Monocytes % 11.9 % (3.3-12.3); Neutrophils % 68.9 % (41.7-73.7); Nucleated Red Blood Cells % 0.3 % (0-0); Platelets 237 thou/uL (152-406); RBC Red Blood Cell Count 3.54 M/uL (4.33-5.43); Red Cell Distribution Width 13.3 % (12.1-15.2)
[2023-11-29] MEDS: PARoxetine HCL 10 MG TAB PO SCH (08:26)
[2023-11-29] MEDS: ISOSORBIDE MONO SR 30 MG TAB PO SCH (08:26)
[2023-11-29] MEDS: ATORVASTATIN 40 MG TAB PO SCH (08:26)
[2023-11-29] MEDS: METOPROLOL TAR 25 MG TAB PO SCH (08:27)
[2023-11-29] MEDS: VITAMIN D 1000 UNIT TAB PO SCH (08:27)
[2023-11-29] MEDS: TAMSULOSIN 0.4 MG SR CAP PO SCH (08:27)
[2023-11-29] MEDS: MULTIVITAMINS,THERAPEUT 1 TAB PO SCH (08:29)
[2023-11-29] MEDS: APIXABAN 2.5 MG TABLET PO SCH (08:29)
[2023-11-29 08:36] LABS: Anion Gap 9.2 mEq/L (5.0-15.0); Potassium 5.2 mEq/L (3.5-5.1)
[2023-11-29] MEDS ORDERED: Folic Acid/Vit B Complex And C [Dialyvite 800 Chewable Wafer] 800 MCG T PO SCH (09:00)
--- NOTE | 2023-11-29 11:44 | P.DS ---
Admission Date: 11/28/23 Discharge Date: 11/29/23 Disposition: ROUTINE DISCHARGE Discharge Condition: GOOD Reason for Admission: TACHYCARDIA Brief History of Present Illness: Pt is an 83yo female with past medical history of Htn, parathyroid enlargement and ESRD on HD who presents with tachycardia during dialysis. Pt reports that his heart rate is usually around 40 - 50 before dialysis. It increased from 50 to 120 during early part of the dialysis. The dialysis nurse sent him to the ER for evaluation. Pt denies any chest pain, dizziness or SOB. On admission, lab studies show wbc 5.2, Hgb 11.3, glucose 230, Na 130, K 4.3, Cr 5.37, troponin 236. CXR is unremarkable. EKG shows sinus rhythm with 1st degreee AV block. At bedside, pt is in NAD. Heart rate is now 78. He denies any chest pain, SOB, fever, chills, nausea, vomiting, diarrhea, abd pain, dysuria or leg edema but reports palpitation. Hospital Course: Pt is an 83yo female with past medical history of Htn, parathyroid enlargement and ESRD on HD who presented with tachycardia during dialysis. Pt reported that his heart rate increased from 50 to 120 during early part of the dialysis. The dialysis nurse sent him to the ER for evaluation. Pt denied any chest pain, dizziness or SOB. On admission, lab studies showed wbc 5.2, Hgb 11.3, glucose 230, Na 130, K 4.3, Cr 5.37, troponin 236. CXR was unremarkable. EKG showed sinus rhythm with 1st degree AV block. On admission, his heart rate remained stable. Pt did dialysis before discharge. Pt was in NAD prior to discharge. Vital Signs/Physical Exam: Temp Pulse Resp BP Pulse Ox 98.2 F 66 14 148/70 H 98 11/29/23 08:00 11/29/23 08:00 11/29/23 08:00 11/29/23 08:00 11/29/23 08:00 Laboratory Data at Discharge: WBC 4.10 thou/uL (4.3-10.9) L 11/29/23 07:50 Hgb 12.2 g/dL (13.6-17.9) L 11/29/23 07:50 Hct 35.9 % (39.6-49.0) L 11/29/23 07:50 Plt Count 237 thou/uL (152-406) 11/29/23 07:50 Sodium 137 mEq/L (136-145) 11/29/23 07:50 Potassium 5.2 mEq/L (3.5-5.1) H D 11/29/23 07:50 BUN 48 mg/dL (7-18) H 11/29/23 07:50 Creatinine 5.67 mg/dL (0.70-1.30) H 11/29/23 07:50 Glucose 92 mg/dL (74-106) 11/29/23 07:50 Magnesium 2.2 mg/dL (1.6-2.4) 11/28/23 14:40 Home Medications: Folic Acid/Vit B Complex and C [Dialyvite 800 Chewable Wafer] 800 tab PO DAILY 08/02/23 PARoxetine HCL [Paxil*] 10 mg PO DAILY 08/02/23 Tamsulosin HCl 0.4 mg PO BID 08/02/23 Apixaban [Eliquis *] 1 tab PO BID 11/28/23 Atorvastatin Calcium 40 mg PO DAILY 11/28/23 Cholecalciferol (Vitamin D3) [Vitamin D3] 50 mcg PO DAILY 11/28/23 Iron Sucrose [Venofer*] 100 [facility] IV [facility] 11/28/23 Isosorbide Mononitrate [Isosorbide Mononitrate ER] 30 mg PO DAILY 11/28/23 Methoxy Peg-Epoetin Beta [Mircera] 50 mcg IJ [facility] 11/28/23 Metoprolol Tartrate 12.5 mg PO BID 11/28/23 Trans-Resveratrol 600mg 600 mg PO DAILY 11/28/23 calcitrioL [Calcitriol] 0.5 mcg PO [facility] 11/28/23 Physician Discharge Instructions: Continue ad pablo activity. Take home meds. Follow up with PCP within PCP and Nephrology within 1 - 2 weeks. Diet: AHA Activity: Ad pablo Followup: Angelia Ko MD [COURTESY - CAN ADMIT] - 1-2 Weeks Alphonso Stone MD [Primary Care Provider] - 1-2 Weeks
[2023-11-29 11:56] VITALS: BP 98/49; TEMP 97.2
--- NOTE | 2023-11-29 11:56 | P.CNS ---
Date of Consult: 11/29/23 Chief Complaint: TACHYCARDIA History of Present Illness: Patient with PMH of atrial fibrillation, CAD and was told not amenable to PCI, ESRD, presented with fast heart rate during dialysis session, denies having any chest pain, no HAMMOND, no palpitations, no syncope. Allergies Cephalosporins Adverse Reaction (Verified 06/30/19 16:12) Itching/Hives/Rash Home Medications: Folic Acid/Vit B Complex and C [Dialyvite 800 Chewable Wafer] 800 tab PO DAILY 08/02/23 PARoxetine HCL [Paxil*] 10 mg PO DAILY 08/02/23 Tamsulosin HCl 0.4 mg PO BID 08/02/23 Apixaban [Eliquis *] 1 tab PO BID 11/28/23 Atorvastatin Calcium 40 mg PO DAILY 11/28/23 Cholecalciferol (Vitamin D3) [Vitamin D3] 50 mcg PO DAILY 11/28/23 Iron Sucrose [Venofer*] 100 mg IV [facility] 11/28/23 Isosorbide Mononitrate [Isosorbide Mononitrate ER] 30 mg PO DAILY 11/28/23 Methoxy Peg-Epoetin Beta [Mircera] 50 mcg IJ [facility] 11/28/23 Metoprolol Tartrate 12.5 mg PO BID 11/28/23 Trans-Resveratrol 600mg 600 mg PO DAILY 11/28/23 calcitrioL [Calcitriol] 0.5 mcg PO [facility] 11/28/23 - Past Medical/Surgical History Diabetic: No -: HTN -: kidney stones -: CKD- Stage 4 -: parathyroid enlargement -: Tonsilectomy -: TURP - Family History Mother Notes: Rheumatoid Arthritis Father Medical History: Heart disease - Social History Alcohol use: No CD- Drugs: No Caffeine use: Yes Place of Residence: Home Review of Systems 10-point ROS is otherwise unremarkable Physical Examination Temp Pulse Resp BP Pulse Ox 98.2 F 66 14 148/70 H 98 11/29/23 08:00 11/29/23 08:00 11/29/23 08:00 11/29/23 08:00 11/29/23 08:00 General: Alert, Oriented x3 HEENT: Atraumatic Neck: Supple Respiratory: Clear to auscultation bilaterally Cardiovascular: No edema, Normal S1 S2 Gastrointestinal: Normal bowel sounds Laboratory Data (last 24 hrs) 11/28/23 11/28/23 14:40 14:40 WBC 5.20 Hgb 11.3 L Hct 33.8 L Plt Count 230 Sodium 138 Potassium 4.5 BUN 39 H Creatinine 5.37 H Glucose 104 Magnesium 2.2 - Problems (1) Atrial fibrillation Current Visit: Yes Status: Acute Plan: Patient currently in sinus rhythm. Continue Eliquis 2.5 mg po BID May increase Lopressor to 25 mg po BID. (2) CAD (coronary artery disease) Current Visit: Yes Status: Acute Plan: per patient he had a coronary angiogram and was told that his CAD is too complex for intervention and optioned medical management. Continue Imdur 30 mg daily Continue Lipitor 40 mg daily (3) Chronic diastolic (congestive) heart failure Current Visit: Yes Status: Acute Plan: currently euvolemic on exam, continue dialysis and monitor.
--- NOTE | 2023-11-29 13:40 | CON ---
Date of Consultation: 11/29/2023 Reason For Consultation: Elevated BUN and creatinine, hyperkalemia. History Of Present Illness: This is a pleasant 83-year-old gentleman with significant past medical h istory of: 1.End-stage renal disease secondary to hypertension, nephrosclerosis, on dialysis TTS. 2.Hypertension. 3.Hyperlipidemia. 4.DVT. 5.AFib. 6.CAD. The patient was at the dialysis. Patient started complaining from bradycardia and tachycardia, pulse down to the 50, then bounced back to 130 with regular period. The patient subsequently was stable. The patient was transferred to the ER. The patient overnight was treated, currently pulse control a nd the patient asymptomatic. Past Medical History: Include: 1.End-stage renal disease, on hemodialysis, TTS at [facility] through [facility]. 2.Hypertension. 3.Hyperlipidemia. 4.AFib. Allergies: TO CEPHALOSPORIN. Family History: Positive for hypertension. Social History: Denied smoking, denied drinking, denied drugs abuse. Review of Systems: Head and Neck: No red eye. No ear pain. GI: No nausea. No vomiting. : No polyuria. No dysuria. No hematuria. 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 Respiratory: Has shortness of breath. Cardiovascular: Has palpitation. Endocrine: No polydipsia. Skin: No rash. Neuro: Weakness. Musculoskeletal: Generalized fatigue. Physical Examination: Vital Signs: When I saw the patient, blood pressure of 148/70, pulse of 66, afebrile. Chest: Clear to auscultation. Heart: S1, S2. Regular. Abdomen: Soft, nontender. Extremities: No edema. Neurologic: Alert. No focality. Laboratory Data: Hemoglobin 12.2, sodium 137, potassium 5.2, bicarb 26, BUN 48, creatinine 5.6, calc ium 8.8. Current Medications: The patient on, include: 1.Albuterol. 2.Flomax. 3.Eliquis 2.5 b.i.d. 4.IV iron. 5.Atorvastatin. 6.Isosorbide. 7.Metoprolol. 8.Zofran. 9.Calcitriol. Assessment And Plan: 1.End-stage renal disease with hyperkalemia. I am going to go ahead and arrange for the dialysis to day. We will dialyze the patient on low potassium bath and we will follow up. The patient is going to receive full dialysis tomorrow, so we will dialyze for only 3 hours and we will monitor. The ascencion ent is going to be dialyzed on low blood flow to avoid any exacerbation of his atrial fibrillation. 2.Hypertension, controlled, optimal. Continue current treatment with the presence of marginal low b lood pressure. I am going to discontinue isosorbide. 3.Atrial fibrillation with RVR. Follow up with Cardiology, currently back to sinus. 4.Hyperkalemia. Patient is going to be dialyzed on low potassium bath. 5.Anemia of chronic kidney disease. No need of NEHA. 6.Congestive heart failure with marginal exacerbation secondary to atrial fibrillation. We will ana luisa llenge the patient on the dialysis. The patient cleared from the Renal standpoint for discharge after dialysis. BEE/ANDREINA Voice ID: [id number] Report ID: [id number]
--- NOTE | 2023-11-29 14:25 | EKG ---
Test Date: 2023-11-28 Test Time: 13:37:51 Carbon Dioxide Operator: LELO MEASUREMENT RESULTS: Intervals: Rate: 75 ID: [id number] QRSD: 130 QT: 392 QTc: 437 [place]: P: 67 ID: [id number] QRS: 72 T: 77 INTERPRETIVE STATEMENTS: Sinus rhythm with 1st degree AV block Right bundle branch block Inferior infarct, age undetermined Anteroseptal infarct, age undetermined Abnormal ECG Compared to ECG 08/02/2023 06:42:57 Myocardial infarct finding now present Electronically Signed On 11-29-23 14:23:14 CDT by Lester Delgado
[2023-11-29] MEDS: SOD FERRIC GLUC COMPLX/SUCROSE 125 MG in NA CHLORIDE 0.9% 100 ML IV SCH (14:35)
[2023-11-29 16:14] LABS: Hepatitis B Surface Ab - Quant < 3.10 mIU/mL (<8.0); Hepatitis B surface AG Interp. Nonreactive (Nonreactive)
[2023-11-29 16:15] LABS: HBsAG Nonreactive Report Report
--- NOTE | 2023-12-03 14:32 | EKG ---
Test Date: 2023-11-29 Test Time: 10:13:18 Perioperative Tech: CHRISTINE MEASUREMENT RESULTS: Intervals: Rate: 49 [place]: 260 QRSD: 126 QT: 446 QTc: 402 [place]: P: 63 IL: 260 QRS: 51 T: 68 INTERPRETIVE STATEMENTS: Marked sinus bradycardia with 1st degree AV block Right bundle branch block Inferior infarct, age undetermined Possible Anterolateral infarct, age undetermined Abnormal ECG Compared to ECG 11/28/2023 13:37:51 Sinus rhythm no longer present Myocardial infarct finding still present Electronically Signed On 12-03-23 14:18:19 CDT by Lester Delgado
== END 2023-11-29 17:05 | disposition home or self-care (01) ==
LOC: ER 12:51 → ERHOLD 16:20 → 4TH 18:16
PROVIDERS: ADMIT Internal Medicine; ATTEND Internal Medicine
DX: R00.0 Tachycardia, unspecified (principal); N18.6 End stage renal disease; I12.0 Hypertensive chronic kidney disease with stage 5 chronic kidney disease or end stage renal disease; I25.10 Atherosclerotic heart disease of native coronary artery without angina pectoris; I50.32 Chronic diastolic (congestive) heart failure; I48.11 Longstanding persistent atrial fibrillation; E87.1 Hypo-osmolality and hyponatremia; R79.89 Other specified abnormal findings of blood chemistry; D63.1 Anemia in chronic kidney disease; Z99.2 Dependence on renal dialysis; Z88.8 Allergy status to other drugs, medicaments and biological substances; Z79.01 Long term (current) use of anticoagulants
CPT/HCPCS: 93005 ×2; 85025 ×2; 81001; 80048 ×2; 36415; 83735; 82947 ×3; 84443; 84484 ×2; 87340; 86706; 71045; 90935; 94760 ×2; 99285; J1644 ×4; J2916; G0378 ×4

== ENCOUNTER 2024-07-31 15:42 | Emergency (ER) | payer OTHER ==
--- OUTSIDE RECORDS SUMMARY | 2024-07-31 15:46 | XMS REPORT | Continuity of Care Document ---
Author Name Unknown Address [address] [facility] [address] [place] [address] [facility] Address [address] [facility] [address] [place] [address] Care Team Providers Care Supervisor [employer] Name Role Phone PCP, PATIENT DOES NOT HAVE A Primary Care Physic harjeet Unavailable SHANI OLSON Attending Clinician Unavailable SHANI OLSON Attending Clinician Unavailable Alphonso Stone Attending Clinician Unavailable CHARLENE JULIEN Attending Clinician Unavailable KAPIL GRIMM Attending Clinician Unavailable Greer Lopez Attending Clinician [phone] ARIADNE IBARRA Attending Clinician Unavailable ARIADNE IBARRA Attending Clinician Unavailable Charlene Julien MD Attending Clinician [phone] Charlene Julien MD Attending Clinician KING BROWN Attending Clinician UnavailKing Crawley Attending Clinician Zack LEES, [facility] Attending Clinician Amy LEES, Af Attending Clinician [phone] Doctor Unassigned, [place] Attending Clinician U navailable 2, [facility] Attending Clinician Unavailable Unassigned, Cath/Ep Attending Clinician Unavaila MILTON Littlejohn Attending Clinician Unavailable Lab, Adc Fam Pob I Attending Clinician Unavailab Milton Rey Attending Clinician SHANI OLSON Admitting Clinician Unavailable CHARLENE JULIEN Admitting Clinician Unavailable KING BROWN Admitting Clinician Unavailzach [facility] Admitting Clinician Cachorro Wilson MD, [facility] Admitting Clinician [phone] Payers Payer Name Policy Type Policy Number Effective Date Expirati on Date Source [employer] MANAGED MEDICARE PPO-NEHA [id number] 2022 00:00:00 [employer] MEDICARE PPO [id number] [facility] Problems Condition Name Condition Details Condition Category Status Onset Date Resolution Date Last Treatment Date Treating Clinician Comments Source Coronary artery disease involving hoopa coronary artery of hoopa heart without angina pectoris Coronary artery disease involving hoopa coronary artery of hoopa heart without angina pectoris Disease Active - 00:00: 00 [facility] HFrEF (heart failure with reduced ejection fraction) HFrEF (heart failure with reduced ejection fraction) Disease Active 10-22 00:00: 00 [facility] Nonrheumat ic aortic valve stenosis Nonrheumat ic aortic valve stenosis Disease Active 10-22 00:00: 00 [facility] PAF (paroxysma l atrial fibrillati on) PAF (paroxysma l atrial fibrillati on) Disease Active 10-22 00:00: 00 [facility] Hyperlipid emia, unspecifie d hyperlipid emia type Hyperlipid emia, unspecifie d hyperlipid emia type Disease Active 10-22 00:00: 00 [facility] Atrial fibrillati on Atrial fibrillati on Disease Active 10-10 00:00: 00 [facility] First degree atrioventr icular block First degree atrioventr icular block Disease Active 10-10 00:00: 00 [facility] Tachycardi a Tachycardi a Disease Active 2022-09 00:00: 00 [facility] ESRD (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 ESRD (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 Disease Active 2022-09 00:00: 00 [facility] [id number] Bilateral nephrolith iasis Problem [facility] [id number] Acute lower UTI Problem [facility] [id number] BPH loc 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 Problem [facility] [id number] Incomplete emptying of bladder Problem [facility] [id number] Renal cysts, acquired, bilateral Problem [facility] [id number] Cystitis Problem [facility] Allergies, Adverse Reactions, Alerts Allergy Name Allergy Type Status Severity Reaction(s) Onset Date Inactive Date Treating Clinician Comments Source CEPHALOS PORINS Drug Class Active Unknown-Cmnt 12-12 00:00: 00 [facility] Cephalos porins Propensi ty to adverse reaction s Active Unknown - See comments 12-12 00:00: 00 Pt hasn't taken medicatio n in over 20 years and is unsure of his reaction. [facility] NO KNOWN ALLERGIE S Drug Class Active [facility] Medicina l cephalos porin and acting as antibact erial agent (FN) Medicina l cephalos porin and acting as antibact erial agent (FN) Active Unknown [facility] Social History Social Habit Start Date Stop Date Quantity Comments Source History of Tobacco Use [facility] Sex Assigned At [facility] to SARS-CoV-2 (event) Not sure General acute hospital History of Social function 2023-10-22 00:00:00 2023-10-22 00:00:00 [facility] Tobacco use and exposure 2023-09-19 00:00:00 2023-09-19 00:00:00 Smokeless tobacco non-user [facility] Smoking Status Start Date Stop Date Source Never smoked tobacco [facility] Medications Ordered Medication Name Filled Medication Name Start Date Stop Date Current Medication? Ordering Clinician Indication Dosage Frequency Signature (SIG) Comments Components Source apixaban 2.5 mg tablet 9-20 00:00: 00 Yes [id number] 2.5mg Take 1 tablet by mouth in the morning and 1 tablet in the evening. Indication s: atrial fibrillati on [facility] metoprolol tartrate 25 mg tablet 01-08 00:00: 00 Yes [id number] 12.5mg Take 0.5 tablets by mouth in the morning and 0.5 tablets in the evening. [facility] lidocaine 1% (PF) (XYLOCAINE) injection 12-12 15:32: 45 12-12 15:54 :32 No ONCE INTRA PROCEDURE, Starting on Maria Del Carmen 12/13/23 at 1032, Until Maria Del Carmen 4 at 1054, Routine, CV Intraproce dure [facility] vancomycin (VANCOCIN) 1,000 mg in NaCl 0.9% (NS) 250 mL VIAL-MATE IV piggyback 12-12 15:25: 00 12-12 15:54 :29 No CONTINUOUS PRN, Starting on Maria Del Carmen 12/13/23 at 1025, Until Maria Del Carmen 424 at 1054, Administer over 60 Minutes, 250 mL, CV Intraproce dure [facility] folic acid/vit B complex and C (DIALYVITE 800 ORAL) 12-12 11:52: 28 Yes Take by mouth. [facility] iron sucrose (VENOFER) 100 mg iron/5 mL injection 12-12 11:52: 28 Yes 100mg 5 mL once now. [facility] epoetin beta, methoxy peg (MIRCERA) 50 mcg/0.3 mL Syrg 12-12 11:52: 28 Yes Inject as directed. [facility] isosorbide mononitrate 30 mg 24 hr tablet 3-11 00:00: 00 Yes [id number] 30mg Take 1 tablet by mouth in the morning. [facility] nitroglycer in (TRIDIL) 2 mg in 10 mL D5W for Cardiac Cath 11-13 16:16: 28 11-13 16:50 :34 No ONCE INTRA PROCEDURE, Starting on Sun11/14/23 at 1016, Until Sun11/14/23 at 1050, Routine, CV Intraproce dure [facility] aspirin tablet 11-13 16:09: 27 11-13 16:50 :34 No ONCE INTRA PROCEDURE, Starting on Sun11/14/23 at 1009, Until Sun11/14/23 at 1050, Routine, CV Intraproce dure [facility] lidocaine 1% (PF) (XYLOCAINE) injection 11-13 16:09: 08 11-13 16:50 :34 No ONCE INTRA PROCEDURE, Starting on Sun11/14/23 at 1009, Until Sun11/14/23 at 1050, Routine, CV Intraproce dure [facility] midazolam (VERSED) injection 11-13 16:01: 15 11-13 16:50 :34 No ONCE INTRA PROCEDURE, Starting on Sun11/14/23 at 1001, Until Sun11/14/23 at 1050, Routine, CV Intraproce dure [facility] FENTanyl PF (SUBLIMAZE (PF)) injection 11-13 16:00: 55 11-13 16:50 :35 No ONCE INTRA PROCEDURE, Starting on Sun11/14/23 at 1000, Until Sun11/14/23 at 1050, Routine, CV Intraproce dure [facility] folic acid/vit B complex and C (DIALYVITE 800 ORAL) 11-13 13:32: 21 Yes Take by mouth. [facility] iron sucrose (VENOFER) 100 mg iron/5 mL injection 11-13 13:32: 21 Yes 100mg 5 mL once now. [facility] epoetin beta, methoxy peg (MIRCERA) 50 mcg/0.3 mL Syrg 11-13 13:32: 21 Yes Inject as directed. [facility] atorvastati n 40 mg tablet 2-16 00:00: 00 Yes [id number] 40mg Take 1 tablet by mouth in the morning. [facility] metoprolol tartrate 25 mg tablet -12 00:00: 00 Yes [id number] 12.5mg Take 0.5 tablets by mouth in the morning and 0.5 tablets in the evening. [facility] atorvastati n 40 mg tablet 12 00:00: 00 10-23 00:00 :00 No [id number] 40mg Take 1 tablet by mouth in the morning. [facility] sulfur hexafluorid e microsphr (LUMASON) injection 5 mL 10-10 21:15: 00 10-10 21:07 :00 No [id number] 5mL 5 mL, Intravenou s, ONCE, 1 dose, On Sun10/10/23 at 1515, Routine
anthropology faculty member approving Restricted medication : CHARLENE JULIEN [facility] apixaban 2.5 mg tablet 10-04 00:00: 00 05-29 00:00 :00 No [id number] 2.5mg Take 1 tablet by mouth in the morning and 1 tablet in the evening. Indication s: atrial fibrillati on [facility] metoprolol tartrate 25 mg tablet 10-04 00:00: 00 10-22 00:00 :00 No 25mg Take 1 tablet by mouth in the morning and 1 tablet in the evening. [facility] epoetin beta, methoxy peg (MIRCERA) 50 mcg/0.3 mL Syrg 09-19 15:33: 38 Yes Inject as directed. [facility] folic acid/vit B complex and C (DIALYVITE 800 ORAL) 09-19 15:32: 49 Yes Take by mouth. [facility] iron sucrose (VENOFER) 100 mg iron/5 mL injection 09-19 15:32: 49 Yes 100mg 5 mL once now. [facility] tamsulosin 0.4 mg 24 hr capsule 1- 00:00: 00 Yes .4mg Take 1 capsule by mouth in the morning and 1 capsule in the evening. [facility] PARoxetine 10 mg tablet 2022-09 2- 00:00: 00 Yes 10mg Take 1 tablet by mouth in the morning. [facility] calcitrioL 0.5 mcg capsule 2022-09 0- 00:00: 00 Yes .5ug Take 1 capsule by mouth in the morning. [facility] ferrous sulfate 325 mg (65 mg iron) tablet 2022-09 0 00:00: 00 09-19 00:00 :00 No 325mg Take 1 tablet by mouth in the morning. [facility] Krill Oil 1000 MG Krill Oil 1000 [...] No 1{capsu le} QD Calcitriol 0.5 MCG Vitamin B12 1000 MCG Vitamin B12 1000 MCG No 1{table t} QD Vitamin B12 1000 MCG Vital Signs Vital Name Observation Time Observation Value Comments S david Systolic blood pressure 2024-03-26 12:59:00 131 mm[Hg] [facility] Diastolic blood pressure 2024-03-26 12:59:00 81 mm[Hg] [facility] Heart rate 2024-03-26 12:59:00 70 /min [facility] Respiratory rate 2024-03-26 12:59:00 18 /min [facility] Body height 2024-03-26 12:59:00 172.7 cm [facility] Body weight 2024-03-26 12:59:00 54.885 [facility] BMI 2024-03-26 12:59:00 18.40 kg/m2 [facility] Oxygen saturation in Arterial blood by Pulse oximetry 2024-03-26 12:59:00 99 /min [facility] Systolic blood pressure 2024-02-19 15:38:00 125 mm[Hg] [facility] Diastolic blood pressure 2024-02-19 15:38:00 75 mm[Hg] [facility] Heart rate 2024-02-19 15:38:00 86 /min [facility] Respiratory rate 2024-02-19 15:38:00 16 /min [facility] Body height 2024-02-19 15:38:00 171.5 cm [facility] Body weight 2024-02-19 15:38:00 57.289 kg [facility] BMI 2024-02-19 15:38:00 19.49 kg/m2 [facility] Oxygen saturation in Arterial blood by Pulse oximetry 2024-02-19 15:38:00 98 /min [facility] Systolic blood pressure 2023-12-13 16:30:00 125 mm[Hg] [facility] Diastolic blood pressure 2023-12-13 16:30:00 65 mm[Hg] [facility] Heart rate 2023-12-13 16:30:00 56 /min [facility] Respiratory rate 2023-12-13 16:30:00 16 /min [facility] Oxygen saturation in Arterial blood by Pulse oximetry 2023-12-13 16:30:00 96 /min [facility] Body temperature 2023-12-13 15:02:00 36.56 Mayela [facility] Body height 2023-12-13 15:02:00 167.6 cm [facility] Body weight 2023-12-13 15:02:00 58.968 kg [facility] BMI 2023-12-13 15:02:00 20.98 kg/m2 [facility] Systolic blood pressure 2023-12-13 16:30:00 125 mm[Hg] [facility] Diastolic blood pressure 2023-12-13 16:30:00 65 mm[Hg] [facility] Heart rate 2023-12-13 16:30:00 56 /min [facility] Respiratory rate 2023-12-13 16:30:00 16 /min [facility] Oxygen saturation in Arterial blood by Pulse oximetry 2023-12-13 16:30:00 96 /min [facility] Body temperature 2023-12-13 15:02:00 36.56 Mayela [facility] Body height 2023-12-13 15:02:00 167.6 cm [facility] Body weight 2023-12-13 15:02:00 58.968 kg [facility] BMI 2023-12-13 15:02:00 20.98 kg/m2 [facility] Systolic blood pressure 2023-11-19 15:23:00 117 mm[Hg] [facility] Diastolic blood pressure 2023-11-19 15:23:00 65 mm[Hg] [facility] Heart rate 2023-11-19 15:23:00 70 /min [facility] Body temperature 2023-11-19 15:23:00 37.28 Mayela [facility] Respiratory rate 2023-11-19 15:23:00 18 /min [facility] Body height 2023-11-19 15:23:00 167.6 cm [facility] Body weight 2023-11-19 15:23:00 59.194 kg [facility] BMI 2023-11-19 15:23:00 21.06 kg/m2 [facility] Oxygen saturation in Arterial blood by Pulse oximetry 2023-11-19 15:23:00 95 /min [facility] Systolic blood pressure 2023-11-14 19:00:00 148 mm[Hg] [facility] Diastolic blood pressure 2023-11-14 19:00:00 85 mm[Hg] [facility] Heart rate 2023-11-14 19:00:00 65 /min [facility] Respiratory rate 2023-11-14 19:00:00 12 /min [facility] Oxygen saturation in Arterial blood by Pulse oximetry 2023-11-14 19:00:00 99 /min [facility] Body height 2023-11-14 13:28:00 167.6 cm [facility] Body weight 2023-11-14 13:28:00 58.968 kg [facility] BMI 2023-11-14 13:28:00 20.98 kg/m2 [facility] Systolic blood pressure 2023-11-14 13:28:00 122 mm[Hg] [facility] Diastolic blood pressure 2023-11-14 13:28:00 68 mm[Hg] [facility] Body height 2023-11-14 13:28:00 167.6 cm [facility] Body weight 2023-11-14 13:28:00 58.968 kg [facility] BMI 2023-11-14 13:28:00 20.98 kg/m2 [facility] Oxygen saturation in Arterial blood by Pulse oximetry 2023-11-14 13:28:00 97 /min [facility] Systolic blood pressure 2023-10-22 16:29:00 128 mm[Hg] [facility] Diastolic blood pressure 2023-10-22 16:29:00 75 mm[Hg] [facility] Heart rate 2023-10-22 16:29:00 82 /min [facility] 2023-10-22 16:29:00 18 /min [facility] Body height 2023-10-22 16:29:00 167.6 cm [facility] Body weight 2023-10-22 16:29:00 59.557 kg [facility] BMI 2023-10-22 16:29:00 21.19 kg/m2 [facility] Oxygen saturation in Arterial blood by Pulse oximetry 2023-10-22 16:29:00 96 /min [facility] Systolic blood pressure 2023-10-10 20:01:00 148 mm[Hg] [facility] Diastolic blood pressure 2023-10-10 20:01:00 73 mm[Hg] [facility] Heart rate 2023-10-10 20:01:00 52 /min [facility] Oxygen saturation in Arterial blood by Pulse oximetry 2023-10-10 20:01:00 97 /min [facility] Respiratory rate 2023-10-10 19:59:00 19 /min [facility] Body height 2023-10-10 19:59:00 [facility].2 [facility] weight 2023-10-10 19:59:00 57.879 kg [facility] BMI 2023-10-10 19:59:00 19.98 kg/m2 [facility] Systolic blood pressure 2023-09-19 21:27:00 139 mm[Hg] [facility] Diastolic blood pressure 2023-09-19 21:27:00 81 mm[Hg] [facility] Heart rate 2023-09-19 21:27:00 86 /min [facility] Res[facility] 2023-09-19 21:27:00 18 /min [facility] Body height 2023-09-19 21:27:00 167.6 cm [facility] Body weight 2023-09-19 21:27:00 57.607 kg [facility] BMI 2023-09-19 21:27:00 20.50 kg/m2 [facility] Oxygen saturation in Arterial blood by Pulse oximetry 2023-09-19 21:27:00 96 /min [facility] Systolic blood pressure 2023-08-22 16:42:00 128 mm[Hg] [facility] Diastolic blood pressure 2023-08-22 16:42:00 76 mm[Hg] [facility] Heart rate 2023-08-22 16:42:00 78 /min [facility] Body temperature 2023-08-22 16:42:00 37.11 Mayela [facility] Respiratory rate 2023-08-22 16:42:00 18 /min [facility] Body height 2023-08-22 16:42:00 167.6 cm per pt [facility] Body weight 2023-08-22 16:42:00 53.661 kg [facility] BMI 2023-08-22 16:42:00 19.09 kg/m2 [facility] Oxygen saturation in Arterial blood by Pulse oximetry 2023-08-22 16:42:00 97 /min [facility] height 2023-06-21 13:15:00 69 [in_i] Commo n [facility] weight 2023-06-21 13:15:00 116 [lb_av] Comm on [facility] temperature 2023-06-21 13:15:00 97.3 [degF] Com mon [facility] bmi 2023-06-21 13:15:00 17.13 kg/m2 Comm on [facility] oximetry 2023-06-21 13:15:00 99 % Commo n [facility] respiratory rate 2023-06-21 13:15:00 18 /min [facility] blood pressure systolic 2023-06-21 13:15:00 110 mm[Hg] [facility] blood pressure diastolic 2023-06-21 13:15:00 55 mm[Hg] [facility] Procedures Procedure Date / Time Performed Performing Clinician Source TRANSTHORACIC ECHO (TTE) COMPLETE 2024-03-06 13:31:46 Charlene Julien [facility] ELECTROPHYSIOLOGY PROCEDURE 2023-12-13 15:50:00 Shani Cronin i [facility] CARDIAC CATHETERIZATION 2023-11-14 16:33:30 Jean-Paul Julien [facility] CARDIAC CATHETERIZATION 2023-11-14 16:33:30 Jean-Paul Julien [facility] OUTPATIENT CARDIAC CATHETERIZATION DOCUMENTS 2023-11-14 06:01:00 Doctor Unassigned, [place] [facility] TRANSTHORACIC ECHO (TTE) COMPLETE W/ CONTRAST 2023-10-10 21:31:23 Charlene Julien [facility] CONSENT/REFUSAL FOR DIAGNOSIS AND TREATMENT 2023-08-22 16:31:01 Doctor Unassigned, [place] [facility] PVR 2023-06-21 00:00:00 [facility] Encounters Start Date/Time End Date/Time Encounter Type Admission Type Attending Clinicians Care Facility Care Department Encounter ID Source 2024-04-22 14:14:14 Outpatient SHANI CAT HAIDER [facility] [id number] [facility] 2023-06-21 12:52:00 Outpatient Alphonso Stone [facility] [id number] [facility] 2024-08-19 10:00:00 2024-08-19 10:00:00 [id number] 2024-07-31 16:00:00 2024-07-31 16:00:00 Outpatient KAPIL GARCÍA [facility] [id number] [facility] 2024-07-17 00:00:00 2024-07-24 12:51:58 Clinic Assessment Greer Davalos [facility] 1.2840.114 350.1.13.10 [id number] [id number] [facility] 2024-05-29 00:00:00 2024-06-03 13:47:47 Refill Dylan [facility] [id number] 350.1.13.10 [id number] [id number] [facility] 2024-05-30 00:00:00 2024-05-30 14:46:03 Telephone Dylan [facility] [id number] 350.1.13.10 [id number] [id number] [facility] 2024-03-07 00:00:00 2024-04-12 18:25:19 Patient Secure Msg Dylan [facility] [id number] 350.1.13.10 [id number] [id number] [facility] 2024-04-01 00:00:00 2024-04-02 12:18:27 Telephone Shani Olson [facility] 1..840.114 350.1.13.10 4.2.7.2.686 [id number] [facility] 2024-03-26 15:00:00 2024-03-26 15:00:00 Outpatient R IVY SAXENASHANI IVY SAXENA [facility] [id number] [facility] 2024-03-26 08:00:00 2024-03-26 08:33:14 Outpatient R IVY SAXENASHANI IVY SAXENA SHANI [facility] [id number] [facility] 2024-03-26 08:00:00 2024-03-26 08:33:14 Office Visit Shani Olson [facility] 1..840.114 350.1.13.10 4.2.7.2.686 [id number] [facility] 2024-03-12 15:30:00 2024-03-12 15:30:00 Outpatient R IVY SAXENASHANI IVY COLENimo SHANI [facility] [id number] [facility] 2024-03-06 07:31:54 2024-03-06 23:59:00 Outpatient R CHARLENE JULIEN [facility] [id number] [facility] 2024-03-06 07:31:54 2024-03-06 23:59:00 [facility] 1..840.114 350.1.13.10 4.2.7.2.686 [id number] [facility] 2024-02-19 11:00:00 2024-02-19 11:17:17 Outpatient R CHARLENE JULIEN [facility] [id number] [facility] 2024-02-19 11:00:00 2024-02-19 11:17:17 [facility] [id number] 350.1.13.10 4.2.7.2.686 [id number] [facility] 2024-01-11 00:00:00 2024-01-11 00:00:00 [facility] [id number] 350.1.13.10 4.2.7.2.686 [id number] [facility] 2024-01-09 16:00:00 2024-01-09 16:28:24 Outpatient R SHANI OLSON [facility] [id number] [facility] 2024-01-09 16:00:00 2024-01-09 16:28:24 Office Visit Ivy Saxena Shani [facility] 1.2840.114 350.1.13.10 4.2.7.2.686 [id number] [id number] [facility] 2024-01-09 00:00:00 2024-01-09 00:00:00 [facility] 1.2.840.114 350.1.13.10 4.2.7.2.686 [id number] [facility] 2023-12-27 14:10:33 2023-12-27 23:59:[address] [facility] [id number] [facility] 2023-12-27 14:10:33 2023-12-27 23:59:[address] [facility] OFFICE BUILDING 1.2.840.114 350.1.13.10 4.2.7.2.686 [id number] [facility] 2023-12-19 00:00:00 2023-12-19 00:00:00 [facility]phone [facility] 1.2.840.114 350.1.13.10 4.2.7.2.686 [id number] [id number] [facility] 2023-12-13 09:32:00 2023-12-13 11:52:00 [facility] [id number] [facility] 2023-12-13 09:32:00 2023-12-13 11:52:00 [facility] 1.2.840.114 350.1.13.10 4.2.7.2.686 [id number] [facility] 2023-12-13 11:00:00 2023-12-13 11:45:00 [facility] 1.2.840.114 350.1.13.10 4.2.7.2.686 [id number] [facility] 2023-11-22 00:00:00 2023-11-22 00:00:00 [facility] 1.2.840.114 350.1.13.10 4.2.7.2.686 [id number] [id number] [facility] 2023-11-22 00:00:00 2023-11-22 00:00:00 [facility] 1.2.840.114 350.1.13.10 4.2.7.2.686 [id number] [facility] 2023-11-20 00:00:00 2023-11-20 00:00:00 [facility] 1.2.840.114 350.1.13.10 4.2.7.2.686 [id number] [facility] 2023-11-19 10:40:00 2023-11-19 10:40:00 [facility] 1.2.840.114 350.1.13.10 4.2.7.2.686 [id number] [id number] [facility] 2023-11-19 10:40:00 2023-11-19 10:36:42 [facility] [id number] [facility] 2023-11-19 00:00:00 2023-11-19 00:00:00 Telephone Ivy Saxena Shani [facility] 1.2840.114 350.1.13.10 4.2.7.2.686 [id number] 059 [id number] [facility] 2023-11-14 06:53:00 2023-11-14 13:32:00 Outpatient R SHANI OLSON [facility] [id number] [facility] 2023-11-14 06:53:00 2023-11-14 13:32:00 Hospital Encounter Shani Olsonpriscila [facility] 1.2.840.114 350.1.13.10 4.2.7.2.686 [id number] [facility] 2023-11-14 08:30:00 2023-11-14 09:30:00 Surgery Dixie Reyes [facility] 1.2840.114 350.1.13.10 4.2.7.2.686 [id number] [facility] 2023-11-14 00:00:00 2023-11-14 00:00:00 Orders Only Doctor Unassigned, Lugoff [facility] 1.2.840.114 350.1.13.10 4.2.7.2.686 [id number] [facility] 2023-11-09 10:30:00 2023-11-09 11:08:22 Outpatient R IVY DAVIN, SHANI HAYNES DAVIN, [facility] [id number] [facility] 2023-11-09 10:30:00 2023-11-09 10:45:00 Chief Nurse Anesthetist Visit 2, Adc Lab Ivy Saxena [facility] BUILDING 1.2.840.114 350.1.13.10 4.2.7.2.686 [id number] [facility] 2023-10-26 00:00:00 2023-10-26 00:00:00 Telephone Dylan [facility] BUILDING 1.2.840.114 350.1.13.10 4.2.7.2.686 [id number] [id number] [facility] 2023-10-25 00:00:00 2023-10-25 00:00:00 Telephone Unassigned, Cath/Ep [facility] 1.2.840.114 350.1.13.10 4.2.7.2.686 [id number] [facility] 2023-10-25 00:00:00 2023-10-25 00:00:00 Telephone Dylan [facility] 1.2.840.114 350.1.13.10 4.2.7.2.686 [id number] [facility] 2023-10-23 00:00:00 2023-10-23 00:00:00 Refill Dylan [facility] BUILDING 1.2.840.114 350.1.13.10 4.2.7.2.686 [id number] 059 [id number] [facility] 2023-10-22 11:00:00 2023-10-22 11:00:00 Office Visit [facility] BU[facility] 1.2.840.114 350.1.13.10 4.2.7.2.686 [id number] [id number] [facility] 2023-10-22 11:00:00 2023-10-22 10:47:53 [facility] [id number] [facility] 2023-10-18 00:00:00 2023-10-18 00:00:00 Telephone Shani Olson [facility] 1.2.840.114 350.1.13.10 4.2.7.2.686 [id number] [facility] 2023-10-11 00:00:00 2023-10-11 00:00:00 [facility] 1.2.840.114 350.1.13.10 4.2.7.2.686 [id number] [id number] [facility] 2023-10-10 14:23:40 2023-10-10 23:59:00 Hospital Encounter [facility] 1.2.840.114 350.1.13.10 4.2.7.2.686 [id number] [facility] 2023-10-10 14:20:00 2023-10-10 14:22:37 Office Visit Shani Olson [facility] 1.2.840.114 350.1.13.10 4.2.7.2.686 [id number] [id number] [facility] 2023-10-10 14:20:00 2023-10-10 14:22:37 Outpatient R SHANI OLSON [facility] [id number] [facility] 2023-10-09 15:30:00 2023-10-09 15:30:00 Outpatient R CHARLENE JULIEN [facility] [id number] [facility] 2023-10-09 00:00:00 2023-10-09 00:00:00 [facility] 1.2.840.114 350.1.13.10 4.2.7.2.686 [id number] [id number] [facility] 2023-10-05 00:00:00 2023-10-05 00:00:00 [facility] 1.2.840.114 350.1.13.10 4.2.7.2.686 [id number] [id number] [facility] 2023-10-03 00:00:00 2023-10-03 00:00:00 Telephone [facility] 1.2.840.114 350.1.13.10 4.2.7.2.686 [id number] [id number] [facility] 2023-09-28 15:14:59 2023-09-28 23:59:00 Hospital Encounter [facility] 1.2.840.114 350.1.13.10 4.2.7.2.686 [id number] [facility] 2023-09-28 15:14:59 2023-09-28 23:59:00 [facility] [id number] [facility] 2023-09-28 00:00:00 2023-09-28 00:00:00 Telephone [facility] 1.2.840.114 350.1.13.10 4.2.7.2.686 [id number] [id number] [facility] 2023-09-19 15:40:00 2023-09-19 15:52:32 [facility] [id number] [facility] 2023-09-19 15:40:00 2023-09-19 15:52:32 [facility] 1.2.840.114 350.1.13.10 4.2.7.2.686 [id number] [id number] [facility] 2023-09-18 00:00:00 2023-09-18 00:00:00 Telephone [facility] 1.2.840.114 350.1.13.10 4.2.7.2.686 [id number] [id number] [facility] 2023-09-18 00:00:00 2023-09-18 00:00:00 Telephone [facility] 1.2.840.114 350.1.13.10 4.2.7.2.686 [id number] [facility] 2023-09-18 00:00:00 2023-09-18 00:00:00 Telephone [facility] 1.2.840.114 350.1.13.10 4.2.7.2.686 [id number] [id number] [facility] 2023-09-12 00:00:00 2023-09-12 00:00:00 Telephone [facility] 1.2.840.114 350.1.13.10 4.2.7.2.686 [id number] [id number] [facility] 2023-08-28 00:00:00 2023-08-28 00:00:00 Telephone [facility] 1.84.114 350.1.13.10 4.2.7.2.686 [id number] [id number] [facility] 2023-08-22 10:40:00 2023-08-22 11:23:43 [facility] [id number] [facility] 2023-08-22 10:40:00 2023-08-22 11:23:43 Office Visit Dylan [facility] BUILDING 1.840.114 350.1.13.10 4.2.7.2.686 [id number] [facility] 2023-08-22 00:00:00 2023-08-22 00:00:00 Orders Only Doctor Unassigned, Lugoff [facility] 1.84.114 350.1.13.10 4.2.7.2.686 [id number] [facility] 2023-08-15 14:20:00 2023-08-15 14:20:00 [facility] [id number] [facility] 2023-06-21 00:00:00 2023-06-21 00:00:00 OFFICE VISIT ESTAB PT LEVEL 2 STLMLC STLMLC [id number] [facility] 2020-03-31 14:00:00 2020-03-31 14:00:00 Outpatient [facility] [id number] [facility] 2020-03-31 14:00:00 2020-03-31 14:00:00 Outpatient R LAUREN MILTON [facility] [id number] [facility] 2020-03-31 13:25:46 2020-03-31 13:45:46 Laboratory Only Lab, Adc Fam Pob I Milton Silva [facility] 1.840.114 350.1.13.10 4.2.7.2.686 [id number] [facility] 2020-03-31 13:25:46 2020-03-31 13:45:46 Laboratory Only Lab, Ad[facility] 1.2.840.114 350.1.13.10 4.2.7.2.686 [id number] 2020-03-31 13:00:00 2020-03-31 13:00:00 Outpatient Kandace MILTON SILVA [facility] [id number] [facility] Results Test Description Test Time Test Comments Results Result Co mments Source [facility]2023-10-11 02:43:07* Test Item Value Reference Range Interpretation Comme nts Height (test code = 0821120930) 66 in Weight (test code = 1368862839) 127 lbs Systolic BP (test code = 8472963976) 144 mmHg Diastolic BP (test code = 5319716026) 73 mmHg Heart Rate (test code = 2590009778) 83 bpm Ao root diam (test code = 3468607315) 3.20 cm Aortic root (test code = 1449865662) 3.2 cm Ao root annulus (test code = 2383917603) 3.2 cm BSA (test code = 5121774493) 1.65 m2 LVOT diameter (test code = 8429059944) 2.04 cm LVOT area (test code = 8399475393) 3.30 cm2 LA size (test code = 9934621952) 3.5 cm ACS (test code = 7779679178) 1.33 cm LVIDD (test code = 2518042145) 5.10 cm Left Ventricular End Diastolic Volume by Teichholz Method (test code = 3694797) 121.6 mL EF(Teich) (test code = 4165623407) 33.40 % FS (test code = 8233214385) 16 % EF - 2D (test code = 77669758) 33.40 % TR Peak Jay (test code = 1306751005) 259.1 cm/s Triscuspid Valve Regurgitation Peak Gradient (test code = 0340117103) 28.7 mmHg PV PEAK VELOCITY (test code = 5213606885) 56.1 cm/s PV peak gradient (test code = 4457240143) 1.26 mmHg MV E-F slope (test code = 2182943525) 61.20 cm/s MV Peak E Jay (test code = 8222029101) 67.1 cm/s MV valve area p 1/2 method (test code = 3245327620) 3.00 cm2 MV dec slope (test code = 9564603975) 261.80 cm/s2 MV P1/2t max jay (test code = 0153165355) 66.60 cm/s MV Peak A Jay (test code = 6156194484) 54.0 cm/s E/A ratio (test code = 6387563969) 1.24 ratio MR max PG (test code = 3738252592) 36.40 mm[Hg] MR max jay (test code = 0504418934) 301.60 cm/s Mr max jay (test code = 4585079229) 301.6 m/s LVOT stroke volume (test code = 9771789465) 41.70 cm3 LVOT peak jay (test code = 4383911921) 56.6 cm/s LVOT mn grad (test code = 8899780904) 0.5 mmHg AV LVOT peak gradient (test code = 7939275582) 1.28 mmHg LVOT peak VTI (test code = 8475982262) 12.7 cm LV V1 mean (test code = 3728553705) 32.50 cm/s Aortic valve mean velocity (test code = 4534956304) 97.1 cm/s Ao peak jay (test code = 9127918077) 162.0 cm/s Ao VTI (test code = 2469998571) 38.5 cm AV area by cont VTI (test code = 1058233561) 1.1 cm2 AV area peak jay (test code = 5600341938) 1.2 cm2 Ao max PG (test code = 7894477016) 10.50 mm[Hg] AV peak gradient (test code = 0984603657) 10.5 mmHg AV valve area (test code = 1285845193) 1.08 cm2 AV mean gradient (test code = 3291468818) 4.5 mmHg AV regurgitation pressure 1/2 time (test code = 0700628064) 423.0 ms AI dec slope (test code = 7088245228) 103.30 cm/s2 AI max jay (test code = 1992897353) 149.20 cm/s AI max PG (test code = 0014518870) 8.90 mm[Hg] LAV(MOD-sp4) (test code = 5269876966) 28.30 mL LA Volume Index (BP) (test code = 8206785968) 19.9 mL/m2 LA volume (BP) (test code = 8736378841) 32.8 mL LAV(MOD-sp2) (test code = 2168055569) 35.30 mL IVS (test code = 7755207126) 0.84 cm Interventricular Septum Diastolic Thickness by 2D (test code = 3242556) 0.84 cm LVPWD (test code = 8059820213) 0.84 cm PW (test code = 3973628273) 0.84 cm 0.6-1.1 LVIDS (test code = 8733413170) 4.30 cm Left Ventricular End Systolic Volume by Teichholz Method (test code = 2244721) 81.0 mL Radiology Study observation (narrative) (test code = 64571-5) DARIUS (test code = DARIUS) ?Left?Ventricle: Left ventricle size is normal. Normal wall thickness. See diagram for wall motion findings. Moderately reduced systolic function with a visually estimated EF of 30 - 35%. Diastolic dysfunction. ?Right?Ventricle: Right ventricle size is normal. Mildly reduced systolic function. ?Tricuspid?Valve: Mild transvalvular regurgitation. Right ventricular systolic pressure is normal. ?RA pressure is 0-5 mmHg. ?Aortic?Valve: Bicuspid aortic valve cannot be excluded. Moderately thickened cusps. Moderately calcified cusps. Trace transvalvular regurgitation. Consistent with moderate aortic stenosis. Peak velocity 1.4 m/sec. Mean gradient 5 mmHg. ZAIRE 1.3 cm2 by CE. LVOT 2.1 cm. SVI 29 ml/m2. Left VentricleLeft ventricle size is normal. Normal wall thickness. See diagram for wall motion findings. Moderately reduced systolic function with a visually estimated EF of 30 - 35%. Diastolic dysfunction.Right VentricleRight ventricle size is normal. Mildly reduced systolic function.Left AtriumLeft atrium size is normal.Right AtriumRight atrium size is normal.IVC/SVCIVC diameter is less than or equal to 21 mm and decreases greater than 50% during inspiration; therefore the estimated right atrial pressure is normal (~0-5 mmHg).Mitral ValveMild mitral annular calcification. Trace transvalvular regurgitation.Tricusp id ValveTricuspid valve structure is normal. Mild transvalvular regurgitation. Right ventricular systolic pressure is normal. RA pressure is 0-5 mmHg.Aortic ValveBicuspid aortic valve cannot be excluded. Moderately thickened cusps. Moderately calcified cusps. Trace transvalvular regurgitation. Consistent with moderate aortic stenosis. Peak velocity 1.4 m/sec. Mean gradient 5 mmHg. ZAIRE 1.3 cm2 by CE. LVOT 2.1 cm. SVI 29 ml/m2.Pulmonic ValveNot well visualized. Trace transvalvular regurgitation.Ascendi ng AortaNormal sized aorta.PericardiumThe pericardium is normal. No pericardial effusion.Study DetailsStudy quality was adequate. A complete echocardiogram was performed using 2D, color flow Doppler and spectral Doppler. 5 mL of Lumason ultrasound enhancing agent used.Wall Scoring BaselineScore Index: 2.18The following segments are akinetic: mid anteroseptal, apical septal and apex.The following segments are hypokinetic: basal anterior, basal anteroseptal, basal inferoseptal, basal inferior, basal inferolateral, basal anterolateral, mid anterior, mid inferoseptal, mid inferior, mid inferolateral, mid anterolateral, apical anterior, apical inferior and apical lateral. [facility] Procedure Notes Date/Time Note Provider Source 2023-12-13 10:40:34 Attending: Shani Olson MD EBL: 2 ml (unless otherwise stated) Specimens: none Anesthesia: Local Anesthesia Fluoroscopy: None Complication: None Pre-Procedure Diagnosis: Pafib Syncope Details: The risks and benefits of the procedure were discussed with the patient and the patient consented for the procedure. The patient presented to the electrophysiology laboratory in a fasting, non-sedated state. The patient was prepped and draped in the usual sterile fashion for device implantation. 20 mL of 2% xylocaine was administered to the skin and subcutaneous tissues in the left parasternal area for local anesthesia. The supplied puncture blade was then used to make a small incision at the left 4th intercostal space just lateral to the sternum. The supplied tunneling tool was then used to make a pocket for the property assessment monitor. The property assessment monitor was then inserted into the pocket. Testing of the device confirmed adequate signal and the incision was then covered with sterile dressing. The patient tolerated the procedure well; there were no apparent complications at the end of the procedure. Device Information: -The implantable property assessment monitor model number M312 -VT parameter is set at 170 bpm for 4 beats. -Bradycardia parameter is set at 40 bpm for 1 sec. Night time less than 30 for one second. -Pause > 3 sec daytime and >5 sec night time. -PVC burden is on. - R waves were measured at 0.51 mV. Conclusions: Successful implantation of loop recorder was performed Plans: 1. The outer dressing needs to stay on and dry for 1 week after which it may be removed. 2. Cardiac Device Clinic follow up in 2 weeks. Patient voiced understanding her/his treatment plan. All her/his questions were answered during this visit. Advised to call the office with any further questions. Voice recognition software has been used to create portions of this document. An attempt to proofread has been made to minimize errors. Please do not hesitate to call with any questions. Shani Olson MD Cardiac Electrophysiology [facility] 2023-11-14 10:04:23 Left Heart Cath/Coronary Angiography Date of Service: 11/14/2023 10:04 AM Indication/Diagnosis: 83 y M with PMH of pAF, ESRD, HLD who was seen by Dr Julien and Dr Olson after he was found to have AF during HD. TTE was done which showed EF 30-35% with anteroseptal and apical AK as well as mod . He is slightly active and denies any CP, SOB. Fellow: Dr Germain Time out completed: yes Aseptic technique: Chlorprep Local Anesthesia: 1% lidocaine without epinephrine Sedation: fentanyl 37.5 mcg, Versed 1.5 mg Access site: right femoral artery Closure Method: Mynx Complications: none Procedure Details: LHC 5 Fr RFA 5 Fr JL4 to LM 5 Fr Jr4 to LV (LVEDP and pullback across aortic valve), RCA Mynx. 43 cc contrast Post-Procedure Sedation Addendum Immediately prior to start of sedation, the patient was evaluated and there was no change from the pre-procedure evaluation. I was present and directed medical care. The patient underwent moderate sedation for the procedure. The medications administered were recorded in the MAR; oxygenation, ventilation and circulation were monitored continuously and were recorded in the EMR. I evaluated the patient after the procedure. The patient was evaluated immediately as recovering from sedation. Complications: none Findings: Coronary dominance: right Left main: MLI LAD: Prox LAD 100% COMPUTER COMPOSITOR Mid/distal LAD and D2 are supplied by robust R-L collaterals (Rentrop class 3) D1: Large (functional ramus) with ostial 50-60% calcified D2: Severe athero, fills via R-L colaterals RI: See D1 LCX: Prox Lcx 50-60% Distal Lcx has 80% stenosis OM1: Small sized, mild athero OM2: Small sized, mild athero OM3: Small sized, mild athero RCA: Large sized, prox 40-50% PDA: Large, mild athero PLB: Large, mid 50% LVEDP: 13 Right External Iliac angiogram: Tortuous JAVY Mild athero EIA and STRIPPER LATEX Impression: Prox LAD 100% COMPUTER COMPOSITOR; remainder of vessel fills via robust R-L collaterals Large D1/ramus has ostial 60% lesion Prox circumflex 50-60% lesion, distal circumflex 80% lesion Normal LVEDP (13) Plan: Bedrest 3 hours Aggressive medical Rx GDMT for LV dysfunction PCI of D1/ramus or circumflex can be done only if he has anginal symptoms Findings and plan discussed with pt and primary group therapy counselor (Dr Julien). I performed this procedure and supervised the fellow. I was present for the entire duration of the procedure. Dixie Reyes MD 11/14/2023 10:04 AM [facility] IM-INTERVENTIONAL CARDIOLOGY STAFF [facility] - Health Notes Date/Time Note Provider Source 2024-05-30 14:42:17 Documented last ov 02/19/24 ESRD with hemodialysis, creatinine 3.36, and pt to continue taking eliquis. Will refill eliquis. Naila Valadez RN [facility] 2024-05-30 13:29:58 Ok to refill per Dr. Julien chart review. Refill request for eliquis received. Refill sent to pharmacy of choice. Patient is compliant as per [facility] Cardiology Protocol. [facility] 2024-05-30 11:46:09 Nathanael Alcocer is a 83 year old male Pt's is calling requesting a refill for Eliquis. Pt took the last one yesterday. Pharmacy told pt to call for a refill request. Please advise [facility]/pharmacy #[id number] - [place], [place] - [facility] [address] [facility] [address] [facility] [id number] [facility] 2024-04-02 12:17:[address] [facility] 2024-04-01 15:42:17 Called patient to schedule their ICD Insertion with Dr. Olson. Spoke with patient Siri Alcocer which she agreed for patient to have procedure on 05/06/24. Labs are scheduled for 05/01/2024. Court Yusuf [facility] 2024-01-11 16:02:23 Medical records request received via fax from [facility] requesting past 2 years, request was faxed to [facility] records and scanned into chart along with fax confirmation. Caty Hernandez MA [facility] 2024-01-09 10:37:01 Images from the original note were not included. [facility] 2023-12-20 13:44:20 Paper work received. Placed in MD inbox folder for review. T [facility] 2023-12-19 10:24:56 Nathanael Alcocer is a 83 year old male Pt spouse calling to provide fax number Rosita Hernandez [facility] 2023-12-19 10:24:35 Left vm on cell to have office fax clearance form. Spoke with Dr. Cameron office as well. They will be faxing form. [facility] 2023-12-19 10:06:23 Copied from [facility] #[id number]. Topic: Clinical - Paperwork/Forms >> Dec 19, 2023 10:05 AM Patient Vp Research wrote: Nathanael Alcocer is a 83 year old male Pts calling for a cardiac clearance for a fistula operation on his left arm. Only info she had for the DR. Dr Jeanette Cameron Ph [phone] [id number] Please advise Carol Sprague [facility] 2023-11-23 14:25:[address] [facility] 2023-11-23 10:48:40 Can you please schedule him on a day he does not have dialysis session. Sincerely, FERNANDEZ [facility] 2023-11-22 16:20:51 Pt's called to r/s loop recorder procedure from 11/29 to 12/19 due to dialysis. Melina Rey [facility] 2023-11-22 16:05:47 Nathanael Alcocer is a 83 year old male Pt's is calling to reschedule his scheduled procedure Loop recorder insertion on 11/30/23 due to his Dialysis Sun,Sun and Sunday.Please call her to reschedule this taiwo. Lizeth Vegas [facility] 2023-11-20 08:50:24 Images from the original note were not included. Sent to [facility] on 11/19/23. 31 tabs. 11 refills. (1 yr supply) Fabby Stewart MA [facility] 2023-11-19 08:12:07 Pt calling stating they are needing the case on 11/30/23 rescheduled. Please assist. Skye Willett [facility] 2023-11-14 13:31:18 Dc instructions given. Iv removed. Site check done. Patient to lobby in to meet family. No distress noted. NERY OPERATOR COKING Caty Galvez RN [facility] 2023-11-13 08:04:11 [facility] CARDIAC CATH PRE-CALL INSTRUCTIONS Cardiac Cath Instructions were sent to patient via: Other telephone Your physician has determined that you need to undergo a(n) LHC procedure. Listed below are some instructions for you to follow prior to the procedure. Do not eat or drink anything after midnight the night before the procedure, except for enough water to take your medications if so directed. For Carotid stenting procedures, do not take blood pressure medications the morning prior to the procedure. For Carotid angiogram procedures, do not stop taking your blood pressure medications. Take all medications except do not take metformin (Glucophage) 2 days prior to the procedure and do not take insulin or furosemide (lasix) the day of the procedure. If you are on blood thinners stop taking them 5 days prior to the procedure, unless otherwise instructed. If you are allergic to iodine or shellfish, take pre-treatment medications as directed. Please call your referring physician for prescription. Bring a list of all current medications. Bring one adult family member or friend with you to drive you home, as you will be unable to drive for 48 hours after the procedure. Due to limited space and patient privacy, only one (1) visitor is permitted with the patient while they are recovering in the recovery area. No children under the age of 14 years will be allowed in recovery area. Please park in the Hospital Garage via [address] from either [address] or [address]. Bring your parking ticket with you to be validated, only one parking ticket may be validated per patient. There may be a possibility of hospital admission or late evening discharge; therefore, bring leisure reading and an overnight bag. On the day of your procedure, come directly to the Cardiac Slope Runner wallet assembler desk, located on the 6th floor of [facility] (3M- [phone].) You will be escorted to the Cardiac Cath recovery room. Please call the Cardiac Slope Runner at if you have any questions regarding your procedure. Date of Procedure: 11/14/2023 Time of Procedure: 0700 For peripheral procedures, have you had an ALEX or arterial duplex? not applicable For ASD/PFO procedures, have you had:Not Applicable Instructions given to patient: yes Patient provided with preferred teaching of verbal information on 11/13/2023. Shows readiness to learn. Verbal instruction teaching provided. Individual is able to read and verbalizes understanding of teaching provided. [facility] 2023-11-09 10:30:00 Images from the original note were not included. Venipuncture collection performed by clean technique on the left anticubitus. Total of 1 attempts were made. Slight pressure and a bandage/dressing were applied to the site(s). The patient experienced no complications. The following specimens were processed according to instructions and sent to [facility] laboratories per lab order on 11/09/2023 : LT BLUE 1 SST 1 RED LAV 1 PPT DK GREEN (LiHep) DK GREEN (SodH) VÁSQUEZ DK BLUE (K2) DK BLUE (S) ACD Blood Culture NIPT/NTD [facility] 2023-10-26 11:57:38 Future lab orders in. Refill done according to Cardiology Medication Refill Guidelines. [facility] Deanna Huang LVN [facility] 2023-10-26 08:09:05 No Transmission Notification (Day 5) received via fax and reviewed by Dr Julien. Form scanned into chart. E Hernandez MA [facility] 2023-10-25 12:08:43 Called patient to schedule agreed to 11/13, labs appt moved up to 11/08. E Rey [facility] 2023-10-25 09:04:12 Called patient to schedule, no answer left voicemail with call back information. E Rey [facility] 2023-10-18 11:01:26 Called Patient to schedule Loop Recorder Insertion. Patient agreed to have procedure on 11/30/[address] Olson. Labs are schedule for 11/23/2023. E Yusuf [facility] 2023-10-11 10:13:06 Appointment made 10/22/23 for follow up visit with Dr Julien. Reviewed [facility] procedure and rational with . Questions asked and answered E Huber RN [facility] 2023-10-04 15:41:51 Spoke with patient's spouse with verbal permission. She verbalized understanding new medications. Rx sent to [facility] in [place]. Nathanael has been scheduled to see Dr. Olson on 10/10/23 "Cardiac event monitor showed possible atrial fibrillation/flutter. Recommend to start metoprolol 25 mg twice daily. Start Eliquis 2.5 mg twice daily. Previously I have sent a message asking to make an EP appointment with the patient but I do not see that being made " E Mock RN [facility] 2023-10-04 15:32:21 Nathanael Alcocer is a 83 year old male Patient spouse returning phone call Was able to warm transfer to clinic nurse [phone] (home) E Hernandez [facility] 2023-10-04 15:26:30 Attempted to contact patient with results/recommendations. LV for patient to return call to [phone]. [facility] 2023-10-03 14:37:45 Cardiac event monitor showed possible atrial fibrillation/flutter. Recommend to start metoprolol 25 mg twice daily. Start Eliquis 2.5 mg twice daily. Previously I have sent a message asking to make an EP appointment with the patient but I do not see that being made. [facility] 2023-10-01 08:45:31 Call to patient's to review concerns regarding 30 day monitor. She stated that everything is now working and that they are ok , patient will continue to wear the monitor at this time [facility] Opal Huber RN [facility] 2023-09-28 17:04:24 Nathanael Alcocer is a 83 year old male is calling stating they have took the heart monitor home and was having trouble hooking it up and wifi was not working. stating pt will just not use it and will return it. Please advise [facility] Marciano Gould [facility] 2023-09-19 15:40:00 Addended by: CHARLENE JULIEN MD on: 09/30/2023 08:44 AM Modules accepted: Orders [facility] 2023-09-18 15:28:40 Contacted patient and rescheduled patients appointments. [facility] Roro Feliciano [facility] 2023-09-18 13:45:37 Will route to PSS for assistance NERY OPERATOR COKING Bernadette Mayers MA [facility] 2023-09-18 13:35:30 Nathanael Alcocer is a 83 year old male Pts calling to get echo r/s please advise. E Archer [facility] 2023-09-18 13:06:55 Spoke with Mrs Alcocer regarding husbands heart rate. Stated that he is in dialysis now but the staff were watching his heart rate increase and slow down on the monitor. Appointment made for 340 Notified if symptomatic, continuing symptoms or worsening concerns to consider ER visit. Verbalized understanding E Huber RN [facility] 2023-09-18 12:56:35 Nathanael Alcocer is a 83 year old male Estee with [facility] is calling about Pt . Might be having some Afib but wanted to let Dr. Julien know .Please advise NERY OPERATOR COKING Amanda Waters [facility] 2023-09-18 12:24:[address] [facility] 2023-09-18 11:22:23 Nathanael Alcocer is a 83 year old male Estee with [facility] calling to speak with nurse said patient has been going in and out of Afib, need advise. Please call [phone] NERY OPERATOR COKING Marichuy Powers [facility] 2023-09-12 14:56:42 Contacted pt on 09/12 to schedule appt. Pt did not answer, lvmtrc. I will contact pt again tomorrow morning to try to schedule. NERY OPERATOR COKING Laura Juan José [facility] 2023-09-12 12:38:07 Attempted to contact patient with recommendations. LVM for patient to return call to [phone]. Patient is already scheduled for the echocardiogram on 09/3023. If patient returns call please assist him to schedule the 30 day event monitor that was ordered by Dr. Julien to further evaluate his elevated heart rates. [facility] Susu Mock RN [facility] 2023-09-12 12:38:02 ----- Message from Charlene Julien MD sent at 09/01/2023 2:45 PM REFINERY OPERATOR COKING ----- I reviewed his hospital records. No echocardiogram report attached. I ordered 30-day cardiac event monitor and echocardiogram. Please schedule if patient is agreeable. [facility] 2023-08-22 10:40:00 Addended by: CHARLENE JULIEN MD on: 09/01/2023 02:45 PM Modules accepted: Orders [facility]
[2024-07-31] MEDS ORDERED: LIDOCAINE 2% W/EPI 1:200,000 MPF 20 ML VIAL IM ONE (16:05)
--- NOTE | 2024-07-31 16:40 | RAD REPORT ---
EXAM: CT brain without contrast HISTORY: PAIN COMPARISON: None TECHNIQUE: Multiple contiguous axial images were obtained and a CT of the brain without contrast. Sag ittal and coronal reformats were performed. One or more of the following dose reduction techniques were used: Automated exposure control, adjust ment of the mA and/or kV according to patient size, and/or iterative reconstruction. FINDINGS: No evidence of hydrocephalus, intracranial hemorrhage, or extra-axial fluid collection. Moderate brain atrophy with moderate periventricular and deep white matter chronic microvascular isc hemic changes present. No evidence of midline shift or areas of brain edema. The calvarium is intact. The visualized paranasal sinuses and mastoid air cells are essentially clear . IMPRESSION: No evidence of acute intracranial abnormality. EXAM: CT of the cervical spine without contrast HISTORY: Neck pain, injury PAIN TECHNIQUE: Multiple contiguous axial images were obtained in a CT of the cervical spine without contr ast. Sagittal and coronal reformats were performed. FINDINGS: The vertebral bodies demonstrate normal height and alignment. No evidence of acute fracture or subluxation.. Moderate lower cervical degenerative change with small posterior osteophyte. No prevertebral soft tissue swelling is seen. The posterior facets are well aligned. Normal alignment of the skull base with the cervical spine is seen. 3 cm midline cyst posteriorly located subcutaneous may be dermatologic cyst. The lung apices are unremarkable. IMPRESSION: No evidence of acute osseous abnormality of the cervical spine. [id number] lower cervical degenerative spondylosis.
[2024-07-31 16:42] LABS: Absolute Eosinophils 0.1 K/uL (0-0.5); Absolute Lymphocytes (CBC) 0.8 K/uL (0.7-4.9); Absolute Monocytes 0.7 K/uL (0.1-1.3); Absolute Neutrophil 4.7 K/uL (1.8-8.0); Basophils % 0.5 % (0-1.3); Eosinophils % 1.7 % (0-4.4); Hematocrit 30.1 % (39.6-49.0); Hemoglobin 10.4 g/dL (13.6-17.9); Lymphocytes % 12.9 % (15.3-44.8); MCH 36.5 pg (27.0-35.0); MCHC 34.7 g/dL (32.0-36.0); MCV 105.3 fL (80-100); MPV 7.8 fL (7.6-11.3); Monocytes % 10.8 % (3.3-12.3); Neutrophils % 74.1 % (41.7-73.7); Platelets 189 thou/uL (152-406); RBC Red Blood Cell Count 2.86 M/uL (4.33-5.43); Red Cell Distribution Width 13.2 % (12.1-15.2)
[2024-07-31 16:53] LABS: Albumin 3.5 g/dL (3.4-5.0); Anion Gap 9.8 mEq/L (5.0-15.0); Bilirubin Total 0.5 mg/dL (0.2-1.0); Globulin 3.4 g/dL (2.3-3.5); Potassium 4.8 mEq/L (3.5-5.1); Protein, Total 6.9 g/dL (6.4-8.2)
--- NOTE | 2024-07-31 17:24 | ER ---
Nurse's Notes [facility] Name: Nathanael Kamara Age: 84 yrs Sex: Male : 1940 Arrival Date: 07/31/2024 Time: 15:42 Bed 2 Private MD: Diagnosis: Laceration without foreign body of other part of head-LEFT FOREHEAD, BROW;Dependence on renal dialysis Presentation: 07/31 15:51 Chief complaint: Patient states: fell this afternoon walking in the house, hit head on tm6 the tile. Did not trip, just got weak and fell. Takes Eliquis. Laceration to forehead. Bleeding controlled. Coronavirus screen: Client denies travel out of the [place] in the last 14 days. Ebola Screen: Patient negative for fever greater than or equal to 101.5 degrees Fahrenheit, and additional compatible Ebola Virus Disease symptoms Patient denies exposure to infectious person. Patient denies travel to an Ebola-affected area in the 21 days before illness onset. No symptoms or risks identified at this time. Complicating Factors: There are no complicating factors for this patient. Initial Sepsis Screen: Does the patient meet any 2 criteria? Systolic BP < 90 mmHg. Does the patient have a suspected source of infection? No. Patient's initial sepsis screen is negative. Risk Assessment: Do you want to hurt yourself or someone else? Patient reports no desire to harm self or others. Onset of symptoms was July 31, 2024. 15:51 Method Of Arrival: Wheelchair tm6 15:51 Acuity: MAMTA 3 tm6 Triage Assessment: 15:53 General: Appears in no apparent distress. Behavior is calm, cooperative. Pain: Denies tm6 pain. EENT: No signs and/or symptoms were reported regarding the EENT system. Neuro: Level of Consciousness is awake, alert, obeys commands, Oriented to person, place, time, situation. Cardiovascular: Patient's skin is warm and dry. Respiratory: Airway is patent Respiratory effort is even, unlabored, Respiratory pattern is regular, symmetrical. GI: No signs and/or symptoms were reported involving the gastrointestinal system. Abdomen is flat, non-distended. : No signs and/or symptoms were reported regarding the genitourinary system. Derm: Wound noted forehead Wound is about 2cm laceration to left forehead. No current bleeding. Musculoskeletal: No signs and/or symptoms reported regarding the musculoskeletal system. Injury Description: Laceration sustained to forehead is 0.5 to 2.5 cm long, not bleeding, was sustained 1-2 hours ago. is bleeding no active bleeding noted. Historical: - Allergies: 15:53 CEPHALOSPORINS; tm6 - PMHx: 15:53 a fib; Hypertensive disorder; kidney disease; tm6 - PSHx: 15:53 dialysis port R chest; tm6 - Immunization history:: Client reports receiving the 2nd dose of the Covid vaccine. - Infectious Disease History:: Denies. - Social history:: Smoking status: Patient denies any tobacco usage or history of. - Family history:: not pertinent. Screenin:22 [facility] ED Fall Risk Assessment (Adult) History of falling in the last 3 months, ph including since admission Yes- physiologic fall (2 pts) Confusion or Disorientation No (0 pts) Intoxicated or Sedated No (0 pts) Impaired Gait Yes (1 pt) Mobility Assist Device Used Yes (1 pt) Altered Elimination No (0 pt) Score/Fall Risk Level 3 or more points = High Risk Oriented to surroundings, Maintained a safe environment, Used ambulatory aids as needed (educated on \T\ assisted with). Abuse screen: Denies threats or abuse. Denies injuries from another. Nutritional screening: No deficits noted. Tuberculosis screening: No symptoms or risk factors identified. Assessment: 16:19 General: Appears in no apparent distress. Behavior is calm, cooperative. Pain: ph Complains of pain in forehead. Neuro: Level of Consciousness is awake, alert, obeys commands, Oriented to person, place, time, situation. Cardiovascular: Capillary refill < 3 seconds in bilateral fingers Patient's skin is warm and dry. Respiratory: Airway is patent Respiratory effort is even, unlabored. Derm: Skin is pink, warm \T\ dry. Injury Description: Laceration sustained to forehead. 17:34 Reassessment: Patient appears in no apparent distress at this time. Patient and/or ph family updated on plan of care and expected duration. Pain level reassessed. Patient is alert, oriented x 3, equal unlabored respirations, skin warm/dry/pink. Vital Signs: 15:50 BP 86 / 53; Pulse 55; Resp 18; Temp 98.2(O); Pulse Ox 100% on R/A; MAP 62 mmHg; Weight tm6 56.7 kg; Height 5 ft. 7 in. ; Pain 0/10; 16:04 BP 121 / 64; ph 17:20 BP 129 / 70; Pulse 66; Resp 18; Pulse Ox 100% on R/A; ph 15:50 Body Mass Index 19.58 (56.70 kg, 170.18 cm) tm6 15:50 Pain Scale: Adult tm6 ED Course: 15:44 Patient arrived in ED. mr 15:53 Triage completed. tm6 15:53 Arm band placed on right wrist. tm6 15:56 Allergy band placed. tm6 15:58 Philippe Najera MD is Attending Physician. ana luisa 16:11 Marium Roberts RN is Primary Nurse. ph 16:19 Inserted saline lock: 20 gauge in left antecubital area, using aseptic technique. Blood rs6 collected. Flushed with 10 mL NS. 16:32 CT Head C Spine In Process Unspecified. EDCO 17:20 Assist provider with laceration repair on forehead Set up tray. Performed by Philippe Najera MD Patient tolerated well. 17:24 Kendell Finley MD is Referral Physician. ana luisa 17:35 IV discontinued, intact, bleeding controlled, No redness/swelling at site. Pressure ph dressing applied. Administered Medications: 17:20 Drug: Lidocaine-Epinephrine Infiltration -1%: (1:100,000) 10 ml 20 ml Infiltration ph once; to bedside Volume: 20 ml; Route: Infiltration; 17:34 Follow up: Response: No adverse reaction ph Medication: 16:23 VIS not applicable for this client. ph Outcome: 17:24 Discharge ordered by . ana luisa 17:34 Discharged to home via wheelchair, with significant other, ph 17:34 Condition: good 17:34 Discharge instructions given to patient, significant other, Instructed on discharge instructions, follow up and referral plans. medication usage, Demonstrated understanding of instructions, follow-up care, medications, Prescriptions given X 2, 17:36 Patient left the ED. ph Signatures: Dispatcher [employer] Philippe Fortune MD MD cha Rivera, Mary, Reg Reg mr Marium Roberts, RN Eloy Capps ph, RN RN tm6 Smith, Ryan rs6
--- NOTE | 2024-07-31 17:24 | EDPHYS ---
Physician Documentation [facility] Name: Nathanael Kamara Age: 84 yrs Sex: Male : 1940 Arrival Date: 07/31/2024 Time: 15:42 Bed 2 Private MD: ED Physician Philippe Najera HPI: 07/31 16:32 This 84 yrs old Male presents to ER via Wheelchair with complaints of Laceration ana luisa To Forehead. 16:32 The patient has a laceration related to: falling occurred at home, and there are no ana luisa complicating factors. The laceration(s) is(are) located on the forehead and face. Onset: The symptoms/episode began/occurred just prior to arrival. Associated signs and symptoms: The patient has no apparent associated signs or symptoms. The patient has not experienced similar symptoms in the past. Historical: - Allergies: 15:53 CEPHALOSPORINS; tm6 - PMHx: 15:53 a fib; Hypertensive disorder; kidney disease; tm6 - PSHx: 15:53 dialysis port R chest; tm6 - Immunization history:: Client reports receiving the 2nd dose of the Covid vaccine. - Infectious Disease History:: Denies. - Social history:: Smoking status: Patient denies any tobacco usage or history of. - Family history:: not pertinent. ROS: 16:32 Constitutional: Negative for fever, chills, and weight loss, Eyes: Negative for injury, ana luisa pain, redness, and discharge, ENT: Negative for injury, pain, and discharge, Neck: Negative for injury, pain, and swelling, Cardiovascular: Negative for chest pain, palpitations, and edema, Respiratory: Negative for shortness of breath, cough, wheezing, and pleuritic chest pain, Abdomen/GI: Negative for abdominal pain, nausea, vomiting, diarrhea, and constipation, Back: Negative for injury and pain, : Negative for injury, bleeding, discharge, and swelling, MS/Extremity: Negative for injury and deformity, Neuro: Negative for headache, weakness, numbness, tingling, and seizure, Psych: Negative for depression, anxiety, suicide ideation, homicidal ideation, and hallucinations, Allergy/Immunology: Negative for hives, rash, and allergies, Endocrine: Negative for neck swelling, polydipsia, polyuria, polyphagia, and marked weight changes, Hematologic/Lymphatic: Negative for swollen nodes, abnormal bleeding, and unusual bruising, 16:32 Skin: Positive for laceration(s), of the forehead and face, Exam: 16:32 Constitutional: This is a well developed, well nourished patient who is awake, alert, ana luisa and in no acute distress. Head/Face: Normocephalic, atraumatic. Eyes: Pupils equal round and reactive to light, extra-ocular motions intact. Lids and lashes normal. Conjunctiva and sclera are non-icteric and not injected. Cornea within normal limits. Periorbital areas with no swelling, redness, or edema. ENT: Nares patent. No nasal discharge, no septal abnormalities noted. Tympanic membranes are normal and external auditory canals are clear. Oropharynx with no redness, swelling, or masses, exudates, or evidence of obstruction, uvula midline. Mucous membranes moist. Neck: Trachea midline, no thyromegaly or masses palpated, and no cervical lymphadenopathy. Supple, full range of motion without nuchal rigidity, or vertebral point tenderness. No Meningismus. Chest/axilla: Normal chest wall appearance and motion. Nontender with no deformity. No lesions are appreciated. Cardiovascular: Regular rate and rhythm with a normal S1 and S2. No gallops, murmurs, or rubs. Normal PMI, no JVD. No pulse deficits. Respiratory: Lungs have equal breath sounds bilaterally, clear to auscultation and percussion. No rales, rhonchi or wheezes noted. No increased work of breathing, no retractions or nasal flaring. Abdomen/GI: Soft, non-tender, with normal bowel sounds. No distension or tympany. No guarding or rebound. No evidence of tenderness throughout. Back: No spinal tenderness. No costovertebral tenderness. Full range of motion. Male : Normal genitalia with no discharge or lesions. MS/ Extremity: Pulses equal, no cyanosis. Neurovascular intact. Full, normal range of motion. Neuro: Awake and alert, GCS 15, oriented to person, place, time, and situation. Cranial nerves II-XII grossly intact. Motor strength 5/5 in all extremities. Sensory grossly intact. Cerebellar exam normal. Normal gait. Psych: Awake, alert, with orientation to person, place and time. Behavior, mood, and affect are within normal limits. 16:32 Skin: injury, laceration(s), the wound is approximately 2.5 cm(s), with a depth of .25 cm(s), of the left eye, Vital Signs: 15:50 BP 86 / 53; Pulse 55; Resp 18; Temp 98.2(O); Pulse Ox 100% on R/A; MAP 62 mmHg; Weight tm6 56.7 kg; Height 5 ft. 7 in. ; Pain 0/10; 16:04 BP 121 / 64; ph 17:20 BP 129 / 70; Pulse 66; Resp 18; Pulse Ox 100% on R/A; ph 15:50 Body Mass Index 19.58 (56.70 kg, 170.18 cm) tm6 15:50 Pain Scale: Adult tm6 Laceration: 16:32 Wound Repair of 2.5cm ( 1.0in ) subcutaneous laceration to left eye. Linear shaped.. ana luisa Distal neuro/vascular/tendon intact. Anesthesia: Local anesthetic administered with 6 mls of 1% lidocaine w/ Epi. Wound prep: Moderate cleansing by me, Copious irrigation. Skin closed with 4 5-0 Prolene using interrupted sutures and sterile technique. Dressed with Neosporin, non-adherent dressing. Patient tolerated well. MDM: 15:58 Medical Screening Exam initiated ana luisa 16:35 Differential diagnosis: superficial laceration, tendon injury, vascular injury. Data [facility] reviewed: vital signs, nurses notes, lab test result(s), EKG, radiologic studies, CT scan. Consideration of Admission/Observation Escalation of care including admission/observation considered. I considered the following discharge prescriptions or medication management in the emergency department Medications were administered in the Emergency Department. See MAR. Independent interpretation of the following test(s) in the Emergency Department EKG: See my EKG interpretation above. Test considered but Not performed: MRI: MRI BRAIN. Historians other than the Patient: Spouse/Significant Other: WELL INFORMED. Care significantly affected by the following chronic conditions: Hypertension, Chronic Kidney Disease, A FIB. 07/31 16:11 Order name: CBC with Diff [facility] 07/31 16:11 Order name: Comprehensive Metabolic Panel; Complete Time: 17:24 [facility] 07/31 16:11 Order name: CT Head C Spine; Complete Time: 17:24 [facility] 07/31 16:11 Order name: EKG; Complete Time: 16:12 [facility] 07/31 16:01 Order name: Dressing - Wound; Complete Time: 17:20 [facility] 07/31 16:01 Order name: Gloves, Sterile; Complete Time: 16:12 [facility] 07/31 16:01 Order name: Prolene, Sutures; Complete Time: 17:20 [facility] 07/31 16:01 Order name: Setup Suture Tray; Complete Time: 16:12 [facility] 07/31 16:11 Order name: Orthostatics; Complete Time: 16:46 ana luisa Administered Medications: 17:20 Drug: Lidocaine-Epinephrine Infiltration -1%: (1:100,000) 10 ml 20 ml Infiltration ph once; to bedside Volume: 20 ml; Route: Infiltration; 17:34 Follow up: Response: No adverse reaction ph Disposition Summary: 07/31/24 17:24 Discharge Ordered Notes: Location: Home ana luisa Problem: new ana luisa Symptoms: have improved ana luisa Condition: Stable ana luisa Diagnosis - Laceration without foreign body of other part of head - LEFT FOREHEAD, BROW ana luisa - Dependence on renal dialysis ana luisa Followup: ana luisa - With: Private Physician - When: 2 - 3 days - Reason: Recheck today's complaints, Continuance of care, Re-evaluation by your physician Followup: ana luisa - With: Kendell Finley MD - When: 1 week - Reason: Discharge Instructions: - Discharge Summary Sheet ana luisa - Head Injury, Adult ana luisa - Fall Prevention in the Home, Adult ana luisa - Laceration Care, Adult ana luisa - Facial Laceration ana luisa - Dialysis ana luisa - Facial Laceration, [id number] ana luisa - Fall Prevention in the Home, Adult, [id number] ana luisa - Head Injury, Adult, [id number] [facility] Forms: - Medication Reconciliation Form [facility] - Antibiotic Education [facility] - Prescription Opioid Use [facility] - Patient Portal Instructions [facility] - Leadership Thank You Letter [facility] Prescriptions: - Centany 2 % Topical ointment - apply 1 application TOPICAL route 3 times per day; 15 gram; Refills: 0, Product [facility] Selection Permitted - Bactrim DS 800-160 mg Oral tablet - take 1 tablet ORAL route every 12 hours for 5 days; 10 tablet; Refills: 0, [facility] Product Selection Permitted Signatures: Dispatcher [employer] Philippe Fortune MD MD cha Hall, Patricia, RN RN Eloy Goldman RN RN tm6
[2024-07-31 19:46] LABS: Blood Morphology Comment NOTED (NOT SEEN); Macrocytosis 1+; Platelet Estimate ADEQ; White Blood Cell Scan OK (OK)
[2024-07-31 20:42] VITALS: TEMP 98.2; O2SAT 100
[2024-07-31 20:44] VITALS: BP 129/70
== END 2024-07-31 17:36 | disposition home or self-care (01) ==
LOC: ER 15:42
DX: S01.81XA Laceration without foreign body of other part of head, initial encounter (principal); Z99.2 Dependence on renal dialysis; W18.30XA Fall on same level, unspecified, initial encounter; Y92.009 Unspecified place in unspecified non-institutional (private) residence as the place of occurrence of the external cause
CPT/HCPCS: 12011; 36415; 70450; 72125; 80053; 85025; 99284

== ENCOUNTER 2024-08-20 11:37 | Emergency (ER) | payer OTHER ==
--- OUTSIDE RECORDS SUMMARY | 2024-08-20 11:44 | XMS REPORT | Continuity of Care Document ---
Author Name Unknown Address [address] [facility] [address]. [address] [place] [address] [facility] Address [address] [facility] [address]. 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 Name Role Phone Pcp, Patient Does Not Have A Primary Care Physic harjeet SHANI OLSON Attending Clinician Unavailable SHANI OLSON Attending Clinician Unavailable Alphonso Stone Attending Clinician Unavailable CHARLENE JULIEN Attending Clinician Unavailable DANIAL WALSH Attending Clinician Unavailable Charlene Julien MD Attending Clinician [phone] Danial Walsh MD Attending Clinician [phone] Greer Lopez Attending Clinician + [phone] ARIADNE IBARRA Attending Clinician Unavailable ARIADNE IBARRA Attending Clinician Unavailable Charlene Julien MD Attending Clinician [phone] KING BROWN Attending Clinician UnavailKing Crawley Attending Clinician [phone] Zack LEES, [facility] Attending Clinician + [phone] Motiwala MD, Afaq Attending Clinician [phone] Doctor Unassigned, [place] Attending Clinician U navailable 2, Adc Lab Attending Clinician Unavailable Unassigned, Cath/Ep Attending Clinician Unavaila TAYLOR Littlejohn Attending Clinician Unavailable Lab, Adc Fam Pob I Attending Clinician Unavailab le Shira PECAN PICKERTaylor Attending Clinician SHANI OLSON Admitting Clinician Unavailable CHARLENE JULIEN Admitting Clinician Unavailable KING BROWN Admitting Clinician Unavailzach W[facility]SON [facility] Admitting Clinician Cachorro Wilson MD, [facility] Admitting Clinician +- [phone] Payers Payer Name Policy Type Policy Number Effective Date Expirati on Date Source [employer] MANAGED MEDICARE PPO-NEHA [id number] 2022 00:00:00 [employer] MED[employer]ARE PPO [id number] [facility] Problems Condition Name Condition Details Condition Category Status Onset Date Resolution Date Last Treatment Date Treating Clinician Comments Source 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 artery 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 Disease Active 3- 00:00: 00 [facility] HFrEF (heart failure with reduced ejection fraction) HFrEF (heart failure with reduced ejection fraction) Disease Active 10-22 00:00: 00 [facility] Nonrheumat ic aortic valve stenosis Nonrheumat ic aortic valve stenosis Disease Active 10-22 00:00: 00 [facility] PAF (paroxysma l atrial fibrillati on) PAF (paroxysma l atrial fibrillati on) Disease Active - 00:00: 00 [facility] Hyperlipid emia, unspecifie d hyperlipid emia type Hyperlipid emia, unspecifie d hyperlipid emia type Disease Active -12 00:00: 00 [facility] Atrial fibrillati on Atrial fibrillati on Disease Active - 00:00: 00 [facility] First degree atrioventr icular block First degree atrioventr icular block Disease Active 10-10 00:00: 00 [facility] Tachycardi a Tachycardi a Disease Active 2022-09 00:00: 00 [facility] ESRD (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 ESRD (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 Disease Active 2022-09 00:00: 00 [facility] [id number] Bilateral nephrolith iasis Problem [facility] [id number] Acute lower UTI Problem [facility] [id number] BPH loc 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 Problem [facility] [id number] Incomplete emptying of bladder Problem [facility] [id number] Renal cysts, acquired, bilateral Problem [facility] [id number] Cystitis Problem [facility] Allergies, Adverse Reactions, Alerts Allergy Name Allergy Type Status Severity Reaction(s) Onset Date Inactive Date Treating Clinician Comments Source CEPHALOS PORINS Drug Class Active Unknown-Cmnt 12-12 00:00: 00 [facility] Cephalos porins Propensi ty to adverse reaction s Active Unknown - See comments 12-12 00:00: 00 Pt hasn't taken medicatio n in over 20 years and is unsure of his reaction. [facility] NO KNOWN ALLERGIE S Drug Class Active [facility] Medicina l cephalos porin and acting as antibact erial agent (FN) Medicina l cephalos porin and acting as antibact erial agent (FN) Active Unknown [facility] Social History Social Habit Start Date Stop Date Quantity Comments Source History of Tobacco Use [facility] Sex Assigned At [facility] to SARS-CoV-2 (event) Not sure [facility] History of Social function 2023-10-22 00:00:00 2023-10-22 00:00:00 [facility] Tobacco use and exposure 2023-09-19 00:00:00 2023-09-19 00:00:00 Smokeless tobacco non-user [facility] Smoking Status Start Date Stop Date Source Never smoked tobacco [facility] Medications Ordered Medication Name Filled Medication Name Start Date Stop Date Current Medication? Ordering Clinician Indication Dosage Frequency Signature (SIG) Comments Components Source midodrine 2.5 mg tablet 2023-09 13:06: 35 Yes 2.5mg Take 1 tablet by mouth. [facility] vitamins B1-B2-B3-B1 2-protease 2.5 mg-2.5 mg- 5 mg-100 mcg Tab 2023-09 13:06: 35 Yes Take by mouth. [facility] apixaban 2.5 mg tablet 05-30 00:00: 00 Yes 1358 2.5mg Take 1 tablet by mouth in the morning and 1 tablet in the evening. Indication s: atrial fibrillati on [facility] metoprolol tartrate 25 mg tablet 01-08 00:00: 00 Yes [id number] 12.5mg Take 0.5 tablets by mouth in the morning and 0.5 tablets in the evening. [facility] lidocaine 1% (PF) (XYLOCAINE) injection 12-12 15:32: 45 12-12 15:54 :32 No ONCE INTRA PROCEDURE, Starting on Maria Del Carmen 12/13/23 at 1032, Until Maria Del Carmen 12/13/23 at 1054, Routine, CV Intraproce dure [facility] vancomycin (VANCOCIN) 1,000 mg in NaCl 0.9% (NS) 250 mL VIAL-MATE IV piggyback 12-12 15:25: 00 12-12 15:54 :29 No CONTINUOUS PRN, Starting on Maria Del Carmen 12/13/23 at 1025, Until Maria Del Carmen 424 at 1054, Administer over 60 Minutes, 250 mL, CV Intraproce dure [facility] NON-FORMULA RY MEDICATION 12-12 11:52: 28 08-14 00:00 :00 No Trans -Resveratr ol 600MG [facility] iron sucrose (VENOFER) 100 mg iron/5 mL injection 12-12 11:52: 28 08-14 00:00 :00 No 100mg 5 mL once now. [facility] epoetin beta, methoxy peg (MIRCERA) 50 mcg/0.3 mL Syrg 12-12 11:52: 28 08-14 00:00 :00 No Inject as directed. [facility] isosorbide mononitrate 30 mg 24 hr tablet 11-18 00:00: 00 Yes [id number] 30mg Take 1 tablet by mouth in the morning. [facility] nitroglycer in (TRIDIL) 2 mg in 10 mL D5W for Cardiac Cath 11-13 16:16: 28 11-13 16:50 :34 No ONCE INTRA PROCEDURE, Starting on Sun11/14/23 at 1016, Until Sun11/14/23 at 1050, Routine, CV Intraproce dure [facility] aspirin tablet 11-13 16:09: 27 11-13 16:50 :34 No ONCE INTRA PROCEDURE, Starting on Sun11/14/23 at 1009, Until Sun11/14/23 at 1050, Routine, CV Intraproce dure [facility] lidocaine 1% (PF) (XYLOCAINE) injection 11-13 16:09: 08 11-13 16:50 :34 No ONCE INTRA PROCEDURE, Starting on Sun11/14/23 at 1009, Until Sun11/14/23 at 1050, Routine, CV Intraproce dure [facility] midazolam (VERSED) injection 11-13 16:01: 15 11-13 16:50 :34 No ONCE INTRA PROCEDURE, Starting on Sun11/14/23 at 1001, Until Sun11/14/23 at 1050, Routine, CV Intraproce dure [facility] FENTanyl PF (SUBLIMAZE (PF)) injection 11-13 16:00: 55 11-13 16:50 :35 No ONCE INTRA PROCEDURE, Starting on Sun11/14/23 at 1000, Until Sun11/14/23 at 1050, Routine, CV Intraproce dure [facility] folic acid/vit B complex and C (DIALYVITE 800 ORAL) 11-13 13:32: 21 Yes Take by mouth. [facility] iron sucrose (VENOFER) 100 mg iron/5 mL injection 11-13 13:32: 21 Yes 100mg 5 mL once now. [facility] epoetin beta, methoxy peg (MIRCERA) 50 mcg/0.3 mL Syrg 11-13 13:32: 21 Yes Inject as directed. [facility] atorvastati n 40 mg tablet -16 00:00: 00 Yes [id number] 40mg Take 1 tablet by mouth in the morning. [facility] metoprolol tartrate 25 mg tablet 10-22 00:00: 00 Yes [id number] 12.5mg Take 0.5 tablets by mouth in the morning and 0.5 tablets in the evening. [facility] atorvastati n 40 mg tablet 12 00:00: 00 10-23 00:00 :00 No [id number] 40mg Take 1 tablet by mouth in the morning. [facility] sulfur hexafluorid e microsphr (LUMASON) injection 5 mL 10-10 21:15: 00 10-10 21:07 :00 No [id number] 5mL 5 mL, Intravenou s, ONCE, 1 dose, On Sun10/10/23 at 1515, Routine
community board member approving Restricted medication : CHARLENE JULIEN [facility] apixaban 2.5 mg tablet - 00:00: 00 05-29 00:00 :00 No 1358 2.5mg Take 1 tablet by mouth in the morning and 1 tablet in the evening. Indication s: atrial fibrillati on [facility] metoprolol tartrate 25 mg tablet -25 00:00: 00 10-22 00:00 :00 No 25mg Take 1 tablet by mouth in the morning and 1 tablet in the evening. [facility] epoetin beta, methoxy peg (MIRCERA) 50 mcg/0.3 mL Syrg 09-19 15:33: 38 Yes Inject as directed. [facility] folic acid/vit B complex and C (DIALYVITE 800 ORAL) 09-19 15:32: 49 Yes Take by mouth. [facility] iron sucrose (VENOFER) 100 mg iron/5 mL injection 09-19 15:32: 49 Yes 100mg 5 mL once now. [facility] tamsulosin 0.4 mg 24 hr capsule 09-11 00:00: 00 Yes .4mg Take 1 capsule by mouth in the morning and 1 capsule in the evening. [facility] PARoxetine 10 mg tablet 2022-09 00:00: 00 Yes 10mg Take 1 tablet by mouth in the morning. [facility] calcitrioL 0.5 mcg capsule 2022-09 00:00: 00 08-14 00:00 :00 No .5ug Take 1 capsule by mouth in the morning. [facility] ferrous sulfate 325 mg (65 mg iron) tablet 2022-09 00:00: 00 09-19 00:00 :00 No 325mg Take 1 tablet by mouth in the morning. [facility] Vitamin B12 1000 MCG Vitamin B12 1000 [...] Value Comments S ource Systolic blood pressure 2024-08-19 16:06:00 95 mm[Hg] [facility] Diastolic blood pressure 2024-08-19 16:06:00 50 mm[Hg] [facility] Heart rate 2024-08-19 16:06:00 56 /min [facility] 2024-08-19 16:06:00 36.78 Mayela [facility] Respiratory rate 2024-08-19 16:06:00 14 /min [facility] Body height 2024-08-19 16:06:00 170.2 cm per pt [facility] Body weight 2024-08-19 16:06:00 52.39 kg [facility] BMI 2024-08-19 16:06:00 18.09 kg/m2 [facility] Oxygen saturation in Arterial blood by Pulse oximetry 2024-08-19 16:06:00 99 /min [facility] Systolic blood pressure 2024-08-14 19:00:00 115 mm[Hg] [facility] Diastolic blood pressure 2024-08-14 19:00:00 65 mm[Hg] [facility] Heart rate 2024-08-14 19:00:00 75 /min [facility] Body temperature 2024-08-14 19:00:00 37 Mayela [facility] Respiratory rate 2024-08-14 19:00:00 20 /min [facility] Body height 2024-08-14 19:00:00 167.6 cm [facility] Body weight 2024-08-14 19:00:00 57.153 kg [facility] BMI 2024-08-14 19:00:00 20.34 kg/m2 [facility] Oxygen saturation in Arterial blood by Pulse oximetry 2024-08-14 19:00:00 99 /min [facility] Systolic blood pressure 2024-03-26 12:59:00 131 mm[Hg] [facility] Diastolic blood pressure 2024-03-26 12:59:00 81 mm[Hg] [facility] Heart rate 2024-03-26 12:59:00 70 /min Un[facility] Respiratory rate 2024-03-26 12:59:00 18 /min [facility] Body height 2024-03-26 12:59:00 172.7 cm [facility] Body weight 2024-03-26 12:59:00 54.885 kg [facility] BMI 2024-03-26 12:59:00 18.40 kg/m2 [facility] Oxygen saturation in Arterial blood by Pulse oximetry 2024-03-26 12:59:00 99 /min [facility] Systolic blood pressure 2024-02-19 15:38:00 125 mm[Hg] [facility] Diastolic blood pressure 2024-02-19 15:38:00 75 mm[Hg] [facility] Heart rate 2024-02-19 15:38:00 86 /min [facility] Respiratory rate 2024-02-19 15:38:00 16 /min [facility] Body height 2024-02-19 15:38:00 171.5 cm [facility] Body weight 2024-02-19 15:38:00 57.289 kg [facility] BMI 2024-02-19 15:38:00 19.49 kg/m2 [facility] Oxygen saturation in Arterial blood by Pulse oximetry 2024-02-19 15:38:00 98 /min [facility] Systolic blood pressure 2023-12-13 16:30:00 125 mm[Hg] [facility] Diastolic blood pressure 2023-12-13 16:30:00 65 mm[Hg] [facility] Heart rate 2023-12-13 16:30:00 56 /min [facility] Respiratory rate 2023-12-13 16:30:00 16 /min [facility] Oxygen saturation in Arterial blood by Pulse oximetry 2023-12-13 16:30:00 96 /min [facility] Body temperature 2023-12-13 15:02:00 36.56 Mayela [facility] Body height 2023-12-13 15:02:00 167.6 cm [facility] Body weight 2023-12-13 15:02:00 58.968 kg [facility] BMI 2023-12-13 15:02:00 20.98 kg/m2 [facility] Systolic blood pressure 2023-12-13 16:30:00 125 mm[Hg] [facility] Diastolic blood pressure 2023-12-13 16:30:00 65 mm[Hg] [facility] Heart rate 2023-12-13 16:30:00 56 /min Un[facility] Respiratory rate 2023-12-13 16:30:00 16 /min [facility] Oxygen saturation in Arterial blood by Pulse oximetry 2023-12-13 16:30:00 96 /min [facility] Body temperature 2023-12-13 15:02:00 36.56 Mayela [facility] Body height 2023-12-13 15:02:00 167.6 cm [facility] Body weight 2023-12-13 15:02:00 58.968 kg [facility] BMI 2023-12-13 15:02:00 20.98 kg/m2 [facility] Systolic blood pressure 2023-11-19 15:23:00 117 mm[Hg] [facility] Diastolic blood pressure 2023-11-19 15:23:00 65 mm[Hg] [facility] Heart rate 2023-11-19 15:23:00 70 /min [facility] 2023-11-19 15:23:00 37.28 Mayela [facility] Respiratory rate 2023-11-19 15:23:00 18 /min [facility] Body height 2023-11-19 15:23:00 167.6 cm [facility] 2023-11-19 15:23:00 59.194 kg [facility] BMI 2023-11-19 15:23:00 21.06 kg/m2 [facility] Oxygen saturation in Arterial blood by Pulse oximetry 2023-11-19 15:23:00 95 /min [facility] Systolic blood pressure 2023-11-14 19:00:00 148 mm[Hg] [facility] Diastolic blood pressure 2023-11-14 19:00:00 85 mm[Hg] [facility] Heart rate 2023-11-14 19:00:00 65 /min [facility] 2023-11-14 19:00:00 12 /min [facility] Oxygen saturation in Arterial blood by Pulse oximetry 2023-11-14 19:00:00 99 /min [facility] Body height 2023-11-14 13:28:00 167.6 cm [facility] Body weight 2023-11-14 13:28:00 58.968 kg [facility] BMI 2023-11-14 13:28:00 20.98 kg/m2 [facility] Systolic blood pressure 2023-11-14 13:28:00 122 mm[Hg] [facility] Diastolic blood pressure 2023-11-14 13:28:00 68 mm[Hg] [facility] Body height 2023-11-14 13:28:00 167.6 cm [facility] Body weight 2023-11-14 13:28:00 58.968 kg [facility] BMI 2023-11-14 13:28:00 20.98 kg/m2 [facility] Oxygen saturation in Arterial blood by Pulse oximetry 2023-11-14 13:28:00 97 /min [facility] Systolic blood pressure 2023-10-22 16:29:00 128 mm[Hg] [facility] Diastolic blood pressure 2023-10-22 16:29:00 75 mm[Hg] [facility] Heart rate 2023-10-22 16:29:00 82 /min [facility] 2023-10-22 16:29:00 18 /min [facility] Body height 2023-10-22 16:29:00 167.6 cm [facility] Body weight 2023-10-22 16:29:00 59.557 kg [facility] BMI 2023-10-22 16:29:00 21.19 kg/m2 [facility] Oxygen saturation in Arterial blood by Pulse oximetry 2023-10-22 16:29:00 96 /min [facility] Systolic blood pressure 2023-10-10 20:01:00 148 mm[Hg] [facility] Diastolic blood pressure 2023-10-10 20:01:00 73 mm[Hg] [facility] Heart rate 2023-10-10 20:01:00 52 /min [facility] Oxygen saturation in Arterial blood by Pulse oximetry 2023-10-10 20:01:00 97 /min [facility] Respiratory rate 2023-10-10 19:59:00 19 /min [facility] Body height 2023-10-10 19:59:00 170.2 cm [facility] Body weight 2023-10-10 19:59:00 57.879 kg [facility] BMI 2023-10-10 19:59:00 19.98 kg/m2 [facility] Systolic blood pressure 2023-09-19 21:27:00 139 mm[Hg] [facility] Diastolic blood pressure 2023-09-19 21:27:00 81 mm[Hg] [facility] Heart rate 2023-09-19 21:27:00 86 /min Un[facility] Respiratory rate 2023-09-19 21:27:00 18 /min [facility] Body height 2023-09-19 21:27:00 167.6 cm [facility] Body weight 2023-09-19 21:27:00 57.607 kg [facility] BMI 2023-09-19 21:27:00 20.50 kg/m2 [facility] Oxygen saturation in Arterial blood by Pulse oximetry 2023-09-19 21:27:00 96 /min [facility] Systolic blood pressure 2023-08-22 16:42:00 128 mm[Hg] [facility] Diastolic blood pressure 2023-08-22 16:42:00 76 mm[Hg] [facility] Heart rate 2023-08-22 16:42:00 78 /min [facility] Body temperature 2023-08-22 16:42:00 37.11 Mayela [facility] Respiratory rate 2023-08-22 16:42:00 18 /min [facility] Body height 2023-08-22 16:42:00 167.6 cm per pt [facility] Body weight 2023-08-22 16:42:00 53.661 kg [facility] BMI 2023-08-22 16:42:00 19.09 kg/m2 [facility] Oxygen saturation in Arterial blood by Pulse oximetry 2023-08-22 16:42:00 97 /min [facility] height 2023-06-21 13:15:00 69 [in_i] Commo n [facility] weight 2023-06-21 13:15:00 116 [lb_av] Comm on [facility] temperature 2023-06-21 13:15:00 97.3 [degF] Com mon [facility] bmi 2023-06-21 13:15:00 17.13 kg/m2 Comm on [facility] oximetry 2023-06-21 13:15:00 99 % Commo n [facility] respiratory rate 2023-06-21 13:15:00 18 /min [facility] blood pressure systolic 2023-06-21 13:15:00 110 mm[Hg] [facility] blood pressure diastolic 2023-06-21 13:15:00 55 mm[Hg] [facility] Procedures Procedure Date / Time Performed Performing Clinician Source TRANSTHORACIC ECHO (TTE) COMPLETE 2024-03-06 13:31:46 Charlene Julien [facility] ELECTROPHYSIOLOGY PROCEDURE 2023-12-13 15:50:00 Shani Cronin i [facility] CARDIAC CATHETERIZATION 2023-11-14 16:33:30 Jean-Paul Julien [facility] CARDIAC CATHETERIZATION 2023-11-14 16:33:30 Jean-Paul Julien [facility] OUTPATIENT CARDIAC CATHETERIZATION DOCUMENTS 2023-11-14 06:01:00 Doctor Unassigned, [place] [facility] TRANSTHORACIC ECHO (TTE) COMPLETE W/ CONTRAST 2023-10-10 21:31:23 Charlene Julien [facility] CONSENT/REFUSAL FOR DIAGNOSIS AND TREATMENT 2023-08-22 16:31:01 Doctor Unassigned, [place] [facility] PVR 2023-06-21 00:00:00 [facility] Encounters Start Date/Time End Date/Time Encounter Type Admission Type Attending Clinicians Care Facility Care Department Encounter ID Source 2024-04-22 14:14:14 Outpatient SHANI CAT HAIDER [facility] [id number] [facility] 2023-06-21 12:52:00 Outpatient Alphonso Stone [facility] [id number] [facility] 2024-08-19 10:00:00 2024-08-19 10:21:46 Outpatient R CHARLENE JULIEN [facility] [id number] [facility] 2024-08-19 10:00:00 2024-08-19 10:21:46 [facility] [id number] 350.1.13.10 [id number] [id number] [facility] 2024-08-14 13:00:00 2024-08-14 13:48:05 Outpatient DANIAL GARCÍA [facility] [id number] [facility] 2024-08-14 13:00:00 2024-08-14 13:48:05 Office Visit Danial Walsh [facility] 1..840.114 350.1.13.10 4.2.7.2.686 [id number] [facility] 2024-07-31 16:00:00 2024-07-31 16:00:00 Outpatient DANIAL GARCÍA [facility] [id number] [facility] 2024-07-17 00:00:00 2024-07-24 12:51:58 Clinic Assessment Greer Davalos [facility] [id number] 350.1.13.10 [id number] [id number] [facility] 2024-05-29 00:00:00 2024-06-03 13:47:47 [facility] [id number] 350.1.13.10 4.2.7.2.686 [id number] [facility] 2024-05-30 00:00:00 2024-05-30 14:46:03 [facility] [id number] 350.1.13.10 4.2.7.2.686 [id number] [facility] 2024-03-07 00:00:00 2024-04-12 18:25:19 [facility] [id number] 350.1.13.10 [id number] [id number] [facility] 2024-04-01 00:00:00 2024-04-02 12:18:27 Telephone Shani [facility] [id number] 350.1.13.10 4.2.7.2.686 [id number] [facility] 2024-03-26 15:00:00 2024-03-26 15:00:00 Outpatient SHANI CAT HAIDER [facility] [id number] [facility] 2024-03-26 08:00:00 2024-03-26 08:33:14 Outpatient SHANI CAT HAIDER [facility] [id number] [facility] 2024-03-26 08:00:00 2024-03-26 08:33:14 Office Visit Shani Olson [facility] [id number] 350.1.13.10 [id number] [id number] [facility] 2024-03-12 15:30:00 2024-03-12 15:30:00 Outpatient R SHANI OLSON [facility] [id number] [facility] 2024-03-06 07:31:54 2024-03-06 23:59:00 Outpatient R WILY [facility] [id number] [facility] 2024-03-06 07:31:54 2024-03-06 23:59:00 Hospital Encounter Wily [facility] [id number] 350.1.13.10 4.2.7.2.686 [id number] [facility] 2024-02-19 11:00:00 2024-02-19 11:17:17 Outpatient R WILYJOSE [facility] [id number] [facility] 2024-02-19 11:00:00 2024-02-19 11:17:17 Office Visit Wily [facility] 1.2.840.114 350.1.13.10 4.2.7.2.686 [id number] 059 [id number] [facility] 2024-01-11 00:00:00 2024-01-11 00:00:00 Telephone Wily [facility] 1.2.840.114 350.1.13.10 4.2.7.2.686 [id number] 059 [id number] [facility] 2024-01-09 16:00:00 2024-01-09 16:28:24 Outpatient R SHANI OLSON [facility] [id number] [facility] 2024-01-09 16:00:00 2024-01-09 16:28:24 [facility] 1.2840.114 350.1.13.10 4.2.7.2.686 [id number] 059 [id number] [facility] 2024-01-09 00:00:00 2024-01-09 00:00:00 [facility] 1.2840.114 350.1.13.10 4.2.7.2.686 [id number] [facility] 2023-12-27 14:10:33 2023-12-27 23:59:00 Outpatient R STEPHANIE [facility] [id number] [facility] 2023-12-27 14:10:33 2023-12-27 23:59:00 Hospital Encounter Stephanie [facility] MEDICAL OFFICE BUILDING 1.2840.114 350.1.13.10 4.2.7.2.686 [id number] [facility] 2023-12-19 00:00:00 2023-12-19 00:00:00 [facility]phone [facility] 1.2840.114 350.1.13.10 4.2.7.2.686 [id number] 059 [id number] [facility] 2023-12-13 09:32:00 2023-12-13 11:52:00 Outpatient R MARLON DOUGLASParthKEESHASHANI [facility] [id number] [facility] 2023-12-13 09:32:00 2023-12-13 11:52:00 Hospital Encounter Marlon Hemanth [facility] ([facility]) 1.2.840.114 350.1.13.10 4.2.7.2.686 [id number] [facility] 2023-12-13 11:00:00 2023-12-13 11:45:00 Surgery Marlon Saxena [facility] ([facility]) 1.2.840.114 350.1.13.10 4.2.7.2.686 [id number] [facility] 2023-11-22 00:00:00 2023-11-22 00:00:00 [facility] 1.2.840.114 350.1.13.10 4.2.7.2.686 [id number] [id number] [facility] 2023-11-22 00:00:00 2023-11-22 00:00:00 Telephone Marlon Saxena [facility] 1.2.840.114 350.1.13.10 4.2.7.2.686 [id number] [facility] 2023-11-20 00:00:00 2023-11-20 00:00:00 [facility] 1.2.840.114 350.1.13.10 4.2.7.2.686 [id number] 059 [id number] [facility] 2023-11-19 10:40:00 2023-11-19 10:40:00 [facility] BU[facility] 1.2.840.114 350.1.13.10 4.2.7.2.686 [id number] 059 [id number] [facility] 2023-11-19 10:40:00 2023-11-19 10:36:42 [facility] [id number] [facility] 2023-11-19 00:00:00 2023-11-19 00:00:00 Telephone Shani Olson [facility] PRIMARY [facility] SPECIALTY CARE 1.2.840.114 350.1.13.10 4.2.7.2.686 [id number] 059 [id number] [facility] 2023-11-14 06:53:00 2023-11-14 13:32:00 Outpatient R [facility] [id number] [facility] 2023-11-14 06:53:00 2023-11-14 13:32:00 Hospital Encounter Shani Olson [facility] 1.2.840.114 350.1.13.10 4.2.7.2.686 [id number] [id number] [facility] 2023-11-14 08:30:00 2023-11-14 09:30:00 [facility] 1.2.840.114 350.1.13.10 4.2.7.2.686 [id number] [id number] [facility] 2023-11-14 00:00:00 2023-11-14 00:00:00 Orders Only Doctor Unassigned, [place] [facility] 1.2.840.114 350.1.13.10 4.2.7.2.686 [id number] [facility] 2023-11-09 10:30:00 2023-11-09 11:08:22 Outpatient R SHANI OLSON SHANI [facility] [id number] [facility] 2023-11-09 10:30:00 2023-11-09 10:45:00 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 Visit 2, Adc Lab Keesha Olsonder [facility] 1.2.840.114 350.1.13.10 4.2.7.2.686 [id number] [facility] 2023-10-26 00:00:00 2023-10-26 00:00:00 Telephone [facility] 1.2.840.114 350.1.13.10 4.2.7.2.686 [id number] 059 [id number] [facility] 2023-10-25 00:00:00 2023-10-25 00:00:00 Telephone Unassigned, Cath/Ep [facility] 1.2.840.114 350.1.13.10 4.2.7.2.686 [id number] [id number] [facility] 2023-10-25 00:00:00 2023-10-25 00:00:00 Telephone Wily [facility] 1.2.840.114 350.1.13.10 4.2.7.2.686 [id number] [id number] [facility] 2023-10-23 00:00:00 2023-10-23 00:00:00 Refill Wily [facility] BUILDING 1.2.840.114 350.1.13.10 4.2.7.2.686 [id number] 059 [id number] [facility] 2023-10-22 11:00:00 2023-10-22 11:00:00 Office [facility] 1.2.840.114 350.1.13.10 4.2.7.2.686 [id number] [id number] [facility] 2023-10-22 11:00:00 2023-10-22 10:47:53 [facility]patient [facility] [id number] [facility] 2023-10-18 00:00:00 2023-10-18 00:00:00 Telephone Shani Olson [facility] 1.2.840.114 350.1.13.10 4.2.7.2.686 [id number] [id number] [facility] 2023-10-11 00:00:00 2023-10-11 00:00:00 Telephone Charlene Julien [facility] ILIA DRAKE [facility] BUILDING 1.2.840.114 350.1.13.10 4.2.7.2.686 [id number] 059 [id number] [facility] 2023-10-10 14:23:40 2023-10-10 23:59:00 Hospital [facility] 1.2.840.114 350.1.13.10 4.2.7.2.686 [id number] 843 [id number] [facility] 2023-10-10 14:20:00 2023-10-10 14:22:37 Office Visit Shani Olson [facility] BUILDING 1.2.840.114 350.1.13.10 4.2.7.2.686 [id number] [facility] 2023-10-10 14:20:00 2023-10-10 14:22:37 Outpatient R SHANI OLSON [facility] [id number] [facility] 2023-10-09 15:30:00 2023-10-09 15:30:00 [facility] [id number] [facility] 2023-10-09 00:00:00 2023-10-09 00:00:00 Refill Wily [facility] BUILDING 1.2.840.114 350.1.13.10 4.2.7.2.686 [id number] 059 [id number] [facility] 2023-10-05 00:00:00 2023-10-05 00:00:00 [facility]ill [facility] 1.2.840.114 350.1.13.10 4.2.7.2.686 [id number] [id number] [facility] 2023-10-03 00:00:00 2023-10-03 00:00:00 Telephone [facility] 1.2.840.114 350.1.13.10 4.2.7.2.686 [id number] [facility] 2023-09-28 15:14:59 2023-09-28 23:59:00 [facility] 1.2.840.114 350.1.13.10 4.2.7.2.686 [id number] [facility] 2023-09-28 15:14:59 2023-09-28 23:59:00 Outpatient [facility] [id number] [facility] 2023-09-28 00:00:00 2023-09-28 00:00:00 Telephone Wily [facility] BUILDING 1.2.840.114 350.1.13.10 4.2.7.2.686 [id number] [facility] 2023-09-19 15:40:00 2023-09-19 15:52:32 Outpatient [facility] [id number] [facility] 2023-09-19 15:40:00 2023-09-19 15:52:32 Office Visit Wily [facility] BUILDING 1.2.840.114 350.1.13.10 4.2.7.2.686 [id number] [id number] [facility] 2023-09-18 00:00:00 2023-09-18 00:00:00 Telephone Wily [facility] BUILDING 1.2.840.114 350.1.13.10 4.2.7.2.686 [id number] 059 [id number] [facility] 2023-09-18 00:00:00 2023-09-18 00:00:00 Telephone Charlene Julien [facility] ILIA CARTERESSIO NAL BUILDING 1.2.840.114 350.1.13.10 4.2.7.2.686 [id number] 059 [id number] [facility] 2023-09-18 00:00:00 2023-09-18 00:00:00 [facility] 1.2.840.114 350.1.13.10 4.2.7.2.686 [id number] 059 [id number] [facility] 2023-09-12 00:00:00 2023-09-12 00:00:00 [facility] MARIA LUISA N[facility] BU[facility] 1.2.840.114 350.1.13.10 4.2.7.2.686 [id number] 059 [id number] [facility] 2023-08-28 00:00:00 2023-08-28 00:00:00 Telephone Charlene Julien [facility] NOELLE NAL BUILDING 1.2.840.114 350.1.13.10 4.2.7.2.686 [id number] [facility] 2023-08-22 10:40:00 2023-08-22 11:23:43 Outpatient [facility] [id number] [facility] 2023-08-22 10:40:00 2023-08-22 11:23:43 [facility] BUILDING 1.2.840.114 350.1.13.10 4.2.7.2.686 [id number] 059 [id number] [facility] 2023-08-22 00:00:00 2023-08-22 00:00:00 Orders Only Doctor Unassigned, [place] [facility] 1..840.114 350.1.13.10 4.2.7.2.686 [id number] [facility] 2023-08-15 14:20:00 2023-08-15 14:20:00 Outpatient R CHARLENE JULIEN [facility] [id number] [facility] 2023-06-21 00:00:00 2023-06-21 00:00:00 OFFICE VISIT ESTAB PT LEVEL 2 STLMLC STLMLC [id number] [facility] 2020-03-31 14:00:00 2020-03-31 14:00:00 Outpatient R [facility] [id number] [facility] 2020-03-31 14:00:00 2020-03-31 14:00:00 [facility] [id number] [facility] 2020-03-31 13:25:46 2020-03-31 13:45:46 Laboratory Only Lab, [facility] 1..840.114 350.1.13.10 4.2.7.2.686 [id number] [id number] [facility] 2020-03-31 13:25:46 2020-03-31 13:45:46 Laboratory Only Lab, [facility] Office [facility] 1..840.114 350.1.13.10 4.2.7.2.686 [id number] 2020-03-31 13:00:00 2020-03-31 13:00:00 [facility] [id number] [facility] Results Test Description Test Time Test Comments Results Result [facility] 02:43:07* Test Item Value Reference Range Interpretation Comme nts Height (test code = 8168931014) 66 in Weight (test code = 9912736798) 127 lbs Systolic BP (test code = 7576555790) 144 mmHg Diastolic BP (test code = 3217402609) 73 mmHg Heart Rate (test code = 1142849869) 83 bpm Ao root diam (test code = 3354595413) 3.20 cm Aortic root (test code = 4181377712) 3.2 cm Ao root annulus (test code = 4948158101) 3.2 cm BSA (test code = 9324628020) 1.65 m2 LVOT diameter (test code = 5854778269) 2.04 cm LVOT area (test code = 2686351721) 3.30 cm2 LA size (test code = 8689896477) 3.5 cm ACS (test code = 3883681151) 1.33 cm LVIDD (test code = 2512793185) 5.10 cm Left Ventricular End Diastolic Volume by Teichholz Method (test code = 2617377) 121.6 mL EF(Teich) (test code = 6607396659) 33.40 % FS (test code = 8617428395) 16 % EF - 2D (test code = 74233108) 33.40 % TR Peak Raymundo (test code = 8945985420) 259.1 cm/s Triscuspid Valve Regurgitation Peak Gradient (test code = 7249285634) 28.7 mmHg PV PEAK VELOCITY (test code = 3914190455) 56.1 cm/s PV peak gradient (test code = 8668058475) 1.26 mmHg MV E-F slope (test code = 1073267509) 61.20 cm/s MV Peak E Raymundo (test code = 6975040557) 67.1 cm/s MV valve area p 1/2 method (test code = 2158919857) 3.00 cm2 MV dec slope (test code = 0691811561) 261.80 cm/s2 MV P1/2t max raymundo (test code = 2938361858) 66.60 cm/s MV Peak A Raymundo (test code = 4281616951) 54.0 cm/s E/A ratio (test code = 4488196801) 1.24 ratio MR max PG (test code = 0053969930) 36.40 mm[Hg] MR max raymundo (test code = 2104732714) 301.60 cm/s Mr max raymundo (test code = 5568742169) 301.6 m/s LVOT stroke volume (test code = 6674751906) 41.70 cm3 LVOT peak raymundo (test code = 7420104577) 56.6 cm/s LVOT mn grad (test code = 2789944593) 0.5 mmHg AV LVOT peak gradient (test code = 5734292952) 1.28 mmHg LVOT peak VTI (test code = 3757993207) 12.7 cm LV V1 mean (test code = 6296426800) 32.50 cm/s Aortic valve mean velocity (test code = 2269383426) 97.1 cm/s Ao peak raymundo (test code = 6783114769) 162.0 cm/s Ao VTI (test code = 5965465693) 38.5 cm AV area by cont VTI (test code = 8047477169) 1.1 cm2 AV area peak raymundo (test code = 2271382514) 1.2 cm2 Ao max PG (test code = 8200229443) 10.50 mm[Hg] AV peak gradient (test code = 4152855071) 10.5 mmHg AV valve area (test code = 2288689258) 1.08 cm2 AV mean gradient (test code = 6625881666) 4.5 mmHg AV regurgitation pressure 1/2 time (test code = 1883540682) 423.0 ms AI dec slope (test code = 1868565785) 103.30 cm/s2 AI max raymundo (test code = 5213636896) 149.20 cm/s AI max PG (test code = 5032827209) 8.90 mm[Hg] LAV(MOD-sp4) (test code = 0373058702) 28.30 mL LA Volume Index (BP) (test code = 5082592358) 19.9 mL/m2 LA volume (BP) (test code = 6002992671) 32.8 mL LAV(MOD-sp2) (test code = 8781105811) 35.30 mL IVS (test code = 0018624994) 0.84 cm Interventricular Septum Diastolic Thickness by 2D (test code = 7317704) 0.84 cm LVPWD (test code = 7820461325) 0.84 cm PW (test code = 1136225861) 0.84 cm 0.6-1.1 LVIDS (test code = 7495349569) 4.30 cm Left Ventricular End Systolic Volume by Teichholz Method (test code = 3930105) 81.0 mL Radiology Study observation (narrative) (test code = 08624-9) DARIUS (test code = DARIUS) ?Left?Ventricle: Left [...] apical anterior, apical inferior and apical lateral. [facility] Procedure Notes Date/Time Note Provider Source 2023-12-13 [...] used to make a pocket for the site monitor. The site monitor was then inserted into the pocket. Testing of the device confirmed adequate signal and the incision was then covered with sterile dressing. The patient tolerated the procedure well; there were no apparent complications at the end of the procedure. Device Information: -The implantable site monitor model number M312 -VT parameter is [...] any questions. 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 I performed this procedure and supervised the fellow. I was present for the entire duration of the procedure. Dixie Reyes MD 11/14/2023 10:04 AM ER BRUSH MAN IM-INTERVENTIONAL CARDIOLOGY STAFF [facility]
[2024-08-20 12:09] LABS: Absolute Basophils 0.1 K/uL (0-0.5); Absolute Eosinophils 0.1 K/uL (0-0.5); Absolute Lymphocytes (CBC) 0.7 K/uL (0.7-4.9); Absolute Monocytes 0.7 K/uL (0.1-1.3); Absolute Neutrophil 4.3 K/uL (1.8-8.0); Eosinophils % 1.5 % (0-4.4); Hematocrit 28.9 % (39.6-49.0); Hemoglobin 9.7 g/dL (13.6-17.9); Lymphocytes % 11.3 % (15.3-44.8); MCH 36.5 pg (27.0-35.0); MCHC 33.6 g/dL (32.0-36.0); MCV 108.5 fL (80-100); MPV 7.2 fL (7.6-11.3); Monocytes % 12.6 % (3.3-12.3); Neutrophils % 73.6 % (41.7-73.7); Platelets 227 thou/uL (152-406); RBC Red Blood Cell Count 2.66 M/uL (4.33-5.43); Red Cell Distribution Width 13.2 % (12.1-15.2)
[2024-08-20 12:28] LABS: Anion Gap 7.1 mEq/L (5.0-15.0); Potassium 4.1 mEq/L (3.5-5.1)
--- NOTE | 2024-08-20 12:32 | RAD REPORT ---
EXAMINATION: CT HEAD WITHOUT CONTRAST CT CERVICAL SPINE WITHOUT CONTRAST CLINICAL INDICATION: Male, 84 years old. fall TECHNIQUE: Axial CT images from the skull base to the vertex without intravenous contrast. Axial CT i mages through the cervical spine were obtained without intravenous contrast. Sagittal and coronal reformatted images were created from the data set. Coronal and sagittal reformatted images were creat ed from the data set. One or more of the following dose reduction techniques were used: Automated exposure control, adjustment of the mA and/or kV according to patient size, and/or iterative reconstr uction. Unless otherwise specified, incidental findings do not require dedicated imaging follow-up. [id number]. COMPARISON: 07/31/2024 FINDINGS: Head: INTRACRANIAL: No acute intracranial hemorrhage. No hydrocephalus. No mass effect or midline shift. Mi ld cerebral atrophy and chronic small vessel ischemic changes. VASCULATURE: No visualized abnormalities in the arteries or dural venous sinuses. SCALP/SKULL: No significant soft tissue or osseous abnormalities. SINUSES: The visualized paranasal sinuses and mastoid air cells are predominantly clear. Cervical spine: ALIGNMENT: Reversal the normal cervical lordosis. BONE: Vertebral body heights are maintained. No aggressive osseous lesions. . DEGENERATIVE CHANGES: Multilevel cervical spondylosis with varying degrees of neural foraminal narrow ing bilaterally. No high-grade central spinal stenosis identified. SOFT TISSUE: . The visualized lung apices are clear. Partially imaged sebaceous cyst in the lower nec k posteriorly. Coronary artery calcifications. Right IJ approach hemodialysis catheter. IMPRESSION: No acute intracranial abnormality. No acute fracture or traumatic malalignment of the cervical spine.
--- NOTE | 2024-08-20 12:53 | RAD REPORT ---
EXAMINATION: XR RIGHT HIP CLINICAL INDICATION: . fall RIGHT TECHNIQUE: Multiple views of the right hip were obtained. COMPARISON: No prior exam. FINDINGS: Bones are mildly demineralized. No acute fracture or dislocation seen. No AVN pattern is ob served. If pain persists or the patient has difficulty with weightbearing, MRI may be useful for further evaluation.
[2024-08-20 13:10] LABS: Phosphorus 4.3 mg/dL (2.5-4.9); Thyroid Stimulating Hormone 1.02 uIU/mL (0.358-3.740)
[2024-08-20 13:25] LABS: Blood Morphology Comment NOTED (NOT SEEN); Platelet Estimate ADEQ; White Blood Cell Scan OK (OK)
[2024-08-20 13:26] LABS: Burr Cells FEW; Macrocytosis 1+
--- NOTE | 2024-08-20 13:55 | ER ---
Nurse's Notes [facility] Name: Nathanael Kamara Age: 84 yrs Sex: Male : 1940 Arrival Date: 08/20/2024 Time: 11:37 Bed 7 Private MD: Diagnosis: Deconditioning;Fall on same level, unspecified;End stage renal disease Presentation: 08/20 11:49 Chief complaint: Patient states: EMS states they were called for a patient fall, and it ap3 is reported the patient needs clearance to receive dialysis. patient denies any acute pain at this time. Coronavirus screen: At this time, the client does not indicate any symptoms associated with coronavirus-19. Ebola Screen: No symptoms or risks identified at this time. Initial Sepsis Screen: Does the patient meet any 2 criteria? No. Patient's initial sepsis screen is negative. Does the patient have a suspected source of infection? No. Patient's initial sepsis screen is negative. Risk Assessment: Do you want to hurt yourself or someone else? Patient reports no desire to harm self or others. Onset of symptoms was August 20, 2024. 11:49 Method Of Arrival: EMS: [facility] ap3 11:53 Acuity: MAMTA 3 ap3 Triage Assessment: 11:51 General: Appears in no apparent distress. Behavior is calm, cooperative, appropriate ap3 for age. Pain: Complains of pain in back Pain began years ago. Is chronic. Neuro: Level of Consciousness is awake, alert, obeys commands, Oriented to person, place. Cardiovascular: Patient's skin is warm and dry. Cardiovascular: Dialysis shunt: in the anterior aspect of right upper chest. Respiratory: Airway is patent Respiratory effort is even, unlabored, Respiratory pattern is regular, symmetrical. Historical: - Allergies: 11:50 CEPHALOSPORINS; ap3 - PMHx: 11:50 a fib; Hypertensive disorder; kidney disease; ap3 - PSHx: 11:50 dialysis port R chest; ap3 - Immunization history:: Adult Immunizations unknown. - Infectious Disease History:: Denies. - Social history:: Smoking status: unknown. Screenin:51 [facility] ED Fall Risk Assessment (Adult) History of falling in the last 3 months, ap3 including since admission Yes- fall prone (multiple falls) (3 pts) Confusion or Disorientation Yes (5 pts) Intoxicated or Sedated No (0 pts) Impaired Gait Yes (1 pt) Mobility Assist Device Used Yes (1 pt) Altered Elimination No (0 pt) Score/Fall Risk Level 3 or more points = High Risk Oriented to surroundings, Maintained a safe environment, Educated pt \T\ family on fall prevention, incl call for assistance when getting out of bed, Assessed \T\ reinforced patient's understanding of fall precautions, Hourly rounding (assess needs \T\ fall precautionary measures) done, Used ambulatory aids as needed (educated on \T\ assisted with), Used gait belt as appropriate Apply high fall risk patient identification: yellow non skid footwear/ fall signage, Remained w/in arm's length of patient and in sight while toileting, Offered frequent toileting (1:1 observation), Remained with patient while ambulating, Utilized family, sitter, or virtual electronic masking system operator as indicated. Abuse screen: Denies threats or abuse. Nutritional screening: No deficits noted. Tuberculosis screening: No symptoms or risk factors identified. Vital Signs: 11:49 BP 131 / 73; Pulse 56; Resp 17; Temp 97.8; Pulse Ox 97% ; Weight 58.06 kg; Pain 0/10; ap3 12:52 BP 125 / 66; Pulse 60; Pulse Ox 100% on R/A; ap3 14:58 BP 126 / 61; Pulse 68; Resp 17; Temp 97.7; Pulse Ox 98% ; ap3 11:49 Pain Scale: Adult ap3 ED Course: 11:49 Patient arrived in ED. ap3 11:50 Sean Gutierres, YANDEL is Primary Nurse. bp 11:50 Alhaji Daniels DO is Attending Physician. ms3 11:50 Triage completed. ap3 11:52 Arm band placed on right wrist. ap3 11:52 Patient has correct armband on for positive identification. Call light in reach. Side ap3 rails up X2. Adult w/ patient. Provided Education on: call light education. Pulse ox on. NIBP on. Door closed. Noise minimized. 12:03 Inserted saline lock: 22 gauge in right antecubital area, using aseptic technique. ap3 Blood collected. Flushed with 10 mL NS. 12:03 Basic Metabolic Panel Sent. ap3 12:03 CBC with Diff Sent. ap3 12:23 CT Head C Spine In Process Unspecified. EDMS 12:47 Hip Right 2 View XRAY In Process Unspecified. EDMS 13:54 Alphonso Stone MD is Referral Physician. ms3 14:58 No provider procedures requiring assistance completed. IV discontinued, intact, ap3 bleeding controlled, No redness/swelling at site. Pressure dressing applied. Administered Medications: No medications were administered Medication: 14:58 VIS not applicable for this client. ap3 Outcome: 13:54 Discharge ordered by . ms3 14:58 Discharged to home via wheelchair, with family, ap3 14:58 Condition: good 14:58 Discharge instructions given to patient, family, Instructed on discharge instructions, follow up and referral plans. Demonstrated understanding of instructions, follow-up care, 14:59 Patient left the ED. ap3 Signatures: Dispatcher [employer] Sean Tejada, RN RN Genia Judge RN RN ap3 Alhaji Daniels DO DO ms3 Corrections: (The following items were deleted from the chart) 11:53 11:49 Acuity: MAMTA 4 ap3 ap3
--- NOTE | 2024-08-20 13:55 | EDPHYS ---
Physician Documentation [facility] Name: Nathanael Kamara Age: 84 yrs Sex: Male : 1940 Arrival Date: 08/20/2024 Time: 11:37 Bed 7 Private MD: ED Physician Alhaji Daniels HPI: 08/20 12:17 This 84 yrs old Male presents to ER via EMS with complaints of Fall Injury. ms3 12:17 Nathanael Kamara presents to the Emergency Department after experiencing a fall this ms3 morning. He is a patient with end-stage renal disease and hypertension. He undergoes dialysis three times a week (Sunday, Sunday, and Sunday) at [facility] in [place] under the care of his tyre finisher and examiner, Dr. Nga Grigsby. Recently, he has had several falls, including one three weeks ago that resulted in stitches. These stitches were subsequently removed by his primary care physician. Despite today's fall, Mr. Kamara reports no significant pain except for some discomfort in his right hip. He does not recall hitting his head or losing consciousness during the fall, although he has a history of head injury from previous incidents. . Historical: - Allergies: 11:50 CEPHALOSPORINS; ap3 - PMHx: 11:50 a fib; Hypertensive disorder; kidney disease; ap3 - PSHx: 11:50 dialysis port R chest; ap3 - Immunization history:: Adult Immunizations unknown. - Infectious Disease History:: Denies. - Social history:: Smoking status: unknown. ROS: 12:17 Constitutional: Negative for fever, and chills. ms3 13:55 Cardiovascular: Negative for chest pain, and palpitations. Respiratory: Negative for ms3 shortness of breath, cough, wheezing, and pleuritic chest pain, Abdomen/GI: Negative for abdominal pain, nausea, vomiting, diarrhea, and constipation, MS/Extremity: Negative for injury and deformity, Skin: Negative for injury, rash, and discoloration, 13:55 Eyes: Positive for Exam: 13:55 Constitutional: This is a well developed, well nourished patient who is awake, alert, ms3 and in no acute distress. Head/Face: Normocephalic, atraumatic. Chest/axilla: Normal chest wall appearance and motion. Nontender with no deformity. Cardiovascular: Regular rate and rhythm with a normal S1 and S2. No gallops, murmurs, or rubs. Normal PMI, no JVD. No pulse deficits. Respiratory: Lungs have equal breath sounds bilaterally, clear to auscultation and percussion. No rales, rhonchi or wheezes noted. No increased work of breathing, no retractions or nasal flaring. Abdomen/GI: Soft, non-tender, with normal bowel sounds. No distension or tympany. No guarding or rebound. No evidence of tenderness throughout. Skin: Warm, dry with normal turgor. Normal color with no rashes, no lesions, and no evidence of cellulitis. Vital Signs: 11:49 BP 131 / 73; Pulse 56; Resp 17; Temp 97.8; Pulse Ox 97% ; Weight 58.06 kg; Pain 0/10; ap3 12:52 BP 125 / 66; Pulse 60; Pulse Ox 100% on R/A; ap3 14:58 BP 126 / 61; Pulse 68; Resp 17; Temp 97.7; Pulse Ox 98% ; ap3 11:49 Pain Scale: Adult ap3 MDM: 11:50 Medical Screening Exam initiated ms3 13:13 ED course: Dr Grigsby concerned for patient's deconditioning. Discussed case with Dr katharine Stone and patient has been deconditioned for a prolonged period and does not require hospitalization. Will have case management visit with patient and for possible rehab.. 13:55 Differential diagnosis: abrasion, closed head injury, contusion, fracture, sprain, ms3 strain. Data reviewed: vital signs, nurses notes, lab test result(s), radiologic studies, and as a result, I will discharge patient. Consideration of Admission/Observation Escalation of care including admission/observation considered. Case discussed with Dr Stone and patient has had these symptoms for a long period of time. . Management of patient was discussed with the following: Advanced Registered Nurse: Dr Doyle. Primary Care Provider: Dr Stone. Case management, Inpatient rehab. Historians other than the Patient: EMS: [facility]. Counseling: I had a detailed discussion with the patient and/or guardian regarding the historical points, exam findings, and any diagnostic results supporting the discharge/admit diagnosis, lab results, radiology results, the need for outpatient follow up, to return to the emergency department if symptoms worsen or persist or if there are any questions or concerns that arise at home. ED course: Patient seen by case management and inpatient rehab. Order placed for home health care. Discussed plan with Dr. Stone she understands and agrees with plan. Discussed plan with patient and his . Patient's understands agrees with plan. Patient remains in stable condition. Patient to follow-up with Dr. Stone in 2 to 3 days. Patient's understands agrees with plan. All questions were answered. Return precautions discussed include worsening symptoms, or any other concerns.. 08/20 11:51 Order name: Basic Metabolic Panel; Complete Time: 12:33 ms3 08/20 11:51 Order name: CBC with Diff; Complete Time: 13:27 ms3 08/20 12:12 Order name: CBC Smear Scan; Complete Time: 13:27 EDMS 08/20 12:34 Order name: Phosphorus; Complete Time: 13:27 ms3 08/20 12:34 Order name: TSH; Complete Time: 13:27 ms3 08/20 11:51 Order name: CT Head C Spine; Complete Time: 12:33 ms3 08/20 11:51 Order name: Hip Right 2 View XRAY; Complete Time: 13:05 ms3 08/20 13:53 Order name: Case Management Consult EDMS 08/20 13:55 Order name: Home Health Consult EDGA 08/20 11:51 Order name: Labs collected and sent; Complete Time: 12:03 ms3 Administered Medications: No medications were administered Disposition Summary: 08/20/24 13:54 Discharge Ordered Notes: Location: Home ms3 Condition: Stable ms3 Diagnosis - Deconditioning ms3 - Fall on same level, unspecified ms3 - End stage renal disease ms3 Followup: ms3 - With: Alphonso Stone MD - When: 2 - 3 days - Reason: Recheck today's complaints Discharge Instructions: - Discharge Summary Sheet ms3 - Fall Prevention in the Home, Adult ms3 - Deconditioning ms3 Forms: - Medication Reconciliation Form ms3 - Antibiotic Education ms3 - Prescription Opioid Use ms3 - Patient Portal Instructions ms3 - Leadership Thank You Letter ms3 Signatures: Dispatcher [facility] Genia Judge RN RN ap3 Alhaji Daniels DO DO ms3 Corrections: (The following items were deleted from the chart) 11:51 11:51 Head C Spine MPR Wo Con+CT.RAD.BRZ ordered. EDMS EDMS 11:52 11:52 Hip Right 2 View+RAD.RAD.BRZ ordered. EDMS EDMS
[2024-08-20 15:33] VITALS: BP 126/61; TEMP 97.7; O2SAT 98
== END 2024-08-20 14:59 | disposition home or self-care (01) ==
LOC: ER 11:37
DX: R53.81 Other malaise (principal); W18.30XA Fall on same level, unspecified, initial encounter; I12.0 Hypertensive chronic kidney disease with stage 5 chronic kidney disease or end stage renal disease; N18.6 End stage renal disease; Z99.2 Dependence on renal dialysis; I48.91 Unspecified atrial fibrillation
CPT/HCPCS: 36415; 70450; 72125; 80048; 84100; 84443; 85025; 99284

== ENCOUNTER 2024-12-12 15:37 | Emergency (ER) | payer OTHER ==
--- OUTSIDE RECORDS SUMMARY | 2024-12-12 15:42 | XMS REPORT | Continuity of Care Document ---
Author Name Unknown Address [address] [facility] [address] [place] [address] [facility] [place] Address [address] [facility] [address] [place] [address] Care Team Providers Care Internal Recruiter Name Role Phone Pcp, Patient Does Not Have A Primary Care Physic harjeet SHANI OLSON Attending Clinician Unavailable SHANI OLSON Attending Clinician Unavailable Alphonso Stone Attending Clinician Unavailable CHARLENE JULIEN Attending Clinician Unavailable DANIAL WALSH Attending Clinician Unavailable Charlene Julien MD Attending Clinician [phone] Danial Walsh MD Attending Clinician [phone] Greer Lopez Attending Clinician + [phone] ARIADNE IBARRA Attending Clinician Unavailable ARIADNE IBARRA Attending Clinician Unavailable Charlene Julien MD Attending Clinician [phone] KING BROWN Attending Clinician UnavailKing Crawley Attending Clinician [phone] Zack LEES [facility] Attending Clinician + [phone] Motiwala MD, Afaq Attending Clinician [phone] Doctor Unassigned, [place] Attending Clinician U navailable 2, Adc Lab Attending Clinician Unavailable Unassigned, Cath/Ep Attending Clinician Unavaila MILTON Littlejohn Attending Clinician Unavailable Lab, Adc Fam Pob I Attending Clinician Unavailab Milton Rey Attending Clinician SHANI OLSON Admitting Clinician Unavailable CHARLENE JULIEN Admitting Clinician Unavailable KING BROWN Admitting Clinician Unavailzach WILSON [facility] Admitting Clinician Cachorro Wilson MD, [facility] Admitting Clinician +- [phone] Payers Payer Name Policy Type Policy Number Effective Date Expirati on Date Source [employer] MANAGED MEDICARE PPO-NEHA [id number] 2022 00:00:00 [employer] MED[employer]ARE PPO 53 [id number] [facility] Problems Condition Name Condition Details Condition Category Status Onset Date Resolution Date Last Treatment Date Treating Clinician Comments Source Bradycardi a Bradycardi a Disease Active - 00:00: 00 [facility] Coronary artery disease involving [place] coronary artery of [place] heart without angina pectoris Coronary artery disease involving [place] coronary artery of [place] heart without angina pectoris Disease Active - 00:00: 00 [facility] HFrEF (heart failure with reduced ejection fraction) HFrEF (heart failure with reduced ejection fraction) Disease Active 10-22 00:00: 00 [facility] Nonrheumat ic aortic valve stenosis Nonrheumat ic aortic valve stenosis Disease Active 10-22 00:00: 00 [facility] PAF (paroxysma l atrial fibrillati on) PAF (paroxysma l atrial fibrillati on) Disease Active 10-22 00:00: 00 [facility] Hyperlipid emia, unspecifie d hyperlipid emia type Hyperlipid emia, unspecifie d hyperlipid emia type Disease Active 10-22 00:00: 00 [facility] Atrial fibrillati on Atrial fibrillati on Disease Active 10-10 00:00: 00 [facility] First degree atrioventr icular block First degree atrioventr icular block Disease Active 10-10 00:00: 00 [facility] Tachycardi a Tachycardi a Disease Active 2022-09 00:00: 00 [facility] ESRD (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 ESRD (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 Disease Active 2022-09 00:00: 00 [facility] [id number] Bilateral nephrolith iasis Problem [facility] [id number] Acute lower UTI Problem [facility] [id number] BPH loc 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 Problem [facility] [id number] Incomplete emptying of bladder Problem [facility] [id number] Lower urinary tract symptoms (LUTS) Problem [facility] [id number] Renal cysts, acquired, bilateral Problem [facility] [id number] Cystitis Problem [facility] Allergies, Adverse Reactions, Alerts Allergy Name Allergy Type Status Severity Reaction(s) Onset Date Inactive Date Treating Clinician Comments Source CEPHALOS PORINS Drug Class Active Unknown-Cmnt 12-12 00:00: 00 [facility] Cephalos porins Propensi ty to adverse reaction s Active Unknown - See comments 12-12 00:00: 00 Pt hasn't taken medicatio n in over 20 years and is unsure of his reaction. [facility] Cephalos porins Propensi ty to adverse reaction s Active Unknown - See comments 12-12 00:00: 00 Pt hasn't taken medicatio n in over 20 years and is unsure of his reaction. [facility] NO KNOWN ALLERGIE S Drug Class Active [facility] Medicina l cephalos porin and acting as antibact erial agent (FN) Medicina l cephalos porin and acting as antibact erial agent (FN) Active Unknown [facility] Social History Social Habit Start Date Stop Date Quantity Comments Source History of Tobacco Use [facility] Sex Assigned At [facility] Exposure to SARS-CoV-2 (event) Not sure [facility] History of Social function 2023-10-22 00:00:00 2023-10-22 00:00:00 [facility] Tobacco use and exposure 2023-09-19 00:00:00 2023-09-19 00:00:00 Smokeless tobacco non-user [facility] Smoking Status Start Date Stop Date Source Never smoked tobacco [facility] Medications Ordered Medication Name Filled Medication Name Start Date Stop Date Current Medication? Ordering Clinician Indication Dosage Frequency Signature (SIG) Comments Components Source Flomax 0.4 MG Flomax 0.4 MG - 00:00: 00 No 1{capsu le_at_b edtime} QD Flomax 0.4 MG atorvastati n 40 mg tablet 12-01 00:00: 00 Yes [id number] 40mg TAKE 1 TABLET BY MOUTH EVERY DAY IN THE MORNING [facility] midodrine 2.5 mg tablet 2023-09 13:06: 35 Yes 2.5mg Take 1 tablet by mouth. [facility] vitamins B1-B2-B3-B1 2-protease 2.5 mg-2.5 mg- 5 mg-100 mcg Tab 2023-09 2-05 13:06: 35 Yes Take by mouth. [facility] apixaban 2.5 mg tablet 9-20 00:00: 00 Yes [id number] 2.5mg Take 1 tablet by mouth in the morning and 1 tablet in the evening. Indication s: atrial fibrillati on [facility] metoprolol tartrate 25 mg tablet 01-08 00:00: 00 Yes [id number] 12.5mg Take 0.5 tablets by mouth in the morning and 0.5 tablets in the evening. [facility] lidocaine 1% (PF) (XYLOCAINE) injection 4- 15:32: 45 12-12 15:54 :32 No ONCE INTRA PROCEDURE, Starting on Maria Del Carmen 12/13/23 at 1032, Until Maria Del Carmen 12/13/23 at 1054, Routine, CV Intraproce dure [facility] vancomycin (VANCOCIN) 1,000 mg in NaCl 0.9% (NS) 250 mL VIAL-MATE IV piggyback 12-12 15:25: 00 12-12 15:54 :29 No CONTINUOUS PRN, Starting on Maria Del Carmen 12/13/23 at 1025, Until Maria Del Carmen 12/13/23 at 1054, Administer over 60 Minutes, 250 mL, CV Intraproce dure [facility] NON-FORMULA RY MEDICATION 12-12 11:52: 28 08-14 00:00 :00 No Trans -Resveratr ol 600MG [facility] iron sucrose (VENOFER) 100 mg iron/5 mL injection 12-12 11:52: 28 08-14 00:00 :00 No 100mg 5 mL once now. [facility] epoetin beta, methoxy peg (MIRCERA) 50 mcg/0.3 mL Syrg 12-12 11:52: 28 08-14 00:00 :00 No Inject as directed. [facility] isosorbide mononitrate 30 mg 24 hr tablet 11-18 00:00: 00 Yes [id number] 30mg Take 1 tablet by mouth in the morning. [facility] nitroglycer in (TRIDIL) 2 mg in 10 mL D5W for Cardiac Cath 11-13 16:16: 28 11-13 16:50 :34 No ONCE INTRA PROCEDURE, Starting on Sun11/14/23 at 1016, Until Sun11/14/23 at 1050, Routine, CV Intraproce dure [facility] aspirin tablet 11-13 16:09: 27 11-13 16:50 :34 No ONCE INTRA PROCEDURE, Starting on Sun11/14/23 at 1009, Until Sun11/14/23 at 1050, Routine, CV Intraproce dure [facility] lidocaine 1% (PF) (XYLOCAINE) injection 11-13 16:09: 08 11-13 16:50 :34 No ONCE INTRA PROCEDURE, Starting on Sun11/14/23 at 1009, Until Sun11/14/23 at 1050, Routine, CV Intraproce dure [facility] midazolam (VERSED) injection 11-13 16:01: 15 11-13 16:50 :34 No ONCE INTRA PROCEDURE, Starting on Sun11/14/23 at 1001, Until Sun11/14/23 at 1050, Routine, CV Intraproce dure [facility] FENTanyl PF (SUBLIMAZE (PF)) injection 11-13 16:00: 55 11-13 16:50 :35 No ONCE INTRA PROCEDURE, Starting on Sun11/14/23 at 1000, Until Sun11/14/23 at 1050, Routine, CV Intraproce dure [facility] folic acid/vit B complex and C (DIALYVITE 800 ORAL) 11-13 13:32: 21 Yes Take by mouth. [facility] iron sucrose (VENOFER) 100 mg iron/5 mL injection 11-13 13:32: 21 Yes 100mg 5 mL once now. [facility] epoetin beta, methoxy peg (MIRCERA) 50 mcg/0.3 mL Syrg 11-13 13:32: 21 Yes Inject as directed. [facility] atorvastati n 40 mg tablet 10-26 00:00: 00 Yes [id number] 40mg Take 1 tablet by mouth in the morning. [facility] metoprolol tartrate 25 mg tablet 10-22 00:00: 00 Yes [id number] 12.5mg Take 0.5 tablets by mouth in the morning and 0.5 tablets in the evening. [facility] atorvastati n 40 mg tablet 10-22 00:00: 00 10-23 00:00 :00 No [id number] 40mg Take 1 tablet by mouth in the morning. [facility] sulfur hexafluorid e microsphr (LUMASON) injection 5 mL 10-10 21:15: 00 10-10 21:07 :00 No [id number] 5mL 5 mL, Intravenou s, ONCE, 1 dose, On Sun10/10/23 at 1515, Routine
store team member approving Restricted medication : CHARLENE JULIEN [facility] apixaban 2.5 mg tablet 10-04 00:00: 00 05-29 00:00 :00 No [id number] 2.5mg Take 1 tablet by mouth in the morning and 1 tablet in the evening. Indication s: atrial fibrillati on [facility] metoprolol tartrate 25 mg tablet 10-04 00:00: 00 10-22 00:00 :00 No 25mg Take 1 tablet by mouth in the morning and 1 tablet in the evening. [facility] epoetin beta, methoxy peg (MIRCERA) 50 mcg/0.3 mL Syrg 09-19 15:33: 38 Yes Inject as directed. [facility] folic acid/vit B complex and C (DIALYVITE 800 ORAL) 09-19 15:32: 49 Yes Take by mouth. [facility] iron sucrose (VENOFER) 100 mg iron/5 mL injection 09-19 15:32: 49 Yes 100mg 5 mL once now. [facility] tamsulosin 0.4 mg 24 hr capsule 09-11 00:00: 00 Yes .4mg Take 1 capsule by mouth in the morning and 1 capsule in the evening. [facility] PARoxetine 10 mg tablet 2022-09 00:00: 00 Yes 10mg Take 1 tablet by mouth in the morning. [facility] calcitrioL 0.5 mcg capsule 2022-09 00:00: 00 08-14 00:00 :00 No .5ug Take 1 capsule by mouth in the morning. [facility] ferrous sulfate 325 mg (65 mg iron) tablet 2022-09 00:00: 00 09-19 00:00 :00 No 325mg Take 1 tablet by mouth in the morning. [facility] Krill Oil 1000 MG Krill Oil 1000 [...] Observation Time Observation Value Comments S david height 2024-12-03 16:15:00 69 [in_i] Commo n [facility] weight 2024-12-03 16:15:00 126.2 [lb_av] Co mmon [facility] temperature 2024-12-03 16:15:00 97.6 [degF] Com mon [facility] bmi 2024-12-03 16:15:00 18.63 kg/m2 Comm on [facility] oximetry 2024-12-03 16:15:00 95 % Commo n [facility] respiratory rate 2024-12-03 16:15:00 18 /min [facility] blood pressure systolic 2024-12-03 16:15:00 92 mm[Hg] [facility] blood pressure diastolic 2024-12-03 16:15:00 53 mm[Hg] [facility] Systolic blood pressure 2024-08-19 16:06:00 95 mm[Hg] [facility] Diastolic blood pressure 2024-08-19 16:06:00 50 mm[Hg] [facility] Heart rate 2024-08-19 16:06:00 56 /min [facility] Body temperature 2024-08-19 16:06:00 36.78 Mayela [facility] Respiratory rate 2024-08-19 16:06:00 14 /min [facility] Body height 2024-08-19 16:06:00 170.2 cm per pt [facility] Body weight 2024-08-19 16:06:00 52.39 kg [facility] BMI 2024-08-19 16:06:00 18.09 kg/m2 [facility] Oxygen saturation in Arterial blood by Pulse oximetry 2024-08-19 16:06:00 99 /min [facility] Systolic blood pressure 2024-08-14 19:00:00 115 mm[Hg] [facility] Diastolic blood pressure 2024-08-14 19:00:00 65 mm[Hg] [facility] Heart rate 2024-08-14 19:00:00 75 /min Unive [facility] Body temperature 2024-08-14 19:00:00 37 Mayela [facility] Respiratory rate 2024-08-14 19:00:00 20 /min [facility] Body height 2024-08-14 19:00:00 167.6 cm [facility] Body weight 2024-08-14 19:00:00 57.153 kg [facility] BMI 2024-08-14 19:00:00 20.34 kg/m2 [facility] Oxygen saturation in Arterial blood by Pulse oximetry 2024-08-14 19:00:00 99 /min [facility] Systolic blood pressure 2024-03-26 12:59:00 131 mm[Hg] [facility] Diastolic blood pressure 2024-03-26 12:59:00 81 mm[Hg] [facility] Heart rate 2024-03-26 12:59:00 70 /min Unive [facility] Respiratory rate 2024-03-26 12:59:00 18 /min [facility] Body height 2024-03-26 12:59:00 [facility] 2024-03-26 12:59:00 54.885 kg [facility] BMI 2024-03-26 12:59:00 18.40 kg/m2 [facility] Oxygen saturation in Arterial blood by Pulse oximetry 2024-03-26 12:59:00 99 /min [facility] Systolic blood pressure 2024-02-19 15:38:00 125 mm[Hg] [facility] Diastolic blood pressure 2024-02-19 15:38:00 75 mm[Hg] [facility] Heart rate 2024-02-19 15:38:00 86 /min Unive [facility] Respiratory rate 2024-02-19 15:38:00 16 /min [facility] Body height 2024-02-19 15:38:00 171.5 cm [facility] Body weight 2024-02-19 15:38:00 57.289 kg [facility] BMI 2024-02-19 15:38:00 19.49 kg/m2 [facility] Oxygen saturation in Arterial blood by Pulse oximetry 2024-02-19 15:38:00 98 /min [facility] Systolic blood pressure 2023-12-13 16:30:00 125 mm[Hg] [facility] Diastolic blood pressure 2023-12-13 16:30:00 65 mm[Hg] [facility] Heart rate 2023-12-13 16:30:00 56 /min Unive [facility] Respiratory rate 2023-12-13 16:30:00 16 /min [facility] Oxygen saturation in Arterial blood by Pulse oximetry 2023-12-13 16:30:00 96 /min [facility] Body temperature 2023-12-13 15:02:00 36.56 Mayela [facility] Body height 2023-12-13 15:02:00 167.6 cm [facility] Body weight 2023-12-13 15:02:00 58.968 kg [facility] BMI 2023-12-13 15:02:00 20.98 kg/m2 [facility] Systolic blood pressure 2023-12-13 16:30:00 125 mm[Hg] [facility] Diastolic blood pressure 2023-12-13 16:30:00 65 mm[Hg] [facility] Heart rate 2023-12-13 16:30:00 56 /min Unive [facility] Respiratory rate 2023-12-13 16:30:00 16 /min [facility] Oxygen saturation in Arterial blood by Pulse oximetry 2023-12-13 16:30:00 96 /min [facility] Body temperature 2023-12-13 15:02:00 36.56 Mayela [facility] Body height 2023-12-13 15:02:00 167.6 cm [facility] Body weight 2023-12-13 15:02:00 58.968 kg [facility] BMI 2023-12-13 15:02:00 20.98 kg/m2 [facility] Systolic blood pressure 2023-11-19 15:23:00 117 mm[Hg] [facility] Diastolic blood pressure 2023-11-19 15:23:00 65 mm[Hg] [facility] Heart rate 2023-11-19 15:23:00 70 /min Unive [facility] Body temperature 2023-11-19 15:23:00 37.28 Mayela [facility] Respiratory rate 2023-11-19 15:23:00 18 /min [facility] Body height 2023-11-19 15:23:00 167.6 cm [facility] Body weight 2023-11-19 15:23:00 59.194 kg [facility] BMI 2023-11-19 15:23:00 21.06 kg/m2 [facility] Oxygen saturation in Arterial blood by Pulse oximetry 2023-11-19 15:23:00 95 /min [facility] Systolic blood pressure 2023-11-14 19:00:00 148 mm[Hg] [facility] Diastolic blood pressure 2023-11-14 19:00:00 85 mm[Hg] [facility] Heart rate 2023-11-14 19:00:00 65 /min Unive [facility] Respiratory rate 2023-11-14 19:00:00 12 /min [facility] Oxygen saturation in Arterial blood by Pulse oximetry 2023-11-14 19:00:00 99 /min [facility] Body height 2023-11-14 13:28:00 167.6 cm [facility] Body weight 2023-11-14 13:28:00 58.968 kg [facility] BMI 2023-11-14 13:28:00 20.98 kg/m2 [facility] Systolic blood pressure 2023-11-14 13:28:00 122 mm[Hg] [facility] Diastolic blood pressure 2023-11-14 13:28:00 68 mm[Hg] [facility] Body height 2023-11-14 13:28:00 167.6 cm [facility] Body weight 2023-11-14 13:28:00 58.968 kg [facility] BMI 2023-11-14 13:28:00 20.98 kg/m2 [facility] Oxygen saturation in Arterial blood by Pulse oximetry 2023-11-14 13:28:00 97 /min [facility] Systolic blood pressure 2023-10-22 16:29:00 128 mm[Hg] [facility] Diastolic blood pressure 2023-10-22 16:29:00 75 mm[Hg] [facility] Heart rate 2023-10-22 16:29:00 82 /min [facility] Res[facility] 2023-10-22 16:29:00 18 /min [facility] Body height 2023-10-22 16:29:00 167.6 cm [facility] Body weight 2023-10-22 16:29:00 59.557 kg [facility] BMI 2023-10-22 16:29:00 21.19 kg/m2 [facility] Oxygen saturation in Arterial blood by Pulse oximetry 2023-10-22 16:29:00 96 /min [facility] Systolic blood pressure 2023-10-10 20:01:00 148 mm[Hg] [facility] Diastolic blood pressure 2023-10-10 20:01:00 73 mm[Hg] [facility] Heart rate 2023-10-10 20:01:00 52 /min [facility] O[facility] in Arterial blood by Pulse oximetry 2023-10-10 20:01:00 97 /min [facility] Respiratory rate 2023-10-10 19:59:00 19 /min [facility] Body height 2023-10-10 19:59:00 170.2 [facility] Body weight 2023-10-10 19:59:00 57.879 kg [facility] BMI 2023-10-10 19:59:00 19.98 kg/m2 [facility] Systolic blood pressure 2023-09-19 21:27:00 139 mm[Hg] [facility] Diastolic blood pressure 2023-09-19 21:27:00 81 mm[Hg] [facility] Heart rate 2023-09-19 21:27:00 86 /min [facility] Res[facility] rate 2023-09-19 21:27:00 18 /min [facility] Body height 2023-09-19 21:27:00 167.6 cm [facility] Body weight 2023-09-19 21:27:00 57.607 kg [facility] BMI 2023-09-19 21:27:00 20.50 kg/m2 [facility] Oxygen saturation in Arterial blood by Pulse oximetry 2023-09-19 21:27:00 96 /min [facility] Systolic blood pressure 2023-08-22 16:42:00 128 mm[Hg] [facility] Diastolic blood pressure 2023-08-22 16:42:00 76 mm[Hg] [facility] Heart rate 2023-08-22 16:42:00 78 /min Unive [facility] Body temperature 2023-08-22 16:42:00 37.11 Mayela [facility] Respiratory rate 2023-08-22 16:42:00 18 /min [facility] Body height 2023-08-22 16:42:00 167.6 cm per pt [facility] Body weight 2023-08-22 16:42:00 53.661 kg [facility] BMI 2023-08-22 16:42:00 19.09 kg/m2 [facility] Oxygen saturation in Arterial blood by Pulse oximetry 2023-08-22 16:42:00 97 /min [facility] height 2023-06-21 13:15:00 69 [in_i] Commo n [facility] weight 2023-06-21 13:15:00 116 [lb_av] Comm on [facility] temperature 2023-06-21 13:15:00 97.3 [degF] Com mon [facility] bmi 2023-06-21 13:15:00 17.13 kg/m2 Comm on [facility] oximetry 2023-06-21 13:15:00 99 % Commo n [facility] respiratory rate 2023-06-21 13:15:00 18 /min [facility] blood pressure systolic 2023-06-21 13:15:00 110 mm[Hg] [facility] blood pressure diastolic 2023-06-21 13:15:00 55 mm[Hg] [facility] Procedures Procedure Date / Time Performed Performing Clinician Source PVR 2024-12-03 00:00:00 [facility] TRANSTHORACIC ECHO (TTE) COMPLETE 2024-03-06 13:31:46 Charlene Julien [facility] ELECTROPHYSIOLOGY PROCEDURE 2023-12-13 15:50:00 Shani Cronin i [facility] CARDIAC CATHETERIZATION 2023-11-14 16:33:30 Jean-Paul Julien [facility] CARDIAC CATHETERIZATION 2023-11-14 16:33:30 Jean-Paul Julien [facility] OUTPATIENT CARDIAC CATHETERIZATION DOCUMENTS 2023-11-14 06:01:00 Doctor Unassigned, [place] [facility] TRANSTHORACIC ECHO (TTE) COMPLETE W/ CONTRAST 2023-10-10 21:31:23 Charlene Julien [facility] CONSENT/REFUSAL FOR DIAGNOSIS AND TREATMENT 2023-08-22 16:31:01 Doctor Unassigned, [place] [facility] PVR 2023-06-21 00:00:00 [facility] Encounters Start Date/Time End Date/Time Encounter Type Admission Type Attending [facility] Care Facility Care Department Encounter ID Source 2024-04-22 14:14:14 Outpatient SHANI CAT [facility] [id number] [facility] 2023-06-21 12:52:00 [facility] [id number] [facility] 2024-12-08 00:00:00 2024-12-08 00:00:00 (TEL) [facility] [id number] [facility] 2024-12-04 00:00:00 2024-12-04 15:14:23 [facility] [id number] [facility] 2024-12-03 00:00:00 2024-12-03 13:44:54 [facility] [id number] [facility] 2024-12-03 00:00:00 2024-12-03 00:00:00 [facility] [id number] [facility] 2024-12-01 00:00:00 2024-12-01 00:00:00 (TEL) [facility] [id number] [facility] 2024-11-27 09:30:00 2024-11-27 09:30:00 Outpatient Kandace CHARLENE JULIEN [facility] [id number] [facility] 2024-11-18 08:30:00 2024-11-18 23:59:00 Outpatient R CHARLENE JULIEN [facility] [id number] [facility] 2024-11-17 15:20:00 2024-11-17 16:31:40 Outpatient R [facility] [id number] [facility] 2024-08-15 00:00:00 2024-08-22 10:26:44 Telephone Jillian, [facility] [id number] [facility] 2024-08-19 10:00:00 2024-08-19 10:21:46 [facility] [id number] 2024-08-19 10:00:00 2024-08-19 10:21:46 [facility] 1..840.114 350.1.13.10 4.2.7.2.686 [id number] [facility] 2024-08-14 13:00:00 2024-08-14 13:48:05 Outpatient R DANIAL WALSH [facility] [id number] [facility] 2024-08-14 13:00:00 2024-08-14 13:48:05 [facility] 1.840.114 350.1.13.10 4.2.7.2.686 [id number] [facility] 2024-07-31 16:00:00 2024-07-31 16:00:00 Outpatient [facility] [id number] [facility] 2024-07-17 00:00:00 2024-07-24 12:51:58 Clinic Assessment Greer Davaols [facility] 1.2.840.114 350.1.13.10 4.2.7.2.686 [id number] [facility] 2024-05-29 00:00:00 2024-06-03 13:47:47 [facility] 1.2.840.114 350.1.13.10 4.2.7.2.686 [id number] [id number] [facility] 2024-05-30 00:00:00 2024-05-30 14:46:03 [facility]phone [facility] 1.2.840.114 350.1.13.10 4.2.7.2.686 [id number] 059 [id number] [facility] 2024-03-07 00:00:00 2024-04-12 18:25:19 [facility] 1.2.840.114 350.1.13.10 4.2.7.2.686 [id number] 059 [id number] [facility] 2024-04-01 00:00:00 2024-04-02 12:18:27 Telephone Shani Olson [facility] 1.2.840.114 350.1.13.10 4.2.7.2.686 [id number] [facility] 2024-03-26 15:00:00 2024-03-26 15:00:00 Outpatient R SHANI OLSON [facility] [id number] [facility] 2024-03-26 08:00:00 2024-03-26 08:33:14 Outpatient R SHANI OLSON [facility] [id number] [facility] 2024-03-26 08:00:00 2024-03-26 08:33:14 Office Visit Shani Olson [facility] 1.2.840.114 350.1.13.10 4.2.7.2.686 [id number] 059 [id number] [facility] 2024-03-12 15:30:00 2024-03-12 15:30:00 Outpatient R IVY DAVIN SHANI OLSON, [facility] [id number] [facility] 2024-03-06 07:31:54 2024-03-06 23:59:00 Out[facility] [id number] [facility] 2024-03-06 07:31:54 2024-03-06 23:59:00 Hospital Encounter Dylan [facility] BUILDING 1.2.840.114 350.1.13.10 4.2.7.2.686 [id number] [facility] 2024-02-19 11:00:00 2024-02-19 11:17:17 Outpatient R [facility] [id number] [facility] 2024-02-19 11:00:00 2024-02-19 11:17:17 Office Visit Dylan [facility] BUILDING 1.2.840.114 350.1.13.10 4.2.7.2.686 [id number] [id number] [facility] 2024-01-11 00:00:00 2024-01-11 00:00:00 Telephone Dylan [facility] BUILDING 1.2.840.114 350.1.13.10 4.2.7.2.686 [id number] [id number] [facility] 2024-01-09 16:00:00 2024-01-09 16:28:24 Outpatient R IVY DOUGLASSHANI Alba, [facility] [id number] [facility] 2024-01-09 16:00:00 2024-01-09 16:28:24 Office Visit Ivy Saxena [facility] PRIMARY [facility] SPECIALTY CARE 1.2.840.114 350.1.13.10 4.2.7.2.686 [id number] 059 [id number] [facility] 2024-01-09 00:00:00 2024-01-09 00:00:00 [facility] 1.2840.114 350.1.13.10 4.2.7.2.686 [id number] [facility] 2023-12-27 14:10:33 2023-12-27 23:59:00 Outpatient R GENO [facility] [id number] [facility] 2023-12-27 14:10:33 2023-12-27 23:59:00 Hospital Encounter Geno [facility] MEDICAL OFFICE BUILDING 1.2840.114 350.1.13.10 4.2.7.2.686 [id number] [facility] 2023-12-19 00:00:00 2023-12-19 00:00:00 [facility] 1.2.840.114 350.1.13.10 4.2.7.2.686 [id number] [id number] [facility] 2023-12-13 09:32:00 2023-12-13 11:52:00 Outpatient R IVY SAXENA SHANI AL DAVIN [facility] [id number] [facility] 2023-12-13 09:32:00 2023-12-13 11:52:00 Hospital Encounter Ivy Davin [facility] ([facility]) 1.2840.114 350.1.13.10 4.2.7.2.686 [id number] [facility] 2023-12-13 11:00:00 2023-12-13 11:45:00 Surgery Ivy Saxena [facility] ([facility] 1.2.840.114 350.1.13.10 4.2.7.2.686 [id number] [id number] [facility] 2023-11-22 00:00:00 2023-11-22 00:00:00 Refill [facility] 1.2.840.114 350.1.13.10 4.2.7.2.686 [id number] 059 [id number] [facility] 2023-11-22 00:00:00 2023-11-22 00:00:[address] [facility] 1.2.840.114 350.1.13.10 4.2.7.2.686 [id number] [id number] [facility] 2023-11-20 00:00:00 2023-11-20 00:00:00 Refill Dylan [facility] 1.2.840.114 350.1.13.10 4.2.7.2.686 [id number] 059 [id number] [facility] 2023-11-19 10:40:00 2023-11-19 10:40:00 Office Visit Dylan [facility] 1.2.840.114 350.1.13.10 4.2.7.2.686 [id number] 059 [id number] [facility] 2023-11-19 10:40:00 2023-11-19 10:36:42 Outpatient R JEAN-PAUL [facility]ENFORM[facility] [id number] [facility] 2023-11-19 00:00:00 2023-11-19 00:00:00 Telephone Ivy Saxena [facility] PRIMARY AND SPECIALTY CARE 1.2.840.114 350.1.13.10 4.2.7.2.686 [id number] 059 [id number] [facility] 2023-11-14 06:53:00 2023-11-14 13:32:00 Outpatient R SHANI OLSON [facility] [id number] [facility] 2023-11-14 06:53:00 2023-11-14 13:32:00 Hospital Encounter Anastacio OlsonGlasgowrubi, [facility] 1.2.840.114 350.1.13.10 4.2.7.2.686 [id number] [id number] [facility] 2023-11-14 08:30:00 2023-11-14 09:30:00 [facility] 1.2.840.114 350.1.13.10 4.2.7.2.686 [id number] [facility] 2023-11-14 00:00:00 2023-11-14 00:00:00 Orders Only Doctor Unassigned, [place] [facility] 1.2.840.114 350.1.13.10 4.2.7.2.686 [id number] [facility] 2023-11-09 10:30:00 2023-11-09 11:08:22 Outpatient R SHANI OLSON [facility] [id number] [facility] 2023-11-09 10:30:00 2023-11-09 10:45:00 Manager Math Visit 2, Adc Lab Ivy Saxena Shani [facility] BUILDING 1.2840.114 350.1.13.10 4.2.7.2.686 [id number] [facility] 2023-10-26 00:00:00 2023-10-26 00:00:00 Telephone Charlene Julien [facility] BUILDING 1.2.840.114 350.1.13.10 4.2.7.2.686 [id number] 059 [id number] [facility] 2023-10-25 00:00:00 2023-10-25 00:00:00 Telephone Unassigned, Cath/Ep [facility] 1.2.840.114 350.1.13.10 4.2.7.2.686 [id number] [facility] 2023-10-25 00:00:00 2023-10-25 00:00:00 Telephone Dylan [facility] 1.2.840.114 350.1.13.10 4.2.7.2.686 [id number] [id number] [facility] 2023-10-23 00:00:00 2023-10-23 00:00:00 [facility] 1.2.840.114 350.1.13.10 4.2.7.2.686 [id number] [id number] [facility] 2023-10-22 11:00:00 2023-10-22 11:00:00 [facility] 1.2.840.114 350.1.13.10 4.2.7.2.686 [id number] 059 [id number] [facility] 2023-10-22 11:00:00 2023-10-22 10:47:53 Outpatient R [facility] [id number] [facility] 2023-10-18 00:00:00 2023-10-18 00:00:00 Telephone Shani Olson [facility] 1.2.840.114 350.1.13.10 4.2.7.2.686 [id number] [id number] [facility] 2023-10-11 00:00:00 2023-10-11 00:00:00 Telephone Charlene Julien [facility] 1.2.840.114 350.1.13.10 4.2.7.2.686 [id number] [facility] 2023-10-10 14:23:40 2023-10-10 23:59:00 Hospital En[facility] 1.2.840.114 350.1.13.10 4.2.7.2.686 [id number] [facility] 2023-10-10 14:20:00 2023-10-10 14:22:37 Office Visit Shani Olson [facility] BUILDING 1.2.840.114 350.1.13.10 4.2.7.2.686 [id number] [id number] [facility] 2023-10-10 14:20:00 2023-10-10 14:22:37 Outpatient R SHANI OLSON [facility] [id number] [facility] 2023-10-09 15:30:00 2023-10-09 15:30:00 Outpatient R [facility] [id number] [facility] 2023-10-09 00:00:00 2023-10-09 00:00:00 [facility]ill [facility] 1.2.840.114 350.1.13.10 4.2.7.2.686 [id number] [facility] 2023-10-05 00:00:00 2023-10-05 00:00:00 Refill [facility] 1.2.840.114 350.1.13.10 4.2.7.2.686 [id number] [id number] [facility] 2023-10-03 00:00:00 2023-10-03 00:00:00 Telephone [facility] BU[facility] 1.2.840.114 350.1.13.10 4.2.7.2.686 [id number] [facility] 2023-09-28 15:14:59 2023-09-28 23:59:00 [facility] 1.2.840.114 350.1.13.10 4.2.7.2.686 [id number] [facility] 2023-09-28 15:14:59 2023-09-28 23:59:00 Outpatient R [facility] [id number] [facility] 2023-09-28 00:00:00 2023-09-28 00:00:00 Telephone Dylan [facility] 1.2.840.114 350.1.13.10 4.2.7.2.686 [id number] [facility] 2023-09-19 15:40:00 2023-09-19 15:52:32 Outpatient R [facility] [id number] [facility] 2023-09-19 15:40:00 2023-09-19 15:52:32 Office Visit Dylan [facility] BUILDING 1.2.840.114 350.1.13.10 4.2.7.2.686 [id number] [facility] 2023-09-18 00:00:00 2023-09-18 00:00:00 Telephone [facility] 1.2.840.114 350.1.13.10 4.2.7.2.686 [id number] 059 [id number] [facility] 2023-09-18 00:00:00 2023-09-18 00:00:00 Telephone [facility] 1.2.840.114 350.1.13.10 4.2.7.2.686 [id number] 059 [id number] [facility] 2023-09-18 00:00:00 2023-09-18 00:00:00 Telephone [facility] 1.2.840.114 350.1.13.10 4.2.7.2.686 [id number] [facility] 2023-09-12 00:00:00 2023-09-12 00:00:00 [facility] 1.2.840.114 350.1.13.10 4.2.7.2.686 [id number] 059 [id number] [facility] 2023-08-28 00:00:00 2023-08-28 00:00:00 [facility] 1.2.840.114 350.1.13.10 4.2.7.2.686 [id number] 059 [id number] [facility] 2023-08-22 10:40:00 2023-08-22 11:23:43 Outpatient R [facility] [id number] [facility] 2023-08-22 10:40:00 2023-08-22 11:23:43 [facility] 1.2.840.114 350.1.13.10 4.2.7.2.686 [id number] [id number] [facility] 2023-08-22 00:00:00 2023-08-22 00:00:00 Orders Only Doctor Unassigned, [place] [facility] 1.2.840.114 350.1.13.10 4.2.7.2.686 [id number] [facility] 2023-08-15 14:20:00 2023-08-15 14:20:00 Outpatient R CHARLENE JULIEN [facility] [id number] [facility] 2023-06-21 00:00:00 2023-06-21 00:00:00 OFFICE VISIT ESTAB PT LEVEL 2 STLMLC STLMLC [id number] [facility] 2020-03-31 14:00:00 2020-03-31 14:00:00 Outpatient R [facility] [id number] [facility] 2020-03-31 14:00:00 2020-03-31 14:00:00 [facility] [id number] [facility] 2020-03-31 13:25:46 2020-03-31 13:45:46 Laboratory Only Lab, [facility] 1..840.114 350.1.13.10 4.2.7.2.686 [id number] [facility] 2020-03-31 13:25:46 2020-03-31 13:45:46 Laboratory Only Lab, [facility] Office Building One ..840.114 350.1.13.10 4.2.7.2.686 [id number] 2020-03-31 13:00:00 2020-03-31 13:00:00 Outpatient MILTON COLÓN [facility] [id number] [facility] Results Test Description Test Time Test Comments Results Result Co mments [facility] 02:43:07* Test Item Value Reference Range Interpretation Comme nts Height (test code = 2266721019) 66 in Weight (test code = 7356362223) 127 lbs Systolic BP (test code = 1912998265) 144 mmHg Diastolic BP (test code = 9279365141) 73 mmHg Heart Rate (test code = 6697281187) 83 bpm Ao root diam (test code = 9082065703) 3.20 cm Aortic root (test code = 9902032981) 3.2 cm Ao root annulus (test code = 5759373561) 3.2 cm BSA (test code = 6285066665) 1.65 m2 LVOT diameter (test code = 7288056917) 2.04 cm LVOT area (test code = 6767838630) 3.30 cm2 LA size (test code = 6599958508) 3.5 cm ACS (test code = 8932629936) 1.33 cm LVIDD (test code = 1363920262) 5.10 cm Left Ventricular End Diastolic Volume by Teichholz Method (test code = 4965310) 121.6 mL EF(Teich) (test code = 0329204578) 33.40 % FS (test code = 0840195749) 16 % EF - 2D (test code = 09168186) 33.40 % TR Peak Jay (test code = 0164476999) 259.1 cm/s Triscuspid Valve Regurgitation Peak Gradient (test code = 6172492002) 28.7 mmHg PV PEAK VELOCITY (test code = 1727805033) 56.1 cm/s PV peak gradient (test code = 7895399477) 1.26 mmHg MV E-F slope (test code = 9334774183) 61.20 cm/s MV Peak E Jay (test code = 2007830769) 67.1 cm/s MV valve area p 1/2 method (test code = 8135790612) 3.00 cm2 MV dec slope (test code = 9737670460) 261.80 cm/s2 MV P1/2t max jay (test code = 9997313354) 66.60 cm/s MV Peak A Jay (test code = 8920771322) 54.0 cm/s E/A ratio (test code = 1766426874) 1.24 ratio MR max PG (test code = 8743448514) 36.40 mm[Hg] MR max jay (test code = 4687181846) 301.60 cm/s Mr max jay (test code = 1420280230) 301.6 m/s LVOT stroke volume (test code = 2858584669) 41.70 cm3 LVOT peak jay (test code = 1418140661) 56.6 cm/s LVOT mn grad (test code = 9940628939) 0.5 mmHg AV LVOT peak gradient (test code = 2561608263) 1.28 mmHg LVOT peak VTI (test code = 5401408007) 12.7 cm LV V1 mean (test code = 0617852018) 32.50 cm/s Aortic valve mean velocity (test code = 5846453346) 97.1 cm/s Ao peak jay (test code = 2700155898) 162.0 cm/s Ao VTI (test code = 2358688918) 38.5 cm AV area by cont VTI (test code = 2679381279) 1.1 cm2 AV area peak jay (test code = 1361740378) 1.2 cm2 Ao max PG (test code = 5972599726) 10.50 mm[Hg] AV peak gradient (test code = 0533025108) 10.5 mmHg AV valve area (test code = 1904059611) 1.08 cm2 AV mean gradient (test code = 0720814583) 4.5 mmHg AV regurgitation pressure 1/2 time (test code = 5329323687) 423.0 ms AI dec slope (test code = 0222117769) 103.30 cm/s2 AI max jay (test code = 7644842245) 149.20 cm/s AI max PG (test code = 9441927167) 8.90 mm[Hg] LAV(MOD-sp4) (test code = 4463461917) 28.30 mL LA Volume Index (BP) (test code = 3143167920) 19.9 mL/m2 LA volume (BP) (test code = 2959618497) 32.8 mL LAV(MOD-sp2) (test code = 0970086829) 35.30 mL IVS (test code = 9085747094) 0.84 cm Interventricular Septum Diastolic Thickness by 2D (test code = 3653702) 0.84 cm LVPWD (test code = 0516707961) 0.84 cm PW (test code = 1406753347) 0.84 cm 0.6-1.1 LVIDS (test code = 5151074442) 4.30 cm Left Ventricular End Systolic Volume by Teichholz Method (test code = 9703233) 81.0 mL Radiology Study observation (narrative) (test code = 31358-1) DARIUS (test code = DARIUS) ?Left?Ventricle: Left [...] apical anterior, apical inferior and apical lateral. [facility] Procedure Notes Date/Time Note Provider Source 2023-12-13 [...] used to make a pocket for the tank farm gauger. The tank farm gauger was then inserted into the pocket. Testing of the device confirmed adequate signal and the incision was then covered with sterile dressing. The patient tolerated the procedure well; there were no apparent complications at the end of the procedure. Device Information: -The implantable tank farm gauger model number M312 -VT parameter is set [...] any questions. Shani Olson MD Cardiac Electrophysiology [facility] 2023-11-14 10:04:23 Left Heart Cath/Coronary Angiography [...] Left main: MLI LAD: Prox LAD 100% WEATHERIZATION DIRECTOR Mid/distal LAD and D2 are supplied by [...] angiogram: Tortuous JAVY Mild athero EIA and POULTRY INSPECTOR Impression: Prox LAD 100% WEATHERIZATION DIRECTOR; remainder of vessel fills via robust R-L collaterals Large D1/ramus has ostial 60% lesion Prox circumflex 50-60% lesion, distal circumflex 80% lesion Normal LVEDP (13) Plan: Bedrest 3 hours Aggressive medical Rx GDMT for LV dysfunction PCI of D1/ramus or circumflex can be done only if he has anginal symptoms Findings and plan discussed with pt and primary electrical development engineer (Dr Julien). I performed this procedure and supervised the fellow. I was present for the entire duration of the procedure. Dixie Reyes MD 11/14/2023 10:04 AM K AND STATION AGENT IM-INTERVENTIONAL CARDIOLOGY STAFF [facility] Notes Date/Time Note Provider Source 2024-12-04 15:13:26 Spoke w pt Tra, she states she is sending the box back with the supplies they have from the event monitor. She states she spoke with [employer]. [facility] 2024-12-04 14:31:06 Nathanael Alcocer is a 84 year old male Pts calling requesting to speak with Amber pulliam. See encounter from yesterday. Adarsh Archer [facility] 2024-12-04 10:58:02 Called pt and spoke to his Tra, I let her know that she needs to call [employer] and let them know that the event monitor is lost. She states she has the box that was given in clinic and I told her the number is on there. [facility] 2024-12-03 13:38:12 Called pt and spoke with his Tra, I let her know that we got a fax from [employer] stating that they had not received any transmissions for two days and She states that they lost the monitor. Pt states that the stickers were not sticking well and she is unsure where the monitor went. I notified [employer] and I told the Pt tra that we will call her back. [facility] 2024-08-22 10:23:43 Contacted [facility] nurse Corinna nurse to notify there was no instruction to stop medications. K AND STATION AGENT Lala Delcid RN [facility] 2024-08-22 07:12:19 I did not advise patient to discontinue these medications. K AND STATION AGENT [facility] 2024-08-15 13:41:01 I spoke with the nurse at [facility] and he curious about the drugs that the patient was instructed to discontinue Dialyvite, Micera, and Venfor. These drugs are administered as part of dialysis. Please advice. K AND STATION AGENT Shelby Azul MA [facility] 2024-05-30 14:42:17 Documented last ov 02/19/24 ESRD with hemodialysis, creatinine 3.36, and pt to continue taking eliquis. Will refill eliquis. Naila Valadez RN [facility] 2024-05-30 13:29:58 Ok to refill per Dr. Julien chart review. Refill request for eliquis received. Refill sent to pharmacy of choice. Patient is compliant as per [facility] Cardiology Protocol. [facility] 2024-05-30 11:46:09 Nathanael Alcocer is a 83 year old male Pt's is calling requesting a refill for Eliquis. Pt took the last one yesterday. Pharmacy told pt to call for a refill request. Please advise [id number] [place] - [address] AT [facility] [address] [facility] [id number] Monet Solorzano [facility] 2024-04-02 12:17:36 Lab orders placed [facility] 2024-04-01 15:42:17 Called patient to schedule their ICD Insertion with Dr. Olson. Spoke with patient Tra Alcocer which she agreed for patient to have procedure on 05/06/24. Labs are scheduled for 05/01/2024. Court Yusuf [facility] 2024-01-11 16:02:23 Medical records request received via fax from [employer] requesting past 2 years, request was faxed to [facility] and scanned into chart along with fax confirmation. Caty Hernandez MA [facility] 2024-01-09 10:37:01 Images from the original note were not included. [facility] 2023-12-20 13:44:20 Paper work received. Placed in MD inbox folder for review. T [facility] 2023-12-19 10:24:56 Nathanael Alcocer is a 83 year old male Pt spouse calling to provide fax number Rosita Hernandez [facility] 2023-12-19 10:24:35 Left vm on cell to have office fax clearance form. Spoke with Dr. Cameron office as well. They will be faxing form. [facility] 2023-12-19 10:06:23 Copied from [facility] #[id number]. 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 Only info she had for the DR. Dr Jeanette Cameron Ph [phone] [place] [address] Please advise Carol Sprague [facility] 2023-11-23 14:25:47 Done [facility] 2023-11-23 10:48:40 Can you please schedule him on a day he does not have dialysis session. Sincerely, FERNANDEZ [facility] 2023-11-22 16:20:51 Pt's called to r/s loop recorder procedure from 11/29 to 12/19 due to dialysis. Melina Rey [facility] 2023-11-22 16:05:47 Nathanael Alcocer is a 83 year old male Pt's is calling to reschedule his scheduled procedure Loop recorder insertion on 11/30/23 due to his Dialysis Sun,Sun and Sunday.Please call her to reschedule this taiwo. Lizeth Vegas [facility] 2023-11-20 08:50:24 Images from the original note were not included. Sent to [facility] on 11/19/23. 31 tabs. 11 refills. (1 yr supply) Fabby Stewart MA [facility] 2023-11-19 08:12:07 Pt calling stating they are needing the case on 11/30/23 rescheduled. Please assist. Skye Willett [facility] 2023-11-14 13:31:18 Dc instructions given. Iv removed. Site check done. Patient to lobby in to meet family. No distress noted. [employer] Caty Galvez RN [facility] 2023-11-13 08:04:11 [facility] CARDIAC CATH PRE-CALL INSTRUCTIONS Cardiac Cath Instructions [...] Hospital Garage via [address] from either [address] or [address]. Bring your parking ticket with you to be validated, only one parking ticket may be validated per patient. There may be a possibility of hospital admission or late evening discharge; therefore, bring leisure reading and an overnight bag. On the day of your procedure, come directly to the Cardiac Printing Equipment Mechanic Apprentice area forester desk, located on the 6th floor of [facility] (2G- [phone].) You will be escorted to the Cardiac Cath recovery room. Please call the Cardiac Printing Equipment Mechanic Apprentice at if you have any questions regarding [...] read and verbalizes understanding of teaching provided. [facility] 2023-11-09 10:30:00 Images from the original note were not included. Venipuncture collection performed by clean technique on the left anticubitus. Total of 1 attempts were made. Slight pressure and a bandage/dressing were applied to the site(s). The patient experienced no complications. The following specimens were processed according to instructions and sent to [facility] laboratories per lab order on 11/09/2023 : LT BLUE 1 SST 1 RED LAV 1 PPT DK GREEN (LiHep) DK GREEN (SodH) VÁSQUEZ DK BLUE (K2) DK BLUE (S) ACD Blood Culture NIPT/NTD [facility] 2023-10-26 11:57:38 Future lab orders in. Refill done according to Cardiology Medication Refill Guidelines. E Huang LVN [facility] 2023-10-26 08:09:05 No Transmission Notification (Day 5) received via fax and reviewed by Dr Julien. Form scanned into chart. E Hernandez MA [facility] 2023-10-25 12:08:43 Called patient to schedule agreed to 11/13, labs appt moved up to 11/08. [facility] Melina Rey [facility] 2023-10-25 09:04:12 Called patient to schedule, no answer left voicemail with call back information. E Rey [facility] 2023-10-18 11:01:26 Called Patient to schedule Loop Recorder Insertion. Patient agreed to have procedure on 11/30/[address] Olson. Labs are schedule for 11/23/2023. E Yusuf [facility] 2023-10-11 10:13:06 Appointment made 10/22/23 for follow up visit with Dr Julien. Reviewed [facility] procedure and rational with . Questions asked and answered E Huber RN [facility] 2023-10-04 15:41:51 Spoke with patient's spouse with verbal permission. She verbalized understanding new medications. Rx sent to [facility] in [place]. Nathanael has been scheduled to see Dr. Olson on 10/10/23 "Cardiac event monitor showed possible atrial fibrillation/flutter. Recommend to start metoprolol 25 mg twice daily. Start Eliquis 2.5 mg twice daily. Previously I have sent a message asking to make an EP appointment with the patient but I do not see that being made " E Mock RN [facility] 2023-10-04 15:32:21 Nathanael Alcocer is a 83 year old male Patient spouse returning phone call Was able to warm transfer to clinic nurse [phone] (home) E Hernandez [facility] 2023-10-04 15:26:30 Attempted to contact patient with results/recommendations. LVM for patient to return call to [phone]. [facility] 2023-10-03 14:37:45 Cardiac event monitor showed possible atrial fibrillation/flutter. Recommend to start metoprolol 25 mg twice daily. Start Eliquis 2.5 mg twice daily. Previously I have sent a message asking to make an EP appointment with the patient but I do not see that being made. [facility] 2023-10-01 08:45:31 Call to patient's to review concerns regarding 30 day monitor. She stated that everything is now working and that they are ok , patient will continue to wear the monitor at this time E Huber RN [facility] 2023-09-28 17:04:24 Nathanael Alcocer is a 83 year old male is calling stating they have took the heart monitor home and was having trouble hooking it up and wifi was not working. stating pt will just not use it and will return it. Please advise E Gould [facility] 2023-09-19 15:40:00 Addended by: CHARLENE JULIEN MD on: 09/30/2023 08:44 AM Modules accepted: Orders [facility] 2023-09-18 15:28:40 Contacted patient and rescheduled patients appointments. E Feliciano [facility] 2023-09-18 13:45:37 Will route to PSS for assistance E Mayers MA [facility] 2023-09-18 13:35:30 Nathanael Alcocer is a 83 year old male Pts calling to get echo r/s please advise. K AND STATION AGENT Adarsh Archer [facility] 2023-09-18 13:06:55 Spoke with Mrs Alcocer regarding husbands heart rate. Stated that he is in dialysis now but the staff were watching his heart rate increase and slow down on the monitor. Appointment made for 340 Notified if symptomatic, continuing symptoms or worsening concerns to consider ER visit. Verbalized understanding E Huber RN [facility] 2023-09-18 12:56:35 Nathanael Alcocer is a 83 year old male Estee with [facility] is calling about Pt . Might be having some Afib but wanted to let Dr. Julien know .Please advise K AND STATION AGENT Amanda Waters [facility] 2023-09-18 12:24:54 Error E Almanzar [facility] 2023-09-18 11:22:23 Nathanael Alcocer is a 83 year old male Estee with [facility] calling to speak with nurse said patient has been going in and out of Afib, need advise. Please call [phone] E Powers [facility] 2023-09-12 14:56:42 Contacted pt on 09/12 to schedule appt. Pt did not answer, lvmtrc. I will contact pt again tomorrow morning to try to schedule. E Can [facility] 2023-09-12 12:38:07 Attempted to contact patient with recommendations. LVM for patient to return call to [phone]. Patient is already scheduled for the echocardiogram on 09/3023. If patient returns call please assist him to schedule the 30 day event monitor that was ordered by Dr. Julien to further evaluate his elevated heart rates. [facility] Susu Mock RN [facility] 2023-09-12 12:38:02 ----- Message from Charlene Julien MD sent at 09/01/2023 2:45 PM STOCK AND STATION AGENT ----- I reviewed his hospital records. No echocardiogram report attached. I ordered 30-day cardiac event monitor and echocardiogram. Please schedule if patient is agreeable. [facility] 2023-08-22 10:40:00 Addended by: CHARLENE JULIEN MD on: 09/01/2023 02:45 PM Modules accepted: Orders [facility]
[2024-12-12 16:35] LABS: Absolute Basophils 0.1 K/uL (0-0.5); Absolute Eosinophils 0.2 K/uL (0-0.5); Absolute Lymphocytes (CBC) 1.2 K/uL (0.7-4.9); Absolute Monocytes 0.6 K/uL (0.1-1.3); Absolute Neutrophil 2.9 K/uL (1.8-8.0); Basophils % 1.2 % (0-1.3); Eosinophils % 3.6 % (0-4.4); Hematocrit 33.8 % (39.6-49.0); Hemoglobin 11.7 g/dL (13.6-17.9); Lymphocytes % 24.3 % (15.3-44.8); MCH 36.3 pg (27.0-35.0); MCHC 34.7 g/dL (32.0-36.0); MCV 104.7 fL (80-100); MPV 7.7 fL (7.6-11.3); Monocytes % 12.3 % (3.3-12.3); Neutrophils % 58.6 % (41.7-73.7); Nucleated Red Blood Cells % 0.1 % (0-0); Platelets 175 thou/uL (152-406); RBC Red Blood Cell Count 3.22 M/uL (4.33-5.43); Red Cell Distribution Width 13.3 % (12.1-15.2)
--- NOTE | 2024-12-12 16:40 | RAD REPORT ---
EXAMINATION: Head Brain Wo Cont CLINICAL INDICATION: Male, 84 years old.SYNCOPE TECHNIQUE: Axial CT images from the skull base to the vertex without intravenous contrast. Coronal an d sagittal reformatted images were created from the data set. One or more of the following dose reduction techniques were used: Automated exposure control, adjustment of the mA and/or kV according to patient size, and/or iterative reconstruction. Unless otherwise specified, incidental findings do not require dedicated imaging follow-up. [id number]. COMPARISON: 07/31/24 FINDINGS: INTRACRANIAL: No acute intracranial hemorrhage. No hydrocephalus. No mass effect or midline shift. Mi ld chronic small vessel ischemic changes.Mild cerebral atrophy. VASCULATURE: No visualized abnormalities in the arteries or dural venous sinuses. SCALP/SKULL: No calvarial fracture identified. No acute soft tissue abnormality. SINUSES: The visualized paranasal sinuses are mostly clear. No significant mastoid fluid. IMPRESSION: No acute intracranial abnormality. No significant change from prior.
[2024-12-12 16:50] LABS: Albumin 3.7 g/dL (3.4-5.0); Albumin/Globulin Ratio 1.1 (1.1-1.8); Anion Gap 10.4 mEq/L (5.0-15.0); Bilirubin Direct 0.2 mg/dL (0-0.2); Bilirubin Indirect, Calculated 0.2 mg/dL (0.2-0.8); Bilirubin Total 0.4 mg/dL (0.2-1.0); Globulin 3.4 g/dL (2.3-3.5); Potassium 3.4 mEq/L (3.5-5.1); Protein, Total 7.1 g/dL (6.4-8.2)
[2024-12-12 16:56] LABS: Troponin High Sensitivity 196.1 pg/mL (<58.9)
--- NOTE | 2024-12-12 17:08 | ER ---
Nurse's Notes [facility] Name: Nathanael Kamara Age: 84 yrs Sex: Male : 1940 Arrival Date: 12/12/2024 Time: 15:37 Bed 5 Private MD: Diagnosis: NSTEMI, near syncope Presentation: 12/12 16:01 Chief complaint: Patient states: Low BP and double vision while at dialysis today, said ph that full dialysis was completed, denies double vision at this time, BP WNL. Coronavirus screen: Vaccine status: Patient reports receiving the 2nd dose of the covid vaccine. Ebola Screen: No symptoms or risks identified at this time. Initial Sepsis Screen: Does the patient meet any 2 criteria? No. Patient's initial sepsis screen is negative. Does the patient have a suspected source of infection? No. Patient's initial sepsis screen is negative. Risk Assessment: Do you want to hurt yourself or someone else? Patient reports no desire to harm self or others. Onset of symptoms was December 12, 2024. 16:01 Method Of Arrival: Wheelchair 16:01 Acuity: MAMTA 3 ph Triage Assessment: 16:03 General: Appears in no apparent distress. Behavior is calm, cooperative. Pain: Denies ph pain. Neuro: Level of Consciousness is awake, alert, obeys commands, Oriented to person, place, situation. Cardiovascular: Capillary refill < 3 seconds in bilateral fingers Patient's skin is warm and dry. Cardiovascular: Dialysis shunt: in the anterior aspect of right upper chest. Respiratory: Airway is patent Respiratory effort is even, unlabored. Derm: Skin is pink, warm \T\ dry. Historical: - Allergies: 16:03 CEPHALOSPORINS; ph - PMHx: 16:03 a fib; Hypertensive disorder; kidney disease; ph - PSHx: 16:03 dialysis port R chest; ph - Immunization history:: Adult Immunizations unknown. - Infectious Disease History:: Denies. - Social history:: Smoking status: Patient denies any tobacco usage or history of. Screenin:04 [facility] ED Fall Risk Assessment (Adult) History of falling in the last 3 months, ph including since admission No falls in past 3 months (0 pts) Confusion or Disorientation No (0 pts) Intoxicated or Sedated No (0 pts) Impaired Gait No (0 pts) Mobility Assist Device Used Yes (1 pt) Altered Elimination No (0 pt) Score/Fall Risk Level 0 - 2 = Low Risk Oriented to surroundings, Maintained a safe environment, Hourly rounding (assess needs \T\ fall precautionary measures) done. Abuse screen: Denies threats or abuse. Denies injuries from another. Nutritional screening: No deficits noted. Tuberculosis screening: No symptoms or risk factors identified. Assessment: 16:30 General: SEE TRIAGE ASSESSMENT. ph 18:03 Reassessment: Attempted to call report to [facility], informed that room was dirty and they cannot take report until it's clean, will call back in approx 30 minutes. 18:47 Reassessment: Patient appears in no apparent distress at this time. Patient and/or ph family updated on plan of care and expected duration. Pain level reassessed. Report called to YANDEL Byrne at [facility], awaiting EMS for transport. 19:03 Reassessment: Patient appears in no apparent distress at this time. Patient and/or ph family updated on plan of care and expected duration. Pain level reassessed. Patient is alert, oriented x 3, equal unlabored respirations, skin warm/dry/pink. Vital Signs: 16:01 BP 145 / 81; Pulse 59; Resp 18; Temp 97.3; Pulse Ox 100% on R/A; Weight 58.97 kg; ph Height 5 ft. 7 in. ; Pain 0/10; 17:00 BP 148 / 96; Pulse 55; Resp 18; Pulse Ox 100% on R/A; ph 18:04 BP 148 / 87; Pulse 66; Resp 18; Pulse Ox 100% on R/A; ph 20:27 BP 139 / 66; Pulse 57; Resp 18; Pulse Ox 100% ; cp4 16:01 Body Mass Index 20.36 (58.97 kg, 170.18 cm) ph 16:01 Pain Scale: Adult ph ED Course: 15:40 Patient arrived in ED. mr 15:50 Anastasia Erickson MD is Attending Physician. sp3 16:01 Marium Roberts, YANDEL is Primary Nurse. ph 16:03 Triage completed. ph 16:04 Arm band placed on Patient placed in an exam room, on a stretcher, on hospital monitor, ph on pulse oximetry. 16:04 Patient has correct armband on for positive identification. Placed in gown. Bed in low ph position. Call light in reach. Side rails up X2. monitor tech on. Pulse ox on. NIBP on. Door closed. Noise minimized. Warm blanket given. 16:15 Initial lab(s) drawn, by me, sent to lab. Inserted saline lock: 20 gauge in right aa5 wrist, using aseptic technique. Blood collected. Flushed with 10 mL NS. 16:27 EKG done, by ED staff, reviewed by Anastasia Erickson MD. em1 16:32 CT Head Brain wo Cont In Process Unspecified. EDMS 17:10 initiated a transfer with Emily from the [facility] transfer center at the request of the patient. 17:26 connected the environmental services aide it web development consultant for [facility] with Dre Martinez for patient eb transfer consultation. 17:49 administrative approval given by Emily Reeves/ patient has been accepted to [facility] Unit 9[address] room 922/ Dr. Della Russell has accepted the patient in transfer/ report to be called to [phone]. 18:00 No provider procedures requiring assistance completed. ph 20:31 [facility] called to transport, ETA over 1hr, Called [facility], [facility] had truck ready and hw available, Cancelled [facility] truck. 20:52 Provided Education on: transfer. cp4 20:52 Patient transferred, IV remains in place. cp4 Administered Medications: No medications were administered Medication: 16:04 VIS not applicable for this client. ph Outcome: 17:07 ER care complete, transfer ordered by . sp3 20:52 Transferred by ground EMS to [facility], Transfer form cp4 completed. X-rays sent w/ patient. 20:52 Condition: stable 20:52 Instructed on the need for transfer, 20:58 Patient left the ED. cp4 Signatures: Dispatcher [employer] EDCA Elieser Page, Tru Reg mr Arturo Horton em1 Lauren Palumbo, RN RN aa5 Marium Roberts RN RN Nga Hernández Anastasia Erickson MD MD sp3 Greer Fuentes cp4 Jaqueline Baca
--- NOTE | 2024-12-12 17:08 | EDPHYS ---
Physician Documentation [facility] Name: Nathanael Kamara Age: 84 yrs Sex: Male : 1940 Arrival Date: 12/12/2024 Time: 15:37 Bed 5 Private MD: ED Physician Anastasia Erickson HPI: 12/12 16:15 This 84 yrs old Male presents to ER via Wheelchair with complaints of Low bp. sp3 16:15 84-year-old male with history of hypertension, atrial fibrillation, end-stage renal sp3 disease on Sunday dialysis who presents for a now resolved hypotension episode where he had blurred vision and near syncope during dialysis. He did complete dialysis and they advised him to come here for further evaluation. Blood pressure here has been normal at the end of dialysis was also normal. He denies any current or prior headache, neck pain, chest pain, shortness of breath, abdominal pain, vomit, diarrhea,. He, focal neurological complaint or any other signs or symptoms on ROS at this time. Patient states all symptoms are now resolved.. Historical: - Allergies: 16:03 CEPHALOSPORINS; ph - PMHx: 16:03 a fib; Hypertensive disorder; kidney disease; ph - PSHx: 16:03 dialysis port R chest; ph - Immunization history:: Adult Immunizations unknown. - Infectious Disease History:: Denies. - Social history:: Smoking status: Patient denies any tobacco usage or history of. ROS: 16:16 Constitutional: Negative for fever, chills, and weight loss, Eyes: Negative for injury, sp3 pain, redness, and discharge, Neck: Negative for injury, pain, and swelling, Respiratory: Negative for shortness of breath, cough, wheezing, and pleuritic chest pain, Abdomen/GI: Negative for abdominal pain, nausea, vomiting, diarrhea, and constipation, Back: Negative for injury and pain, MS/Extremity: Negative for injury and deformity, Skin: Negative for injury, rash, and discoloration, Allergy/Immunology: Negative for hives, rash, and allergies, Endocrine: Negative for neck swelling, polydipsia, polyuria, polyphagia, and marked weight changes, Hematologic/Lymphatic: Negative for swollen nodes, abnormal bleeding, and unusual bruising, 16:16 All other systems are negative, Exam: 16:19 Constitutional: This is a well developed, well nourished patient who is awake, alert, sp3 and in no acute distress. Head/Face: Normocephalic, atraumatic. Eyes: Pupils equal round and reactive to light, extra-ocular motions intact. Lids and lashes normal. Conjunctiva and sclera are non-icteric and not injected. Cornea within normal limits. Periorbital areas with no swelling, redness, or edema. ENT: Nares patent. No nasal discharge, no septal abnormalities noted. External auditory canals are clear. Oropharynx with no redness, swelling, or masses, exudates, or evidence of obstruction, uvula midline. Mucous membranes moist. Neck: Trachea midline, no thyromegaly or masses palpated, and no cervical lymphadenopathy. Supple, full range of motion without nuchal rigidity, or vertebral point tenderness. No Meningismus. Chest/axilla: Normal chest wall appearance and motion. Nontender with no deformity. No lesions are appreciated. Cardiovascular: Regular rate and rhythm with a normal S1 and S2. No gallops, murmurs, or rubs. Normal PMI, no JVD. No pulse deficits. Respiratory: Lungs have equal breath sounds bilaterally, clear to auscultation and percussion. No rales, rhonchi or wheezes noted. No increased work of breathing, no retractions or nasal flaring. Abdomen/GI: Soft, non-tender, with normal bowel sounds. No distension or tympany. No guarding or rebound. No evidence of tenderness throughout. Back: No spinal tenderness. No costovertebral tenderness. Full range of motion. Skin: Warm, dry with normal turgor. Normal color with no rashes, no lesions, and no evidence of cellulitis. MS/ Extremity: Pulses equal, no cyanosis. Neurovascular intact. Full, normal range of motion. Neuro: Awake and alert, GCS 15, oriented to person, place, time, and situation. Cranial nerves II-XII grossly intact. Motor strength 5/5 in all extremities. Sensory grossly intact. Cerebellar exam normal. Normal gait. Psych: Awake, alert, with orientation to person, place and time. Behavior, mood, and affect are within normal limits. 16:34 ECG was reviewed by the Attending Physician. EKG demonstrates normal sinus rhythm at 60 sp3 bpm with first-degree AV block with MT interval 266, right bundle branch block and nonspecific diffuse ST/T changes without evidence of acute ischemia. Vital Signs: 16:01 BP 145 / 81; Pulse 59; Resp 18; Temp 97.3; Pulse Ox 100% on R/A; Weight 58.97 kg; ph Height 5 ft. 7 in. ; Pain 0/10; 17:00 BP 148 / 96; Pulse 55; Resp 18; Pulse Ox 100% on R/A; ph 18:04 BP 148 / 87; Pulse 66; Resp 18; Pulse Ox 100% on R/A; ph 20:27 BP 139 / 66; Pulse 57; Resp 18; Pulse Ox 100% ; cp4 16:01 Body Mass Index 20.36 (58.97 kg, 170.18 cm) ph 16:01 Pain Scale: Adult ph MDM: 15:59 Medical Screening Exam initiated sp3 16:19 Data reviewed: vital signs, nurses notes, lab test result(s), EKG, radiologic studies. sp3 ED course: 84-year-old male with PMH above now with a resolved hypotension and near syncopal episode. Differential diagnosis includes dialysis induced hypotension, other ACS event, orthostatic hypotension, among others. I am at highly suspicious of TIA/CVA, sepsis, shock or ST elevation NM. Will obtain EKG, general labs including troponin and CT scan of the head. If workup negative we will safely discharge patient home. Blood pressure now 145/81 patient is completely asymptomatic.. 17:06 ED course: No cardiology coverage or Camper Assembler where echo available here. We will sp3 transfer patient for NSTEMI and cardiology evaluation. Patient has existing relationship with Dr. Atkinson at [facility] and also at the [facility] system including prior admission at [place].. 12/12 16:08 Order name: Basic Metabolic Panel; Complete Time: 16:57 sp3 12/12 16:08 Order name: CBC with Diff; Complete Time: 16:42 sp3 12/12 16:08 Order name: LFT's; Complete Time: 16:57 sp3 12/12 16:08 Order name: NT PRO-BNP; Complete Time: 16:57 sp3 12/12 16:08 Order name: Troponin HS; Complete Time: 16:57 sp3 12/12 16:08 Order name: CT Head Brain wo Cont; Complete Time: 16:42 sp3 12/12 16:08 Order name: Cardiac monitoring; Complete Time: 16:38 sp3 12/12 16:08 Order name: EKG - Nurse/Tech; Complete Time: 16:27 sp3 12/12 16:08 Order name: IV Saline Lock; Complete Time: 16:38 sp3 12/12 16:08 Order name: Labs collected and sent; Complete Time: 16:38 sp3 12/12 16:08 Order name: O2 Sat Monitoring; Complete Time: 16:38 sp3 Administered Medications: No medications were administered Disposition Summary: 12/12/24 17:07 Transfer Ordered Notes: Transfer Location: [facility]-System sp3 Reason: Higher level of care sp3 Condition: Stable sp3 Problem: new sp3 Symptoms: have worsened sp3 Accepting Physician: JOCY [facility] physician(12/12/24 20:58) cp4 Diagnosis - NSTEMI, near syncope sp3 Forms: - Medication Reconciliation Form sp3 - SBAR form sp3 Signatures: Dispatcher [employer] EDMarium Duggan RN RN ph Anastasia Erickson MD MD sp3 Greer Fuentes cp4 Corrections: (The following items were deleted from the chart) 16:09 16:09 BASIC METABOLIC PANEL+C.LAB.BRZ ordered. EDMS EDMS 16:09 16:09 CBC+H.LAB.BRZ ordered. EDMS EDMS 16:09 16:09 HEPATIC FUNCTION+C.LAB.BRZ ordered. EDMS EDMS 16:09 16:09 PROBNP+C.LAB.BRZ ordered. EDMS EDMS 16:09 16:09 Troponin High Sensitivity+C.LAB.BRZ ordered. EDMS EDMS 16:09 16:09 Head Brain Wo Cont+CT.RAD.BRZ ordered. EDMS EDMS 20:58 17:07 [facility] physician sp3 cp4
[2024-12-12 21:08] VITALS: TEMP 97.3; O2SAT 100
[2024-12-12 21:24] VITALS: BP 139/66
--- NOTE | 2024-12-15 11:35 | EKG ---
Test Date: 2024-12-12 Test Time: 16:24:28 Dampener: SCOTT MEASUREMENT RESULTS: Intervals: Rate: 57 WY: 266 QRSD: 138 QT: 430 QTc: 418 [place]: P: 57 WY: 266 QRS: 34 T: 45 INTERPRETIVE STATEMENTS: Sinus bradycardia with 1st degree AV block Right bundle branch block Inferior infarct, age undetermined Anteroseptal infarct, age undetermined Abnormal ECG Compared to ECG 03/23/2024 09:58:16 Sinus rhythm no longer present Ventricular premature complex(es) no longer present Myocardial infarct finding still present Electronically Signed On 12-15-24 11:30:21 CDT by Fei Little
== END 2024-12-12 20:58 | disposition short-term general hospital (02) ==
LOC: ER 15:37
DX: I21.4 Non-ST elevation (NSTEMI) myocardial infarction (principal); I12.0 Hypertensive chronic kidney disease with stage 5 chronic kidney disease or end stage renal disease; N18.6 End stage renal disease; Z99.2 Dependence on renal dialysis; I48.91 Unspecified atrial fibrillation
CPT/HCPCS: 36415; 70450; 80048; 80076; 83880; 84484; 85025; 93005; 99285

== ENCOUNTER 2024-12-23 16:28 | Emergency (ER) | payer OTHER ==
--- OUTSIDE RECORDS SUMMARY | 2024-12-23 16:35 | XMS REPORT | Continuity of Care Document ---
Author Name Unknown Address [address] [facility] [address]. [address] [place] [address] [facility] Address [address] [facility]. [address] [place] [address] Care Team Providers Care Surveyor Rod Helper Name Role Phone PCP, PATIENT DOES NOT HAVE A Primary Care Physic harjeet Unavailable SHNAI JOINER Attending Clinician Unavailable SHANI JOINER Attending Clinician Unavailable Alphonso Stone Attending Clinician Unavailable CHARLENE RICHARDSON Attending Clinician Unavailable DANIAL WALSH Attending Clinician Unavailable Charlene Richardson MD Attending Clinician [phone] Johnna Taylor RN Attending Clinician [phone] DELLA RUSSELL Attending Clinician Unavailable DELLA RUSSELL Attending Clinician Unavailable Della Russell MD Attending Clinician [phone] Logan Ochoa MD Attending Clinician [phone] Danial Walsh MD Attending Clinician [phone] Greer Lopez Attending Clinician + [phone] ARIADNE IBARRA Attending Clinician Unavailable ARIADNE IBARRA Attending Clinician Unavailable Charlene Richardson MD Attending Clinician [phone] KING BROWN Attending Clinician UnavailManuelito CHAMBERS, King Attending Clinician [phone] Zack LEES [facility] Attending Clinician + [phone] Dixie Reyes MD Attending Clinician [phone] Doctor Unassigned, [place] Attending Clinician U navailable 2, [facility] Attending Clinician Unavailable Unassigned, Cath/Ep Attending Clinician Unavaila MILTON Littlejohn Attending Clinician Unavailable Lab, Adc Fam Pob I Attending Clinician Unavailab le Shira ROCKET ENGINE 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, Mitlon Attending Clinician [phone] SHANI JOINER Admitting Clinician Unavailable LOGAN OCHOA Admitting Clinician Unavailable Logan Ochoa MD Admitting Clinician [phone] CHARLENE RICHARDSON Admitting Clinician Unavailable KING BROWN Admitting Clinician Unavailzach [facility] Admitting Clinician Cachorro Wilson MD [facility] Admitting Clinician + [phone] Payers Payer Name Policy Type Policy Number Effective Date Expirati on Date Source [employer] [place] [employer] PPO-NEHA [id number] 2022 00:00:00 [employer] MED[employer] PPO 53 [id number] [facility] Problems Condition Name Condition Details Condition Category Status Onset Date Resolution Date Last Treatment Date Treating Clinician Comments Source NSTEMI (non-ST elevated myocardial infarction ) NSTEMI (non-ST elevated myocardial infarction ) Disease Active 4-04 00:00: 00 [facility] Bradycardi a Bradycardi a Disease Active 3-10 00:00: 00 [facility] Coronary artery disease involving makah coronary artery of makah heart without angina pectoris Coronary artery disease involving makah coronary artery of makah heart without angina pectoris Disease Active 3-11 00:00: 00 [facility] HFrEF (heart failure with reduced ejection fraction) HFrEF (heart failure with reduced ejection fraction) Disease Active 2-12 00:00: 00 [facility] Nonrheumat ic aortic valve stenosis Nonrheumat ic aortic valve stenosis Disease Active 10-22 00:00: 00 [facility] PAF (paroxysma l atrial fibrillati on) PAF (paroxysma l atrial fibrillati on) Disease Active 10-22 00:00: 00 [facility] Hyperlipid emia, unspecifie d hyperlipid emia type Hyperlipid emia, unspecifie d hyperlipid emia type Disease Active 10-22 00:00: 00 [facility] Atrial fibrillati on Atrial fibrillati on Disease Active 10-10 00:00: 00 [facility] First degree atrioventr icular block First degree atrioventr icular block Disease Active 10-10 00:00: 00 [facility] Tachycardi a Tachycardi a Disease Active 2022-09 00:00: 00 [facility] ESRD (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 ESRD (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 Disease Active 2022-09 00:00: 00 [facility] [id number] Bilateral nephrolith iasis Problem [facility] [id number] Acute lower UTI Problem [facility] [id number] BPH loc 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 Problem [facility] [id number] Incomplete emptying of bladder Problem [facility] [id number] Lower urinary tract symptoms (LUTS) Problem [facility] [id number] Renal cysts, acquired, bilateral Problem [facility] [id number] Cystitis Problem [facility] Allergies, Adverse Reactions, Alerts Allergy Name Allergy Type Status Severity Reaction(s) Onset Date Inactive Date Treating Clinician Comments Source CEPHALOS PORINS Drug Class Active Unknown-Cmnt 12-12 00:00: 00 [facility] Cephalos porins Propensi ty to adverse reaction s Active Unknown - See comments 12-12 00:00: 00 Pt hasn't taken medicatio n in over 20 years and is unsure of his reaction. [facility] Cephalos porins Propensi ty to adverse reaction s Active Unknown - See comments 12-12 00:00: 00 Pt hasn't taken medicatio n in over 20 years and is unsure of his reaction. [facility] NO KNOWN ALLERGIE S Drug Class Active [facility] Medicina l cephalos porin and acting as antibact erial agent (FN) Medicina l cephalos porin and acting as antibact erial agent (FN) Active Unknown [facility] Social History Social Habit Start Date Stop Date Quantity Comments Source History of Tobacco Use [facility] Sex Assigned At [facility] Exposure to SARS-CoV-2 (event) Not sure [facility] History of Social function 2023-10-22 00:00:00 2023-10-22 00:00:00 [facility] Tobacco use and exposure 2023-09-19 00:00:00 2023-09-19 00:00:00 Smokeless tobacco non-user [facility] Smoking Status Start Date Stop Date Source Never smoked tobacco [facility] Medications Ordered Medication Name Filled Medication Name Start Date Stop Date Current Medication? Ordering Clinician Indication Dosage Frequency Signature (SIG) Comments Components Source aspirin 81 mg chewable tablet 12-16 00:00: 00 Yes [id number] 81mg Take 1 tablet by mouth in the morning. [facility] metoprolol succinate XL 25 mg 24 hr tablet 12-16 00:00: 00 Yes [id number] 25mg Take 1 tablet by mouth in the morning. [facility] heparin 1,000 unit/mL (10 mL) - dialysis catheter care 12-15 16:45: 00 12-15 17:16 :00 No [id number] 2000U DIALYSIS ONCE - JG DSU, 1 dose, On Sun12/15/24 at 1145, Routine [facility] mupirocin (BACTROBAN OINT) 2 % oinintment 12-15 12:59: 56 12-15 23:06 :[address] [facility] metoprolol succinate XL (TOPROL XL) tablet 25 mg 12-14 14:00: 00 Yes 25mg 25 mg, Oral, DAILY, First dose on 12/14/24 at 0900, Until Discontinu ed, Routine [facility] magnesium sulfate in D5W 1 gram/100 mL RTU IV Piggyback 1 g 12-14 11:45: 00 12-14 15:35 :00 No 1g 1 g, IV Piggyback, ONCE, 1 dose, On 12/14/24 at 0645, Administer over 60 Minutes, 100 mL [facility] atorvastati n (LIPITOR) tablet 40 mg 12-14 02:00: 00 12-15 23:06 :16 No 40mg 40 mg, Oral, QHS, First dose on 12/13/24 at 2100, Until Discontinu ed, Routine [facility] metoprolol tartrate (LOPRESSOR) tablet 12.5 mg 12-14 01:00: 00 12-14 01:20 :00 No 12.5mg 12.5 mg, Oral, BID, 1 dose, First dose (after last modificati on) on 12/13/24 at 2000, Routine [facility] perflutren protein-A microsphr (OPTISON) injection 3 mL 12-13 18:15: 00 12-13 18:15 :00 No [id number] 3mL 3 mL, IV Push, ONCE, 1 dose, On 12/13/24 at 1315, Routine [facility] aspirin chewable tablet 81 mg 12-13 14:00: 00 Yes 81mg 81 mg, Oral, DAILY, First dose on 12/13/24 at 0900, Until Discontinu ed, Routine [facility] PARoxetine (PAXIL) tablet 10 mg 12-13 14:00: 00 12-15 23:06 :16 No 10mg 10 mg, Oral, DAILY, First dose on 12/13/24 at 0900, Until Discontinu ed, Routine [facility] isosorbide mononitrate (IMDUR) 24 hr tablet 30 mg 12-13 14:00: 00 12-15 23:06 :16 No 30mg 30 mg, Oral, DAILY, First dose on Sun12/13/24 at 0900, Until Discontinu ed, Routine [facility] tamsulosin (FLOMAX) capsule 0.4 mg 12-13 13:00: 00 12-15 23:06 :16 No .4mg 0.4 mg, Oral, BID, First dose on [facility] 12/13/24 at 0800, Until Discontinu ed, Routine [facility] metoprolol tartrate (LOPRESSOR) tablet 12.5 mg 12-13 13:00: 00 12-13 19:53 :41 No 12.5mg 12.5 mg, Oral, BID, First dose on [facility] 12/13/24 at 0800, Until Discontinu ed, Routine [facility] nitroglycer in (NITROSTAT) sublingual tablet 0.4 mg 12-13 03:51: 12 12-15 23:06 :16 [address] [facility] acetaminoph en (TYLENOL) tablet 650 mg 12-13 03:51: 12 12-15 23:06 :16 No [address] [facility] isosorbide mononitrate 30 mg 24 hr tablet 12-12 00:00: 00 Yes [id number] 30mg Take 1 tablet by mouth in the morning. [facility] Flomax 0.4 MG Flomax 0.4 MG - 00:00: 00 No 1{bernadette vazquez_at_b edtime} QD Flomax 0.4 MG atorvastati n 40 mg tablet 3-24 00:00: 00 Yes [id number] 40mg TAKE 1 TABLET BY MOUTH EVERY DAY IN THE MORNING [facility] midodrine 2.5 mg tablet 2023-09 13:06: 35 Yes 2.5mg Take 1 tablet by mouth. [facility] vitamins B1-B2-B3-B1 2-protease 2.5 mg-2.5 mg- 5 mg-100 mcg Tab 2023-09 205 13:06: 35 Yes Take by mouth. [facility] apixaban 2.5 mg tablet 9-20 00:00: 00 Yes [id number] 2.5mg Take 1 tablet by mouth in the morning and 1 tablet in the evening. Indication s: atrial fibrillati on [facility] metoprolol tartrate 25 mg tablet 01-08 00:00: 00 12-15 00:00 :00 No [id number] 12.5mg Take 0.5 tablets by mouth in the morning and 0.5 tablets in the evening. [facility] lidocaine 1% (PF) (XYLOCAINE) injection 12-12 15:32: 45 12-12 15:54 :32 No ONCE INTRA PROCEDURE, Starting on Maria Del Carmen 12/13/23 at 1032, Until Maria Del Carmen 4 at 1054, Routine, CV Intraproce dure [facility] vancomycin (VANCOCIN) 1,000 mg in NaCl 0.9% (NS) 250 mL VIAL-MATE IV piggyback 12-12 15:25: 00 12-12 15:54 :29 No CONTINUOUS PRN, Starting on Maria Del Carmen 12/13/23 at 1025, Until Maria Del Carmen 424 at 1054, Administer over 60 Minutes, 250 mL, CV Intraproce dure [facility] NON-FORMULA RY MEDICATION 12-12 11:52: 28 08-14 00:00 :00 No Trans -Resveratr ol 600MG [facility] iron sucrose (VENOFER) 100 mg iron/5 mL injection 12-12 11:52: 28 08-14 00:00 :00 No 100mg 5 mL once now. [facility] epoetin beta, methoxy peg (MIRCERA) 50 mcg/0.3 mL Syrg 12-12 11:52: 28 08-14 00:00 :00 No Inject as directed. [facility] isosorbide mononitrate 30 mg 24 hr tablet 11-18 00:00: 00 12-12 00:00 :00 No [id number] 30mg Take 1 tablet by mouth in the morning. [facility] nitroglycer in (TRIDIL) 2 mg in 10 mL D5W for Cardiac Cath 11-13 16:16: 28 11-13 16:50 :34 No ONCE INTRA PROCEDURE, Starting on Sun11/14/23 at 1016, Until Sun11/14/23 at 1050, Routine, CV Intraproce dure [facility] aspirin tablet 11-13 16:09: 27 11-13 16:50 :34 No ONCE INTRA PROCEDURE, Starting on Sun11/14/23 at 1009, Until Sun11/14/23 at 1050, Routine, CV Intraproce dure [facility] lidocaine 1% (PF) (XYLOCAINE) injection 11-13 16:09: 08 11-13 16:50 :34 No ONCE INTRA PROCEDURE, Starting on Sun11/14/23 at 1009, Until Sun11/14/23 at 1050, Routine, CV Intraproce dure [facility] midazolam (VERSED) injection 11-13 16:01: 15 11-13 16:50 :34 No ONCE INTRA PROCEDURE, Starting on Sun11/14/23 at 1001, Until Sun11/14/23 at 1050, Routine, CV Intraproce dure [facility] FENTanyl PF (SUBLIMAZE (PF)) injection 11-13 16:00: 55 11-13 16:50 :35 No ONCE INTRA PROCEDURE, Starting on Sun11/14/23 at 1000, Until Sun11/14/23 at 1050, Routine, CV Intraproce dure [facility] folic acid/vit B complex and C (DIALYVITE 800 ORAL) 11-13 13:32: 21 Yes Take by mouth. [facility] iron sucrose (VENOFER) 100 mg iron/5 mL injection 11-13 13:32: 21 Yes 100mg 5 mL once now. [facility] epoetin beta, methoxy peg (MIRCERA) 50 mcg/0.3 mL Syrg 11-13 13:32: 21 Yes Inject as directed. [facility] atorvastati n 40 mg tablet -16 00:00: 00 Yes [id number] 40mg Take 1 tablet by mouth in the morning. [facility] metoprolol tartrate 25 mg tablet 10-22 00:00: 00 Yes [id number] 12.5mg Take 0.5 tablets by mouth in the morning and 0.5 tablets in the evening. [facility] atorvastati n 40 mg tablet 10-22 00:00: 00 10-23 00:00 :00 No [id number] 40mg Take 1 tablet by mouth in the morning. [facility] sulfur hexafluorid e microsphr (LUMASON) injection 5 mL 10-10 21:15: 00 10-10 21:07 :00 No [id number] 5mL 5 mL, Intravenou s, ONCE, 1 dose, On Sun10/10/23 at 1515, Routine
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 Indication s: atrial fibrillati on [facility] metoprolol tartrate 25 mg tablet 10-04 00:00: 00 10-22 00:00 :00 No 25mg Take 1 tablet by mouth in the morning and 1 tablet in the evening. [facility] epoetin beta, methoxy peg (MIRCERA) 50 mcg/0.3 mL Syrg 09-19 15:33: 38 Yes Inject as directed. [facility] folic acid/vit B complex and C (DIALYVITE 800 ORAL) 09-19 15:32: 49 Yes Take by mouth. [facility] iron sucrose (VENOFER) 100 mg iron/5 mL injection 09-19 15:32: 49 Yes 100mg 5 mL once now. [facility] tamsulosin 0.4 mg 24 hr capsule 09-11 00:00: 00 Yes .4mg Take 1 capsule by mouth in the morning and 1 capsule in the evening. [facility] PARoxetine 10 mg tablet 2022-09 00:00: 00 Yes 10mg Take 1 tablet by mouth in the morning. [facility] calcitrioL 0.5 mcg capsule 2022-09 00:00: 00 08-14 00:00 :00 No .5ug Take 1 capsule by mouth in the morning. [facility] ferrous sulfate 325 mg (65 mg iron) tablet 2022-09 00:00: 00 09-19 00:00 :00 No 325mg Take 1 tablet by mouth in the morning. [facility] Krill Oil 1000 MG Krill Oil [...] Value Comments S david Systolic blood pressure 2024-12-15 21:19:00 96 mm[Hg] [facility] Diastolic blood pressure 2024-12-15 21:19:00 53 mm[Hg] [facility] Heart rate 2024-12-15 21:19:00 59 /min [facility] Body temperature 2024-12-15 21:19:00 36.06 Mayela [facility] Respiratory rate 2024-12-15 21:19:00 16 /min [facility] Oxygen saturation in Arterial blood by Pulse oximetry 2024-12-15 21:19:00 98 /min [facility] Body weight 2024-12-15 08:28:00 58.695 kg [facility] BMI 2024-12-15 08:28:00 19.68 kg/m2 [facility] Body height 2024-12-13 03:20:00 172.7 cm [facility] height 2024-12-03 16:15:00 69 [in_i] Commo n [facility] weight 2024-12-03 16:15:00 126.2 [lb_av] Co mmon [facility] temperature 2024-12-03 16:15:00 97.6 [degF] Com mon [facility] bmi 2024-12-03 16:15:00 18.63 kg/m2 Comm on [facility] oximetry 2024-12-03 16:15:00 95 % Commo n [facility] respiratory rate 2024-12-03 16:15:00 18 /min [facility] blood pressure systolic 2024-12-03 16:15:00 92 mm[Hg] [facility] blood pressure diastolic 2024-12-03 16:15:00 53 mm[Hg] [facility] Systolic blood pressure 2024-08-19 16:06:00 95 mm[Hg] [facility] Diastolic blood pressure 2024-08-19 16:06:00 50 mm[Hg] [facility] Heart rate 2024-08-19 16:06:00 56 /min [facility] Body temperature 2024-08-19 16:06:00 36.78 Mayela [facility] Respiratory rate 2024-08-19 16:06:00 14 /min [facility] Body height 2024-08-19 16:06:00 170.2 cm per pt [facility] weight 2024-08-19 16:06:00 52.39 kg [facility] BMI 2024-08-19 16:06:00 18.09 kg/m2 [facility] Oxygen saturation in Arterial blood by Pulse oximetry 2024-08-19 16:06:00 99 /min [facility] Systolic blood pressure 2024-08-14 19:00:00 115 mm[Hg] [facility] Diastolic blood pressure 2024-08-14 19:00:00 65 mm[Hg] [facility] Heart rate 2024-08-14 19:00:00 75 /min [facility] Body temperature 2024-08-14 19:00:00 37 Mayela [facility] Respiratory rate 2024-08-14 19:00:00 20 /min [facility] Body height 2024-08-14 19:00:00 167.6 cm [facility] Body weight 2024-08-14 19:00:00 57.153 kg [facility] BMI 2024-08-14 19:00:00 20.34 kg/m2 [facility] Oxygen saturation in Arterial blood by Pulse oximetry 2024-08-14 19:00:00 99 /min [facility] Systolic blood pressure 2024-03-26 12:59:00 131 mm[Hg] [facility] Diastolic blood pressure 2024-03-26 12:59:00 81 mm[Hg] [facility] Heart rate 2024-03-26 12:59:00 70 /min [facility] Respiratory rate 2024-03-26 12:59:00 18 /min [facility] Body height 2024-03-26 12:59:00 172.7 cm [facility] Body weight 2024-03-26 12:59:00 54.885 kg [facility] BMI 2024-03-26 12:59:00 18.40 kg/m2 [facility] Oxygen saturation in Arterial blood by Pulse oximetry 2024-03-26 12:59:00 99 /min [facility] Systolic blood pressure 2024-02-19 15:38:00 125 mm[Hg] [facility] Diastolic blood pressure 2024-02-19 15:38:00 75 mm[Hg] [facility] Heart rate 2024-02-19 15:38:00 86 /min [facility] Respiratory rate 2024-02-19 15:38:00 16 /min [facility] Body height 2024-02-19 15:38:00 171.5 cm [facility] Body weight 2024-02-19 15:38:00 57.289 kg [facility] BMI 2024-02-19 15:38:00 19.49 kg/m2 [facility] Oxygen saturation in Arterial blood by Pulse oximetry 2024-02-19 15:38:00 98 /min [facility] Systolic blood pressure 2023-12-13 16:30:00 125 mm[Hg] [facility] Diastolic blood pressure 2023-12-13 16:30:00 65 mm[Hg] [facility] Heart rate 2023-12-13 16:30:00 56 /min [facility] Respiratory rate 2023-12-13 16:30:00 16 /min [facility] Oxygen saturation in Arterial blood by Pulse oximetry 2023-12-13 16:30:00 96 /min [facility] Body temperature 2023-12-13 15:02:00 36.56 Mayela [facility] Body height 2023-12-13 15:02:00 167.6 cm [facility] Body weight 2023-12-13 15:02:00 58.968 kg [facility] BMI 2023-12-13 15:02:00 20.98 kg/m2 [facility] Systolic blood pressure 2023-12-13 16:30:00 125 mm[Hg] [facility] Diastolic blood pressure 2023-12-13 16:30:00 65 mm[Hg] [facility] Heart rate 2023-12-13 16:30:00 56 /min [facility] Respiratory rate 2023-12-13 16:30:00 16 /min [facility] Oxygen saturation in Arterial blood by Pulse oximetry 2023-12-13 16:30:00 96 /min [facility] Body temperature 2023-12-13 15:02:00 36.56 Mayela [facility] Body height 2023-12-13 15:02:00 167.6 cm [facility] Body weight 2023-12-13 15:02:00 58.968 kg [facility] BMI 2023-12-13 15:02:00 20.98 kg/m2 [facility] Systolic blood pressure 2023-11-19 15:23:00 117 mm[Hg] [facility] Diastolic blood pressure 2023-11-19 15:23:00 65 mm[Hg] [facility] Heart rate 2023-11-19 15:23:00 70 /min [facility] Body temperature 2023-11-19 15:23:00 37.28 Mayela [facility] Respiratory rate 2023-11-19 15:23:00 18 /min [facility] Body height 2023-11-19 15:23:00 167.6 cm [facility] Body weight 2023-11-19 15:23:00 59.194 kg [facility] BMI 2023-11-19 15:23:00 21.06 kg/m2 [facility] Oxygen saturation in Arterial blood by Pulse oximetry 2023-11-19 15:23:00 95 /min [facility] Systolic blood pressure 2023-11-14 19:00:00 148 mm[Hg] [facility] Diastolic blood pressure 2023-11-14 19:00:00 85 mm[Hg] [facility] Heart rate 2023-11-14 19:00:00 65 /min [facility] Respiratory rate 2023-11-14 19:00:00 12 /min [facility] Oxygen saturation in Arterial blood by Pulse oximetry 2023-11-14 19:00:00 99 /min [facility] Body height 2023-11-14 13:28:00 167.6 cm [facility] Body weight 2023-11-14 13:28:00 58.968 kg [facility] BMI 2023-11-14 13:28:00 20.98 kg/m2 [facility] Systolic blood pressure 2023-11-14 13:28:00 122 mm[Hg] [facility] Diastolic blood pressure 2023-11-14 13:28:00 68 mm[Hg] [facility] Body height 2023-11-14 13:28:00 167.6 cm [facility] Body weight 2023-11-14 13:28:00 58.968 kg [facility] BMI 2023-11-14 13:28:00 20.98 kg/m2 [facility] Oxygen saturation in Arterial blood by Pulse oximetry 2023-11-14 13:28:00 97 /min [facility] Systolic blood pressure 2023-10-22 16:29:00 128 mm[Hg] [facility] Diastolic blood pressure 2023-10-22 16:29:00 75 mm[Hg] [facility] Heart rate 2023-10-22 16:29:00 82 /min [facility] Respiratory rate 2023-10-22 16:29:00 18 /min [facility] Body height 2023-10-22 16:29:00 167.6 cm [facility] Body weight 2023-10-22 16:29:00 59.557 kg [facility] BMI 2023-10-22 16:29:00 21.19 kg/m2 [facility] Oxygen saturation in Arterial blood by Pulse oximetry 2023-10-22 16:29:00 96 /min [facility] Systolic blood pressure 2023-10-10 20:01:00 148 mm[Hg] [facility] Diastolic blood pressure 2023-10-10 20:01:00 73 mm[Hg] [facility] Heart rate 2023-10-10 20:01:00 52 /min [facility] Oxygen saturation in Arterial blood by Pulse oximetry 2023-10-10 20:01:00 97 /min [facility] Respiratory rate 2023-10-10 19:59:00 19 /min [facility] [place] [facility] height 2023-10-10 19:59:00 170.2 cm [facility] Body weight 2023-10-10 19:59:00 57.879 kg [facility] BMI 2023-10-10 19:59:00 19.98 kg/m2 [facility] Systolic blood pressure 2023-09-19 21:27:00 139 mm[Hg] [facility] Diastolic blood pressure 2023-09-19 21:27:00 81 mm[Hg] [facility] Heart rate 2023-09-19 21:27:00 86 /min [facility] Respiratory rate 2023-09-19 21:27:00 18 /min [facility] [place] Body height 2023-09-19 21:27:00 167.6 cm [facility] Body weight 2023-09-19 21:27:00 57.607 kg [facility] BMI 2023-09-19 21:27:00 20.50 kg/m2 [facility] Oxygen saturation in Arterial blood by Pulse oximetry 2023-09-19 21:27:00 96 /min [facility] Systolic blood pressure 2023-08-22 16:42:00 128 mm[Hg] [facility] Diastolic blood pressure 2023-08-22 16:42:00 76 mm[Hg] [facility] Heart rate 2023-08-22 16:42:00 78 /min [facility] Body temperature 2023-08-22 16:42:00 37.11 Mayela [facility] [place] Respiratory rate 2023-08-22 16:42:00 18 /min [facility] [place] Body height 2023-08-22 16:42:00 167.6 cm per pt [facility] Body weight 2023-08-22 16:42:00 53.661 kg [facility] BMI 2023-08-22 16:42:00 19.09 kg/m2 [facility] Oxygen saturation in Arterial blood by Pulse oximetry 2023-08-22 16:42:00 97 /min [facility] height 2023-06-21 13:15:00 69 [in_i] Commo n [facility] weight 2023-06-21 13:15:00 116 [lb_av] Comm on [facility] temperature 2023-06-21 13:15:00 97.3 [degF] Com mon [facility] bmi 2023-06-21 13:15:00 17.13 kg/m2 Comm on [facility] oximetry 2023-06-21 13:15:00 99 % Commo n [facility] respiratory rate 2023-06-21 13:15:00 18 /min [facility] blood pressure systolic 2023-06-21 13:15:00 110 mm[Hg] [facility] blood pressure diastolic 2023-06-21 13:15:00 55 mm[Hg] [facility] Procedures Procedure Date / Time Performed Performing Clinician Source MRSA / MSSA SCREEN BY PCR, MATT 2024-12-15 14:23:00 Kecia Chaney [facility] [place] PHOSPHORUS 2024-12-15 09:43:00 Swapna Quijano Herron [facility] [place] MAGNESIUM 2024-12-15 09:43:00 Swapna Quijano Herron [facility] [place] BASIC METABOLIC PANEL (NA, K, CL, CO2, GLUCOSE, BUN, CREATININE, CA) 2024-12-15 09:43:00 Alfred Quijano Herron [facility] [place] INTACT PTH CALCIUM GROUP 2024-12-15 09:43:00 Alfred Baptiste Herron [facility] [place] CBC WITH DIFF 2024-12-15 09:43:00 Swapna Quijano Herron [facility] [place] CBC WITHOUT DIFF 2024-12-14 20:38:00 Maya Quijano Herron [facility] [place] PHOSPHORUS 2024-12-14 09:34:00 Sanchez, Kelly [facility] MAGNESIUM 2024-12-14 09:34:00 Laura [facility] TROPONIN I 2024-12-14 09:34:00 Swapna Quijano Herron [facility] [place] BASIC METABOLIC PANEL (NA, K, CL, CO2, GLUCOSE, BUN, CREATININE, CA) 2024-12-14 09:34:[facility] 2024-12-14 09:34:00 Kelly Sanchez [facility] TROPONIN I 2024-12-13 23:39:00 Aaron Potts [facility] [place] TRANSTHORACIC ECHO (TTE) COMPLETE W/ CONTRAST 2024-12-13 18:11:40 Aaron Potts [facility] [place] TROPONIN I 2024-12-13 17:06:00 Aaron Potts [facility] [place] URINE DRUG (IMMUNOASSAY) - COMPREHENSIVE DRUG SCREEN 2024-12-13 14:28:00 Aaron Potts [facility] [place] URINALYSIS 2024-12-13 14:28:00 Aaron Potts [facility] [place] HB ECG ROUTINE & RHYTHM STRIP 2024-12-13 13:35:[address] [facility] TROPONIN I 2024-12-13 10:34:00 Aaron Potts [facility] [place] CBC WITHOUT DIFF 2024-12-13 10:34:00 Omar Potts [facility] [place] HEPATITIS B SURFACE ANTIGEN 2024-12-13 10:34:00 Kecia Chaney [facility] [place] MAGNESIUM 2024-12-13 05:00:00 Aaron Potts [facility] [place] FERRITIN SERUM 2024-12-13 05:00:00 Reid Potts [facility] [place] TROPONIN I 2024-12-13 05:00:00 Aaron Potts [facility] [place] THYROID STIMULATING HORMONE 2024-12-13 05:00:00 Martha segura [facility] HEPATIC FUNCTION PANEL (12690) (ALB,T.PRO,BILI T,BU/BC,ALT,AST,ALK PHOS) 2024-12-13 05:00:00 Delroy [facility] BASIC METABOLIC PANEL (NA, K, CL, CO2, GLUCOSE, BUN, CREATININE, CA) 2024-12-13 05:00:00 Delroy [facility] LIPID PANEL (64693)(TOTAL CHOLESTEROL, TRIGLYCERIDES, HDL) 2024-12-13 05:00:00 Delroy [facility] IRON PANEL 2024-12-13 05:00:00 Delroy [facility] CBC WITH DIFF 2024-12-13 05:00:00 Delroy [facility] GLYCOSYLATED HEMOGLOBIN (A1C) 2024-12-13 05:00:00 Delroy [facility] PROTHROMBIN TIME / INR 2024-12-13 05:00:00 Delroy [facility] ACTIVATED PARTIAL THRMPLAS ELISSA 2024-12-13 05:00:00 Delroy [facility] HEPATITIS B SURFACE ANTIBODY 2024-12-13 05:00:00 Kecia Chaney [facility] [place] N-TERMINAL PRO-BNP 2024-12-13 [facility]HYTHM STRIP 2024-12-13 04:50:40 Delroy [facility] PVR 2024-12-03 00:00:00 Common S [facility] TRANSTHORACIC ECHO (TTE) COMPLETE 2024-03-06 13:31:46 Charlene Richardson [facility] [place] ELECTROPHYSIOLOGY PROCEDURE 2023-12-13 15:50:00 Shani Cronin i [facility] [place] CARDIAC CATHETERIZATION 2023-11-14 16:33:30 Jean-Paul Richardson [facility] [place] CARDIAC CATHETERIZATION 2023-11-14 16:33:30 Jean-Paul Richardson [facility] [place] OUTPATIENT CARDIAC CATHETERIZATION DOCUMENTS 2023-11-14 06:01:00 Doctor Unassigned, Wainaku [facility] [place] TRANSTHORACIC ECHO (TTE) COMPLETE W/ CONTRAST 2023-10-10 21:31:23 Charlene Richardson [facility] [place] CONSENT/REFUSAL FOR DIAGNOSIS AND TREATMENT 2023-08-22 16:31:01 Doctor Unassigned, Wainaku [facility] [place] PVR 2023-06-21 00:00:00 Common S [facility] Encounters Start Date/Time End Date/Time Encounter Type Admission Type Attending Clinicians Care Facility Care Department Encounter ID Source 2024-04-22 14:14:14 Outpatient SHANI CAT HAIDER [facility] [id number] [facility] 2023-06-21 12:52:00 [facility] [id number] [facility] 2025-01-01 11:00:00 2025-01-01 11:00:00 Outpatient R CHARLENE RICHARDSON [facility] [id number] [facility] 2024-12-12 00:00:00 2024-12-18 12:41:15 [facility] 1..840.114 350.1.13.10 4.2.7.2.686 [id number] [facility] 2024-12-16 00:00:00 2024-12-16 17:32:13 Transition of Care Johnna Taylor Maria [facility] 1..840.114 350.1.13.10 4.2.7.2.686 [id number] [facility] 2024-12-12 22:18:00 2024-12-15 18:06:00 Outpatient DELLA KRAUS [facility] [id number] [facility] 2024-12-12 22:18:00 2024-12-15 18:06:00 Hospital Encounter Della Russell Aiham [facility] ([facility]) 1.2.840.114 350.1.13.10 4.2.7.2.686 [id number] [facility] 2024-12-08 00:00:00 2024-12-08 00:00:00 (TEL) [facility] [id number] [facility] 2024-12-04 00:00:00 2024-12-04 15:14:23 Telephone Dylan [facility] 1.2.840.114 350.1.13.10 4.2.7.2.686 [id number] [facility] 2024-12-03 00:00:00 2024-12-03 13:44:54 [facility] 1.2.840.114 350.1.13.10 4.2.7.2.686 [id number] [facility] 2024-12-03 00:00:00 2024-12-03 00:00:00 OFFICE VISIT ESTAB PT LEVEL 4 [facility] [id number] [facility] 2024-12-01 00:00:00 2024-12-01 00:00:00 (TEL) [facility] [id number] [facility] 2024-11-27 09:30:00 2024-11-27 11:13:47 [facility] [id number] [facility] 2024-11-18 08:30:00 2024-11-18 23:59:00 Outpatient [facility] [id number] [facility] 2024-11-17 15:20:00 2024-11-17 16:31:40 Outpatient [facility] [id number] [facility] 2024-08-15 00:00:00 2024-08-22 10:26:44 [facility] 1.2840.114 350.1.13.10 4.2.7.2.686 [id number] [facility] 2024-08-19 10:00:00 2024-08-19 10:21:46 Outpatient [facility] [id number] [facility] 2024-08-19 10:00:00 2024-08-19 10:21:46 Office Visit Dylan [facility] 1..840.114 350.1.13.10 4.2.7.2.686 [id number] [facility] 2024-08-14 13:00:00 2024-08-14 13:48:05 Outpatient R DANIAL WALSH [facility] [id number] [facility] 2024-08-14 13:00:00 2024-08-14 13:48:05 Office Visit Danial Walsh [facility] 1.2840.114 350.1.13.10 4.2.7.2.686 [id number] [facility] 2024-07-31 16:00:00 2024-07-31 16:00:00 Outpatient R DANIAL WALSH [facility] [id number] [facility] 2024-07-17 00:00:00 2024-07-24 12:51:58 Clinic Assessment Greer Davalos [facility] 1..840.114 350.1.13.10 4.2.7.2.686 [id number] [facility] 2024-05-29 00:00:00 2024-06-03 13:47:47 [facility] 1.2.840.114 350.1.13.10 4.2.7.2.686 [id number] [id number] [facility] 2024-05-30 00:00:00 2024-05-30 14:46:03 Telephone Charlene Richardson [facility] PROFESS[facility] NAL BUILDING 1.2.840.114 350.1.13.10 4.2.7.2.686 [id number] [id number] [facility] 2024-03-07 00:00:00 2024-04-12 18:25:19 Patient Secure Msg Dylan [facility] BUILDING 1.2.840.114 350.1.13.10 4.2.7.2.686 [id number] [facility] 2024-04-01 00:00:00 2024-04-02 12:18:27 Telephone [facility]ani [facility] 1.2.840.114 350.1.13.10 4.2.7.2.686 [id number] [facility] 2024-03-26 15:00:00 2024-03-26 15:00:00 Outpatient R SHANI JOINER SHANI [facility] [id number] [facility] 2024-03-26 08:00:00 2024-03-26 08:33:14 Outpatient R SHANI JOINER HAIDER [facility] [id number] [facility] 2024-03-26 08:00:00 2024-03-26 08:33:14 Office Visit Shani Joiner [facility] 1.2.840.114 350.1.13.10 4.2.7.2.686 [id number] [facility] 2024-03-12 15:30:00 2024-03-12 15:30:00 Outpatient R SHANI JOINER HAIDER [facility] [id number] [facility] 2024-03-06 07:31:54 2024-03-06 23:59:00 [facility] [id number] [facility] 2024-03-06 07:31:54 2024-03-06 23:59:00 [facility] 1.2.840.114 350.1.13.10 4.2.7.2.686 [id number] [facility] 2024-02-19 11:00:00 2024-02-19 11:17:17 Outpatient [facility] [id number] [facility] 2024-02-19 11:00:00 2024-02-19 11:17:17 Office Visit Dylan [facility] BUILDING 1.2.840.114 350.1.13.10 4.2.7.2.686 [id number] [facility] 2024-01-11 00:00:00 2024-01-11 00:00:00 Telephone [facility] 1.2.840.114 350.1.13.10 4.2.7.2.686 [id number] [facility] 2024-01-09 16:00:00 2024-01-09 16:28:24 Outpatient R REAL JIN SHANI JOINER [facility] [id number] [facility] 2024-01-09 16:00:00 2024-01-09 16:28:24 Office Visit Shani Joiner [facility] 1..840.114 350.1.13.10 4.2.7.2.686 [id number] [facility] 2024-01-09 00:00:00 2024-01-09 00:00:00 Refill [facility] 1.2.840.114 350.1.13.10 4.2.7.2.686 [id number] 059 [id number] [facility] 2023-12-27 14:10:33 2023-12-27 23:59:00 Outpatient R STEPHANIE [facility] [id number] [facility] 2023-12-27 14:10:33 2023-12-27 23:59:00 [facility] 1.2.840.114 350.1.13.10 4.2.7.2.686 [id number] [facility] 2023-12-19 00:00:00 2023-12-19 00:00:00 Telephone [facility] 1.2.840.114 350.1.13.10 4.2.7.2.686 [id number] [facility] 2023-12-13 09:32:00 2023-12-13 11:52:00 Outpatient R REAL DAVIN SHANI AL [facility] [id number] [facility] 2023-12-13 09:32:00 2023-12-13 11:52:00 Hospital Encounter Real [facility] ([facility] 1.2.840.114 350.1.13.10 4.2.7.2.686 [id number] [facility] 2023-12-13 11:00:00 2023-12-13 11:45:00 Surgery Real [facility] 1.2.840.114 350.1.13.10 4.2.7.2.686 [id number] [facility] 2023-11-22 00:00:00 2023-11-22 00:00:00 [facility] 1.2.840.114 350.1.13.10 4.2.7.2.686 [id number] [facility] 2023-11-22 00:00:00 2023-11-22 00:00:00 Telephone Shani Joiner [facility] 1.2.840.114 350.1.13.10 4.2.7.2.686 [id number] [facility] 2023-11-20 00:00:00 2023-11-20 00:00:00 [facility] 1.2.840.114 350.1.13.10 4.2.7.2.686 [id number] [facility] 2023-11-19 10:40:00 2023-11-19 10:40:00 Office [facility] 1.2.840.114 350.1.13.10 4.2.7.2.686 [id number] [facility] 2023-11-19 10:40:00 2023-11-19 10:36:42 Outpatient R DYLAN CHARLENE [facility] [id number] [facility] 2023-11-19 00:00:00 2023-11-19 00:00:[address] [facility] 1.2.840.114 350.1.13.10 4.2.7.2.686 [id number] [id number] [facility] 2023-11-14 06:53:00 2023-11-14 13:32:00 Outpatient R SHANI JOINER SH[facility] [id number] [facility] 2023-11-14 06:53:00 2023-11-14 13:32:00 Hospital Encounter Anastacio [facility]Copeland[facility] 1.2.840.114 350.1.13.10 4.2.7.2.686 [id number] [facility] 2023-11-14 08:30:00 2023-11-14 09:30:00 Surgery Mot[place], Afaq [facility] 1.2.840.114 350.1.13.10 4.2.7.2.686 [id number] [facility] 2023-11-14 00:00:00 2023-11-14 00:00:00 Orders Only Doctor Unassigned, Wainaku [facility] 1.2.840.114 350.1.13.10 4.2.7.2.686 [id number] [facility] 2023-11-09 10:30:00 2023-11-09 11:08:22 Outpatient R REAL DAVINSHANI REAL JIN SHANI [facility] [id number] [facility] 2023-11-09 10:30:00 2023-11-09 10:45:00 Gamer Visit 2, Adc Lab Anastacio Joinerder [facility] BUILDING 1.840.114 350.1.13.10 4.2.7.2.686 [id number] [facility] 2023-10-26 00:00:00 2023-10-26 00:00:00 Telephone Charlene Richardson [facility] BUILD[facility] 1.2840.114 350.1.13.10 4.2.7.2.686 [id number] [id number] [facility] 2023-10-25 00:00:00 2023-10-25 00:00:00 Telephone Unassigned, Cath/Ep [facility] 1.2.840.114 350.1.13.10 4.2.7.2.686 [id number] [id number] [facility] 2023-10-25 00:00:00 2023-10-25 00:00:00 Telephone Dylan [facility] 1.2.840.114 350.1.13.10 4.2.7.2.686 [id number] [facility] 2023-10-23 00:00:00 2023-10-23 00:00:00 Refill Dylan [facility] BUILDING 1.2.840.114 350.1.13.10 4.2.7.2.686 [id number] [id number] [facility] 2023-10-22 11:00:00 2023-10-22 11:00:00 Office Visit Dylan [facility] BUILDING 1.2.840.114 350.1.13.10 4.2.7.2.686 [id number] [facility] 2023-10-22 11:00:00 2023-10-22 10:47:53 Outpatient R DYLAN [facility] [id number] [facility] 2023-10-18 00:00:00 2023-10-18 00:00:00 Telephone Shani Joiner [facility] 1.2.840.114 350.1.13.10 4.2.7.2.686 [id number] [facility] 2023-10-11 00:00:00 2023-10-11 00:00:00 Telephone Dylan [facility] BUILDING 1.2.840.114 350.1.13.10 4.2.7.2.686 [id number] 059 [id number] [facility] 2023-10-10 14:23:40 2023-10-10 23:59:00 Hospital En[facility] 1.2.840.114 350.1.13.10 4.2.7.2.686 [id number] [facility] 2023-10-10 14:20:00 2023-10-10 14:22:37 Office Visit Real Anastacio Jinder [facility] BUILDING 1.2.840.114 350.1.13.10 4.2.7.2.686 [id number] [facility] 2023-10-10 14:20:00 2023-10-10 14:22:37 Outpatient R REAL OSMANYSHANI Alba DAVIN [facility] [id number] [facility] 2023-10-09 15:30:00 2023-10-09 15:30:00 [facility] [id number] [facility] 2023-10-09 00:00:00 2023-10-09 00:00:00 Refill Dylan [facility] BUILDING 1.2.840.114 350.1.13.10 4.2.7.2.686 [id number] 059 [id number] [facility] 2023-10-05 00:00:00 2023-10-05 00:00:00 Refill Dylan [facility] BUILDING 1.2.840.114 350.1.13.10 4.2.7.2.686 [id number] [facility] 2023-10-03 00:00:00 2023-10-03 00:00:00 Telephone [facility] 1.2.840.114 350.1.13.10 4.2.7.2.686 [id number] [facility] 2023-09-28 15:14:59 2023-09-28 23:59:00 Hospital En[facility] BU[facility] 1.2.840.114 350.1.13.10 4.2.7.2.686 [id number] [facility] 2023-09-28 15:14:59 2023-09-28 23:59:00 Out[facility] [id number] [facility] 2023-09-28 00:00:00 2023-09-28 00:00:00 Telephone Dylan [facility] BUILDING 1.2.840.114 350.1.13.10 4.2.7.2.686 [id number] [facility] 2023-09-19 15:40:00 2023-09-19 15:52:32 Outpatient [facility] [id number] [facility] 2023-09-19 15:40:00 2023-09-19 15:52:32 Office Visit Dylan [facility] 1.2.840.114 350.1.13.10 4.2.7.2.686 [id number] [facility] 2023-09-18 00:00:00 2023-09-18 00:00:00 Telephone Dylan [facility] BUILDING 1.2.840.114 350.1.13.10 4.2.7.2.686 [id number] [facility] 2023-09-18 00:00:00 2023-09-18 00:00:00 Telephone [facility] 1.2.840.114 350.1.13.10 4.2.7.2.686 [id number] [id number] [facility] 2023-09-18 00:00:00 2023-09-18 00:00:00 Telephone Jose [facility] 1.2.840.114 350.1.13.10 4.2.7.2.686 [id number] 059 [id number] [facility] 2023-09-12 00:00:00 2023-09-12 00:00:00 Telephone [facility] 1.2.840.114 350.1.13.10 4.2.7.2.686 [id number] [facility] 2023-08-28 00:00:00 2023-08-28 00:00:00 Telephone [facility] 1.2.840.114 350.1.13.10 4.2.7.2.686 [id number] [facility] 2023-08-22 10:40:00 2023-08-22 11:23:43 Outpatient R DYLAN [facility] [id number] [facility] 2023-08-22 10:40:00 2023-08-22 11:23:43 Office [facility] 1.2.840.114 350.1.13.10 4.2.7.2.686 [id number] 059 [id number] [facility] 2023-08-22 00:00:00 2023-08-22 00:00:00 Orders Only Doctor Unassigned, Wainaku [facility] 1.2.840.114 350.1.13.10 4.2.7.2.686 [id number] [facility] 2023-08-15 14:20:00 2023-08-15 14:20:00 Out[facility] [id number] [facility] 2023-06-21 00:00:00 2023-06-21 00:00:00 OFFICE VISIT ESTAB PT LEVEL 2 [facility] STL[facility]C [id number] [facility] 2020-03-31 14:00:00 2020-03-31 14:00:00 Outpatient R [facility] [id number] [facility] 2020-03-31 14:00:00 2020-03-31 14:00:00 Outpatient [facility] [id number] [facility] 2020-03-31 13:25:46 2020-03-31 13:45:46 Laboratory Only Lab, [facility] Shira [facility] [id number] [facility] 2020-03-31 13:25:46 2020-03-31 13:45:46 Laboratory Only Lab, Replaced by [facility] Office [address] [id number] 2020-03-31 13:00:00 2020-03-31 13:00:00 Outpatient MILTON COLÓN [facility] [id number] [facility] Results Test Description Test Time Test Comments Results Result [facility] [id number] 00:14:39* Test Item Value Reference Range Interpretation Comme nts TROPONIN I (test code = 5544995035) 0.040 ng/mL <=0.034 H DARIUS (test code = DARIUS) Reference (Normal) Range (defined by the 99th percentile reference limit): <= 0.034 ng/mL Note: Cardiac troponin begins to rise 3-4 hours after the onset of ischemia. Repeat in 4-6 hours if the sample was drawn within 3-4 hours of the onset of the symptom and found normal. Diagnosis of myocardial injury is made with acute changes in cTn concentrations with at least one serial sample above the 99th percentile upper reference limit (URL), taken together with the patient's clinical presentation. Biotin has been reported to cause a negative bias, interpret results relative to patient's use of biotin. Lab Interpretation (test code = 36971-2) [facility] 22:03:09* Test Item Value Reference Range Interpretation Comme nts Height (test code = 2609651158) 68 in Weight (test code = 7838587396) 125 lbs Systolic BP (test code = 8456776283) 124 mmHg Diastolic BP (test code = 2730280761) 67 mmHg Heart Rate (test code = 7009707959) 56 bpm EF(Teich) (test code = 6104272456) 32.10 % LVIDD (test code = 8468487101) 4.70 cm LVIDS (test code = 1239678200) 4.00 cm Left Ventricular End Systolic Volume by Teichholz Method (test code = 6840822) 70.9 mL Left Ventricular End Diastolic Volume by Teichholz Method (test code = 2052304) 104.4 mL IVS (test code = 3868911047) 1.13 cm LVPWD (test code = 2413950972) 0.71 cm LVOT diameter (test code = 6143342730) 2.08 cm LVOT area (test code = 5846539765) 3.40 cm2 FS (test code = 5897344817) 15 % MV Peak E Jay (test code = 1817350306) 49.0 cm/s MV Peak A Jay (test code = 5817900882) 73.0 cm/s E/A ratio (test code = 7686770613) 0.67 ratio E wave decelartion time (test code = 5861713454) 0.17 s LA Volume Index (BP) (test code = 8319114774) 26.6 mL/m2 LA volume (BP) (test code = 4609112095) 44.5 mL BSA (test code = 3033335980) 1.67 m2 LA size (test code = 0592713163) 3.6 cm LAV(MOD-sp2) (test code = 0303297601) 39.40 mL LAV(MOD-sp4) (test code = 7133133222) 45.90 mL TASV (test code = 9042078894) 5.2 cm/s Tapse (test code = 5714206515) 1.69 cm Aortic valve mean velocity (test code = 7473990490) 111.8 cm/s Ao peak jay (test code = 2560620709) 144.2 cm/s Ao VTI (test code = 6026886587) 34.2 cm Ao max PG (test code = 7665642533) 8.30 mm[Hg] TR Peak Jay (test code = 5582218116) 195.3 cm/s Triscuspid Valve Regurgitation Peak Gradient (test code = 6483576710) 15.4 mmHg Ao root diam (test code = 9179423963) 3.60 cm IVC Expiration Diameter (test code = 3006986011) 1.69 cm AV peak gradient (test code = 2422079002) 8.3 mmHg AV mean gradient (test code = 0986930060) 5.3 mmHg Aortic root (test code = 8016451525) 3.6 cm Ao root annulus (test code = 8497048140) 3.6 cm PW (test code = 8874082912) 0.71 cm 0.6-1.1 EF - 2D (test code = 65873867) 32.10 % Interventricular Septum Diastolic Thickness by 2D (test code = 0896511) 1.13 cm LVOT stroke volume (test code = 8905468254) 46.70 cm3 LVOT peak jay (test code = 4833015145) 62.7 cm/s LVOT mn grad (test code = 8227430755) 0.8 mmHg AV LVOT peak gradient (test code = 3103949381) 1.57 mmHg LVOT peak VTI (test code = 9507192317) 13.8 cm AV area by cont VTI (test code = 3106579965) 1.4 cm2 AV area peak jay (test code = 1453739027) 1.5 cm2 LV V1 mean (test code = 0172734235) 40.70 cm/s AV valve area (test code = 5098440118) 1.36 cm2 Radiology Study observation (narrative) (test code = 61312-3) DARIUS (test code = DARIUS) ?Similar to prior Echo. ?Left?Ventricle: Left ventricle size is normal. Sigmoid septum with basal septal thickening. Regional wall motion abnormalities present. Global hypokinesis with apical akenisis. Moderately reduced systolic function with a visually estimated EF of 30 - 35%. There is grade 1 diastolic dysfunction. ?Aortic?Valve: Moderately thickened cusps. Moderately calcified cusps. Can not exclude Bicuspid valave, partial fusion of left and non-coronary cusps. Trace transvalvular regurgitation. ZAIRE by continuety is 1.2 cm2 and AVG 5 mmHG Consistent with moderate aortic stenosis. ?Right?Ventricle: Right ventricle size is normal. Mildly reduced systolic function. Left VentricleLeft ventricle size is normal. Sigmoid septum with basal septal thickening. Regional wall motion abnormalities present. Global hypokinesis with apical akenisis. Moderately reduced systolic function with a visually estimated EF of 30 - 35%. There is grade 1 diastolic dysfunction.Right VentricleRight ventricle size is normal. Mildly reduced systolic function.Left AtriumLeft atrium size is normal.Right AtriumNot well visualized.IVC/SVCIVC diameter is less than or equal to 21 mm and decreases greater than 50% during inspiration; therefore the estimated right atrial pressure is normal (~0-5 mmHg).Mitral ValveMildly calcified leaflets. Mild posterior mitral annular calcification. Trace transvalvular regurgitation. No stenosis.Tricuspid ValveNot well visualized. Mild transvalvular regurgitation. Right ventricular systolic pressure is 15-20 mmHg. No stenosis.Aortic ValveModerately thickened cusps. Moderately calcified cusps. Can not exclude Bicuspid valave, partial fusion of left and non-coronary cusps. Trace transvalvular regurgitation. ZAIRE by continuety is 1.2 cm2 and AVG 5 mmHG Consistent with moderate aortic stenosis.Pulmonic ValveNot well visualized.Ascending AortaMildly enlarged ascending aorta, measures 3.7 cm and index 2.1 cm/[id number] pericardial effusion.Study DetailsStudy quality was adequate. A complete echocardiogram was performed using 2D, color flow Doppler and spectral Doppler. The apical, parasternal and subcostal views were obtained. 3 mL of Optison ultrasound enhancing agent used.Wall Scoring BaselineScore Index: 2.12The following segments are akinetic: apical septal and apex.The following segments are hypokinetic: basal anterior, basal anteroseptal, basal inferoseptal, basal inferior, basal inferolateral, basal anterolateral, mid anterior, mid anteroseptal, mid inferoseptal, mid inferior, mid inferolateral, mid anterolateral, apical anterior, apical inferior and apical lateral. [facility]24-[facility] 17:45:50* Test Item Value Reference Range Interpretation Comme nts Height (test code = 7216859622) 67 in Weight (test code = 9878908839) 126 lbs Systolic BP (test code = 2865479350) 120 mmHg Diastolic BP (test code = 8669067981) 62 mmHg Heart Rate (test code = 2929658348) 77 bpm LV GLS Endo Peak Avg () (test code = 1309408931) -14.80 % RVOT diameter (test code = 6360538606) 2.05 cm Ao root diam (test code = 1281390208) 3.10 cm Aortic root (test code = 7141077933) 3.1 cm Ao root annulus (test code = 4406859033) 3.1 cm BSA (test code = 0318704321) 1.67 m2 LVOT diameter (test code = 4305041728) 2.01 cm LVOT area (test code = 8384779055) 3.20 cm2 LA size (test code = 9120773607) 3.7 cm ACS (test code = 4980619907) 1.41 cm LVIDD (test code = 3949619836) 3.90 cm Left Ventricular End Diastolic Volume by Teichholz Method (test code = 1644056) 66.8 mL IVS (test code = 0831104723) 1.23 cm Interventricular Septum Diastolic Thickness by 2D (test code = 1933995) 1.23 cm LVPWD (test code = 6740271515) 1.29 cm PW (test code = 9382914591) 1.29 cm 0.6-1.1 EF(Teich) (test code = 2004654245) 31.80 % LVIDS (test code = 7784078929) 3.30 cm Left Ventricular End Systolic Volume by Teichholz Method (test code = 9876270) 45.5 mL FS (test code = 3209770607) 15 % EF - 2D (test code = 23193731) 31.80 % PV PEAK VELOCITY (test code = 4154863859) 59.7 cm/s PV peak gradient (test code = 3656861077) 1.43 mmHg MV E-F slope (test code = 1633106500) 42.90 cm/s MV Peak E Jay (test code = 6908504432) 65.5 cm/s MV valve area p 1/2 method (test code = 6224456179) 3.90 cm2 MV dec slope (test code = 3925939046) 334.90 cm/s2 MV P1/2t max jay (test code = 8276130078) 64.50 cm/s MV Peak A Jay (test code = 7472413814) 77.6 cm/s E/A ratio (test code = 8655307621) 0.84 ratio LVOT stroke volume (test code = 1454334587) 54.10 cm3 LVOT peak jay (test code = 4916523859) 74.4 cm/s LVOT mn grad (test code = 0862022949) 0.9 mmHg AV LVOT peak gradient (test code = 4607950982) 2.22 mmHg LVOT peak VTI (test code = 2640620377) 17.0 cm LV V1 mean (test code = 0494535931) 43.50 cm/s Aortic valve mean velocity (test code = 2657345347) 119.9 cm/s Ao peak jay (test code = 2897711409) 185.6 cm/s Ao VTI (test code = 9363321574) 41.4 cm AV area by cont VTI (test code = 3909661199) 1.3 cm2 AV area peak jay (test code = 7497917375) 1.3 cm2 Ao max PG (test code = 9965174935) 13.80 mm[Hg] AV peak gradient (test code = 8634504861) 13.8 mmHg AV valve area (test code = 5511882907) 1.31 cm2 AV mean gradient (test code = 5055643237) 6.6 mmHg AV regurgitation pressure 1/2 time (test code = 9608604555) 560.3 ms AI dec slope (test code = 7456286199) 132.10 cm/s2 AI max jay (test code = 1646296225) 252.70 cm/s AI max PG (test code = 5091440247) 25.50 mm[Hg] TR Peak Jay (test code = 6247927953) 227.1 cm/s Triscuspid Valve Regurgitation Peak Gradient (test code = 2199381127) 20.6 mmHg LAV(MOD-sp4) (test code = 0434767733) 25.50 mL LA Volume Index (BP) (test code = 7458473533) 18.1 mL/m2 LA volume (BP) (test code = 7551903889) 30.2 mL LAV(MOD-sp2) (test code = 5134303741) 31.50 mL A4C EF (test code = 5329070374) 34.20 % EF(sp4-el) (test code = 6316683572) 34.90 % SV(MOD-sp4) (test code = 9565582513) 25.40 mL SV(sp4-el) (test code = 0364310311) 27.30 mL RVOT area (test code = 2222817969) 3.30 cm2 GLS (test code = 8456452893) -15 % Radiology Study observation (narrative) (test code = 54481-9) DARIUS (test code = DARIUS) ?Left?Ventricle: Left ventricle size is normal. Mildly increased wall thickness. ?Left?Ventricle: See diagram for wall motion findings. ?Left?Ventricle: Moderately reduced systolic function with a visually estimated EF of 30 - 35%. Global longitudinal strain is reduced with a value of -15%. ?Left?Ventricle: Diastolic dysfunction. ?Right?Ventricle: Mildly reduced systolic function. ?Aortic?Valve: Consistent with moderate aortic stenosis. AV mean gradient is 6.6 mmHg. AV peak velocity is 185.6 cm/s. AV area by continuity VTI is 1.3 cm2. AV area by peak velocity is 1.3 cm2. ?Tricuspid?Valve: Mild transvalvular regurgitation. Right ventricular systolic pressure is 15-20 mmHg. ?RA pressure is 0-5 mmHg. ?Aorta: Mildly enlarged ascending aorta 3.7cm. Left VentricleLeft ventricle size is normal. Mildly increased wall thickness. See diagram for wall motion findings. Moderately reduced systolic function with a visually estimated EF of 30 - 35%. Global longitudinal strain is reduced with a value of -15%. Diastolic dysfunction.Right VentricleRight ventricle size is normal. Mildly reduced systolic function.Left AtriumLeft atrium size is normal.Right AtriumRight atrium size is normal.Mitral ValveMild mitral annular calcification. Trace transvalvular regurgitation.Tricusp id ValveTricuspid valve structure is normal. Mild transvalvular regurgitation. Right ventricular systolic pressure is 15-20 mmHg. RA pressure is 0-5 mmHg.Aortic ValveBicuspid aortic valve cannot be excluded. Moderately thickened cusps. Moderately calcified cusps. Trace transvalvular regurgitation. Consistent with moderate aortic stenosis. AV mean gradient is 6.6 mmHg. AV peak velocity is 185.6 cm/s. AV area by continuity VTI is 1.3 cm2. AV area by peak velocity is 1.3 cm2.Pulmonic ValveNot well visualized. Trace transvalvular regurgitation.Ascendi ng AortaMildly enlarged ascending aorta 3.7cm.PericardiumNo pericardial effusion.Study DetailsStudy quality was adequate. A complete echocardiogram was performed using 2D, color flow Doppler, spectral Doppler and strain.Wall Scoring BaselineScore Index: 2.18The following segments are akinetic: mid anteroseptal, apical septal and apex.The following segments are hypokinetic: basal anterior, basal anteroseptal, basal inferoseptal, basal inferior, basal inferolateral, basal anterolateral, mid anterior, mid inferoseptal, mid inferior, mid inferolateral, mid anterolateral, apical anterior, apical inferior and apical lateral. [facility] 02:43:07* Test Item Value Reference Range Interpretation Comme nts Height (test code = 7955545155) 66 in Weight (test code = 6964883634) 127 lbs Systolic BP (test code = 7968688509) 144 mmHg Diastolic BP (test code = 3947620545) 73 mmHg Heart Rate (test code = 2127183140) 83 bpm Ao root diam (test code = 6440868781) 3.20 cm Aortic root (test code = 8119558730) 3.2 cm Ao root annulus (test code = 4748160000) 3.2 cm BSA (test code = 5364740393) 1.65 m2 LVOT diameter (test code = 9670058049) 2.04 cm LVOT area (test code = 3895912001) 3.30 cm2 LA size (test code = 6409624604) 3.5 cm ACS (test code = 8128819390) 1.33 cm LVIDD (test code = 5814281278) 5.10 cm Left Ventricular End Diastolic Volume by Teichholz Method (test code = 6285703) 121.6 mL EF(Teich) (test code = 6317125150) 33.40 % FS (test code = 1561493303) 16 % EF - 2D (test code = 38368027) 33.40 % TR Peak Jay (test code = 8994584209) 259.1 cm/s Triscuspid Valve Regurgitation Peak Gradient (test code = 0552997602) 28.7 mmHg PV PEAK VELOCITY (test code = 4070219074) 56.1 cm/s PV peak gradient (test code = 4174839423) 1.26 mmHg MV E-F slope (test code = 4377324946) 61.20 cm/s MV Peak E Jay (test code = 6824086488) 67.1 cm/s MV valve area p 1/2 method (test code = 8686265048) 3.00 cm2 MV dec slope (test code = 6852431939) 261.80 cm/s2 MV P1/2t max jay (test code = 9752883203) 66.60 cm/s MV Peak A Jay (test code = 7662323111) 54.0 cm/s E/A ratio (test code = 8797780100) 1.24 ratio MR max PG (test code = 7909378005) 36.40 mm[Hg] MR max jay (test code = 1472427324) 301.60 cm/s Mr max jay (test code = 0151894938) 301.6 m/s LVOT stroke volume (test code = 8393037713) 41.70 cm3 LVOT peak jay (test code = 4384332172) 56.6 cm/s LVOT mn grad (test code = 2387687663) 0.5 mmHg AV LVOT peak gradient (test code = 6703043434) 1.28 mmHg LVOT peak VTI (test code = 8628511235) 12.7 cm LV V1 mean (test code = 1466744807) 32.50 cm/s Aortic valve mean velocity (test code = 7905236375) 97.1 cm/s Ao peak jay (test code = 8258027294) 162.0 cm/s Ao VTI (test code = 1229294700) 38.5 cm AV area by cont VTI (test code = 4603410124) 1.1 cm2 AV area peak jay (test code = 6085014523) 1.2 cm2 Ao max PG (test code = 0734952457) 10.50 mm[Hg] AV peak gradient (test code = 5293088242) 10.5 mmHg AV valve area (test code = 1607080010) 1.08 cm2 AV mean gradient (test code = 4737754971) 4.5 mmHg AV regurgitation pressure 1/2 time (test code = 5789219917) 423.0 ms AI dec slope (test code = 7561428976) 103.30 cm/s2 AI max jay (test code = 2025905970) 149.20 cm/s AI max PG (test code = 3435584373) 8.90 mm[Hg] LAV(MOD-sp4) (test code = 5574051634) 28.30 mL LA Volume Index (BP) (test code = 6118869972) 19.9 mL/m2 LA volume (BP) (test code = 2292747585) 32.8 mL LAV(MOD-sp2) (test code = 9988329679) 35.30 mL IVS (test code = 1490065379) 0.84 cm Interventricular Septum Diastolic Thickness by 2D (test code = 1146567) 0.84 cm LVPWD (test code = 2653437711) 0.84 cm PW (test code = 9071389495) 0.84 cm 0.6-1.1 LVIDS (test code = 8414889101) 4.30 cm Left Ventricular End Systolic Volume by Teichholz Method (test code = 4384412) 81.0 mL Radiology Study observation (narrative) (test code = 48873-1) DARIUS (test code = DARIUS) ?Left?Ventricle: Left [...] apical anterior, apical inferior and apical lateral. [facility] Consult Notes Date/Time Note Provider Source 2024-12-13 23:20:43 Associated Order(s): CONSULT NEPHROLOGY NEPHROLOGY CONSULT NOTE Date of Service: 12/13/2024 Reason For consult:ESRD Consult By: Dr Ochoa CC: hypotension outpatient HD HPI: Nathanael Alcocer is a 84 year old male with PMHx of Afib, HTN, HLD, BPH s/p TURP, HFrEF, ESRD on HD MWF since 06/2023 who presented from outpatient HD unit afte finishing HD session. Pt reported to have low BP during and post HD as low at systolics 70s and reported blurry vision per . Pt has dementia and doesn't recall being lightheaded. Never encounteted hypotension with HD and doesn't use midodrine. Reportedly had episodes of asymtpomatic bradycardia a month ago and had a monitoring tech on 12/28/24 fpr 30 days. Pt completed his full HD session on Sunday and normally gets 2L off. Denies SOB, LE sweeling, ligthheadedness, uremc symptoms. BP in 120-130s since admission while inpatient. Makes urine at baseline. No past medical history on file. No past surgical history on file. Social History Tobacco Use Smoking status: Never Smokeless tobacco: Never Family History Problem Relation Age of Onset Coronary Heart Disease Father in early 70s [place] Allergies Allergen Reactions Cephalosporins Unknown - See comments Pt hasn't taken medication in over 20 years and is unsure of his reaction. ROS A 12 point ROS was done, pertinent positives have been discussed in HPI, and other review of system is negative. Medications: Current Facility-Administered Medications Medication Dose Route Frequency Last Rate Last Admin [START ON 12/14/2024] metoprolol succinate XL (TOPROL XL) tablet 25 mg 25 mg Oral DAILY acetaminophen (TYLENOL) tablet 650 mg 650 mg Oral Q6HPRN aspirin chewable tablet 81 mg 81 mg Oral DAILY 81 mg at 12/13/24 0921 atorvastatin (LIPITOR) tablet 40 mg 40 mg Oral QHS 40 mg at 12/13/242019 isosorbide mononitrate (IMDUR) 24 hr tablet 30 mg 30 mg Oral DAILY 30 mg at 12/13/24 0916 nitroglycerin (NITROSTAT) sublingual tablet 0.4 mg 0.4 mg Sublingual Q5MIN PRN PARoxetine (PAXIL) tablet 10 mg 10 mg Oral DAILY 10 mg at 12/13/24 0916 tamsulosin (FLOMAX) capsule 0.4 mg 0.4 mg Oral BID 0.4 mg at 12/13/242019 Physical Exam BP: (84-124)/(50-67) Temp: [35.7 ?C (96.3 ?F)-36.3 ?C (97.3 ?F)] Temp source: Tympanic (12/13 2002) Pulse: [54-59] Resp: [15-20] SpO2: [94 %-98 %] Height: -- Weight: -- BMI (calculated): -- Wt Readings from Last 3 Encounters: 12/12/24 56.9 kg (125 lb 6.4 oz) 11/17/24 55 kg (121 lb 4.8 oz) 08/19/24 52.4 kg (115 lb 8 oz) General: No acute distress. Cardiovascular: Heart regular, rate, rhythm, no murmurs Respiratory: Clear to auscultation, no respiratory distress GI: Abd soft, non-tender, non-distended, +BS MS/Extremities: no Edema Neuro: Alert and oriented x3, No focal deficits Skin: No rash, warm and dry Dialysis Access: AVF Intake/Output Summary (Last 24 hours) at 12/13/2024 2320 Last data filed at 12/13/20242002 Gross per 24 hour Intake 130 ml Output 150 ml Net -20 ml No results found. Assessment and Plan: ESRD on hemodialysis - HD MWF - Access: AVF - Normally gets 2L off during HD - HD on Sunday for metabolic clearance and volume maintenance - Renally dose medications Potassium (K) excess - Will adjust dialysate based on serum K level Metabolic acidosis - Bicarb buffer with HD Vascular access for dialysis for ESRD Comment: AVF Plan: HD via AVF Secondary hypertension due to renal disease Plan: Antihypertenives per primary Secondary hyperparathyroidism (of renal origin) Hyperphosphatemia - Check PTH, trend phos - Continue phos binders TIDAC, goal phos < 5 Anemia in chronic kidney disease - Repeat iron panel and ferritin - replete with IV iron if deficient (goal FeSat >20%, Ferritin > 200) - Will plan for EPO with HD if iron stores adequate Patient seen, examined, and discussed with attending fusion operator, Dr. Geovanny Chaney MD Nephrology and Hypertension Fellow, PGY-4 Faculty Note: I have personally seen and examined this patient with Dr. Chaney on 12/13/24. I personally participated in the decision-making process as relates to this patient's medical condition. Please refer to the progress note for details of the medical care provided. Rad Small MD, MS Professor Division of Nephrology & Hypertension Office: [address] O [phone] F [phone] IM-NEPHROLOGY STAFF [facility] 2024-12-13 10:49:00 Associated Order(s): CONSULT ADULT PHYSICAL THERAPY Patient agreeable to working with physical therapy. Patient semireclining in bed and Heels offloaded? No: not required as patient is alert and oriented, as well as exhibits sufficient LE strength and ability to move/reposition LEs/heels throughout the day, Spouse present and OT present . Recommend nursing staff utilize RW to safely assist patient with mobility out of the bed or chair. PHYSICAL THERAPY EVALUATION Consult received, chart reviewed and evaluation complete this date. Patient is referred to PT for evaluation and treatment. Patient is a 84 year old male who presents to hospital for NSTEMI (non-ST elevated myocardial infarction) [I21.4]. Discharge Recommendations: Therapy Needs and Potential: Patient would benefit from continued physical therapy services to address: decline in bed mobility decline in transfers decline in gait and/or balance decreased strength decreased endurance decreased coordination Patient demonstrates good potential to improve and meet therapy goals with further physical therapy services. Patient appears motivated to improve their functional mobility and return to their previous level of function. Patient demonstrates ability to tolerate atleast 30-60 minutes of physical therapy with active participation. Patient may benefit from post-acute therapy services such as HH/OP upon discharge. Challenges to Home Transition: increased risk of falls decreased safety awareness Equipment recommendations: rolling walker Current Functional Status and/or Treatment: AM-PAC 6 Clicks (Raw Score 0=Dependent, 24=Independent; Low function Raw Score 0= Dependent, 32=Independent): Raw Score - Basic Mobility : 19 T-Scale Score - Basic Mobility : 42.48 Bed Mobility: Rolling: Independent Supine-sit: Independent Sit to supine: Independent Sitting balance Good Scooting to edge of bed: Independent Dizziness No Transfers: Sit to stand: Supervision using RW Stand to sit: Supervision using RW Static/dynamic standing balance: Good Patient able to perform standing marches x 5ea without LOB or unsteadiness with RW Verbal cueing provided for correct hand placement and correct use of AD Utilized RW for sit-stand for safety and balance Instructed patient to stand upright and maintain balance using the RW Manual cues for anterior weight shifting to reduce retropulsion During stand to sit, cues provided to reach back for sitting surface before sitting down for safety Cues to control descent Dizziness No Ambulation: Assisted patient with ambulation as follows: 10 feet to restroom, then 100 ft x 2 using RW and Minimal Assistance. Patient presenting with fast, unsteady, step-through gait pattern, needing cues to slow down for safety. Patient able to follow through instructions briefly, needing constant redirection Cues needed for sequencing with RW and to maintain SHAWN within RW Patient noted to have increased forward flexion, needing cues to bring walker closer to SHAWN and to maintain upright posture while visually scanning environment to navigate around obstacles and make safe turns Dizziness No Therapeutic exercise: patient educated in Adaptive equipment , Compensatory techniques/adaptive strategies, Energy conservation, Fall prevention, General strengthening, Positioning, Relaxation/breathing techniques, and Safety awareness. and instructed patient in the following: ankle pumps, quad sets, heel slides, hip abduction/adduction, straight leg raises, long arc quads, standing marching Educated patient with importance and benefits of progressive OOB activities as tolerated to: Increase overall mobility, strength and endurance and progress towards PLOF Decrease chances of pneumonia, deconditioning, BLE DVT's, skin breakdown and pressure sores. Patient verbalizing understanding to all discussed Functional Outcome Measures: (Values within the past 12 hours) Tinetti Gait Score- # / 12 Initiation of gait: No hesitancy Step length: On both sides, swing foot passes stance foot Foot clearance: Both feet completely clear floor Step Symmetry: Step lengths not equal Step continuity: Steps appear continuous Path: Mild/moderate deviation or uses AD Trunk: Marked sway or uses AD Walking: Heels apart Tinetti Gait Score: 7 Tinetti Gait Score Interpretation: >= 7 - Low risk for falls After session, patient sitting upright in bedside chair and Heels offloaded? No: not required as patient is alert and oriented, as well as exhibits sufficient LE strength and ability to move/reposition LEs/heels throughout the day, Spouse present. Call button provided. RN made aware of pt's current status, functional mobility, and to continue to monitor. PLAN OF CARE: While in the hospital, PT will follow patient at least 2 times per week,once or twice a day, per patient's tolerance and needs. See below for complete details. Admit Date: 12/12/2024 Hospital Diagnosis:NSTEMI (non-ST elevated myocardial infarction) [I21.4] PT Diagnosis: Difficulty walking, Weakness, and Abnormality of gait and balance Weight Bearing Precaution: NA General Precautions: PPE used:Gloves, General, Fall, Lines/Tubes, Cardiac (Telemetry) Bracing/Cast present or required:N/A PMH: No past medical history on file. PSH: No past surgical history on file. PRIOR LIVING SITUATION: lives with their spouse and in a 1-story house DME: Single Point Cane, Four wheeled walker with seat, Wheel Chair Prior level of Mobility: house hold ambulation, ambulates with no device Suspected ischemic or hemorraghic stroke:No Subjective: Patient agreed to session Patient/Family Goals: to walk better Patient/Family verbalizes understanding of condition: Yes PAIN: denies pain before and after session COMMUNICATION Primary Language: [place] Able to Verbalize needs: Yes Vision:good; no issues reported Hearing:good; no issues reported ORIENTATION/COGNITION: Oriented to: person and place Awake: Yes Alert: Yes Dizzy: No Follows Commands: Yes 1-Step Yes Multi-Step Yes Inconsistent: Yes, needs redirection NEUROLOGICAL Light Touch: within functional limits bilateral LE BALANCE: Sitting: Static: Excellent Dynamic: Excellent Standing: Static: Good Dynamic: Fair+ RANGE OF MOTION: within functional limits bilateral LE STRENGTH: 4/5 (Good), bilateral LE ENDURANCE: Good, Room air SKIN INTEGRITY: refer to RN notes PROBLEM LIST: Decline in gait, Decline in transfers, Decreased strength, Decreased endurance, Decreased balance, Safety awareness deficits, and Decreased Coordination ASSESSMENT: Patient is a 84 year old male seen secondary to the above listed diagnosis. Patient would benefit from continued PT to address the above listed deficits to maximize independence and safety with functional mobility. Rehabilitation Potential: good Goals: The following goals are to maximize independence and safety with functional mobility to eventually return to prior living situation and prior functional status. 1. Sit to stand: Independent using no device Stand to sit: Independent using RW 2. Independent with ambulation, Feet: 300 using RW. Treatment Plan: Gait training, Gait training on stairs, Therapeutic exercise, Transfer training, Balance training, Bed mobility training, Equipment needs assessment, Safety education, patient/caregiver education, and Functional Motor Training PATIENT EDUCATION: Patient provided with preferred teaching of verbal information on role of PT, plan of care. Shows readiness to learn. Verbal instruction teaching provided. Individual is able to read and verbalizes understanding of teaching provided and needs reinforcement of teaching. Total Time Tx Codes in Minutes: 8 min Total Treatment Time in Minutes: 16 min Allie Hope PT, DPT Physical Therapist Pt will be followed by physical therapy, however, this therapist may not be primary therapist. [place] [phone] for questions or concerns. Allie Hope PT [facility] 2024-12-13 10:40:00 Associated Order(s): CONSULT ADULT OCCUPATIONAL THERAPY OT GENERAL EVALUATION Consult received via [employer], EMR reviewed and evaluation completed 12/13/24. Patient referred to occupational therapy for evaluation and treatment secondary to weakness. Patient agreeable to participate in occupational therapy. Patient found semireclining in bed and Heels offloaded? No: not required as patient is alert and oriented, as well as exhibits sufficient LE strength and ability to move/reposition LEs/heels throughout the day, Spouse present. Discharge Recommendations: Therapy Needs and Potential:- Patient would benefit from continued skilled occupational therapy services to address: Decline in basic activities of daily living, Decline in instrumental activities of daily living, and Decline in cognition - Patient demonstrates good potential to improve and meet therapy goals with further skilled occupational therapy services. - Patient appears motivated to improve their BADLS and IADLs and return to their previous level of function. - Patient demonstrates ability to tolerate at least 30-60 minutes of active participation in occupational therapy. - Patient able to follow commands: 1-step Yes, Multi-step Yes, Inconsistencies No Challenges to Home Transition:- Requires physical assistance for BADLS - Requires physical assistance for IADLS - Requires supervision or verbal cues for BADLS - Requires supervision or verbal cues for IADLS - Decreased safety awareness/judgement - Increased risk of falls Equipment Recommendations: pt has needed OT equipment PLAN OF CARE: At least 3x/week Precautions: Weight bearing status: NA General: PPE Utilized: Gloves and Surgical mask and Fall Bracing: N/A Subjective: "I like to sit" Current Occupational Performance and/or Treatment: AM-PAC 6 Clicks (Raw Score 0=Dependent, 24=Independent; Low function Raw Score 0= Dependent, 32=Independent): Raw Score - Daily Activity: 17 T-Scale Score - Daily Activity: 37.26 Feeding: Independent, Indep drank from ice water given at end of session while up in chair. Spouse reports pt eating breakfast Indep this morning. UB Dressing: Minimal Assistance, to thread RUE arm in gown while EOB. LB Dressing: Moderate Assistance, requires extra time and few attempts to perform until successful. Cued figure four at EOB. Demos slight posterior lean during task Toilet Transfer: Moderate Assistance, cued for hand placement for toilet transfers. Educated on proper technique as pt frequently attempts to pull up from walker. LOB observed during transfer off toilet. Mod A required for stability Functional Mobility: Supine>EOB: Supervision w/ extra time to perform. Sit>stand: Min A w/ RW. Cues required to push up from bed. Kyphotic posture w/ B knees bent. Cues for upright posturing. Knees begin to go into flexion as standing tolerance fatigues during RN skin assessment. ADL mobility to restroom demos instability and performs abruptly. Cues required for proper RW management. See toileting section to toilet transfer Patient/caregiver educated on:ADL training, Compensatory techniques/adaptive strategies, Fall prevention, Role of OT, and Safety awareness Patient left sitting upright in bedside chair with call greenwood in reach. Spouse present. Please, see full evaluation below for more detail. OT EVALUATION: 84 year old male Admit date: 12/12/2024 Date of onset: 12/12/2024 Admit Diagnosis: NSTEMI (non-ST elevated myocardial infarction) [I21.4] OT Diagnosis: Impaired BADL independence, Impaired IADL independence, Weakness, Activity intolerance, Decreased endurance, Impaired self-care mobility, and Impaired cognition PMH: No past medical history on file. PSH: No past surgical history on file. PAIN: Denies pain before and after session. OCCUPATIONAL ROLES/HOME ENVIRONMENT: Home environment: Lives with spouse, 02/04 supervision/assistance is available, Single story home Bathroom access: Yes Bathroom setup: Shower and Combo Occupation(s): Retired Function prior to admission: Household ambulation and Independent with BADLs Suspected ischemic or hemorraghic stroke patient: No Equipment prior to admission: 4 wheeled walker, Shower chair , Straight Cane, Wheelchair PERFORMANCE SKILLS/FACTORS: UE Muscle Tone: bilateral WNL UE ROM: bilateral AROM WFL UE Strength: DIANA UE WFL Hand dominance: right Dexterity/Coordination: bilateral Intact Endurance - Sitting: Good Standing: Fair+ Sitting Balance - Static: Good Dynamic: Fair+ Standing: Balance - Static Good Dynamic: Fair+ Dizziness: No Skin Integrity: defer full skin assessment to nursing Sensation: bilateral Intact to light touch Oral Motor: WFL Communication: Able to verbalize needs Yes Other: N/A Vision: WFL Yes Other: glasses or contacts Hearing: good; no issues reported COGNITION: Orientation: person and place. States its Janurary 1986 Follows Commands: 1-step Yes Multi-step Yes Inconsistencies Yes Safety Awareness/Judgment: Fair, Lacks insight to deficits, Requires frequent cueing, and Impulsive PROBLEM LIST: Decreased independence with ADL, Decreased strength/endurance for functional activity, Impaired safety awareness, and Impaired Cognition REHAB POTENTIAL/PROGNOSIS: good PATIENT/FAMILY GOALS: to get better TREATMENT/INTERVENTION PLAN: Functional motor treatment, Patient/Caregiver Education, Equipment recommendations, Daily living activities, and Therapeutic exercises GOAL(S): By discharge, patient will increase independence in daily living skills as follows: 1 Patient will perform toilet transfer with independence. 2 Patient will don/doff socks with independence. 3 Patient will don/doff pullover shirt with independence. 4 Patient will complete 2 grooming tasks with independence while standing at the sink. 5 Patient will complete toileting hygiene, including clothing management, with independence. 6 Patient will increase endurance for functional activity as evidenced by ability to sustain 15 minutes of active participation. 7 Patient/caregiver will verbalize/demonstrate understanding/proficiency in the following home programs: Compensatory techniques/adaptive strategies, Energy conservation, Fall prevention, and General strengthening PATIENT-FAMILY TEACHING Patient provided with preferred teaching of verbal information on ADL training, Compensatory techniques/adaptive strategies, Fall prevention, Role of OT, and Safety awareness. Barriers to learning include cognitive limitations. Verbal instruction teaching provided. Individual is able to read and verbalizes understanding of teaching provided. ZULMA Andersne Total Timed Treatment Codes: 10 Min Total Treatment Time: 26 Min Patient Complexity Level High - An occupational therapy evaluation of high complexity was completed using the above tests and measures. The following information was obtained: An occupational profile and medical and therapy history, including review of medical and/or therapy records and extensive additional review of physical, cognitive, or psychosocial history related to current functional performance, Various standardized and non-standardized assessments were used to identify at least 5 or more performance deficits related to physical, cognitive, or psychosocial skills that result in activity limitations and/or participation restrictions, and Clinical decision-making is of high analytic complexity, which includes an analysis of the patient profile, analysis of data from comprehensive assessment(s), and consideration of multiple treatment options. Patient present with comorbidities that affect occupational performance. Significant modification of tasks or assistance (e.g., physical or verbal) with assessment(s) is necessary to enable patient to complete evaluation component. Torstne Hope OT [facility] - Health History and Physical Notes Date/Time Note Provider Source 2024-12-12 20:04:09 [facility] ADMIT H&P Date of Service: 12/12/2024 PCP: PATIENT DOES NOT HAVE A PCP CHIEF COMPLAINT: weakness History of Present Illness Nathanael Alcocer is a 84 year old male with PMH of paroxysmal atrial fibrillation (on apixaban 2.5 mg PO BID), first-degree heart block, ESRD on HD (MWF), HTN, HLD, BPH s/p TURP, parathyroidectomy who presents from OSH for weakness. Per OSH documentation, patient experienced low blood pressure and double vision while at dialysis earlier in the day, stated that the full session was completed, and denied any residual symptoms at the time of evaluation. During cardiology clinic visit on 11/19/23, patient had reported mild chest tightness during stressful situations, at which time isosorbide mononitrate was initiated. During EP clinic visit on 03/26/24, patient was amenable to ICD implantation in the context of EF < 35%, however the procedure was ultimately canceled. Of note, ILR had previously been inserted on 12/13/23. During cardiology clinic visit on 08/19/24, patient had reportedly increased falling due to muscle weakness. During most recently cardiology clinic visit on 11/17/24, patient was noted to be bradycardic and a 30-day event monitor was recommended for further assessment. Patient was was reportedly asymptomatic at the time. Upon evaluation at bedside patient hemodynamically stable. Patient was reportedly at HD today, at which time his blood pressure dropped, and he was recommended to go to OSH for further evaluation. Per at bedside, patient appeared tired after HD, which has occurred at times after previous sessions. Patient's also reports patient has displayed signs of dementia and appears forgetful at times. Patient fell last week when his legs appeared to give out, but did not fall today or anytime since then. Patient denies any chest pain, shortness of breath, palpitations, shortness of breath, dizziness, or headaches. ED/OSH course: Vitals: Afebrile, hemodynamically stable - T 97.3 F, BP 145/81, P 59, R 18, SpO2 100% on RA Pertinent Labs: Troponin HS 196.1, Ntpro-BNP 2126 Na 131, K 3.4, creatinine 3.3 WBC 5, Hgb 11.7, Plt 175 Imaging: CT head without contrast revealed no acute intracranial abnormality Interventions: none noted on OSH documentation PAST MEDICAL HISTORY No past medical history on file. No past surgical history on file. Family History Problem Relation Age of Onset Coronary Heart Disease Father in early 70s [place] ALLERGIES Allergies Allergen Reactions Cephalosporins Unknown - See comments Pt hasn't taken medication in over 20 years and is unsure of his reaction. MEDICATIONS No current facility-administered medications on file prior to encounter. Current Outpatient Medications on File Prior to Encounter Medication Sig Dispense Refill isosorbide mononitrate 30 mg 24 hr tablet Take 1 tablet by mouth in the morning. 31 tablet 11 atorvastatin 40 mg tablet TAKE 1 TABLET BY MOUTH EVERY DAY IN THE MORNING 90 tablet 0 midodrine 2.5 mg tablet Take 1 tablet by mouth. NON-FORMULARY MEDICATION Trans -Resveratrol 600MG vitamins [id number] 2.5 mg-2.5 mg- 5 mg-100 mcg Tab Take by mouth. apixaban 2.5 mg tablet Take 1 tablet by mouth in the morning and 1 tablet in the evening. Indications: atrial fibrillation 60 tablet 5 metoprolol tartrate 25 mg tablet Take 0.5 tablets by mouth in the morning and 0.5 tablets in the evening. 60 tablet 5 PARoxetine 10 mg tablet Take 1 tablet by mouth in the morning. tamsulosin 0.4 mg 24 hr capsule Take 1 capsule by mouth in the morning and 1 capsule in the evening. SOCIAL HISTORY Social History Socioeconomic History Marital status: Tobacco Use Smoking status: Never Smokeless tobacco: Never REVIEW OF SYSTEMS Review of Systems Constitutional: Negative for chills and fever. Cardiovascular: Negative for chest pain and palpitations. Neurological: Negative for dizziness and headaches. PHYSICAL EXAMINATION Vitals: 12/12/24 2220 BP: (!) 151/82 BP Location: Left arm Patient Position: Supine Pulse: 60 Resp: 18 Temp: 35.1 ?C (95.2 ?F) TempSrc: Tympanic SpO2: 99% Weight: 56.9 kg (125 lb 6.4 oz) Height: 1.727 m (5' 8") General: No acute distress, A&O x4 HEENT: Normocephalic, atraumatic, normal conjunctiva & lids, moist mucous membranes Neck: Supple, JVD- Lungs: clear to auscultation bilaterally, no crackles, wheezes, or rhonchi Cardiovascular: Normal S1, S2, RRR, no rubs, murmurs, or gallops Abdomen: soft, non-tender, non-distended, + BS Extremities: no edema, 2+ peripheral pulses, warm Integumentary: no rashes, warm, dry Neuro: normal gross function LABS- Reviewed IMAGING- Reviewed === Study performed on encounter date 03/06/24 === Transthoracic echo (TTE) - Interpretation Summary - Left Ventricle: Left ventricle size is normal. Mildly increased wall thickness. Left Ventricle: See diagram for wall motion findings. Left Ventricle: Moderately reduced systolic function with a visually estimated EF of 30 - 35%. Global longitudinal strain is reduced with a value of -15%. Left Ventricle: Diastolic dysfunction. Right Ventricle: Mildly reduced systolic function. Aortic Valve: Consistent with moderate aortic stenosis. AV mean gradient is 6.6 mmHg. AV peak velocity is 185.6 cm/s. AV area by continuity VTI is 1.3 cm2. AV area by peak velocity is 1.3 cm2. Tricuspid Valve: Mild transvalvular regurgitation. Right ventricular systolic pressure is 15-20 mmHg. RA pressure is 0-5 mmHg. Aorta: Mildly enlarged ascending aorta 3.7cm. EKG: pending CHART REVIEW- Pertinent information as below: [facility] 11/14/23 Findings: Coronary dominance: right Left main: MLI LAD: Prox LAD 100% AFFILIATE MARKETING COORDINATOR Mid/distal LAD and D2 are supplied by [...] athero PLB: Large, mid 50% LVEDP: 13 Impression: Prox LAD 100% AFFILIATE MARKETING COORDINATOR; remainder of vessel fills via robust R-L collaterals Large D1/ramus has ostial 60% lesion Prox circumflex 50-60% lesion, distal circumflex 80% lesion Normal LVEDP (13) ASSESSMENT/PLAN Nathanael Alcocer is a 84 year old male with PMH as listed above, admitted to the hospital with: Elevated troponin, likely non-ischemic 2/2 ESRD Paroxysmal atrial fibrillation (on home Eliquis 2.5 gm PO BID) RBBB Chronic HFrEF (30-35% 03/06/24, ICM, NYHA III, Stage C) Aortic stenosis, moderate Patient presents following fatigue at OSH. Troponin HS elevated to 196 with unknown baseline in the setting of ESRD, however patient denies any chest pain or anginal equivalents. No EKG present from OSH to correlate for ischemic change, thus will plan to acquire EKG, TTE to evaluate for wall motion abnormalities, and perform further ACS workup at this time. -Admit to [facility] -admit labs: CMP, CBC, Mg, troponin, NT-proBNP, aPTT, PT/INR, ferritin, iron panel, UA, UDS, A1C, lipid panel -troponin q6h x 3 or to peak -aspirin 81 mg PO QD -PPCLD -c/w home atorvastatin 40 mg PO QHS -c/w home isosorbide mononitrate 30 mg PO QD -c/w home metoprolol tartrate 12.5 mg PO BID -EKG -CXR -UA -Telemetry - TTE -Keep K >4, Mg > 2 -Fluid restrictions/ daily weights/ strict IOs -Cardiac diet/ NPO -if chest pain occurs, obtain EKG and troponin PREM - GDMT: - Beta-ramon: metoprolol tartrate 12.5 mg PO BID - MICHAEL/ARB/ARNi: not candidate due to ESRD - MRA: not candidate due to ESRD - SLGT2i: not candidate due to ESRD ESRD on HD (MWF) BPH - consult ESRD nephrology - c/w tamsulosin 0.4 mg PO BID Pain: Controlled- Tylenol Prophylaxis: DVT- heparin Stress Ulcer: no indication for prophylaxis Diet: cardiac Code Status: Addressed: full code Aaron Potts MD PGY-2 | Internal Medicine CURRENT MEDICATIONS Scheduled meds: [START ON 12/13/2024] aspirin, 81 mg, DAILY [START ON 12/13/2024] atorvastatin, 40 mg, QHS heparin 1000 unit/mL, 60 Units/kg, ONCE [START ON 12/13/2024] isosorbide mononitrate, 30 mg, DAILY [START ON 12/13/2024] metoprolol tartrate, 12.5 mg, BID [START ON 12/13/2024] PARoxetine, 10 mg, DAILY [START ON 12/13/2024] tamsulosin, 0.4 mg, BID IV meds: PRN meds: acetaminophen, 650 mg, Q6HPRN nitroglycerin, 0.4 mg, Q5MIN PRN Associated attestation - Logan Ochoa MD - 12/14/2024 8:01 AM CDT I personally examined the patient on the date of service and agree with Dr. Potts's resident note. I actively participated in the decision-making process. Please see the resident's note for additional details. [facility] Procedure Notes Date/Time Note Provider Source 2023-12-13 10:40:34 Attending: Shani Joiner MD EBL: 2 ml (unless otherwise stated) [...] used to make a pocket for the monitoring tech. The monitoring tech was then inserted into the pocket. Testing of the device confirmed adequate signal and the incision was then covered with sterile dressing. The patient tolerated the procedure well; there were no apparent complications at the end of the procedure. Device Information: -The implantable monitoring tech model number M312 -VT parameter is set [...] hesitate to call with any questions. Shani Joiner MD Cardiac Electrophysiology [facility] On license of [facility] 2023-11-14 10:04:23 Left Heart Cath/Coronary Angiography Date of Service: 11/14/2023 10:04 AM Indication/Diagnosis: 83 y M with PMH of pAF, ESRD, HLD who was seen by Dr Richardson and Dr Joiner after he was found to have AF [...] Left main: MLI LAD: Prox LAD 100% AFFILIATE MARKETING COORDINATOR Mid/distal LAD and D2 are supplied by [...] angiogram: Tortuous JAVY Mild athero EIA and PIPEFITTER WELDER Impression: Prox LAD 100% AFFILIATE MARKETING COORDINATOR; remainder of vessel fills via robust R-L collaterals Large D1/ramus has ostial 60% lesion Prox circumflex 50-60% lesion, distal circumflex 80% lesion Normal LVEDP (13) Plan: Bedrest 3 hours Aggressive medical Rx GDMT for LV dysfunction PCI of D1/ramus or circumflex can be done only if he has anginal symptoms Findings and plan discussed with pt and primary treating engineer (Dr Richardson). I performed this procedure and supervised the fellow. I was present for the entire duration of the procedure. Dixie Reyes MD 11/14/2023 10:04 AM [facility] IM-INTERVENTIONAL CARDIOLOGY STAFF [facility] - Health Notes Date/Time Note Provider Source 2024-12-15 17:27:01 Patient DC to home with family. Patient and family educated on DC instructions. No questions or concerns. Patient IV removed. All belongings obtained. Patient stable at time of DC. Mario Castaneda RN [facility] 2024-12-15 15:30:00 Diet order placed. Family to call and order tray. On license of [facility] 2024-12-15 14:49:32 Reported from family and sitter that resident stated that patients procedure would be pushed until tomorrow, so patient can eat. Messaged MD for official order and will then order patient food tray T [facility] 2024-12-15 12:35:00 Patient back from dialysis. Reported 1.5L removed. Awaiting officially decision on ICD placement On license of [facility] 2024-12-15 12:30:00 HEMODIALYSIS NURSING NOTE Number Hours: 4.0 hours Bath: 2K 3 Calcium (standard dialysate) Heparin: zero Access: right Catheter permanent IJ Net UF: 1.5L Weight: pre 58.5 kg, post 57 kg Post BP 128/75 Post Pulse 79 Antibiotics/Medications Given: none Complications/Events of Treatment: Came with soft BP and HR of 50s, UF decreased to 1.5L Dr Dena Mcintyre aware.MID HD rounded and assessed by Dr. Dena Mcintyre and Dr. Horner. Audiovisual Technician rounded the patient as well MID HD.HR and BP improved during HD. HD access working well during HD, no issues.With Permanent catheter clean and dry, dressed aseptically. No complication. Heparin lock done as per ordered, covered aseptically. Alert ,awake not in distress, denies any complaint when patient left the unit. Telephone report given to YANDEL Martin Handoff report completed and attached to Patient Chart Mode of Transport Back to Unit: bed and accompanied by transporter with sitter See hemodialysis flowsheet for details of treatment. On license of [facility] 2024-12-15 08:38:06 Hemodialysis: consent verification, pt identified by name & [facility] number by 2 staff members, call light in reach. Education: HD UF time & goal, s/s to report to healthcare team during and post treatment: Nausea/vomiting, muscle cramping, headache, low blood pressure, weakness, dizziness, blurred vision, bleeding access and other concerns. On license of [facility] 2024-12-15 08:33:59 Problem: Procedure Routine Goal: Knowledge of procedure Outcome: Progressing as expected Hemodialysis Plan of care reviewed r/t treatment time, UF goal, dry wgt and fluid restrictions. Also reviewed care of dialysis access during tx. Pt updated during tx as needed with teaching done. Also reviewed possible side effects of HD tx, such as s/s of hypotension, cramping (during tx and at rare times after tx), n/v, CP or any other concerns. Patient acknowledge understanding of treatment plan. On license of [facility] 2024-12-15 07:50:00 Patient going with transport staff and sitter to dialysis. On license of [facility] 2024-12-15 07:36:09 Problem: Falls, Risk of Goal: Absence of falls Outcome: Progressing as expected Problem: Pain Goal: Control of pain at or below patient's documented comfort goal Outcome: Progressing as expected Goal: Reduction in pain sensation Outcome: Progressing as expected Problem: Infection Risk Goal: Absence of infection Outcome: Progressing as expected Problem: Skin integrity Impaired (Risk or Actual) Goal: Wound healing Outcome: Progressing as expected Goal: Prevention of new skin breakdown Outcome: Progressing as expected Problem: Mental Status - Impaired Goal: Able to achieve maximum level of cognitive ability Outcome: Progressing as expected Problem: Bleeding, Risk of Goal: Absence of impaired coagulation signs and symptoms Outcome: Progressing as expected Goal: Absence of active bleeding Outcome: Progressing as expected [facility] [employer] 2024-12-15 07:15:00 Assumed care at this time Patient seen in bed resting with and sitter at bedside. Patient confused but pleasant and able to follow commands. Patient to go for dialysis today. Patient with right side adair cath. Patient also with probable ICD placement today. Call light at bedside. Will continue to monitor. [facility] [employer] 2024-12-15 00:13:34 Problem: Falls, Risk of Goal: Absence of falls Outcome: Progressing as expected Problem: Pain Goal: Control of pain at or below patient's documented comfort goal Outcome: Progressing as expected Goal: Reduction in pain sensation Outcome: Progressing as expected Problem: Infection Risk Goal: Absence of infection Outcome: Progressing as expected Problem: Skin integrity Impaired (Risk or Actual) Goal: Wound healing Outcome: Progressing as expected Goal: Prevention of new skin breakdown Outcome: Progressing as expected Problem: Mental Status - Impaired Goal: Able to achieve maximum level of cognitive ability Outcome: Progressing as expected [facility] Henry Fallon RN [facility] [employer] 2024-12-14 12:10:05 Problem: Falls, Risk of Goal: Absence of falls Outcome: Progressing as expected Problem: Pain Goal: Control of pain at or below patient's documented comfort goal Outcome: Progressing as expected Goal: Reduction in pain sensation Outcome: Progressing as expected Problem: Infection Risk Goal: Absence of infection Outcome: Progressing as expected Problem: Skin integrity Impaired (Risk or Actual) Goal: Wound healing Outcome: Progressing as expected Goal: Prevention of new skin breakdown Outcome: Progressing as expected Problem: Mental Status - Impaired Goal: Able to achieve maximum level of cognitive ability Outcome: Not progressing as expected T Elaine Benton RN [facility] 2024-12-14 02:17:53 Problem: Falls, Risk of Goal: Absence of falls Outcome: Progressing as expected Problem: Pain Goal: Control of pain at or below patient's documented comfort goal Outcome: Progressing as expected Goal: Reduction in pain sensation Outcome: Progressing as expected Problem: Infection Risk Goal: Absence of infection Outcome: Progressing as expected Problem: Skin integrity Impaired (Risk or Actual) Goal: Wound healing Outcome: Progressing as expected Goal: Prevention of new skin breakdown Outcome: Progressing as expected On license of [facility] 2024-12-13 01:56:49 Problem: Falls, Risk of Goal: Absence of falls Reactivated Problem: Pain Goal: Control of pain at or below patient's documented comfort goal Reactivated Goal: Reduction in pain sensation Reactivated Problem: Infection Risk Goal: Absence of infection Reactivated Problem: Skin integrity Impaired (Risk or Actual) Goal: Wound healing Reactivated Goal: Prevention of new skin breakdown Reactivated On license of [facility] 2024-12-12 08:08:47 Images from the original note were not included. TE [facility] [employer] [facility] 2024-12-04 15:13:26 Spoke w pt Tra, she states she is sending the box back with the supplies they have from the event monitor. She states she spoke with [facility] [employer]. T [facility] 2024-12-04 14:31:06 Nathanael Alcocer is a 84 year old male Pts calling requesting to speak with Amber call warm shasha. See encounter from yesterday. Adarsh Archer [facility] 2024-12-04 10:58:02 Called pt and spoke to his Tra, I let her know that she needs to call [employer] and let them know that the event monitor is lost. She states she has the box that was given in clinic and I told her the number is on there. T [facility] 2024-12-03 13:38:12 Called pt and spoke with his Tra, I let her know that we got a fax from [employer] stating that they had not received any transmissions for two days and She states that they lost the monitor. Pt states that the stickers were not sticking well and she is unsure where the monitor went. I notified [facility] and I told the Pt tra that we will call her back. On license of [facility] 2024-08-22 10:23:43 Contacted [facility] nurse Corinna stark to notify there was no instruction to stop medications. [facility] Lala Delcid RN [facility] 2024-08-22 07:12:19 I did not advise patient to discontinue these medications. [facility] 2024-08-15 13:41:01 I spoke with the nurse at [facility] and he curious about the drugs that the patient was instructed to discontinue Dialyvite, Micera, and Venfor. These drugs are administered as part of dialysis. Please advice. ENT ACCOUNTS SPECIALIST Shelby Azul MA [facility] 2024-05-30 14:42:17 Documented last ov 02/19/24 ESRD with hemodialysis, creatinine 3.36, and pt to continue taking eliquis. Will refill eliquis. Naila Valadez RN [facility] 2024-05-30 13:29:58 Ok to refill per Dr. Richardson chart review. Refill request for eliquis received. Refill sent to pharmacy of choice. Patient is compliant as per [facility] Cardiology Protocol. [facility] 2024-05-30 11:46:09 Nathanael Alcocer is a 83 year old male Pt's is calling requesting a refill for Eliquis. Pt took the last one yesterday. Pharmacy told pt to call for a refill request. Please advise [facility]/pharmacy #[id number] - [place] - [address] [facility] [facility] [address] [place] [address] [place] [address] Monet Solorzano [facility] 2024-04-02 12:17:36 Lab orders placed [facility] 2024-04-01 15:42:17 Called patient to schedule their ICD Insertion with Dr. Joiner. Spoke with patient Tra Alcocer which she agreed for patient to have procedure on 05/06/24. Labs are scheduled for 05/01/2024. Court Yusuf [facility] 2024-01-11 16:02:23 [facility] past [facility], request was faxed to [facility] and scanned into chart along with fax confirmation. Caty Hernandez MA [facility] 2024-01-09 10:37:01 Images from the original note were not included. On license of [facility] 2023-12-20 13:44:20 Paper work received. Placed in MD inbox folder for review. T [facility] 2023-12-19 10:24:56 Nathanael Alcocer is a 83 year old male Pt spouse calling to provide fax number Rosita Hernandez [facility] 2023-12-19 10:24:35 Left vm on cell to have office fax clearance form. Spoke with Dr. Cameron office as well. They will be faxing form. T [facility] 2023-12-19 10:06:23 Copied from [facility] #[id number]. Topic: Clinical - Paperwork/Forms >> Dec 19, 2023 10:05 AM Patient Personal Consultant wrote: Nathanael Alcocer is a 83 year old male Pts calling for a cardiac clearance for a fistula operation on his left arm. Only info she had for the DR. Dr Jeanette Cameron Ph [phone] [address] [place] [address] Please advise Carol Sprague [facility] 2023-11-23 14:25:47 Done On license of [facility] 2023-11-23 10:48:40 Can you please schedule him on a day he does not have dialysis session. Sincerely, FERNANDEZ On license of [facility] 2023-11-22 16:20:51 Pt's called to r/s loop recorder procedure from 11/29 to 12/19 due to dialysis. Melina Rey [facility] 2023-11-22 16:05:47 Nathanael Alcocer is a 83 year old male Pt's is calling to reschedule his scheduled procedure Loop recorder insertion on 11/30/23 due to his Dialysis Sun,Sun and Sunday.Please call her to reschedule this taiwo. Lizeth Vegas [facility] 2023-11-20 08:50:24 Images from the original note were not included. Sent to [facility] on 11/19/23. 31 tabs. 11 refills. (1 yr supply) Fabby Stewart MA [facility] 2023-11-19 08:12:07 Pt calling stating they are needing the case on 11/30/23 rescheduled. Please assist. Skye Willett [facility] 2023-11-14 13:31:18 Dc instructions given. Iv removed. Site check done. Patient to lobby in to meet family. No distress noted. ENT ACCOUNTS SPECIALIST Caty Galvez RN [facility] 2023-11-13 08:04:11 [facility] CARDIAC CATH PRE-CALL INSTRUCTIONS [...] Hospital Garage via [address] from either [address] or [address]. Bring your parking ticket with you to be validated, only one parking ticket may be validated per patient. There may be a possibility of hospital admission or late evening discharge; therefore, bring leisure reading and an overnight bag. On the day of your procedure, come directly to the Cardiac Bench Shear Operator opto mechanical technician desk, located on the 6th floor of [facility] (4G- [phone].) You will be escorted to the Cardiac Cath recovery room. Please call the Cardiac Bench Shear Operator at if you have any questions regarding [...] read and verbalizes understanding of teaching provided. [facility] 2023-11-09 10:30:00 Images from the original note were not included. Venipuncture collection performed by clean technique on the left anticubitus. Total of 1 attempts were made. Slight pressure and a bandage/dressing were applied to the site(s). The patient experienced no complications. The following specimens were processed according to instructions and sent to [facility] laboratories per lab order on 11/09/2023 : LT BLUE 1 SST 1 RED LAV 1 PPT DK GREEN (LiHep) DK GREEN (SodH) VÁSQUEZ DK BLUE (K2) DK BLUE (S) ACD Blood Culture NIPT/NTD [facility] 2023-10-26 11:57:38 Future lab orders in. Refill done according to Cardiology Medication Refill Guidelines. ENT ACCOUNTS SPECIALIST Deanna RINGN [facility] 2023-10-26 08:09:05 No Transmission Notification (Day 5) received via fax and reviewed by Dr Richardson. Form scanned into chart. E Hernandez MA [facility] 2023-10-25 12:08:43 Called patient to schedule agreed to 11/13, labs appt moved up to 11/08. E Rey [facility] 2023-10-25 09:04:12 Called patient to schedule, no answer left voicemail with call back information. E Rey [facility] 2023-10-18 11:01:26 Called Patient to schedule Loop Recorder Insertion. Patient agreed to have procedure on 11/30/[address] Joiner. Labs are schedule for 11/23/2023. E Yusuf [facility] 2023-10-11 10:13:06 Appointment made 10/22/23 for follow up visit with Dr Richardson. Reviewed [facility] procedure and rational with . Questions asked and answered E Huber RN [facility] 2023-10-04 15:41:51 Spoke with patient's spouse with verbal permission. She verbalized understanding new medications. Rx sent to [facility] in [place]. Nathanael has been scheduled to see Dr. Joiner on 10/10/23 "Cardiac event monitor showed possible atrial fibrillation/flutter. Recommend to start metoprolol 25 mg twice daily. Start Eliquis 2.5 mg twice daily. Previously I have sent a message asking to make an EP appointment with the patient but I do not see that being made " ENT ACCOUNTS SPECIALIST Susu Mock RN [facility] 2023-10-04 15:32:21 Nathanael Alcocer is a 83 year old male Patient spouse returning phone call Was able to warm transfer to clinic nurse [phone] (home) E Hernandez [facility] 2023-10-04 15:26:30 Attempted to contact patient with results/recommendations. LVM for patient to return call to [phone]. [facility] 2023-10-03 14:37:45 Cardiac event monitor showed possible atrial fibrillation/flutter. Recommend to start metoprolol 25 mg twice daily. Start Eliquis 2.5 mg twice daily. Previously I have sent a message asking to make an EP appointment with the patient but I do not see that being made. [facility] 2023-10-01 08:45:31 Call to patient's to review concerns regarding 30 day monitor. She stated that everything is now working and that they are ok , patient will continue to wear the monitor at this time E Huber RN [facility] 2023-09-28 17:04:24 Nathanael Alcocer is a 83 year old male is calling stating they have took the heart monitor home and was having trouble hooking it up and wifi was not working. stating pt will just not use it and will return it. Please advise ENT ACCOUNTS SPECIALIST Marciano Gould [facility] 2023-09-19 15:40:00 Addended by: CHARLENE RICHARDSON MD on: 09/30/2023 08:44 AM Modules accepted: Orders [facility] 2023-09-18 15:28:40 Contacted patient and rescheduled patients appointments. ENT ACCOUNTS SPECIALIST Roro Feliciano [facility] 2023-09-18 13:45:37 Will route to PSS for assistance ENT ACCOUNTS SPECIALIST Bernadette Mayers MA [facility] 2023-09-18 13:35:30 Nathanael Alcocer is a 83 year old male Pts calling to get echo r/s please advise. ENT ACCOUNTS SPECIALIST Adarsh Archer [facility] 2023-09-18 13:06:55 Spoke with Mrs Alcocer regarding husbands heart rate. Stated that he is in dialysis now but the staff were watching his heart rate increase and slow down on the monitor. Appointment made for 340 Notified if symptomatic, continuing symptoms or worsening concerns to consider ER visit. Verbalized understanding ENT ACCOUNTS SPECIALIST Opal Huber RN [facility] 2023-09-18 12:56:35 Nathanael Alcocer is a 83 year old male Estee with [facility] is calling about Pt . Might be having some Afib but wanted to let Dr. Richardson know .Please advise ENT ACCOUNTS SPECIALIST Amanda Waters [facility] 2023-09-18 12:24:54 Error E Almanzar [facility] 2023-09-18 11:22:23 Nathanael Alcocer is a 83 year old male Estee with [facility] calling to speak with nurse said patient has been going in and out of Afib, need advise. Please call [phone] E Powers [facility] 2023-09-12 14:56:42 Contacted pt on 09/12 to schedule appt. Pt did not answer, lvmtrc. I will contact pt again tomorrow morning to try to schedule. E Can [facility] 2023-09-12 12:38:07 Attempted to contact patient with recommendations. LVM for patient to return call to [phone]. Patient is already scheduled for the echocardiogram on 09/3023. If patient returns call please assist him to schedule the 30 day event monitor that was ordered by Dr. Richardson to further evaluate his elevated heart rates. ENT ACCOUNTS SPECIALIST Susu Mock RN [facility] 2023-09-12 12:38:02 ----- Message from Charlene Richardson MD sent at 09/01/2023 2:45 PM PATIENT ACCOUNTS SPECIALIST ----- I reviewed his hospital records. No echocardiogram report attached. I ordered 30-day cardiac event monitor and echocardiogram. Please schedule if patient is agreeable. ENT ACCOUNTS SPECIALIST [facility] 2023-08-22 10:40:00 Addended by: CHARLENE RICHARDSON MD on: 09/01/2023 02:45 PM Modules accepted: Orders [facility]
[2024-12-23 17:30] LABS: Absolute Basophils 0.1 K/uL (0-0.5); Absolute Eosinophils 0.1 K/uL (0-0.5); Absolute Lymphocytes (CBC) 0.6 K/uL (0.7-4.9); Absolute Monocytes 0.6 K/uL (0.1-1.3); Absolute Neutrophil 3.5 K/uL (1.8-8.0); Basophils % 1.2 % (0-1.3); Eosinophils % 1.9 % (0-4.4); Hematocrit 27.9 % (39.6-49.0); Lymphocytes % 13.1 % (15.3-44.8); MCH 36.8 pg (27.0-35.0); MCHC 35.9 g/dL (32.0-36.0); MCV 102.5 fL (80-100); MPV 7.2 fL (7.6-11.3); Monocytes % 11.6 % (3.3-12.3); Neutrophils % 72.2 % (41.7-73.7); Nucleated Red Blood Cells % 0.1 % (0-0); Platelets 220 thou/uL (152-406); RBC Red Blood Cell Count 2.72 M/uL (4.33-5.43)
[2024-12-23] MEDS ORDERED: NA CHLORIDE 0.9% 250 ML ONE (17:34)
[2024-12-23 17:46] LABS: ALT/SGPT 20 U/L (16-61); Albumin 3.2 g/dL (3.4-5.0); Alkaline Phosphatase 59 U/L (45-117); Anion Gap 12.3 mEq/L (5.0-15.0); BUN Blood Urea Nitrogen 56 mg/dL (7-18); Bicarbonate 26 mEq/L (21-32); Bilirubin Direct 0.2 mg/dL (0-0.2); Bilirubin Indirect, Calculated 0.4 mg/dL (0.2-0.8); Bilirubin Total 0.6 mg/dL (0.2-1.0); Globulin 3.3 g/dL (2.3-3.5); Glomerular Filtration Rate 8 ml/min (=/>90); Glucose Level 154 mg/dL (74-106); Potassium 4.3 mEq/L (3.5-5.1); Protein, Total 6.5 g/dL (6.4-8.2); Sodium Level 135 mEq/L (136-145)
[2024-12-23 17:49] LABS: AST/SGOT < 10 U/L (15-37)
[2024-12-23 17:50] LABS: Troponin High Sensitivity 153.3 pg/mL (<58.9)
--- NOTE | 2024-12-23 17:53 | RAD REPORT ---
EXAMINATION: ONE VIEW CHEST XR CLINICAL INDICATION: weakness TECHNIQUE: Frontal chest projection is submitted. Examination is limited by patient positioning and t echnique. COMPARISON: 03/23/2024 FINDINGS: Mild bilateral pulmonary edema is suspected. The heart is upper limit of normal in size. No displaced fractures identified. Right-sided venous catheters tip in SVC. IMPRESSION: Mild CHF versus volume overload pattern is suspected.
[2024-12-23 19:30] LABS: Specific Gravity 1.009 (1.005-1.030); Sqamous Epithelial None Seen /HPF (None Seen); Urine Bacteria <20 /HPF (<20); Urine Bilirubin NEGATIVE (Negative); Urine Blood 1+ (Negative); Urine Clarity Clear (Clear); Urine Color Light-Yellow (Yellow); Urine Crystals Unidentified Few /HPF (None Seen); Urine Glucose TRACE (Negative); Urine Ketones NEGATIVE (Negative); Urine Micro Reflex YN NO BILL MICROSCOPIC; Urine Nitrite NEGATIVE (Negative); Urine Protein 1+ (Negative); Urine RBC <5 /HPF (None Seen); Urine Urobilinogen Normal (Normal); Urine WBC Clump Rare /HPF (None Seen)
--- NOTE | 2024-12-23 19:38 | ER ---
Nurse's Notes [facility] Name: Nathanael Kamara Age: 84 yrs Sex: Male : 1940 Arrival Date: 12/23/2024 Time: 16:28 Bed 20 Private MD: Diagnosis: Hypotension, resolved;UTI Presentation: 12/23 16:48 Chief complaint: EMS states: toned out to clinic for hypotension and lethargy. patients me1 bp dropped to 74/50 with HR 70. Per clinic EKG showed SR w/PAC and PVC with bigeminy. 20g to RAC w/NS 250ml administered. Coronavirus screen: Vaccine status: Patient reports receiving the 2nd dose of the covid vaccine. Ebola Screen: No symptoms or risks identified at this time. Initial Sepsis Screen: Does the patient meet any 2 criteria? No. Patient's initial sepsis screen is negative. Does the patient have a suspected source of infection? No. Patient's initial sepsis screen is negative. Risk Assessment: Do you want to hurt yourself or someone else? Patient reports no desire to harm self or others. Onset of symptoms was December 23, 2024 at 16:20. 16:48 Method Of Arrival: EMS: [facility] hi1 16:48 Acuity: MAMTA 3 me1 Triage Assessment: 16:51 General: Appears in no apparent distress. well groomed, well developed, well nourished, me1 Behavior is calm, cooperative, appropriate for age. General: Reports episode of low blood pressure that caused patient to feel very lethargic and weak. Pain: Denies pain. EENT: No signs and/or symptoms were reported regarding the EENT system. Neuro: Level of Consciousness is awake, alert, obeys commands, Oriented to person, place, time, situation, Appropriate for age. Cardiovascular: Patient's skin is warm and dry. Respiratory: Airway is patent Respiratory effort is even, unlabored, Respiratory pattern is regular, symmetrical. : Reports HD on M, W, F. Access on left chest wall. Derm: Skin is intact, is healthy with good turgor, Skin is Skin is pink, warm \T\ dry. Musculoskeletal: No signs and/or symptoms reported regarding the musculoskeletal system. 16:51 GI: No signs and/or symptoms were reported involving the gastrointestinal system. me1 Historical: - Allergies: 16:51 CEPHALOSPORINS; me1 - PMHx: 16:51 a fib; Hypertensive disorder; kidney disease; me1 - PSHx: 16:51 dialysis port R chest; me1 - Immunization history:: Adult Immunizations up to date. - Infectious Disease History:: Denies. - Social history:: Smoking status: Patient denies any tobacco usage or history of. - Family history:: not pertinent. Screenin:52 [facility] ED Fall Risk Assessment (Adult) History of falling in the last 3 months, me1 including since admission No falls in past 3 months (0 pts) Confusion or Disorientation No (0 pts) Intoxicated or Sedated No (0 pts) Impaired Gait No (0 pts) Mobility Assist Device Used No (0 pt) Altered Elimination No (0 pt) Score/Fall Risk Level 0 - 2 = Low Risk Maintained a safe environment, Provided non-skid footwear, Hourly rounding (assess needs \T\ fall precautionary measures) done. Abuse screen: Denies threats or abuse. Nutritional screening: No deficits noted. Tuberculosis screening: No symptoms or risk factors identified. Assessment: 16:52 General: See triage assessment. me1 18:00 Reassessment: No changes from previously documented assessment. Patient and/or family me1 updated on plan of care and expected duration. Pain level reassessed. Patient is alert, oriented x 3, equal unlabored respirations, skin warm/dry/pink. Vital Signs: 16:48 BP 114 / 73; Pulse 67; Resp 18; Temp 97.4; Pulse Ox 97% ; Weight 54.43 kg; Height 5 ft. me1 7 in. ; Pain 0/10; 17:00 BP 113 / 62; Pulse 64; Resp 16; Pulse Ox 99% ; me1 18:00 BP 108 / 66; Pulse 62; Resp 14; Pulse Ox 99% ; me1 19:00 BP 185 / 56; Pulse 72; Resp 16; Pulse Ox 99% ; me1 19:54 BP 127 / 72; Pulse 60; Resp 15; Temp 98.2; Pulse Ox 98% ; me1 16:48 Body Mass Index 18.79 (54.43 kg, 170.18 cm) me1 16:48 Pain Scale: Adult hi1 ED Course: 16:37 Patient arrived in ED. bd 16:39 Jose Cruz Jordan MD is Attending Physician. rt 16:41 Rubina Fuller, RN is Primary Nurse. me1 16:51 Triage completed. me1 16:51 Arm band placed on Patient placed in an exam room. me1 16:52 Patient has correct armband on for positive identification. Bed in low position. Call me1 light in reach. Side rails up X2. Provided Education on: POC. Verbalized understanding.. Client placed on continuous cardiac and pulse oximetry monitoring. NIBP monitoring applied. navy diver on. Pulse ox on. NIBP on. 16:52 No provider procedures requiring assistance completed. Maintain EMS IV. Dressing me1 intact. Good blood return noted. Site clean \T\ dry. Gauge \T\ site: 20g LAC. Flushed with 10 mL NS. 17:23 Basic Metabolic Panel Sent. me1 17:23 CBC with Diff Sent. me1 17:23 LFT's Sent. me1 17:23 Troponin HS Sent. me1 17:35 XRAY Chest (1 view) In Process Unspecified. EDMS 17:43 Initial lab(s) drawn, by me, sent to lab. EKG done, by ED staff, reviewed by Jose Cruz Jordan MD. 19:12 Urine collected: clean catch specimen, clear. me1 19:58 IV discontinued, intact, bleeding controlled, No redness/swelling at site. Pressure me1 dressing applied. Administered Medications: 17:43 Drug: NS 0.9% IV 250 ml IV at calculated rate once; to be given as a bolus over 30 me1 minutes Route: IV; Rate: calculated rate; Site: right antecubital; 18:59 Follow up: Response: No adverse reaction; IV Status: Completed infusion; IV Intake: me1 250ml 19:53 Drug: Nitrofurantoin PO 100 mg PO once Route: PO; me1 19:53 Follow up: Response: No adverse reaction me1 Medication: 16:52 VIS not applicable for this client. me1 Intake: 18:59 IV: 250ml; Total: 250ml. me1 Outcome: 19:38 Discharge ordered by . rt 19:58 Discharged to home via wheelchair, with significant other, me1 19:58 Condition: stable 19:58 Discharge instructions given to patient, significant other, Instructed on discharge instructions, follow up and referral plans. medication usage, Demonstrated understanding of instructions, follow-up care, medications, Prescriptions given X 1, 20:05 Patient left the ED. me1 Signatures: Dispatcher [employer] EDMS Janett Kerr Ryan, MD MD rt Rubina Fuller RN RN me1 Corrections: (The following items were deleted from the chart) 20: 16:51 GI: No signs and/or symptoms were reported involving the gastrointestinal system. me1 me1 20: 16:51 : No signs and/or symptoms were reported regarding the genitourinary system. me1me1
--- NOTE | 2024-12-23 19:38 | EDPHYS ---
Physician Documentation [facility] Name: Nathanael Kamara Age: 84 yrs Sex: Male : 1940 Arrival Date: 12/23/2024 Time: 16:28 Bed 20 Private MD: ED Physician Jose Cruz Jordan HPI: 12/23 17:53 This 84 yrs old Male presents to ER via EMS with complaints of Blood Pressure rt Problem. 17:53 Patient presents to the ED with reported hypotension, generalized weakness, lethargy rt that occurred when he was walking into his physical therapy. States that he felt well previous to this. EMS was called, patient's blood pressure subsequently normalized, states that he feels well currently. Denies other acute complaints at this time, symptoms are moderate in severity, no other aggravating alleviating factors.. Historical: - Allergies: 16:51 CEPHALOSPORINS; me1 - PMHx: 16:51 a fib; Hypertensive disorder; kidney disease; me1 - PSHx: 16:51 dialysis port R chest; me1 - Immunization history:: Adult Immunizations up to date. - Infectious Disease History:: Denies. - Social history:: Smoking status: Patient denies any tobacco usage or history of. - Family history:: not pertinent. ROS: 17:53 Constitutional: Negative for fever, chills, and weight loss, Cardiovascular: Negative rt for chest pain, palpitations, and edema, Respiratory: Negative for shortness of breath, cough, wheezing, and pleuritic chest pain, Abdomen/GI: Negative for abdominal pain, nausea, vomiting, diarrhea, and constipation, MS/Extremity: Negative for injury and deformity, Skin: Negative for injury, rash, and discoloration, 17:53 Neuro: Positive for dizziness, weakness, Exam: 17:53 Constitutional: This is a well developed, well nourished patient who is awake, alert, rt and in no acute distress. Head/Face: Normocephalic, atraumatic. Chest/axilla: Normal chest wall appearance and motion. Nontender with no deformity. No lesions are appreciated. Cardiovascular: Regular rate and rhythm with a normal S1 and S2. No gallops, murmurs, or rubs. Normal PMI, no JVD. No pulse deficits. Respiratory: Lungs have equal breath sounds bilaterally, clear to auscultation and percussion. No rales, rhonchi or wheezes noted. No increased work of breathing, no retractions or nasal flaring. Abdomen/GI: Soft, non-tender, with normal bowel sounds. No distension or tympany. No guarding or rebound. No evidence of tenderness throughout. Skin: Warm, dry with normal turgor. Normal color with no rashes, no lesions, and no evidence of cellulitis. MS/ Extremity: Pulses equal, no cyanosis. Neurovascular intact. Full, normal range of motion. Neuro: Awake and alert, GCS 15, oriented to person, place, time, and situation. Cranial nerves II-XII grossly intact. Motor strength 5/5 in all extremities. Sensory grossly intact. Cerebellar exam normal. Normal gait. 17:53 ECG was reviewed by the Attending Physician. Vital Signs: 16:48 BP 114 / 73; Pulse 67; Resp 18; Temp 97.4; Pulse Ox 97% ; Weight 54.43 kg; Height 5 ft. me1 7 in. ; Pain 0/10; 17:00 BP 113 / 62; Pulse 64; Resp 16; Pulse Ox 99% ; me1 18:00 BP 108 / 66; Pulse 62; Resp 14; Pulse Ox 99% ; me1 19:00 BP 185 / 56; Pulse 72; Resp 16; Pulse Ox 99% ; me1 19:54 BP 127 / 72; Pulse 60; Resp 15; Temp 98.2; Pulse Ox 98% ; me1 16:48 Body Mass Index 18.79 (54.43 kg, 170.18 cm) me1 16:48 Pain Scale: Adult me1 MDM: 16:53 Medical Screening Exam initiated rt 20:12 Differential Diagnosis Hypotension, resolved, intravascular bomb depletion, anemia, rt dysrhythmia, UTI. Data reviewed: vital signs, nurses notes, lab test result(s), EKG, radiologic studies. Consideration of Admission/Observation Escalation of care including admission/observation considered. Symptoms resolved, patient is strongly desirous of discharge, will treat patient for UTI. Patient with elevated troponin, however, this is the lowest finding he has ever had, suspect this is due to impaired clearance due to ESRD. He has no chest pain, do not suspect acute coronary syndrome, he does not require further evaluation for this.. Management of patient was discussed with the following: Primary Care Provider: Is okay with discharge, will follow patient up in the office. I considered the following discharge prescriptions or medication management in the emergency department Medications were administered in the Emergency Department. See MAR. Independent interpretation of the following test(s) in the Emergency Department X-Ray: My interpretation is No infiltrate seen on interpretation of x-ray images. Care significantly affected by the following chronic conditions: Chronic Kidney Disease. Counseling: I had a detailed discussion with the patient and/or guardian regarding the historical points, exam findings, and any diagnostic results supporting the discharge/admit diagnosis, lab results, radiology results, the need for outpatient follow up, to return to the emergency department if symptoms worsen or persist or if there are any questions or concerns that arise at home. Response to treatment: the patient's symptoms have resolved after treatment. 12/23 17: Order name: Basic Metabolic Panel; Complete Time: 17:52 rt 12/23 17: Order name: CBC with Diff; Complete Time: 17:52 rt 12/23 17: Order name: LFT's; Complete Time: 17:52 rt 12/23 17: Order name: Troponin HS; Complete Time: 17:52 rt 12/23 17: Order name: UAM; Complete Time: 19:31 rt 12/23 17:01 Order name: XRAY Chest (1 view); Complete Time: 17:55 rt 12/23 17:01 Order name: Cardiac monitoring; Complete Time: 17:43 rt 12/23 17:01 Order name: EKG - Nurse/Tech; Complete Time: 17:43 rt 12/23 17:01 Order name: IV Saline Lock; Complete Time: 17: rt 12/23 17: Order name: Labs collected and sent; Complete Time: 17:23 rt 12/23 17: Order name: O2 Per Protocol; Complete Time: 17:23 rt 12/23 17:01 Order name: O2 Sat Monitoring; Complete Time: 17:23 rt EC:53 Rate is 61 beats/min. Rhythm is regular, 1st Degree Block with No ectopy, Right bundle rt branch block. QRS [place] is Normal. PA interval is prolonged at 266 msec. QRS interval is normal. QT interval is normal. No Q waves. Administered Medications: 17:43 Drug: NS 0.9% IV 250 ml IV at calculated rate once; to be given as a bolus over 30 me1 minutes Route: IV; Rate: calculated rate; Site: right antecubital; 18:59 Follow up: Response: No adverse reaction; IV Status: Completed infusion; IV Intake: me1 250ml 19:53 Drug: Nitrofurantoin PO 100 mg PO once Route: PO; me1 19:53 Follow up: Response: No adverse reaction me1 Disposition Summary: 12/23/24 19:38 Discharge Ordered Notes: Location: Home rt Problem: new rt Symptoms: have improved rt Condition: Stable rt Diagnosis - Hypotension, resolved rt - UTI rt Followup: rt - With: Private Physician - When: 2 - 3 days - Reason: Discharge Instructions: - Discharge Summary Sheet rt - Hypotension rt - Urinary Tract Infection, Adult rt Forms: - Medication Reconciliation Form rt - Antibiotic Education rt - Prescription Opioid Use rt - Patient Portal Instructions rt - Leadership Thank You Letter rt Prescriptions: - Macrobid 100 mg Oral Capsule - take 1 capsule ORAL route every 12 hours for 7 days; 14 capsule; Refills: 0, rt Product Selection Permitted Signatures: Dispatcher [employer] EDJose Cruz Ventura MD MD rt Rubina Fuller RN RN me1 Corrections: (The following items were deleted from the chart) 17:02 17:02 BASIC METABOLIC PANEL+C.LAB.BRZ ordered. EDMS EDMS 17:02 17:02 CBC+H.LAB.BRZ ordered. EDMS EDMS 17:02 17:02 HEPATIC FUNCTION+C.LAB.BRZ ordered. EDMS EDMS 17:02 17:02 Troponin High Sensitivity+C.LAB.BRZ ordered. EDMS EDMS 17:02 17:02 Urinalysis W/Microscopic+U.LAB.BRZ ordered. EDMS EDMS 17:02 17:02 Chest Single View+RAD.RAD.BRZ ordered. EDMS EDMS
[2024-12-23] MEDS ORDERED: NITROFURAN MACRO 100 MG CAP PO ONE (19:52)
[2024-12-23 20:34] VITALS: BP 127/72; TEMP 98.2; O2SAT 98
== END 2024-12-23 20:05 | disposition home or self-care (01) ==
LOC: ER 16:28
DX: N39.0 Urinary tract infection, site not specified (principal); I12.9 Hypertensive chronic kidney disease with stage 1 through stage 4 chronic kidney disease, or unspecified chronic kidney disease; N18.9 Chronic kidney disease, unspecified
CPT/HCPCS: 93005; 85025; 81001; 80048; 36415; 80076; 84484; 71045; J7050

== ENCOUNTER 2025-04-28 10:25 | Day surgery (SDC) | payer OTHER ==
[2025-04-16 13:37] LABS: Absolute Lymphocytes (CBC) 0.6 K/uL (0.7-4.9); Hematocrit 26.6 % (39.6-49.0); Hemoglobin 9.0 g/dL (13.6-17.9); MCH 35.7 pg (27.0-35.0); MCHC 33.8 g/dL (32.0-36.0); MCV 105.4 fL (80-100); MPV 8.1 fL (7.6-11.3); Nucleated RBC Absolute Count 0.0 (0-0); Nucleated Red Blood Cells % 0.0 % (0-0); RBC Red Blood Cell Count 2.52 M/uL (4.33-5.43); White Blood Count 13.50 thou/uL (4.3-10.9)
[2025-04-16 13:53] LABS: PT Prothrombin Time 14.3 SECONDS (10-13.0); PTT, Activated Partial Thromb 33.7 SECONDS (27.2-37.4); Protime INR 1.27
[2025-04-16 14:00] LABS: Anion Gap 10.5 mEq/L (5.0-15.0); BUN Blood Urea Nitrogen 37.0 mg/dL (7-18); Glucose Level 123.0 mg/dL (74-106); Potassium 4.5 mEq/L (3.5-5.1)
[2025-04-16 14:23] LABS: White Blood Cell Scan OK (OK)
[2025-04-16 14:24] LABS: Blood Morphology Comment NOTED (NOT SEEN); Ovalocytes SLIGHT
[2025-04-28] MEDS: NA CHLORIDE 0.9% 500 ML ONE (11:51)
[2025-04-28] MEDS ORDERED: ONDANSETRON 4 MG/2 ML VIAL ONE (12:45)
[2025-04-28] MEDS ORDERED: FENTANYL CITR 100 MCG/2 ML ONE (12:46)
[2025-04-28] MEDS ORDERED: LIDOCAINE 1% MPF 5 ML VIAL ONE (12:55)
[2025-04-28] MEDS: CEFTRIAXONE 1000 MG/VIAL ONE (13:04)
[2025-04-28] MEDS ORDERED: EPHEDRINE SULF 50 MG/ML VIAL ONE (13:16)
[2025-04-28] MEDS ORDERED: CODEINE 30MG/APAP 300MG TAB PO PRN (15:16)
--- NOTE | 2025-04-28 15:31 | P.OP ---
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 Gordon. The patient was also on hemodialysis, every Sunday and Sunday, and because of the degree of obstruction, a catheter was placed into the bladder cystoscopically over a wire. He received IV antimicrobial with ertapenem yesterday because of a reported allergy to cephalosporins, and we will continue with an additional dose of IV antimicrobial tomorrow after dialysis, a completion of a 3-day course in preparation for voiding trial on Sunday. Procedure note: The patient was consented in the preoperative holding area before being transferred to the operative suite where general anesthesia was induced. He was given ceftriaxone 1 g IV antimicrobial prophylaxis and pneumoboots were provided for DVT prophylaxis. Of note, no allergic reaction was noted to the administration of the IV ceftriaxone. He was placed in the lithotomy position, padded and secured to the table appropriately. His genitalia was prepped with Hibiclens and Betadine and draped in standard fashion. The case was begun using urethral sounds to dilate the meatus and fossa navicularis to 30 [place]. Then, using a visual obturator and a 26 [place] bipolar resectoscope sheath, the urethra was traversed and the striated sphincter was navigated beyond ultimately through the prostatic urethra where a significantly elevated bladder neck was observed to identify the slightly dilated bladder neck contracture associated with the prior urethral Ba[place] catheter being in place. I was able to navigate through the contracture and into the bladder at which point I decompressed it of fluid and urine. I then refilled the bladder with sterile saline and switched the visual obturator for a thick bipolar resection loop. I then began to resect the bladder neck contracture inferiorly, and I continued the resection down to the level of the trigone. I then resected from the trigone down to the verumontanum to create a smooth trough in the midline. I then returned to the bladder neck which I resected from posterior inferior up the left lateral lobe and including resection of the anterior contracture at the bladder neck. Similar resection was performed of the patient's right side removing the contracture and opening the bladder neck widely. Once this was done, I then continued the resection in the mid and apical aspects of the prostate, removing any interdigitating lateral lobar hypertrophy throughout the resection bilaterally. Additional resection was performed apically to ensure a patent fossa was achieved from the verumontanum into the bladder neck, though effort was taken to leave the tissue approximating in the midline but not touching at the apex. Careful fulguration was performed at multiple phases throughout the resection and the Ilich evacuation of the prostate chips was performed at multiple phases. In the end, once a beautiful smooth trough had been created from the verumontanum through into the bladder neck and all prostate chips had been removed from inside the bladder, I confirm the ureteral orifice ease were uninjured. I then with the bladder decompressed performed careful fulguration of any and all venous oozing. I then refilled the bladder and removed the resectoscope under direct vision. I then passed a 24 [place] three-way Ba[place] catheter via his urethra into his bladder with ease. 30 cc of sterile water was placed in the balloon. The catheter was then connected to his left upper thigh on traction after I took him out of the lithotomy position. This was then connected to slow drip CBI and the urine was crystal-clear. He was then awakened from general anesthesia, transferred to a stretcher, and then transferred to the recovery room in good condition. Complications: None Discharge disposition: We will continue with IV antimicrobial therapy planned for tomorrow, but instead of the very broad-spectrum ertapenem, since he had no reaction to the ceftria xone, we will give him an additional dose of ceftriaxone 1 g IV tomorrow, 04/29/2025, after he completes dialysis. This will cover him through , and we will plan on a voiding trial on Sunday hopefully before he goes to dialysis. Subsequent follow-up should be established in about 3 months time unless he is having difficulty voiding and the catheter needs to be reinserted, in which case he should follow-up sooner.
[2025-04-28 17:22] VITALS: BP 123/67; TEMP 97.1; O2SAT 97
== END 2025-04-28 17:00 | disposition home or self-care (01) ==
LOC: OR 10:25
PROVIDERS: ATTEND Urology
PROC: 0VB07ZZ Excision of Prostate, Via Natural or Artificial Opening (ICD-10-PCS; 2025-04-28)
PROC: 0TBC8ZZ Excision of Bladder Neck, Via Natural or Artificial Opening Endoscopic (ICD-10-PCS; principal; 2025-04-28 12:45)
DX: N40.1 Benign prostatic hyperplasia with lower urinary tract symptoms (principal); N39.0 Urinary tract infection, site not specified; R31.0 Gross hematuria; N13.8 Other obstructive and reflux uropathy
CPT/HCPCS: 52630; 93005; 85025; 80048; 36415 ×2; 84132; 85610; 85730; J2704; J2003; J3010; J2405; J7040; J0696; 88305